=== PATIENT | male | born 1965 | race Caucasian/White ===

== ENCOUNTER → 2023-11-15 | Outpatient (CLI) | payer OTHER, SELFPAY ==
--- NOTE | 2023-11-17 13:45 | EKG12_ITS ---
Test Reason : PRE OP Blood Pressure : / mmHG Vent. Rate : 069 BPM Atrial Rate : 069 BPM P-R Int : 154 ms QRS Dur : 088 ms QT Int : 400 ms P-R-T Axes : 052 026 007 degrees QTc Int : 428 ms Normal sinus rhythm Normal ECG Confirmed by Abdias Crook ([id number]), movie editor BRENDA DUBOIS ([id number]) on 11/21/2023 2:01:45 PM Referred By: Alexi Armendariz Confirmed By:Abdias Crook
[2023-11-17 15:58] LABS: Hematocrit 45.4 % (40-54); Hemoglobin 13.8 g/dL (13.0-16.5); Mean Corp Hgb Conc 30.4 g/dL (32-36); Mean Corpuscular Hgb 25.2 pg (27.0-32.0); Mean Corpuscular Volume 82.8 fL (80-94); Mean Platelet Vol. 12.9 fl (6.2-12.0); Platelet Count 234 K/mm3 (150-450); RBC Distribution Width CV 14.9 % (11.6-14.6); RBC Distribution Width SD 45.1 fl (35.1-43.9); Red Blood Count 5.48 M/mm3 (4.6-6.2); White Blood Count 5.1 K/mm3 (4.4-11.0)
[2023-11-17 16:44] LABS: Anion Gap 5 (5-15); BUN 17 mg/dL (7-18); BUN/Creat Ratio 13.3 RATIO (10-20); Calcium,Total 8.7 mg/dL (8.5-10.1); Chloride 104 mmol/L (98-107); Creatinine, Serum 1.28 mg/dL (0.70-1.30); EST Glomerular Filtration Rate 61 mL/min (>60); Est Glom Filt Rate - Afr Amer 74 mL/min (>60); Glucose 81 mg/dL (74-106); Sodium Level 139 mmol/L (136-145); T4 Total, Thyroxin 9.2 ug/dL (4.5-12.1); Thyroid Stim Hormone (TSH) 0.95 uIU/mL (0.358-3.74)
== END | disposition home or self-care (01) ==
LOC: SDC 05-02 08:50
PROVIDERS: PCP Family Medicine; Referring Provider Surgery; Visit Provider Surgery
DX: Z01.818 Encounter for other preprocedural examination (principal)
CPT/HCPCS: 36415; 80048; 84436; 84443; 85027; 93005

== ENCOUNTER → 2023-12-09 | Outpatient (CLI) | payer OTHER, SELFPAY ==
--- NOTE | 2023-12-09 07:47 | RAD_ITS ---
PROCEDURE: Air contrast Upper GI with Small Bowel Follow Through DATE OF EXAMINATION: December 09, 2023.. INDICATION: Male, 58 years old. History of proximal small bowel mass on recent CT scan. FLUOROSCOPY TIME (if supplied): (1:32) minutes/seconds. 37.16 mGy. 13 images were obtained. TECHNIQUE: Radiographic and fluoroscopic images of the distal esophagus, stomach, and entire small intestine were obtained following the oral ingestion of barium. COMPARISON: None. FINDINGS: The cricket coach film of the abdomen demonstrates a normal bowel gas pattern. There are no abnormal calcifications or organomegaly demonstrated. There is evidence of prior open reduction and internal fixation of bilateral rib fractures. The esophagus is unremarkable. No evidence of esophageal mass. No evidence of gastroesophageal reflux. The stomach and duodenum are unremarkable. A small bowel follow-through examination was then obtained. There is evidence of circumferential narrowing of the small bowel loop in the right mid abdomen at the level of the jejunum. This corresponds to the CT findings. The terminal ileum is unremarkable. The transit time is normal at 60 minutes. RAD/Upper GI/w Small Bowel IMPRESSION: 1. Circumferential narrowing of a small bowel loop in the right mid abdomen corresponding to the CT findings. No evidence of obstruction. Electronically Signed: Nik Gutiérrez MD at 10:11 EDT ,
== END | disposition home or self-care (01) ==
PROVIDERS: PCP Family Medicine; Referring Provider Surgery; Visit Provider Surgery
DX: K63.89 Other specified diseases of intestine (principal)
CPT/HCPCS: 74246; 74248

== ENCOUNTER 2023-12-12 13:21 | Day surgery (SDC) | payer OTHER, SELFPAY ==
[2023-12-12] VITALS (8 sets, daily range): BP systolic 80–119; BP diastolic 38–74; PULSE 60–73; RESP 8–16; TEMP 36.2–36.9; O2SAT 64–96; BMI 30.9
[2023-12-12] MEDS: Lactated Ringers 1,000 ML 15 ML IV (14:19)
--- NOTE | 2023-12-12 14:39 | PCM.HP.BLA ---
History and Physical Date of Admission: 12/12/23 isit Reasons: MESENTERIC MASS Chief Complaint: mesenteric mass Protection Manager Required: No Accompanied by: Is patient in pain?: No Allergies No Known Allergies Allergy (Verified 12/05/23 12:39) Medications cyclobenzaprine 10 mg tablet 10 mg PO HS PRN muscle spasm 10/03/23 [History Confirmed 12/05/23] dicyclomine 10 mg capsule 10 mg PO BID PRN abdominal pain 10/03/23 [History Confirmed 12/05/23] losartan 100 mg tablet 100 mg PO DAILY 10/03/23 [History Confirmed 12/05/23] omeprazole 40 mg capsule,delayed release 40 mg PO DAILY 10/03/23 [History Confirmed 12/05/23] pramipexole 0.5 mg tablet 0.5 mg PO QHS 10/03/23 [History Confirmed 12/05/23] FOR[facility] Medical History (Updated 12/05/23 @ 05:[address] Alexi Armendariz MD) GERD (gastroesophageal reflux disease) History of echocardiogram History of rib fracture History of ulceration Hypertension Non-smoker Restless legs Right thyroid nodule Thyroid disease Wears glasses Surgical History H/O colonoscopy Family History Sister Thyroid disorder Social History Smoking Status: Never smoker alcohol intake: never substance use type: does not use HPI HPI HPI: 58-year-old gentleman who was initially referred to me October 03, 2023 for progressive enlarging right thyroid nodule. After discussion we elected to do a right thyroid lobectomy. He was actually on the schedule but I had to cancel at my request. Almost simultaneously then we were notified per Dr. Satya Clemens and Dr. Humberto Peguero regarding a new referral for patient's chronic abdominal pain. At [facility] the patient had a CT abdomen pelvis performed on November 19, 2023 because of left lower quadrant abdominal pain and bloating. The images demonstrate a large left renal cyst in the lower pole measuring 12 cm. Additionally however there is a mesenteric mass adjacent to a loop of small bowel measuring 2.6 cm in diameter. Margins are irregular and there is stranding present. This impinges upon the right side of an adjacent loop of small bowel. A 7 mm mesenteric lymph node slightly cephalad to the mass is identified. No free fluid. An additional there is a sizable fat-containing umbilical hernia. There is a left inguinal hernia. An ultrasound report from March 18, 2021 at that time identified a large left renal cyst measuring 10.3 x 8.2 x 10 cm at that time. Information provided suggest that 2018 he got sick on vacation with nausea and vomiting. He claims that every few months since that time he had some cramps and abdominal pain. His chest trauma was 3 years ago and at that time CT did not demonstrate the mesenteric mass. He claims that he had an episode over of 2022 and then again about 6 weeks ago. He gets cramping in the abdomen and nausea. He has been prescribed dicyclomine to help with the cramping. He has had no weight loss. No bright red blood per rectum or melena. No fever, chills, sweats, flushing, tachycardia, dizziness, or diarrhea He has undergone allergy testing which by report was not remarkable. 24-hour urine is pending. He had a EGD and C-scope back in 2009. His serotonin level is elevated 1250. 5HIAA was high at 28. ROS General General: Yes fatigue; No weight change, appetite, colon cancer, breast cancer or weakness HEENT HEENT: No difficulty swallowing, eye injury, eye surgery, swollen glands or hoarseness Endo Endocrine: Yes thyroid disease; No diabetes mellitus, thyroid cancer, Hair loss, heat intolerance or cold intolerance Skin Skin: No rash or changing moles Musc Musculoskeletal: No back problems, arthritis, rheumatoid arthritis, gout or joint pain Cardio Cardiovascular: Yes high blood pressure; No murmur, pacemaker, heart disease, atrial fibrillation, heart attack, heart stent, palpitations, shortness of breat with exertion or chest pain Psych Psychiatric: No depression, anxiety or hearing voices Resp Respiratory: No shortness of breath, No sleep apnea, No cough, No COPD, No asthma, No emphysema and No wheezing Gastro Gastrointestinal: Yes abdominal pain, Yes nausea or vomiting, Yes diarrhea and Yes acid reflux Aramis Hematologic: No blood thinners, No blood disorders, No bleeding, No anemia and No blood clots Neuro Neurologic: No numbness, No tingling and No weakness Exam Const General: cooperative, healthy appearing, comfortable and no acute distress Nutritional Appearance: average body habitus Orientation: alert and awake HENMT Other: Right thyroid enlargement Neck Neck: normal visual inspection Chest Chest palpation & inspection: normal inspection of the chest Resp Effort & Inspection: normal respiratory effort Auscultation: clear to auscultation bilaterally Cardio Rate: regular rate Rhythm: regular rhythm GI Other: Soft, nontender, incarcerated umbilical hernia not reducible nontender, no focal mass. Bowel sounds present unremarkable. Other: Testicles are atrophic and descended. Left inguinal hernia nontender reducible. Right groin seemingly solid. Musc Cervical Spine: normal cervical lordosis Skin General: no rashes or lesions noted Neuro General: patient alert, patient awake and patient oriented x3 Extrem General: no calf tenderness Psych Appearance: grossly normal Assessment and Plan Assessment and Plan (1) Mesenteric mass: Status: Acute (2) GERD (gastroesophageal reflux disease): Status: Acute Qualifiers: Esophagitis presence: esophagitis presence not specified Qualified Code(s): K21.9 - Gastro-esophageal reflux disease without esophagitis (3) Right thyroid nodule: Status: Acute (4) Umbilical hernia without obstruction or gangrene: Status: Acute (5) Inguinal hernia of left side without obstruction or gangrene: Status: Acute (6) Renal cyst, acquired, left: Status: Acute Plan: Laboratory suggest neuroendocrine tumor. I propose for him a combined esophagogastroduodenoscopy and colonoscopy with possible biopsy or polypectomy. Recommend a small bowel follow-through to assess for other small bowel pathology. Subsequently will have him scheduled for a laparoscopy to help to find the position of the lesion within conversion to a laparotomy for enterectomy with excision of the mass and hopefully lymph node burden. Patient is aware that that same setting it is likely that his incarcerated umbilical hernia will need to be addressed however we will not utilize mesh. We will not be addressing his left inguinal hernia at that time nor his right thyroid nodule. With the duration of time that he has had his very large left renal cyst does not appear that that is adding to his current discomfort. He is aware of technique, benefit, risk, alternatives. He has an opportunity to ask and have questions answered. I very much appreciate the kind opportunity of assisting with the surgical care. Copy: Dr. Satya Clemens and Dr. Humberto Armendariz M.D., F.A.C.S. On December 09, 2023 the patient had a small bowel follow-through. There is evidence of ORIF bilateral rib fractures. Stomach and duodenum not remarkable. There is evidence of circumferential narrowing of the small bowel loop in the right mid abdomen at the level of the jejunum. Transit time was 60 minutes. We will proceed today with a combined esophagogastroduodenoscopy with possible biopsy and colonoscopy with possible biopsy or polypectomy Alexi Armendariz M.D., F.A.C.S.
--- NOTE | 2023-12-12 15:00 | EGD_PTH ---
PATIENT: LYNDA WOODARD LOC: EN U#:[id number] AGE/SX: 58/M ROOM: RE12/12/[address]: Dr. Alexi Armendariz MD : 1965 BED: DIS: 12/12/2023 SPEC #: [id number] RECD: 12/12/23 15:40 STATUS: EDMUND PUCKETTDavid #: [id number] MARLA: 12/12/23 15:[address]: Alexi Armendariz DEPT: SURGICAL PATHOLOGY RECD BY: Mel Lindsey ENTERED: 12/13/23 08:39 SP TYPE: EGD BIOPSY OT DR: Dr. Satya Clemens MD Tissues: A - Gastric mucous membrane B - Esophagus, NOS C - Esophagus, NOS D - Ileum, NOS E - Descending colon Procedures: Special Stain Group II Surgery Specimen Level IV Alcian Blue/PAS (control) HEADER OPERATION: Colonoscopy, EGD, biopsies PRE-OP DIAGNOSIS: Mesenteric mass, GERD TISSUE SUBMITTED: A- Antral biopsy, B- Greater curvature polyp biopsy, C- Distal esophagus biopsy, D- Terminal ileum biopsy, E- Descending colon polyp biopsy MICROSCOPIC DIAGNOSIS A. Antrum biopsy: Mild gastritis. See microscopic description and comment. B. Greater curvature polyp, biopsy: Fragments of fundic gland polyp. C. Distal esophagus, biopsy: Fragments of gastroesophageal mucosa with chronic inflammation. Intestinal metaplasia (goblet cell metaplasia) not identified. See comment. D. Terminal ileum, biopsy: Fragments of small intestinal mucosa, no pathologic diagnosis. E. Descending colon polyp, biopsy: A fragment of colonic mucosa, no pathologic diagnosis. SJ/mr 12/14/23 COMMENT A. The results of immunohistochemistry for Helicobacter pylori will be reported separately ([id number]). C. Alcian blue/PAS stain with matched control is used in the evaluation of the specimen. The specimen predominantly consists of squamous mucosa. MICROSCOPIC DESCRIPTION Slides are reviewed. A. The specimen shows fragments of gastric mucosa with chronic inflammatory cell infiltrates in the lamina propria consisting of lymphocytes and plasma cells, consistent with mild chronic gastritis. GROSS DESCRIPTION A. Received in fixative is one container labeled with the patient's name and designated Antrum biopsy. The specimen consists of one irregular fragment of light shell soft tissue that measures 0.3 x 0.3 x 0.1 cm. The specimen is totally submitted in one cassette. B. Received in fixative is one container labeled with the patient's name and designated Greater curvature polyp biopsy. The specimen consists of two irregular fragments of light shell soft tissue that in aggregate measure 0.8 x 0.3 x 0.1 cm. The specimen is totally submitted in one cassette. C. Received in fixative is one container labeled with the patient's name and designated Distal esophagus biopsy. The specimen consists of multiple irregular fragments of light shell soft tissue that in aggregate measure 1.0 x 0.3 x 0.1 cm. The specimen is totally submitted in one cassette. D. Received in fixative is one container labeled with the patient's name and designated Terminal ileum biopsy. The specimen consists of two irregular fragments of light shell soft tissue that in aggregate measure 0.6 x 0.3 x 0.1 cm. The specimen is totally submitted in one cassette. E. Received in fixative is one container labeled with the patient's name and designated Descending colon polyp biopsy. The specimen consists of one irregular fragment of light shell soft tissue that measures 0.2 x 0.2 x 0.1 cm. The specimen is totally submitted in one cassette. FALLON/ 12/13/23 TC:3 CPT: 07654 x5, 57641
--- NOTE | 2023-12-12 15:00 | IMM_PTH ---
PATIENT: LYNDA WOODARD LOC: EN U#:[id number] AGE/SX: 58/M ROOM: RE12/12/[address]: Dr. Alexi Armendariz MD : 1965 BED: DIS: 12/12/2023 SPEC #: [id number] RECD: 12/13/23 08:55 STATUS: EDMUND REDavid #: [id number] MARLA: 12/12/23 15:[address]: Alexi Armendariz DEPT: IMMUNOHISTOCHEMISTRY RECD BY: Alli Gil ENTERED: 12/13/23 08:55 SP TYPE: IMMUNO OTHR DR: Dr. Satya Clemens MD Tissues: A - Stomach, NOS Procedures: H Pylori (initial) PHYSICIAN & INSTITUTION [place] [id number] SPECIMEN INFORMATION: Tissue Source: A- Antral biopsy Clinical Info: Mesenteric mass, GERD Specimen Number: [id number] CPT code: 26517 METHODOLOGY: Deparaffinized sections of prefer/formalin-fixed tissue or PAP/DQ stained slides are incubated with monoclonal/polyclonal antibodies/oligonucleotide probes. Localization is made via biotin free immunoperoxidase method. Appropriate controls are performed and reacted as expected. Results on target cell population are indicated in the following table: RESULTS: ANTIBODY / CLONE RESULT Block A H Pylori (polyclonal) negative These tests were developed and their performance characteristics determined by [facility]. They may not have been cleared or approved by the U.S. Food and Drug Administration. The FDA has determined that such clearance or approval is not necessary. The above immunohistochemical/dualISH markers are ordered and reviewed by the Pathologist. INTERPRETATION: A. Antral biopsy: Negative for Helicobacter pylori organisms. FALLON/ 12/14/23
--- NOTE | 2023-12-12 15:31 | OP.EGD_ITS ---
Patient Name: James Varela Procedure Date: 12/12/2023 2:51 PM Date of : 1965 Age: 58 Procedure: Upper GI endoscopy Indications: Generalized abdominal pain Providers: Alexi Armendariz MD Referring MD: Satya Clemens Md Medicines: See the Anesthesia note for documentation of the administered medications Complications: No immediate complications. Procedure: Pre-Anesthesia Assessment: - Prior to the procedure, a History and Physical was performed, and patient medications and allergies were reviewed. The patient's tolerance of previous anesthesia was also reviewed. The risks and benefits of the procedure and the sedation options and risks were discussed with the patient. All questions were answered, and informed consent was obtained. Prior Anticoagulants: The patient has taken no anticoagulant or antiplatelet agents. ASA Grade Assessment: II - A patient with mild systemic disease. After reviewing the risks and benefits, the patient was deemed in satisfactory condition to undergo the procedure. After obtaining informed consent, the endoscope was passed under direct vision. Throughout the procedure, the patient's blood pressure, pulse, and oxygen saturations were monitored continuously. The gastroscope was introduced through the mouth, and advanced to the second part of duodenum. The upper GI endoscopy was accomplished without difficulty. The patient tolerated the procedure well. Scope In: 2:59:19 PM Scope Out: 3:07:29 PM Total Procedure Duration Time 0 hours 8 minutes 10 seconds Findings: LA Grade A (one or more mucosal breaks less than 5 mm, not extending between tops of 2 mucosal folds) esophagitis with no bleeding was found 39 cm from the incisors. Biopsies were taken with a cold forceps for histology. A 2 cm hiatal hernia was present. The gastric antrum was normal. Biopsies were taken with a cold forceps for histology. Multiple sessile polyps with no bleeding and no stigmata of recent bleeding were found on the greater curvature of the stomach. The polyp was removed with a cold biopsy forceps. Resection and retrieval were complete. The examined duodenum was normal. Impression: - LA Grade A reflux esophagitis with no bleeding. Biopsied. - 2 cm hiatal hernia. - Normal antrum. Biopsied. - Multiple gastric polyps. Resected and retrieved. - Normal examined duodenum. Recommendation: - Telephone my office for pathology results in 1 week. - Continue present medications. Procedure Code(s): --- Professional --- 61999, Esophagogastroduodenoscopy, flexible, transoral; with biopsy, single or multiple Diagnosis Code(s): --- Professional --- K21.00, Gastro-esophageal reflux disease with esophagitis, without bleeding K44.9, Diaphragmatic hernia without obstruction or gangrene K31.7, Polyp of stomach and duodenum R10.84, Generalized abdominal pain CPT copyright 2021 [employer]. All rights reserved. The codes documented in this report are preliminary and upon pre coder review may be revised to meet current compliance requirements. Alexi Armendariz MD 12/12/2023 3:30:47 PM This report has been signed electronically. Number of Addenda: 0 Note Initiated On: 12/12/2023 2:51 PM
--- NOTE | 2023-12-12 15:31 | OP.CCLET_ITS ---
12/12/2023 Satya Clemens Md Re : Upper GI endoscopy procedure for James Varela Dear Sarath This procedure was performed on Tuesday, December 12, 2023. My impressions and recommendations are as follows: Impressions : - LA Grade A reflux esophagitis with no bleeding. Biopsied. - 2 cm hiatal hernia. - Normal antrum. Biopsied. - Multiple gastric polyps. Resected and retrieved. - Normal examined duodenum. Recommendations : - Telephone my office for pathology results in 1 week. - Continue present medications. My findings are described in the full procedure note, which is enclosed. If I can be of further assistance, please feel free to contact me at Doctor phone number(s): Work: . Sincerely, Alexi Armendariz MD 12/12/2023 3:30:47 PM This report has been signed electronically.
--- NOTE | 2023-12-12 15:34 | OP.CCLET_ITS ---
12/12/2023 Satya Clemens Md Re : Colonoscopy procedure for James Varela Dear Sarath This procedure was performed on Tuesday, December 12, 2023. My impressions and recommendations are as follows: Impressions : - Hemorrhoids found on perianal exam. - One 3 mm polyp in the mid descending colon, removed with a cold biopsy forceps. Resected and retrieved. - The examined portion of the ileum was normal. Biopsied. - The examination was otherwise normal. Recommendations : - Discharge patient to home. - Resume previous diet. - Continue present medications. - Repeat colonoscopy in 5 years for surveillance based on pathology results. - Telephone my office for pathology results in 1 week. No findings that correlate with small bowel pathology. My findings are described in the full procedure note, which is enclosed. If I can be of further assistance, please feel free to contact me at Doctor phone number(s): Work: . Sincerely, Alexi Armendariz MD 12/12/2023 3:34:05 PM This report has been signed electronically.
--- NOTE | 2023-12-12 15:34 | OP.COLON_ITS ---
Patient Name: James Varela Procedure Date: 12/12/2023 3:08 PM Date of : 1965 Age: 58 Procedure: Colonoscopy Indications: Abnormal CT of the GI tract Providers: Alexi Armendariz MD Referring MD: Satya Clemens Md Medicines: See the Anesthesia note for documentation of the administered medications Patient Profile: Last Colonoscopy: none. The patient's first colonoscopy is today. Complications: No immediate complications. Procedure: Pre-Anesthesia Assessment: - Prior to the procedure, a History and Physical was performed, and patient medications and allergies were reviewed. The patient's tolerance of previous anesthesia was also reviewed. The risks and benefits of the procedure and the sedation options and risks were discussed with the patient. All questions were answered, and informed consent was obtained. Prior Anticoagulants: The patient has taken no anticoagulant or antiplatelet agents. ASA Grade Assessment: II - A patient with mild systemic disease. After reviewing the risks and benefits, the patient was deemed in satisfactory condition to undergo the procedure. After I obtained informed consent, the scope was passed under direct vision. Throughout the procedure, the patient's blood pressure, pulse, and oxygen saturations were monitored continuously. The Colonoscope was introduced through the anus and advanced to the cecum, identified by appendiceal orifice and ileocecal valve. The colonoscopy was performed without difficulty. The patient tolerated the procedure well. The quality of the bowel preparation was good. The terminal ileum, the ileocecal valve and the appendiceal orifice were photographed. Scope In: 3:09:59 PM Scope Withdrawal Time 0 hours 8 minutes 52 seconds Scope Out: 3:25:37 PM Total Procedure Duration Time 0 hours 15 minutes 38 seconds Findings: Hemorrhoids were found on perianal exam. The digital rectal exam was normal. Pertinent negatives include normal prostate (size, shape, and consistency). A 3 mm polyp was found in the mid descending colon. The polyp was sessile. The polyp was removed with a cold biopsy forceps. Resection and retrieval were complete. The terminal ileum appeared normal. Biopsies were taken with a cold forceps for histology. The exam was otherwise without abnormality. Impression: - Hemorrhoids found on perianal exam. - One 3 mm polyp in the mid descending colon, removed with a cold biopsy forceps. Resected and retrieved. - The examined portion of the ileum was normal. Biopsied. - The examination was otherwise normal. Recommendation: - Discharge patient to home. - Resume previous diet. - Continue present medications. - Repeat colonoscopy in 5 years for surveillance based on pathology results. - Telephone my office for pathology results in 1 week. No findings that correlate with small bowel pathology. Procedure Code(s): --- Professional --- 35227, Colonoscopy, flexible; with biopsy, single or multiple Diagnosis Code(s): --- Professional --- K64.9, Unspecified hemorrhoids D12.4, Benign neoplasm of descending colon R93.3, Abnormal findings on diagnostic imaging of other parts of digestive tract CPT copyright 2021 [employer]. All rights reserved. The codes documented in this report are preliminary and upon coder operator review may be revised to meet current compliance requirements. Alexi Armendariz MD 12/12/2023 3:34:05 PM This report has been signed electronically. Number of Addenda: 0 Note Initiated On: 12/12/2023 3:08 PM
== END 2023-12-12 16:39 | disposition home or self-care (01) ==
LOC: EN 13:26 → AC 13:26
PROVIDERS: PCP Family Medicine; Referring Provider Family Medicine; Visit Provider Surgery
PROC: 0DJD8ZZ Inspection of Lower Intestinal Tract, Via Natural or Artificial Opening Endoscopic (ICD-10-PCS; CPT 45378; principal; 2023-12-12 14:55)
DX: K29.70 Gastritis, unspecified, without bleeding (principal); R93.3 Abnormal findings on diagnostic imaging of other parts of digestive tract; K21.00 Gastro-esophageal reflux disease with esophagitis, without bleeding; K31.7 Polyp of stomach and duodenum; K40.90 Unilateral inguinal hernia, without obstruction or gangrene, not specified as recurrent; R10.84 Generalized abdominal pain; K44.9 Diaphragmatic hernia without obstruction or gangrene; K64.9 Unspecified hemorrhoids; I10 Essential (primary) hypertension; E04.1 Nontoxic single thyroid nodule; N28.1 Cyst of kidney, acquired; D12.4 Benign neoplasm of descending colon
CPT/HCPCS: 45380; 43239; 88305; 88313; 88342; J7120

== ENCOUNTER 2023-12-14 15:22 | Inpatient (IN) | payer OTHER, SELFPAY ==
[2023-12-14] VITALS (10 sets, daily range): BP systolic 127–149; BP diastolic 67–96; PULSE 54–70; RESP 14–18; TEMP 36.2–36.8; O2SAT 93–100; BMI 31.3; BMI 32.3
--- NOTE | 2023-12-14 | COL._PTH ---
PATIENT: LYNDA WOODARD LOC: MS3 U#:[id number] AGE/SX: 58/M ROOM: NM320 RE12/14/[address]: Dr. Alexi Armendariz MD : 1965 BED: 1 DIS: 12/16/2023 SPEC #: [id number] RECD: 12/14/23 09:54 STATUS: EDMUND MORENO #: [id number] MARLA: 12/14/23 00:[address]: Alexi Armendariz DEPT: SURGICAL PATHOLOGY RECD BY: Curt Mora ENTERED: 12/15/23 09:56 SP TYPE: COLON OTHR DR: MD Satya Laguna Tissues: A - HERNIA B - Colon, NOS Procedures: Surgery Specimen Level II Surgery Specimen Level HEADER OPERATION: Laparoscopic bilateral transabdominal plane block, small bowel PRE-OP DIAGNOSIS: Mesenteric mass, Umbilical hernia without obstruction or gangrene TISSUE SUBMITTED: A - Umbilical hernia sac and contents, B - Mesenteric mass MICROSCOPIC DIAGNOSIS A. Umbilical hernia sac and contents, herniorrhaphy: Fibrosis and mild chronic inflammation. B. Small bowel, segmental resection: Neuroendocrine carcinoma. See Synoptic Report Below. AM/mr 12/19/23 COMMENT B. Immunohistochemistry ([id number]) supports the above diagnosis. CARCINOMA OF SMALL INTESTINE SUMMARY (SYNOTIC REPORT) Procedure - Small bowel resection Tumor site - Small intestine, not otherwise specified and omentum (two tumors) Tumor size - 3.0cm in greatest dimension (mesenteric), additional dimension 2.0 x 1.5cm (small bowel) Tumor extent- Invades through muscularis propria into subserosal fat and focally to serosal surface Macroscopic tumor perforation- Not identified Lymphovascular invasion- Present Perineural invasion - Present. Margin status for Invasive Carcinoma: All mucosal margins are negative for invasive carcinoma. Radial margin/serosal margin is positive for carcinoma (Tumor perforates visceral peritoneum) Closest mucosal margin to invasive carcinoma (Unmarked mucosal margin) : 10.0cm Histologic grade - G1, well differentiated Number of lymph nodes with tumor: Four of total ten lymph nodes Regional lymph nodes - four of 10 lymph nodes positive for metastatic carcinoma. Additional Pathologic Findings - Not identified Special studies: Immunohistochemistry ([id number]) Comments - Two separate foci of tumor are present. One mass is present in the small bowel measuring 2.0cm in diameter and the other mass is located in the mesenteric tissue measuring 3.0cm in diameter and presumed to be a large tumor deposit or lymph node metastasis completely replaced by tumor. Clinical correlation is suggested. PATHOLOGIC STAGE: pT4 N2 Mx The above summary is in compliance with [employer] [place] [employer] (CAP) Cancer Protocols Checklist and [place] [employer] Joint Committee on Cancer (AJCC), Staging Manual, 7th Ed. Case has been reviewed in consultation with Dr. Arteaga who concurs with the above diagnosis. IDC:SJ MICROSCOPIC DESCRIPTION Slides are reviewed. GROSS DESCRIPTION A. Received in fixative is one container labeled with the patient's name and designated Umbilical hernia sac and content. The specimen consists of a piece of adipose tissue measuring 5.5 x 4.0 x 2.5 cm. Sections reveal yellow adipose cut surfaces. No obvious mass lesion is identified. B. Received in fixative is one container labeled with the patient's name and designated Mesenteric mass. The specimen consists of a segment of small intestine measuring 24.0cm in length. Both resection margins are stapled 10cm away from the one dissection margin there is a focal area of serosal thickening. The lumen contains a small amount of fecal material. 10 cm away from the one dissection margin, there is a indurated mass measuring 2.0 x 1.5 x 1.0 cm. This mass corresponds area of thickening. The serosa overlying the mass is inked black. Also present in the container is a donut-shaped piece of tissue measuring 2.5 x 1.0 x 0.5 cm. Attached mesentery fat is fixed in lymph node revealing solution. More dictation will follow after fixation. SJ/mr 12/15/23 Sections of the mesenteric tissue also reveals second nodular mass which appears to be entirely subserosal In location and may represent second mass versus largest lymph node and measures 3.0cm in greatest dimension. Sections of the mesenteric tissue reveal multiple nodules versus lymph nodes. Largest lymph node measures 2.0 cm in greatest dimension. Booster Station Operator sections are submitted as follows: 1 - Donut shaped piece of tissue, 2 - One resection margin, 3 - Opposite resection margin, 47??Nodular mass with overlying serosal thickening, 8-11 - Second mass versus large lymph node, 12??Booster Station Operator section of small intestine, 13 - One serially sectioned lymph node, 14 - One serially sectioned lymph node, 15 &16 - Multiple lymph nodes. SJ/mr 12/16/23 TC:0 CPT: 30460, 21207
--- NOTE | 2023-12-14 | IMM_PTH ---
PATIENT: LYNDA WOODARD LOC: MS3 U#:[id number] AGE/SX: 58/M ROOM: [facility] [place] RE12/14/[address]: Dr. Alexi Armendariz MD : 1965 BED: 1 DIS: 12/16/2023 SPEC #: [id number] RECD: 12/20/23 13:45 STATUS: SOUAshli REQ #: [id number] MARLA: 12/14/23 00:[address]: Alexi Armendariz DEPT: IMMUNOHISTOCHEMISTRY RECD BY: Alli Gil ENTERED: 12/20/23 13:48 SP TYPE: IMMUNO OTHR DR: Dr. Satya Clemens MD Tissues: B - Mesentery, NOS Procedures: Synapto (add) P53 (initial) MSH2 (add) MLH-1 (add) MSH6 (add) Anti-PMS2 (add) NAPSIN A (add) CD31 (add) CD56 (add) CEA (add) CHROMO (add) CK20 (add) CK7 (add) TTF1 (add) FACTOR VIII (add) Pankeratin (initial) NSE (add) KI-67 (initial) PHYSICIAN & INSTITUTION [place] [id number] SPECIMEN INFORMATION: Tissue Source: B. Mesenteric mass Clinical Info: Mesenteric mass, Umbilical hernia without obstruction or gangrene Specimen Number: [id number] CPT code: 34971,48862f44 METHODOLOGY: Deparaffinized sections of prefer/formalin-fixed tissue or PAP/DQ stained slides are incubated with monoclonal/polyclonal antibodies/oligonucleotide probes. Localization is made via biotin free immunoperoxidase method. Appropriate controls are performed and reacted as expected. Results on target cell population are indicated in the following table: RESULTS: ANTIBODY / CLONE RESULT Block B AE1-3 (AE1/AE3/PCK26) positive CK7 (OV-TL12/30) negative CK20 (KS20.8) negative CD31 (RICARDO/70A) positive Factor VIII (R Ag) positive CD34 (QBEnd-10) positive, vessel CD56 (123C3.D5) positive Chromo (LK2H10) positive Synapto (polyclonal) positive NSE Neuron Specific Enolase positive TTF-1 (8G7G3/1) negative Napsin A (Rabbit Polyclonal) negative CEA (11-7/TF-3HB-1) negative MLH1 (M1) positive MSH2 (25D12) positive, dim MSH6 (44) positive, dim PMS2 (USF5499) positive P53 (DO-7) negative, null pattern Ki-67 (30-9) positive, 1% These tests were developed and their performance characteristics determined by [facility]. They may not have been cleared or approved by the U.S. Food and Drug Administration. The FDA has determined that such clearance or approval is not necessary. The above immunohistochemical/dualISH markers are ordered and reviewed by the Pathologist. INTERPRETATION: B. Mesenteric mass: Neuroendocrine carcinoma, Grade 1. AM/mr 12/21/23 Case has been reviewed in consultation with Dr. Arteaga who concurs with the above diagnosis. IDC:SJ
--- NOTE | 2023-12-14 12:08 | PCM.HP.BLA ---
History and Physical Date of Admission: 12/14/23 isit Reasons: MESENTERIC MASS Chief Complaint: mesenteric mass Packing Machine Operator Required: No Accompanied by: Is patient in pain?: No Allergies No Known Allergies Allergy (Verified 12/05/23 12:39) Medications cyclobenzaprine 10 mg tablet 10 mg PO HS PRN muscle spasm 10/03/23 [History Confirmed 12/05/23] dicyclomine 10 mg capsule 10 mg PO BID PRN abdominal pain 10/03/23 [History Confirmed 12/05/23] losartan 100 mg tablet 100 mg PO DAILY 10/03/23 [History Confirmed 12/05/23] omeprazole 40 mg capsule,delayed release 40 mg PO DAILY 10/03/23 [History Confirmed 12/05/23] pramipexole 0.5 mg tablet 0.5 mg PO QHS 10/03/23 [History Confirmed 12/05/23] [facility] Medical History (Updated 12/05/23 @ 05:[address] Alexi Armendariz MD) GERD (gastroesophageal reflux disease) History of echocardiogram History of rib fracture History of ulceration Hypertension Non-smoker Restless legs Right thyroid nodule Thyroid disease Wears glasses Surgical History H/O colonoscopy Family History Sister Thyroid disorder Social History Smoking Status: Never smoker alcohol intake: never substance use type: does not use HPI HPI HPI: 58-year-old gentleman who was initially referred to me October 03, 2023 for progressive enlarging right thyroid nodule. After discussion we elected to do a right thyroid lobectomy. He was actually on the schedule but I had to cancel at my request. Almost simultaneously then we were notified per Dr. Satya Clemens and Dr. Humberto Peguero regarding a new referral for patient's chronic abdominal pain. At [facility] the patient had a CT abdomen pelvis performed on November 19, 2023 because of left lower quadrant abdominal pain and bloating. The images demonstrate a large left renal cyst in the lower pole measuring 12 cm. Additionally however there is a mesenteric mass adjacent to a loop of small bowel measuring 2.6 cm in diameter. Margins are irregular and there is stranding present. This impinges upon the right side of an adjacent loop of small bowel. A 7 mm mesenteric lymph node slightly cephalad to the mass is identified. No free fluid. An additional there is a sizable fat-containing umbilical hernia. There is a left inguinal hernia. An ultrasound report from March 18, 2021 at that time identified a large left renal cyst measuring 10.3 x 8.2 x 10 cm at that time. Information provided suggest that 2018 he got sick on vacation with nausea and vomiting. He claims that every few months since that time he had some cramps and abdominal pain. His chest trauma was 3 years ago and at that time CT did not demonstrate the mesenteric mass. He claims that he had an episode over of 2022 and then again about 6 weeks ago. He gets cramping in the abdomen and nausea. He has been prescribed dicyclomine to help with the cramping. He has had no weight loss. No bright red blood per rectum or melena. No fever, chills, sweats, flushing, tachycardia, dizziness, or diarrhea He has undergone allergy testing which by report was not remarkable. 24-hour urine is pending. He had a EGD and C-scope back in 2009. His serotonin level is elevated 1250. 5HIAA was high at 28. ROS General General: Yes fatigue; No weight change, appetite, colon cancer, breast cancer or weakness HEENT HEENT: No difficulty swallowing, eye injury, eye surgery, swollen glands or hoarseness Endo Endocrine: Yes thyroid disease; No diabetes mellitus, thyroid cancer, Hair loss, heat intolerance or cold intolerance Skin Skin: No rash or changing moles Musc Musculoskeletal: No back problems, arthritis, rheumatoid arthritis, gout or joint pain Cardio Cardiovascular: Yes high blood pressure; No murmur, pacemaker, heart disease, atrial fibrillation, heart attack, heart stent, palpitations, shortness of breat with exertion or chest pain Psych Psychiatric: No depression, anxiety or hearing voices Resp Respiratory: No shortness of breath, No sleep apnea, No cough, No COPD, No asthma, No emphysema and No wheezing Gastro Gastrointestinal: Yes abdominal pain, Yes nausea or vomiting, Yes diarrhea and Yes acid reflux Aramis Hematologic: No blood thinners, No blood disorders, No bleeding, No anemia and No blood clots Neuro Neurologic: No numbness, No tingling and No weakness Exam Const General: cooperative, healthy appearing, comfortable and no acute distress Nutritional Appearance: average body habitus Orientation: alert and awake HENMT Other: Right thyroid enlargement Neck Neck: normal visual inspection Chest Chest palpation & inspection: normal inspection of the chest Resp Effort & Inspection: normal respiratory effort Auscultation: clear to auscultation bilaterally Cardio Rate: regular rate Rhythm: regular rhythm GI Other: Soft, nontender, incarcerated umbilical hernia not reducible nontender, no focal mass. Bowel sounds present unremarkable. Other: Testicles are atrophic and descended. Left inguinal hernia nontender reducible. Right groin seemingly solid. Musc Cervical Spine: normal cervical lordosis Skin General: no rashes or lesions noted Neuro General: patient alert, patient awake and patient oriented x3 Extrem General: no calf tenderness Psych Appearance: grossly normal Assessment and Plan Assessment and Plan (1) Mesenteric mass: Status: Acute (2) GERD (gastroesophageal reflux disease): Status: Acute Qualifiers: Esophagitis presence: esophagitis presence not specified Qualified Code(s): K21.9 - Gastro-esophageal reflux disease without esophagitis (3) Right thyroid nodule: Status: Acute (4) Umbilical hernia without obstruction or gangrene: Status: Acute (5) Inguinal hernia of left side without obstruction or gangrene: Status: Acute (6) Renal cyst, acquired, left: Status: Acute Plan: Laboratory suggest neuroendocrine tumor. I propose for him a combined esophagogastroduodenoscopy and colonoscopy with possible biopsy or polypectomy. Recommend a small bowel follow-through to assess for other small bowel pathology. Subsequently will have him scheduled for a laparoscopy to help to find the position of the lesion within conversion to a laparotomy for enterectomy with excision of the mass and hopefully lymph node burden. Patient is aware that that same setting it is likely that his incarcerated umbilical hernia will need to be addressed however we will not utilize mesh. We will not be addressing his left inguinal hernia at that time nor his right thyroid nodule. With the duration of time that he has had his very large left renal cyst does not appear that that is adding to his current discomfort. He is aware of technique, benefit, risk, alternatives. He has an opportunity to ask and have questions answered. I very much appreciate the kind opportunity of assisting with the surgical care. Copy: Dr. Satya Clemens and Dr. Humberto Armendariz M.D., F.A.C.S. On December 09, 2023 the patient had a small bowel follow-through. There is evidence of ORIF bilateral rib fractures. Stomach and duodenum not remarkable. There is evidence of circumferential narrowing of the small bowel loop in the right mid abdomen at the level of the jejunum. Transit time was 60 minutes. On December 12, 2023 the patient had a esophagogastroduodenoscopy and colonoscopy. The upper endoscopy demonstrated a small hiatal hernia and reflux esophagitis. There was mild gastritis and multiple benign gastric fundic polyps. And terminal ileal biopsy normal The patient presents now for exploratory laparoscopy with anticipated laparoscopic assisted transverses abdominal plane block as well as anticipated either hand-assisted or open enterectomy with then subsequent primary suture repair of a large umbilical hernia. He has had an opportunity to ask and have questions answered. We will proceed as noted. Alexi Armendariz M.D., F.A.C.S.
--- NOTE | 2023-12-14 12:10 | DCINST_ITS ---
Discharge Instructions Procedure General Surgery Diet Discharge Diet: Light diet - advance as tolerated (if you have questions about your diet instructions, please talk to you doctor.) Activity Discharge Activity: May Not Drive (for 3-5 days or while taking narcotic pain medicine.) May shower in (days): 1 Lifting Restrictions: 10 pounds Dressing / Incision Call your doctor if your incision/area has: Continuous Slow Oozing, Sudden Increased Bleeding, Increased Pain/ Swelling, Increased Redness and Foul Smelling Discharge Call your doctor if you observe: Fever of 101 or Higher Suture Line Care: Avoid Pulling/Pushing and Avoid Pinching/Bending Additional Dressing/Incision Instructions:: Remove your plastic dressing and cotton ball on Tuesday, December 17. Remove sooner if there is any signs of progressive redness or if there is any blistering secondary to the dressing.. Leave steri-strips in place for 1 week. Follow Up Care Please Follow Up With: Alexi Armendariz MD When: Call [phone] to make an appointment to be seen in about 10 days. Test Results: Test results from this visit will be discussed in further detail at your follow- up appointment, if applicable. Discharge Plan Admission Admit Date/Time: 12/14/23 15:22 Primary Reason for Your Visit: Mesenteric mass/umbilical hernia Attending Provider: Alexi Armendariz Primary Care Provider: Satya Clemens Discharge Orders/Prescriptions Prescriptions: Continued omeprazole 40 mg capsule,delayed release(DR/EC) 40 mg PO QHS pramipexole 0.5 mg tablet 0.5 mg PO QHS losartan 100 mg tablet 100 mg PO QHS cyclobenzaprine 10 mg tablet 10 mg PO HS PRN (Reason: muscle spasm) dicyclomine 10 mg capsule 10 mg PO BID PRN (Reason: abdominal pain) Referrals / Follow Up: Satya Clemens MD [Primary Care Provider] - Disposition Disposition (needs filled in before D/C Order can be placed): Home, Self Care
[2023-12-14] MEDS: Lactated Ringers 1,000 ML 15 ML IV ×2 (12:20→15:15)
[2023-12-14] MEDS: Cefotetan 2 GM in 0.9% NS 100 ML IV (13:02)
[2023-12-14] MEDS: Bupivacaine 0.25% 30 ML Vial ×2 (14:48)
[2023-12-14] MEDS: BUPIVACAINE LIPOSOME/PF 20 ML VIAL OPERA.SITE (14:48)
[2023-12-14] MEDS: 0.9% Normal Saline (Pres. free 10 ML Vial (14:48)
--- NOTE | 2023-12-14 15:12 | OP.PCM_ITS ---
Report of Operation Date of Procedure: 12/14/23
--- NOTE | 2023-12-14 15:12 | PCM.OPRPT ---
Report of Operation Date of Procedure: 12/14/23
--- NOTE | 2023-12-14 15:17 | OP.PCM_ITS ---
Report of Operation Date of Procedure: 12/14/23 Pre-Operative Diagnosis: Mesenteric mass with partial obstruction of the small bowel Incarcerated umbilical hernia, 3.5 cm in diameter Post-Operative Diagnosis: Same Surgery/Procedure Performed:: Reduction of umbilical hernia with excision of incarcerated fibrofatty tissue. Laparoscopically guided bilateral transverses abdominal plane block, open small bowel enterectomy with primary repair Description of Surgical Findings:: Timeout informed consent was obtained. 58-year-old gentleman was taken to the operating placed on the table underwent general endotracheal anesthesia.. Cefotetan 2 g were given intravenously preoperatively. The abdomen sterilely prepped and draped. Ioban draping was used as well. A midline incision based upon the umbilicus skirting to the right of the umbilicus was created sharp dissection carried down through the subcutaneous tissues large incarcerated preperitoneal fibrofatty tissue noted within the hernia the base of the sac was identified and then with electrocautery was amputated. Sac and contents submitted as a specimen. I then placed in a sound catheter. Under laparoscopic control performed a bilateral transabdominal plane block utilizing 20 cc of Exparel mixed with 40 cc of 0.5% Marcaine diluted with saline to 100 cc. Having achieved that then I lengthen the midline wound and placed a wound protector. Hand exploration rapidly identified the mass in in the small bowel and this was pulled up into the wound for visualization. There appeared to be fixation of the small bowel to the mesentery adjacent to it and there was a distinct thickening of the mesentery to the root. The mesentery was transected tediously and carefully using an Enseal device down to the root of the mesentery where I secured the vasculature with several interrupted 0 Vicryl sutures. 75 mm stapler was used to transect the bowel proximally and distally. The ends were placed [id number] assisting with 4-0 silk sutures enterotomy created and a 75 mm stapler was used to create a functional end-to-end anastomosis in this [id number] fashion. A crotch suture of 4-0 nylon was placed. The enterotomies were closed with a TA 60 stapler. The mesentery was closed with a running 2-0 chromic. Where needed additional imbricating sutures of interrupted 4-0 silk were placed. The bowel appeared to be very healthy. There was a nice positioning of the anastomosis and complete closure of the mesentery. There has been no spillage. The bowel was placed back within the abdomen the greater omentum was placed overlying. Gloves and equipment was changed. The midline wound including the previous incarcerated medical hernia fascia was closed with multiple simple sutures of #1 Nurolon. The fascia was anesthetized with the local. Then the skin was appro ximated with some deep sutures of interrupted 4-0 Monocryl and then a running subicular 4-0 Monocryl. Steri-Strips cottonball Telfa OpSite dressing applied. Sponge and instrument and needle counts were reported to the surgeon to be correct. Specimen hernia sac with incarcerated contents and portion of small bowel with mesenteric/small bowel mass. Drains none. Blood loss minimal. The patient was taken to the recovery room in satisfactory addition with apparent complication Surgeon: Alexi Armendariz Type of Anesthesia: Block,Therapeutic and General Anesthesiologist: Keiry Banegas
--- NOTE | 2023-12-14 16:10 | NURSING ---
All documentation by director school of nursing, Axel Gaviria, reviewed by psychiatric nursing assistant, Arianna CHAU, RN.
[2023-12-14] MEDS: Ketorolac 15 MG/ML Vial IV (17:25)
[2023-12-14] MEDS: Lactated Ringers 1,000 ML 40 ML IV (17:26)
[2023-12-14] MEDS: Acetaminophen 500 MG Tablet 1000 MG PO (17:28)
[2023-12-14] MEDS: Pramipexole Di-HCl 0.5 MG Tablet PO (17:57)
[2023-12-14] MEDS: oxyCODONE 5 MG Tablet PO (18:30)
[2023-12-14] MEDS: Docusate Sodium 100 MG Capsule PO (21:11)
[2023-12-14] MEDS: Losartan Potassium 100 MG Tablet PO (21:11)
[2023-12-14] MEDS: Pantoprazole Sodium 40 MG Tablet PO (21:12)
[2023-12-14] MEDS: Ondansetron ODT 4 MG Tablet PO (21:56)
[2023-12-15] MEDS: Ketorolac 15 MG/ML Vial IV ×5 (00:28→23:58)
[2023-12-15] MEDS: Acetaminophen 500 MG Tablet 1000 MG PO ×4 (00:29→18:03)
[2023-12-15] MEDS: Cefotetan 1 GM in 0.9% Normal Saline (50mL MB+) 50 ML IV (00:29)
[2023-12-15 00:35] VITALS: BP 107/70; PULSE 58; RESP 16; TEMP 36.7; O2SAT 94
[2023-12-15] MEDS: 0.9% Saline Lock 10 ML Syringe IV ×4 (04:47→23:58)
[2023-12-15 04:59] VITALS: BP 93/52; PULSE 58; RESP 16; TEMP 36.5; O2SAT 96
--- NOTE | 2023-12-15 05:12 | NURSING ---
walked in samson with rn and procurement intern tolerated well, now in chair
--- NOTE | 2023-12-15 05:57 | PCM.PN.SRG ---
Subjective Subjective Patient is doing well. Some burping. No flatus. Pain at rest is only at a 1 or 2. He has been able to ambulate Objective Data Objective Data Vital Signs: Vital Signs Temp Pulse Resp BP Pulse Ox O2 Del Method O2 Flow Rate 97.7 F L 58 L 16 93/52 L 96 Room Air 3 12/15/23 04:59 12/15/23 04:59 12/15/23 04:59 12/15/23 04:59 12/15/23 04:59 12/15/23 04:59 12/14/23 17:00 Oxygen Flow Rate (L/min) 3 Oxygen Delivery Method Room Air Weight: 225 lb Body Mass Index (BMI) 32.3 Intake & Output: Intake and Output for Last 24 Hours 12/13/23 12/14/23 12/15/23 23:59 23:59 23:59 Intake Total 1953.25 / 2423.25 820 / 820 Output Total 500 / 800 600 / 600 Balance 1453.25 / 1623.25 220 / 220 Physical Exam Const oriented x3 and no apparent distress Resp normal respiratory effort GI GI Narrative: Soft, bowel sounds are present, distended, nontender Assessment & Plan Assessment/Plan (1) Mesenteric mass: (2) Umbilical hernia without obstruction or gangrene: PLAN: Plan Patient is doing quite well. He appears comfortable suggesting that the tap block is functioning well. I have encouraged ongoing use of the heating pad and frequent ambulation. We will hold it clear liquids as he is a little bit distended. Discharge planning pending his progress. Alexi Armendariz M.D., F.A.C.S.
[2023-12-15 07:14] LABS: Hemoglobin 12.4 g/dL (13.0-16.5); Mean Corpuscular Hgb 26.1 pg (27.0-32.0); Mean Platelet Vol. 12.7 fl (6.2-12.0); Platelet Count 184 K/mm3 (150-450); RBC Distribution Width CV 15.7 % (11.6-14.6); RBC Distribution Width SD 48.5 fl (35.1-43.9); Red Blood Count 4.76 M/mm3 (4.6-6.2); White Blood Count 8.4 K/mm3 (4.4-11.0)
[2023-12-15 08:15] VITALS: O2SAT 96
[2023-12-15 08:22] LABS: Anion Gap 7 (5-15); BUN 19 mg/dL (7-18); BUN/Creat Ratio 9.5 RATIO (10-20); Calcium,Total 8.1 mg/dL (8.5-10.1); Chloride 107 mmol/L (98-107); EST Glomerular Filtration Rate 36 mL/min (>60); Est Glom Filt Rate - Afr Amer 44 mL/min (>60); Estimated Creatinine Clearance 47.01 ml/min; Glucose 89 mg/dL (74-106); Potassium 3.7 mmol/L (3.5-5.1); Sodium Level 138 mmol/L (136-145)
[2023-12-15 08:58] VITALS: BP 109/65; PULSE 57; RESP 18; TEMP 36.7; O2SAT 97
[2023-12-15] MEDS: Docusate Sodium 100 MG Capsule PO ×2 (09:01→21:45)
[2023-12-15] MEDS: Ensure Plus High Protein 120 ML LIQUID PO ×2 (09:11→21:45)
--- NOTE | 2023-12-15 09:14 | NURSING ---
Pt sitting in chair, finished with breakfast. Pt states he passed a mod amt of flatus. This RN will inform Dr. Armendariz. Pt is now walking the samson without difficulty.
--- NOTE | 2023-12-15 10:02 | CASEMGMT ---
GREGORIA RANDOLPH Assessment: Face to Face with pt for initial transition planning/care coordination assessment. GREGORIA RANDOLPH introduced self and role at [facility], pt voices understanding and consents to assessment. Pt is A&O x4 and answers all questions appropriately at this time. Pt sitting up in chair with brother at bedside. Pt agreeable to assessment with brother present. Care providers, pharmacy, and demographics verified/updated. Admitting Dx: exploratory lap poss conversion PCP:Sarath Specialists:Marcello, ISAI Benavidez Pharmacy: [facility] Retail Insurance: MMO Prescription Benefit: yes LNOK: Genevieve Varela, ; Kelseajosef Humphrey dtr Living Arrangements: Pt lives in a single story home with 1-2 steps to enter. Pt reports he is I in ADL's and denies concerns at home. Transportation: Pt drives self and denies concerns with transportation. Pt is able to transport him until he is able to drive. DME:cane- doesn't use HHC/SNF: Denies hx of Pt states no concerns with going home at time of dc. Pt has been up ambulating in the halls indep without device. Pt states no further concerns/needs. CM to follow. Advised pt to ask CM if any further question/concerns/needs arise, voices understanding. Pt Goal: Home Plan: Home Sayda KINNEY CM
--- NOTE | 2023-12-15 13:38 | PCM.PN.SRG ---
Subjective Subjective Reported that patient was passing flatus. Diet was advanced to full liquids. The patient shows cream of wheat. Now feeling more bloated and distended. I have asked him to cut back to choosing clear liquids. Objective Data Objective Data Vital Signs: Vital Signs Temp Pulse Resp BP Pulse Ox O2 Del Method O2 Flow Rate 98.1 F 57 L 18 109/65 97 Room Air 3 12/15/23 08:58 12/15/23 08:58 12/15/23 08:58 12/15/23 08:58 12/15/23 08:58 12/15/23 08:58 12/14/23 17:00 Oxygen Flow Rate (L/min) 3 Oxygen Delivery Method Room Air Weight: 225 lb Body Mass Index (BMI) 32.3 Intake & Output: Intake and Output for Last 24 Hours 12/13/23 12/14/23 12/15/23 23:59 23:59 23:59 Intake Total 1953.25 / 2423.25 1438.67 / 1438.67 Output Total 500 / 800 600 / 600 Balance 1453.25 / 1623.25 838.67 / 838.67 Lab / Micro Data 12/15/23 06:54 12/15/23 06:54 Labs: Laboratory Results - last 24 hr 12/15/23 06:54: WBC 8.4, RBC 4.76, Hgb 12.4 L, Hct 40.0, MCV 84.0, MCH 26.1 L, MCHC 31.0 L, RDW Std Deviation 48.5 H, RDW Coeff of Bianka 15.7 H, Plt Count 184, MPV 12.7 H, Sodium 138, Potassium 3.7, Chloride 107, Carbon Dioxide 24.0, Anion Gap 7, BUN 19 H, Creatinine 2.00 H, Estim Creat Clear Calc 47.01, Est GFR (MDRD) Af Amer 44 L, Est GFR (MDRD) Non-Af 36 L, BUN/Creatinine Ratio 9.5 L, Glucose 89, Calcium 8.1 L Physical Exam GI GI Narrative: Soft, distended, not focally tender Assessment & Plan Assessment/Plan (1) Mesenteric mass: PLAN: I have vigorously encouraged the patient to ambulate and use a heating pad. Not ready for discharge at this time. Alexi Armendariz M.D., F.A.C.S.
[2023-12-15 15:00] VITALS: BP 121/76; PULSE 59; RESP 14; TEMP 36.8; O2SAT 95
[2023-12-15] MEDS: Pramipexole Di-HCl 0.5 MG Tablet PO (18:03)
[2023-12-15 21:00] VITALS: BP 146/97; PULSE 61; RESP 16; TEMP 36.8; O2SAT 97
[2023-12-15] MEDS: Pantoprazole Sodium 40 MG Tablet PO (21:45)
[2023-12-15] MEDS: Losartan Potassium 100 MG Tablet PO (21:45)
[2023-12-16 02:58] VITALS: BP 155/93; PULSE 65; RESP 16; TEMP 36.9; O2SAT 94
[2023-12-16] MEDS: Acetaminophen 500 MG Tablet 1000 MG PO ×2 (05:53→11:54)
--- NOTE | 2023-12-16 06:00 | PCM.PN.SRG ---
Subjective Subjective Nausea has resolved. Patient has been feeling sore at the midline incision. He claims that his bloated feeling has resolved. He is passing moderate amounts of flatus. Tolerated clear liquids for supper. Objective Data Objective Data Vital Signs: Vital Signs Temp Pulse Resp BP Pulse Ox O2 Del Method O2 Flow Rate 98.4 F 65 16 155/93 H 94 Room Air 3 12/16/23 02:58 12/16/23 02:58 12/16/23 02:58 12/16/23 02:58 12/16/23 02:58 12/16/23 02:58 12/14/23 17:00 Oxygen Flow Rate (L/min) 3 Oxygen Delivery Method Room Air Weight: 225 lb Body Mass Index (BMI) 32.3 Intake & Output: Intake and Output for Last 24 Hours 12/14/23 12/15/23 12/16/23 23:59 23:59 23:59 Intake Total 1953.25 / 2423.25 2098.67 / 2098.67 Output Total 500 / 800 600 / 600 Balance 1453.25 / 1623.25 1498.67 / 1498.67 Lab / Micro Data 12/15/23 06:54 12/15/23 06:54 Labs: Laboratory Results - last 24 hr 12/15/23 06:54: WBC 8.4, RBC 4.76, Hgb 12.4 L, Hct 40.0, MCV 84.0, MCH 26.1 L, MCHC 31.0 L, RDW Std Deviation 48.5 H, RDW Coeff of Bianka 15.7 H, Plt Count 184, MPV 12.7 H, Sodium 138, Potassium 3.7, Chloride 107, Carbon Dioxide 24.0, Anion Gap 7, BUN 19 H, Creatinine 2.00 H, Estim Creat Clear Calc 47.01, Est GFR (MDRD) Af Amer 44 L, Est GFR (MDRD) Non-Af 36 L, BUN/Creatinine Ratio 9.5 L, Glucose 89, Calcium 8.1 L Physical Exam GI GI Narrative: Soft, less distended, appropriately tender midline, dressing clean dry and intact, very minimal erythema at the dressing. Assessment & Plan Assessment/Plan (1) Mesenteric mass: (2) Umbilical hernia without obstruction or gangrene: PLAN: Plan Patient has made very nice progress. Passing flatus tolerating a liquid diet. He is ready for discharge. Office appointment follow-up 10 days. Pathology still pending. Alexi Armendariz M.D., F.A.C.S.
--- NOTE | 2023-12-16 06:01 | PCM.DC.SUM ---
Providers Date of Admission: 12/14/23 Primary Care Physician: Dr. Satya Clemens MD Reason For Visit: Exploratory laparoscopy poss conver Diagnosis Discharge Diagnosis (1) Mesenteric mass: Status: Acute Code(s): K63.89 - Other specified diseases of intestine (2) Umbilical hernia without obstruction or gangrene: Status: Acute Code(s): K42.9 - Umbilical hernia without obstruction or gangrene Plan Patient has made very nice progress. Passing flatus tolerating a liquid diet. He is ready for discharge. Office appointment follow-up 10 days. Pathology still pending. Alexi Armendariz M.D., F.A.C.S. Medications at Discharge Home Medications cyclobenzaprine 10 mg tablet 10 mg PO HS PRN muscle spasm 10/03/23 dicyclomine 10 mg capsule 10 mg PO BID PRN abdominal pain 10/03/23 losartan 100 mg tablet 100 mg PO QHS 10/03/23 omeprazole 40 mg capsule,delayed release 40 mg PO QHS 10/03/23 pramipexole 0.5 mg tablet 0.5 mg PO QHS 10/03/23 Hospital Course Operations - (Laparoscopy with laparoscopic bilateral transabdominal plane block and open small bowel enterectomy with primary anastomosis and umbilical herniorrhaphy) Summary of Care Provided Hospital Course: 58-year-old gentleman. He was admitted underwent laparoscopy expressly for bilateral transabdominal plane block. He has a large umbilical hernia midline incision was created and then the small bowel mesenteric mass in question was identified small bowel resection performed with primary anastomosis. Because of the enteric procedure the umbilical hernia repair was done with multiple simple sutures. The patient's postoperative course proceeded along an enhanced recovery program. He did well has made sufficient coverage allow for discharge. Weight / BMI Weight Weight: 225 lb Body Mass Index (BMI) 32.3 ABG / Lab / Microbiology Data 12/15/23 06:54 12/15/23 06:54 Laboratory: Laboratory Results - last 24 hr 12/15/23 06:54: WBC 8.4, RBC 4.76, Hgb 12.4 L, Hct 40.0, MCV 84.0, MCH 26.1 L, MCHC 31.0 L, RDW Std Deviation 48.5 H, RDW Coeff of Bianka 15.7 H, Plt Count 184, MPV 12.7 H, Sodium 138, Potassium 3.7, Chloride 107, Carbon Dioxide 24.0, Anion Gap 7, BUN 19 H, Creatinine 2.00 H, Estim Creat Clear Calc 47.01, Est GFR (MDRD) Af Amer 44 L, Est GFR (MDRD) Non-Af 36 L, BUN/Creatinine Ratio 9.5 L, Glucose 89, Calcium 8.1 L D/C Instructions Discharge Diet: Light diet - advance as tolerated (if you have questions about your diet instructions, please talk to you doctor.) May shower in (days): 1 Call your doctor if your incision/area has: Continuous Slow Oozing, Sudden Increased Bleeding, Increased Pain/ Swelling, Increased Redness and Foul Smelling Discharge Call your doctor if you observe: Fever of 101 or Higher Suture Line Care: Avoid Pulling/Pushing and Avoid Pinching/Bending Additional Dressing/Incision Instructions: Change or remove dressing in 4 days. Leave steri-strips in place for 1 week. Please Follow Up With: Alexi Armendariz MD When: Call [phone] to make an appointment to be seen in about 10 days. Meaningful Use Info Meaningful Use Diagnoses (Choose all that apply): None applicable Discharge Plan Admission Admit Date/Time: 12/14/23 15:22 Attending Provider: Alexi Armendariz Primary Care Provider: Satya Clemens Discharge Orders/Prescriptions Prescriptions: No Action omeprazole 40 mg capsule,delayed release(DR/EC) 40 mg PO QHS pramipexole 0.5 mg tablet 0.5 mg PO QHS losartan 100 mg tablet 100 mg PO QHS cyclobenzaprine 10 mg tablet 10 mg PO HS PRN (Reason: muscle spasm) dicyclomine 10 mg capsule 10 mg PO BID PRN (Reason: abdominal pain) Referrals / Follow Up: Satya Clemens MD [Primary Care Provider] -
--- NOTE | 2023-12-16 09:18 | CASEMGMT ---
Pt DC order placed. RN CM to pt room at this time and pt states that he still feels safe and comfortable Discharging home with no additional needs. Pt states that he has a ride set up. Pt denies further questions or concerns.
--- NOTE | 2023-12-16 09:59 | PHA.DC.MR.R ---
Pharmacy [place] Med Reconciliation Pharmacy Service has performed discharge medication reconciliation for this patient. The patient's discharge medication list was reviewed for discrepancies and discrepancies were resolved. Medications at Discharge Home Medications cyclobenzaprine 10 mg tablet 10 mg PO HS PRN muscle spasm 10/03/23 dicyclomine 10 mg capsule 10 mg PO BID PRN abdominal pain 10/03/23 losartan 100 mg tablet 100 mg PO QHS 10/03/23 omeprazole 40 mg capsule,delayed release 40 mg PO QHS 10/03/23 pramipexole 0.5 mg tablet 0.5 mg PO QHS 10/03/23
[2023-12-16 10:05] VITALS: BP 128/85; PULSE 66; RESP 18; TEMP 36.6; O2SAT 96
[2023-12-16] MEDS: Docusate Sodium 100 MG Capsule PO (10:12)
--- NOTE | 2023-12-16 11:48 | NURSING ---
This RN checked with Dr. Armendariz to make sure it was okay to discharge pt home as pt informed this RN that Dr. Armendariz said that he wanted to see how I did with breakfast. PT tolerated breakfast this morning without bloating and pain is controlled with tylenol.
[2023-12-16 15:30] VITALS: BP 148/92; PULSE 78; RESP 18; O2SAT 96
== END 2023-12-16 15:40 | disposition home or self-care (01) | DRG 828 ==
LOC: SDC 15:41 → MS3 15:41
PROVIDERS: Admitting Provider Surgery; PCP Family Medicine; Referring Provider Family Medicine; Visit Provider Surgery
PROC: 0WQF0ZZ Repair Abdominal Wall, Open Approach (ICD-10-PCS; CPT 49320; principal; 2023-12-14 13:30)
DX: D3A.8 Other benign neuroendocrine tumors (principal); E04.1 Nontoxic single thyroid nodule; I10 Essential (primary) hypertension; K40.90 Unilateral inguinal hernia, without obstruction or gangrene, not specified as recurrent; K21.9 Gastro-esophageal reflux disease without esophagitis; K42.9 Umbilical hernia without obstruction or gangrene; N28.1 Cyst of kidney, acquired
CPT/HCPCS: 36415; 80048; 85027; 88302; 88309; 88341; 88342; 94668; J7120; A4216; C1760; J2405; J3490

== ENCOUNTER 2024-03-05 05:18 | Day surgery (SDC) | payer OTHER, SELFPAY ==
[2024-02-28 14:58] LABS: Absolute Lymphocyte Count 1.33 X10^3/uL (0.83-4.51); Absolute Neutrophil Count 5.1 X10^3/uL (2.0-7.7); Basophil# 0.05 X10^3/uL; Basophil% 0.7 % (0-1); Eosinophil# 0.27 X10^3/uL; Eosinophils% 3.7 % (0-5); Hematocrit 43.4 % (40-54); Hemoglobin 13.6 g/dL (13.0-16.5); Lymphocyte # 1.33 X10^3/ul (0.83-4.51); Lymphocyte % 18.2 % (19-41); Mean Corp Hgb Conc 31.3 g/dL (32-36); Mean Corpuscular Hgb 27.1 pg (27.0-32.0); Mean Corpuscular Volume 86.5 fL (80-94); Mean Platelet Vol. 12.1 fl (6.2-12.0); Monocyte# 0.46 X10^3/uL; Monocyte% 6.3 % (0-10); NRBC Flagged by Analyzer 0 % (0-5); Neutrophil # 5.13 X10^3/uL (2.7-7.7); Neutrophil % 70.3 % (47-70); Platelet Count 245 K/mm3 (150-450); RBC Distribution Width CV 14.9 % (11.6-14.6); RBC Distribution Width SD 47.2 fl (35.1-43.9); Red Blood Count 5.02 M/mm3 (4.6-6.2); White Blood Count 7.3 K/mm3 (4.4-11.0)
[2024-02-28 15:23] LABS: Anion Gap 6 (5-15); BUN 17 mg/dL (7-18); BUN/Creat Ratio 14.3 RATIO (10-20); Calcium,Total 9.3 mg/dL (8.5-10.1); Chloride 107 mmol/L (98-107); Creatinine, Serum 1.19 mg/dL (0.70-1.30); EST Glomerular Filtration Rate 66 mL/min (>60); Est Glom Filt Rate - Afr Amer 80 mL/min (>60); Free T3 2.7 pg/mL (2.18-3.98); Glucose 99 mg/dL (74-106); Potassium 3.9 mmol/L (3.5-5.1); Sodium Level 139 mmol/L (136-145); T4 Total, Thyroxin 9.7 ug/dL (4.5-12.1); Thyroid Stim Hormone (TSH) 1.09 uIU/mL (0.358-3.74)
[2024-03-01 12:11] LABS: PSA, Total 1.4 ng/mL (0.0-4.0)
[2024-03-05] VITALS (11 sets, daily range): BP systolic 123–154; BP diastolic 79–95; PULSE 62–80; RESP 16–18; TEMP 36.3–36.8; O2SAT 92–100; BMI 31.6
--- NOTE | 2024-03-05 05:49 | PCM.HP.STD ---
[facility] - [facility] General Date of Admission: 03/05/24 Chief Complaint: Right thyroid nodule [facility] Narrative 58-year-old gentleman is being referred by Dr. Satya Clemens for surgical consultation regarding a thyroid nodule and written compromise surgical consult recommendations will be returned to him. The patient had a thyroid ultrasound performed on August 29, 2023. By report this was compared to a previous ultrasound performed August 20, 2022 and there was reference to a thyroid biopsy performed March 27, 2021. The right lobe measures 6.3 cm in length and has heterogenous echotexture. The left lobe measures 5.1 cm in length with more of homogeneous in nature. The right lobe is felt to have a 5 x 3.7 x 3 cm nodule whereas previously it had been 4.3 x 2.7 x 2.3 centimeters.. TI-RADS 3. Additional note is that no cervical adenopathy is felt to be appreciated. It is of note that ThyGeNEXT and ThyraMIR was obtained April 15, 2021 and his right thyroid nodule was felt to have a very low risk of malignancy. The cytology of March 17, 2021 suggested limited cellularity, follicular lesion of undetermined significance. The patient claims to be asymptomatic. He had incurred a crush injury at work which ended up with a CT demonstrating the nodule 2 years ago. He has had no head neck radiation treatment. No dysphagia no hoarseness. Family history notable for what sounds like a sister with Graves' disease. Review of system only detected that he is having some abdominal cramping which has been going on for 2 years and he has a referral pending to gastroenterology. With his crush injury he had multiple rib fractures on the left and has what sounds like fixation procedure performed. He denies any current cardiopulmonary limitations. Since the patient was seen in the office for this right thyroid nodule he ended up having a mesenteric mass identified. 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 He is on the treatment of Dr. Remy Ventura. Currently he is stable. He returns now to proceed with the right thyroid lobectomy. This is unknown related to his neuroendocrine tumor of the mesentery. [facility] Medical History Endocrine cancer Wears glasses Thyroid disease Restless legs History of ulceration GERD (gastroesophageal reflux disease) Non-smoker History of echocardiogram Hypertension History of rib fracture Right thyroid nodule Home Medications ?Medication ?Instructions ?Recorded ?Last Taken ?Type cyclobenzaprine 10 mg tablet 10 mg PO QHS PRN PRN muscle spasm 10/03/23 Unknown History losartan 100 mg tablet 100 mg PO QHS 10/03/23 12/13/23 History omeprazole 40 mg capsule,delayed 40 mg PO QHS 10/03/23 12/13/23 History release pramipexole 0.5 mg tablet 0.5 mg PO QHS 10/03/23 12/13/23 History Allergy/AdvReac Type Severity Reaction Status Date / Time No Known Allergies Allergy Verified 03/05/24 05:42 Family History Sister Thyroid disorder Diabetes Mother Afib PFO (patent foramen ovale) Aortic valve replaced Father Non-Hodgkin lymphoma Surgical History Hx of exploratory laparotomy History of umbilical hernia repair H/O colonoscopy Social History Smoking Status: Never smoker alcohol intake: never substance use type: does not use ROS Constitutional Constitutional: Reports systems reviewed and no addt'l complaints, except as documented Cardiovascular Cardiovascular: Denies chest pain Respiratory/Chest Respiratory/Chest: Denies shortness of breath at rest Gastrointestinal Gastrointestinal: Denies abdominal pain, change in bowel habits, hematochezia or melena Vital Signs Vital Signs Vital Signs: 03/05/24 05:45 03/05/24 05:45 Temperature 97.6 F L Temperature Source Temporal Pulse Rate 71 Respiratory Rate 16 Respiratory Pattern Normal Blood Pressure 154/87 H Blood Pressure Mean 109 Blood Pressure Source Monitor Blood Pressure Position Sitting Blood Pressure Location Left Arm Pulse Ox 97 Oxygen Delivery Method Room Air Weight Weight: 220 lb 3.869 oz Body Mass Index (BMI) 31.6 Physical Exam Const alert, oriented x3 and no apparent distress General Appearance: cooperative and comfortable Eyes General Eye: normal appearance of both eyes Chest inspection of chest normal Resp Effort and Inspection: able to speak in complete sentences and symmetric chest movement Auscultation: clear to auscultation bilaterally Cardio regular rate and regular rhythm GI soft to palpation, non-tender and non-distended Extremity no calf tenderness Neuro oriented x3 Psych thought process normal Results Lab / Micro Data 02/28/24 14:45 02/28/24 14:45 Assessment & Plan Assessment/Plan (1) Right thyroid nodule: PLAN: (1) Right thyroid nodule: Status: Acute Plan: With the patient's present we discussed the progressively enlarging right thyroid nodule. Although cytology and RNA analysis was negative it appears that perhaps the amount of tissue submitted was on the more minimal side. I personally inspected his neck with ultrasound. The left thyroid lobe is of completely normal texture. The right thyroid is completely encompassed by this mostly solid slightly cystic nodule with microcalcifications present. I propose for him a right thyroid lobectomy with isthmusectomy. In detail if discussed technique, benefit, risk, alternatives. We discussed potential risk injury to recurrent laryngeal nerve and parathyroids as well as additional other traditional operative risks. I did discuss possibly converting to a total thyroidectomy if there was obvious evidence of malignancy at the time of operation. I was very clear however that frozen section here at [facility] was not able to get provide me clean evidence within the short period of time. I offered the opportunity of repeat fine needle aspiration but with the documented continued growth of the nodule I do not believe that that is mandatory and that even if this nodule is benign that removal at this point would be pertinent. He has had an opportunity to ask and have questions answered. He would like to schedule and proceed as noted. I appreciate the opportunity of assisting with the surgical care The patient has done well from his small bowel resection. No complaints in that regard. He has had no symptom regarding his thyroid nodule. His general health remains constant. He presents today now for planned right thyroid lobectomy. A conversion to a total thyroidectomy would be considered if obvious malignancy is encountered. Copy: Dr. Satya Armendariz M.D., F.A.C.S
--- NOTE | 2024-03-05 05:54 | DCINST_ITS ---
Discharge Instructions Procedure General Surgery Diet Discharge Diet: Light diet - advance as tolerated (if you have questions about your diet instructions, please talk to you doctor.) Activity Discharge Activity: May Not Drive (for 3-5 days or while taking narcotic pain medicine.) May shower in (days): 1 Lifting Restrictions: 10 pounds Dressing / Incision Call your doctor if your incision/area has: Continuous Slow Oozing, Sudden Increased Bleeding, Increased Pain/ Swelling, Increased Redness and Foul Smelling Discharge Call your doctor if you observe: Fever of 101 or Higher Suture Line Care: Avoid Pulling/Pushing and Avoid Pinching/Bending Additional Dressing/Incision Instructions:: You may remove your neck dressing tomorrow and shower tomorrow. Pat the incision dry. Follow Up Care Please Follow Up With: Alexi Armendariz MD When: Call [phone] to make an appointment to be seen in about 10 days. Test Results: Test results from this visit will be discussed in further detail at your follow- up appointment, if applicable. Discharge Plan Admission Attending Provider: Alexi Armendariz Primary Care Provider: Satya Clemens Instructions Print Language: Cameroonian Discharge Orders/Prescriptions Prescriptions: No Action omeprazole 40 mg capsule,delayed release(DR/EC) 40 mg PO QHS pramipexole 0.5 mg tablet 0.5 mg PO QHS losartan 100 mg tablet 100 mg PO QHS cyclobenzaprine 10 mg tablet 10 mg PO QHS PRN PRN (Reason: muscle spasm) Referrals / Follow Up: Satya Clemens MD [Primary Care Provider] - Disposition Disposition (needs filled in before D/C Order can be placed): Home, Self Care
[2024-03-05] MEDS: Lactated Ringers 1,000 ML 15 ML IV (06:00)
--- NOTE | 2024-03-05 06:53 | PRE.ANES_ITS ---
ASA Classification* ASA Classification ASA Classification: 2 Assessment & Plan Anesthesia* Anesthesia Assessment Anesthesia Assessment: Discussed sedation and/or anesthesia options, risks, benefits, and alternatives with patient/parents/legal guardian/POA. Questions invited. The patient/parents/legal guardian/POA seems to understand and agrees to proceed with anesthesia plan. Reviewed the physical assessment, medical history, allergy history and patient home medications list prior to surgery/procedure/anesthetic and documented any changes. Performed airway and anesthesia risk assessments. 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 When Was Last Pacemaker Check QUESTION #4 FULL TEXT: You/Your Family Experience fever (hyperthermia) with Anesthesia Last Oral Intake Last Oral intake: Last Oral Intake NPO since 23:00 03/05/24 05:45 Meds taken in AM with sips of No 03/05/24 05:45 water? Meds patient instructed to take am of surgery PONV PONV - employment agency manager: PONV - employment agency manager Female No 02/29/24 08:25 HX of Motion Sickness Yes 02/29/24 08:25 HX of N/V After Surgery No 02/29/24 08:25 Non-Smoker Yes 02/29/24 08:25 Duration of Surgery greater Yes 02/29/24 08:25 than 60 minutes Number of Risk Factors 3 02/29/24 08:25 PONV Score Moderate Risk 02/29/24 08:25 Height & Weight Height & Weight: Anesthesia: Height & Weight Height 5 ft 10 in 03/05/24 05:45 Weight: 99.9 kg 03/05/24 05:45 Body Mass Index (BMI) 31.6 03/05/24 05:45 Respiratory Assessment Respiratory Assessment - employment agency manager: Respiratory Tract Infection Hx - employment agency manager Hx Respiratory Tract Infection No 02/29/24 08:25 STOP Sleep Apnea STOP Sleep Apnea - employment agency manager: STOP Sleep Apnea - employment agency manager Hx Hypertension Yes: CONTROLLED WITH MED 02/29/24 08:25 Hx Sleep Apnea No 02/29/24 08:25 CPAP BIPAP Do you snore loudly (louder Yes 02/29/24 08:25 than talking or can be heard Do you often feel tired/ No 02/29/24 08:25 fatigued/ sleepy during daytime? Has anyone observed you stop No 02/29/24 08:25 breathing during sleep? STOP Results Positive 02/29/24 08:25 QUESTION #5 FULL TEXT : Do you snore loudly (louder than talking or can be heard through closed doors)? Tobacco Use History Tobacco Use History - employment agency manager: Tobacco Use History - employment agency manager Tobacco Use Smoking Status Never smoker 02/29/24 08:25 Hx Tobacco Use No 02/29/24 08:25 Years Smoking Packs Smoked per Day Smoking Cessation Date was within the last 15 years Hx Smoking Cessation Date Hx Smoking Cessation Counseling Hematologic Medial History Hematologic Hx - employment agency manager: Hematologic Medical Hx - ap[employer] worker Hx of Blood Transfusion No 02/29/24 08:25 Hx of Transfusion in last 3 No 02/29/24 08:25 Months Date of Last Transfusion (if within last 3 months) Ever experience any problems No 02/29/24 08:25 with transfusion(s)? Specify any problems Hx of Preganancy in last 3 N/A 02/29/24 08:25 Months Nurse Filling Out Transfusion DSCHRIBER 02/29/24 08:25 & Questions: Date: 02/29/24 02/29/24 08:25 Time: 08:26 02/29/24 08:25 Patient unable to answer at this time (ie. confused, unrespo /Reproduction History /Reproductive History - employment agency manager: /Reproductive Hx- employment agency manager Hx Now No 02/29/24 08:25 Gestational Age (in weeks): EDC: Hx Hx Para Hx Section SAB No 02/29/24 08:25 Active Medications Active Medications: Current Medications Generic Name Dose Route Start Last Admin Trade Name Freq PRN Reason Stop Dose Admin Lactated Ringer's 1,000 mls @ 15 mls/hr 03/05/24 06:00 03/05/24 06:00 IV 15 mls/hr .Q48H DEBRA Administration Anesthesia Focused Assessment* Temperature: 97.6 F Pulse Rate: 71 Blood Pressure: 154/87 Respiratory Rate: 16 Pulse Ox: 97 Airway Assessment Mouth opens: >3 cm Mallampati Score: II Focused Labs Anesthesia Preop lab: CBC WBC 7.3 K/mm3 (4.4-11.0) 02/28/24 14:45 RBC 5.02 M/mm3 (4.6-6.2) 02/28/24 14:45 Hgb 13.6 g/dL (13.0-16.5) 02/28/24 14:45 Hct 43.4 % (40-54) 02/28/24 14:45 Plt Count 245 K/mm3 (150-450) 02/28/24 14:45 CHEMISTRY Potassium 3.9 mmol/L (3.5-5.1) 02/28/24 14:45 Sodium 139 mmol/L (136-145) 02/28/24 14:45 BUN 17 mg/dL (7-18) 02/28/24 14:45 Creatinine 1.19 mg/dL (0.70-1.30) 02/28/24 14:45 Glucose 99 mg/dL (74-106) 02/28/24 14:45 TSH 1.09 uIU/mL (0.358-3.74) 02/28/24 14:45 COAG Review of Systems (Anesthesia) ROS Narrative System reviewed and no additional complaints, except as documented. [facility] Medical History Endocrine cancer Wears glasses Thyroid disease Restless legs History of ulceration GERD (gastroesophageal reflux disease) Non-smoker History of echocardiogram Hypertension History of rib fracture Right thyroid nodule Home Medications ?Medication ?Instructions ?Recorded ?Last Taken ?Type cyclobenzaprine 10 mg tablet 10 mg PO QHS PRN PRN muscle spasm 10/03/23 Unknown History losartan 100 mg tablet 100 mg PO QHS 10/03/23 12/13/23 History omeprazole 40 mg capsule,delayed 40 mg PO QHS 10/03/23 12/13/23 History release pramipexole 0.5 mg tablet 0.5 mg PO QHS 10/03/23 12/13/23 History Allergy/AdvReac Type Severity Reaction Status Date / Time No Known Allergies Allergy Verified 03/05/24 05:42 Family History Sister Thyroid disorder Diabetes Mother Afib PFO (patent foramen ovale) Aortic valve replaced Father Non-Hodgkin lymphoma Surgical History Hx of exploratory laparotomy History of umbilical hernia repair H/O colonoscopy Social History Smoking Status: Never smoker alcohol intake: never substance use type: does not use
--- NOTE | 2024-03-05 07:30 | THYROID_PTH ---
PATIENT: LYNDA WOODARD LOC: [facility] [place] U#:[id number] AGE/SX: 58/M ROOM: RE03/05/[address]: Dr. Alexi Armendariz MD : 1965 BED: DIS: 03/05/2024 SPEC #: [id number] RECD: 03/05/24 10:49 STATUS: EDMUND MORENO #: [id number] MARLA: 03/05/24 07:[address]: Alexi Armendariz DEPT: SURGICAL PATHOLOGY RECD BY: Mel Lindsey ENTERED: 03/05/24 11:16 SP TYPE: THYROID OTHR DR: Dr. Satya Clemens MD Tissues: Thyroid gland, NOS Procedures: Surgery Specimen Level V HEADER OPERATION: Right thyroid lobectomy with isthmectomy PRE-OP DIAGNOSIS: Right thyroid nodule TISSUE SUBMITTED: Right thyroid lobe with isthmus, suture at anterior superior aspect of right lobe MICROSCOPIC DIAGNOSIS Right lobe and isthmus, lobectomy and isthmectomy: Follicular adenoma (5.5cm in greatest dimension). Multinodular goiter. / 03/08/2024 MICROSCOPIC DESCRIPTION Slides are reviewed. GROSS DESCRIPTION Received in fixative is one container labeled with the patient's name and designated Right thyroid lobe with isthmus. The specimen consists of right thyroid lobe and isthmus weighing 29.0gm. The thyroid lobe measures 6.0 x 4.5 x 3.0cm and isthmus measures 1.5 x 0.6 x 1.0cm. The specimen is inked as follows: anterior surface right thyroid lobe and isthmus- blue, posterior surface right thyroid lobe and isthmus-black, nodule, isthmic resection margin- yellow. Section of the right lobe reveal a large pink-hemorrhagic nodule occupying almost 90% of the thyroid lobe from superior to inferior portion of the lobe measuring 5.5 x 3.5 x 2.5cm. A thin capsule is noted surrounding the nodule. Sections of isthmus reveal unremarkable cut surfaces. Spring Former sections are submitted in 15 cassettes as follows: 1&2- isthmus, entirely submitted, 3 to 15- right thyroid lobe nodule, including entire capsule surrounding the nodule (cassette 3 contains the most superior portion and cassette 15 contains the most inferior portion of the thyroid lobe). Sections are submitted after additional fixation. More than 90% of the specimen is submitted. / 03/06/2024 TC:1 CPT:57753
[2024-03-05] MEDS: Bupivacaine Mpf 0.5% 30 ML VIAL (08:50)
--- NOTE | 2024-03-05 08:54 | PCM.OPRPT ---
Report of Operation Date of Procedure: 03/05/24 Pre-Operative Diagnosis: Right thyroid nodule Post-Operative Diagnosis: Same Surgery/Procedure Performed:: Right thyroid lobectomy with isthmusectomy Description of Surgical Findings:: Timeout informed consent was obtained. 58-year-old gentleman taken to the operating placed upon the table underwent general endotracheal ovation esthesia shoulder was placed the neck was gently extended clean procedure no antibiotics indicated the neck was sterilely prepped draped transverse suprasternal incision was created sharp dissection carried down through the subtenons tissue platysma flaps were raised strap muscles incised vertically small amount of the right strap muscle was taken with the scalpel this gave nice visualization of the right lobe palpation revealed that the left lobe felt quite normal of normal size and behavior the right lobe was notably enlarged. Initiated dissection superiorly freeing the gland somewhat with blunt dissection along scalpel dissection. Then switched to the inferior approach identified quickly inferior parathyroid preserved there is still was unable to elevate the inferior pole after taking the vessels. This was done with meticulous hemostatic mosquito dissection and harmonic scalpel was used for hemostasis. A single Hemoclip was placed to assist. Having mobilized the inferior pole and then readdress the right superior pole which I was much easier to identify. Dissection identified superior pole vessels with the patient. The right lobe which was encompassed in total by the nodule was then rotated anteriorly and careful dissection performed directly upon the posterior aspect of the gland. The scalpel dissection was performed for hemostasis the gland was nicely rotated anteriorly. Taken off the anterior surface of the trachea and then the isthmus the very medial portion of the left lobe was taken with harmonic scalpel. A silk suture was placed at that medial left lobe position and left this intact. A silk suture was placed in the anterior superior aspect of the submitted right pole. Both the inferior and superior parathyroids were identified on the right and carefully preserved. Course of the recurrent regional nerve was felt to be intact. Further dissection was not performed. Fibular was placed to assure hemostasis. The strap muscles were approximated interrupted 3-0 Vicryl. Subdermal tissues approximated with the same. Skin edges approximated with 5-0 Vicryl subdermal stitches. The ramin-incisional area excised with 20 cc of 0.5% Marcaine. Surgical glue applied followed by Telfa and tape dressing. Sponge and instrument and needle counts were reported the surgeon to be correct. Specimen right lobe with isthmus. Drains none. Blood loss very minimal. Alexi Armendariz M.D., F.A.C.S. Surgeon: Alexi Armendariz Type of Anesthesia: Epidural/Supplement and Local Anesthesiologist: Dion Beckett
--- NOTE | 2024-03-05 09:12 | PCM.POST.ANE ---
Anesthesia: Postop Eval I Current Vital Signs Temperature: 98.2 F Pulse Rate: 80 Blood Pressure: 123/88 Respiratory Rate: 16 Pulse Ox: 100 Oxygen Delivery Method: Simple Mask Oxygen Flow Rate (L/min): 6 Assessment Airway patent: Yes Spontaneous unlabored respirations: Yes Mental status: Awake and Calm nausea: No Vomiting: No Anesthesia Complication: No Fluid Hydration Crystalloid volume administer (ml): 1,000 Total IV fluid infused: 1,000 Progress Note Anesthesia document: Postop Eval 1 completed: Yes
[2024-03-05] MEDS: Acetaminophen 325 MG Tablet 650 MG PO (10:41)
--- NOTE | 2024-03-05 13:10 | POSTOPAN2_ITS ---
Anesthesia Postop Eval I Sum Postop Eval Completion status Anesthesia document: Postop Eval 1 completed: Yes Anesthesia Postop Eval I Summary Anesthesia Postop Eval I Summary: Anesthesia Postop Eval I: Assessment Summary Airway patent Yes 03/05/24 09:13 ACID [email or web address] Spontaneous unlabored Yes 03/05/24 09:13 ACID [email or web address] respirations Mental status Awake,Calm 03/05/24 09:13 ACID [email or web address].[email or web address] nausea No 03/05/24 09:13 ACID [email or web address].[email or web address] Vomiting No 03/05/24 09:13 ACID [email or web address] Anesthesia Postop Eval I: Fluid Summary Crystalloid volume administer 1,000 03/05/24 09:13 ACID [email or web address].[email or web address] (ml) Colloids volume administered ( ml) Blood Product volume administered (ml) Total IV fluid infused 1,000 03/05/24 09:13 ACID [email or web address] Anesthesia Postop Eval I: Summary Notes Anesthesia Complication No 03/05/24 09:13 ACID [email or web address] Anesthesia Complication Comment: Post-operative progress note Anesthesia: Postop Eval II Evaluation Mental status: Awake and Calm Pain Level: 1 nausea: No Vomiting: No Complications Anesthesia Complication: No
--- NOTE | 2024-03-05 13:10 | PCM.POSTANE2 ---
Anesthesia Postop Eval I Sum Postop Eval Completion status Anesthesia document: Postop Eval 1 completed: Yes Anesthesia Postop Eval I Summary Anesthesia Postop Eval I Summary: Anesthesia Postop Eval I: Assessment Summary Airway patent Yes 03/05/24 09:13 COMPUTER TERMINAL OPERATOR.[email or web address] Spontaneous unlabored Yes 03/05/24 09:13 COMPUTER TERMINAL OPERATOR.[email or web address] respirations Mental status Awake,Calm 03/05/24 09:13 COMPUTER TERMINAL OPERATOR.[email or web address] nausea No 03/05/24 09:13 COMPUTER TERMINAL OPERATOR.[email or web address] Vomiting No 03/05/24 09:13 COMPUTER TERMINAL OPERATOR.[email or web address] Anesthesia Postop Eval I: Fluid Summary Crystalloid volume administer 1,000 03/05/24 09:13 COMPUTER TERMINAL OPERATOR.[email or web address] (ml) Colloids volume administered ( ml) Blood Product volume administered (ml) Total IV fluid infused 1,000 03/05/24 09:13 COMPUTER TERMINAL OPERATOR.[email or web address] Anesthesia Postop Eval I: Summary Notes Anesthesia Complication No 03/05/24 09:13 COMPUTER TERMINAL OPERATOR.[email or web address] Anesthesia Complication Comment: Post-operative progress note Anesthesia: Postop Eval II Evaluation Mental status: Awake and Calm Pain Level: 1 nausea: No Vomiting: No Complications Anesthesia Complication: No
== END 2024-03-05 11:21 | disposition home or self-care (01) ==
LOC: SDC 05:18 → AC 05:19
PROVIDERS: Physician Assistant; PCP Family Medicine; Referring Provider Family Medicine; Visit Provider Surgery
PROC: (CPT 60220; principal; 2024-03-05 07:15)
DX: E04.1 Nontoxic single thyroid nodule (principal); C7A.8 Other malignant neuroendocrine tumors; D34 Benign neoplasm of thyroid gland; E04.2 Nontoxic multinodular goiter; I10 Essential (primary) hypertension; K21.9 Gastro-esophageal reflux disease without esophagitis; G25.81 Restless legs syndrome; R30.0 Dysuria; Z79.899 Other long term (current) drug therapy
CPT/HCPCS: 60220; 00320; 36415; 80048; 84153; 84436; 84443; 84481; 85025; 88307; A4648; J7120; J2405

== ENCOUNTER → 2024-04-17 | Outpatient (CLI) | payer OTHER, SELFPAY ==
[2024-04-17 16:12] LABS: Thyroid Stim Hormone (TSH) 2.87 uIU/mL (0.358-3.74)
== END | disposition home or self-care (01) ==
PROVIDERS: PCP Family Medicine; Referring Provider Physician Assistant; Visit Provider Physician Assistant
DX: E89.0 Postprocedural hypothyroidism (principal)
CPT/HCPCS: 36415; 84443

== ENCOUNTER → 2024-06-20 | Outpatient (CLI) | payer OTHER, SELFPAY ==
[2024-06-20 16:54] LABS: Absolute Lymphocyte Count 1.28 X10^3/uL (0.83-4.51); Absolute Neutrophil Count 6.4 X10^3/uL (2.0-7.7); Basophil# 0.05 X10^3/uL; Basophil% 0.6 % (0-1); Eosinophil# 0.27 X10^3/uL; Eosinophils% 3.2 % (0-5); Hematocrit 47.2 % (40-54); Hemoglobin 14.7 g/dL (13.0-16.5); Lymphocyte # 1.28 X10^3/ul (0.83-4.51); Mean Corp Hgb Conc 31.1 g/dL (32-36); Mean Corpuscular Hgb 26.7 pg (27.0-32.0); Mean Corpuscular Volume 85.8 fL (80-94); Mean Platelet Vol. 12.1 fl (6.2-12.0); Monocyte# 0.48 X10^3/uL; Monocyte% 5.6 % (0-10); NRBC Flagged by Analyzer 0 % (0-5); Neutrophil # 6.37 X10^3/uL (2.7-7.7); Neutrophil % 74.8 % (47-70); Platelet Count 250 K/mm3 (150-450); RBC Distribution Width CV 14.2 % (11.6-14.6); RBC Distribution Width SD 44.8 fl (35.1-43.9); White Blood Count 8.5 K/mm3 (4.4-11.0)
[2024-06-20 17:20] LABS: ALB/GLOB Ratio 1.1 RATIO (0.9-2.4); AST(SGOT) 25 U/L (15-37); Alanine Aminotransfer ALT/SGPT 25 U/L (16-61); Albumin, Serum 3.9 g/dL (3.2-5.0); Alkaline Phosphatase 95 U/L (45-117); Anion Gap 5 (5-15); BUN 16 mg/dL (7-18); BUN/Creat Ratio 12.9 RATIO (10-20); Chloride 105 mmol/L (98-107); Creatinine, Serum 1.24 mg/dL (0.70-1.30); EST Glomerular Filtration Rate 63 mL/min (>60); Est Glom Filt Rate - Afr Amer 76 mL/min (>60); Globulin 3.5 g/dL (2.2-4.2); Glucose 112 mg/dL (74-106); LDH 233 U/L (87-241); Potassium 3.8 mmol/L (3.5-5.1); Protein, Total 7.4 g/dL (6.4-8.2); Sodium Level 139 mmol/L (136-145)
[2024-06-21 00:30] LABS: Xtra Tube EP Lab EXTRA TUBE
[2024-06-27 14:54] LABS: Chromogranin A 250.7 ng/mL (0.0-101.8); Serotonin, Serum 614 ng/mL (23-230)
== END | disposition home or self-care (01) ==
LOC: LAB 16:27
PROVIDERS: PCP Family Medicine; Referring Provider Internal Medicine Medical Oncology; Visit Provider Internal Medicine Medical Oncology
DX: C7A.8 Other malignant neuroendocrine tumors (principal)
CPT/HCPCS: 36415; 80053; 83615; 84260; 85025; 86316

== ENCOUNTER → 2024-08-30 | Outpatient (CLI) | payer OTHER, SELFPAY ==
--- NOTE | 2024-08-30 08:21 | CT_ITS ---
STUDY: CT ABDOMEN AND PELVIS WITH CONTRAST REASON FOR EXAM: Male, 59 years old. NEUROENDOCRINE CARCINOMA. Prior partial small bowel resection. RADIATION DOSAGE (If Supplied By Facility): CTDIvol = ( 18 ) mGy, DLP = ( 1254.10 ) mGycm TECHNIQUE: Transaxial images were obtained from the dome of the diaphragm to the symphysis pubis without oral contrast. IV 100mL Isovue-370 was administered. Sagittal and coronal images were reconstructed. Individualized dose optimization techniques were used for this CT. COMPARISON: Comparison is made with prior outside examination dated November 19, 2023. FINDINGS: There is evidence of an 8.8 mm noncalcified nodule at the right lung base. Prior ORIF of lower left ribs. The visualized portions of the heart are within normal limits. There is decreased attenuation of the liver consistent with steatosis. Stable small atelectasis. Normal gallbladder and extrahepatic biliary system. Normal spleen. Normal pancreas. Normal bilateral adrenal glands. Stable bilateral renal cysts. Dominant cyst in the lower pole of the left kidney measuring 11.9 cm x 9 cm. There is a small hiatal hernia. Normal small intestine. The previously seen soft tissue mass in the right midabdomen within the small bowel is not seen at this time. Normal colon. The appendix is visualized and appears normal. Normal abdominal aorta. Normal inferior vena cava. Normal retroperitoneum. Normal urinary bladder. Small bilateral inguinal hernias containing fat more prominent on the left side. Normal osseous structures. CT/Abdomen/Pelvis WITH Contrast IMPRESSION: Status post partial resection of small bowel. New 8.8 mm nodule at the right lung base. Six-month follow-up recommended. Electronically Signed: Nik Gutiérrez MD at 13:49 EST ,
[2024-08-30 08:59] LABS: CREATININE FINGERSTICK < 1.0 mg/dL (0.70-1.30); EGFR FINGERSTICK > 60.0000 mL/min (>60)
== END | disposition home or self-care (01) ==
PROVIDERS: PCP Family Medicine; Referring Provider Internal Medicine Medical Oncology; Visit Provider Internal Medicine Medical Oncology
DX: Z01.812 Encounter for preprocedural laboratory examination (principal); C7A.8 Other malignant neuroendocrine tumors
CPT/HCPCS: 74177; Q9967

== ENCOUNTER → 2025-01-10 | Outpatient (CLI) | payer BC, SELFPAY ==
--- NOTE | 2025-01-10 16:50 | CT_ITS ---
PROCEDURE: CT CHEST, ABD, PEL W/CONTRAST, 01/10/2025 REASON FOR EXAM: LUNG NODULE/CARCONOID TUMOR-SMALL BOWEL-IV ONLY TECHNIQUE: CT chest, abdomen, and pelvis was performed with IV contrast. Multiplanar reformats were generated. CONTRAST: Isovue-300 VOLUME: 98mL RADIATION DOSE SUMMARY: CTDlvol: 15.2+ 19.07+ 24.68 mGy DLP: 2108.76 mGycm One or more dose reduction techniques were used (e.g., Automated exposure control, adjustment of the mA and/or kV according to patient size, use of iterative reconstruction technique). COMPARISON: CT abdomen and pelvis 08/30/2024 and prior. No previous CT chest is available. FINDINGS: Heart/pericardium: Unremarkable. Aorta: Unremarkable. Pulmonary arteries: Normal in caliber. Thoracic lymph nodes: Unremarkable. Lungs/pleura: Mild atelectasis/scarring evidence of probable rounded atelectasis in the subpleural lingula underlying rib hardware. Resolution of previously RIGHT lower lobe finding which may have reflected a nodular appearance of atelectasis. Few punctate high-density and/or calcified likely granulomas fissural likely intrapulmonary lymph nodes on the RIGHT.. Airways: Unremarkable. Chest wall: RIGHT lobe of the thyroid is atrophic or absent. Operative changes on the LEFT.. Liver: RIGHT lobe hepatic cyst. Additional tiny hypodensities are too small to characterize, but unchanged, possible cysts/hemangiomas. 6 mm hypervascular lesion in the RIGHT hepatic dome was not visible previously, isoenhancing with surrounding parenchyma in the hepatic venous phase and visible only on arterial phase imaging through the upper abdomen.. Spleen: Unremarkable. Gallbladder: Cholelithiasis. Pancreas: Unremarkable. Adrenals: Unremarkable. Kidneys: Redemonstrated large LEFT renal cyst and additional smaller bilateral cysts. Few tiny hypodensities bilaterally are too small to characterize but likely to reflect additional cysts. Renal sinus cysts on the LEFT. Bowel: Previous small bowel resection.. Normal caliber appendix. Abdominopelvic lymph nodes: Unremarkable. Vasculature: Unremarkable. Peritoneum: Unremarkable. Bladder: Underdistended and suboptimally evaluated, grossly unremarkable. Reproductive Organs: Borderline mild prostatomegaly. Body Wall: Operative changes small fat containing LEFT inguinal hernia.. Musculoskeletal: Densely sclerotic 5 mm focus in the LEFT glenoid may reflect a bone island however this is not definite. Similar finding measuring 4 mm on the RIGHT. Old bilateral rib fractures post ORIF on the LEFT. Mild spondylosis. CT/CT Chest, Abd, Pel w/Contrast IMPRESSION: 1. 6 mm enhancing hepatic lesion was not visible previously, possibly on a tech nical basis. This could reflect a flash filling hemangioma however given history, recommend either close CT follow-up to evalua te stability or multiphase hepatic protocol MRI with and without contrast for more definitive characterization. Note definitiv e characterization on hepatic protocol MRI or CT may be difficult due to tiny size, particularly on MRI, if the patient is unabl e to suspend respiration. 2. No definite evidence of metastatic disease within the chest. Resolution of previous RIGHT lower lobe finding which may reflect a nodular appearance of atelectasis. 3. Densely sclerotic bony foci in the bilateral glenoid up to 5 mm on the LEFT glenoid probably reflect bone islands islands., however given history, consider follow-up to ensure stability. 4. Additional description as above. Reading Location: [id number]
== END | disposition home or self-care (01) ==
LOC: CT 16:49
PROVIDERS: PCP Family Medicine; Referring Provider Internal Medicine Medical Oncology; Visit Provider Internal Medicine Medical Oncology
DX: C7A.8 Other malignant neuroendocrine tumors (principal); R91.1 Solitary pulmonary nodule
CPT/HCPCS: 71260; 74177; Q9967

== ENCOUNTER → 2025-04-01 | Outpatient (CLI) | payer BC, SELFPAY ==
--- NOTE | 2025-04-01 13:55 | VDLE_ITS ---
Reason For Study Reason For Study: RIght leg swelling RIGHT LEFT GSV is normal. CFV is compressible, spontaneous, phasic, competent, CFV is compressible, spontaneous, phasic, competent and demonstrates normal augmentation. and demonstrates normal augmentation. FV is compressible, spontaneous, phasic, competent and demonstrates normal augmentation. POP V is compressible, spontaneous, phasic, competent and demonstrates normal augmentation. T/P Trunk is compressible. PTV is compressible. RT PerV is compressible. Nonvascularized structure noted in the right popliteal fossa that measures 2.49 x 0.79 cm. Large nonvascularized structure noted in the proximal calf muscle. Procedure This is a venous duplex using B-mode, color flow and spectral Doppler. Exam performed in department. A preliminary report was called and/or faxed to Dr. Crockett. VL/Venous Duplex US, Unilateral Interpretation Summary Deep veins of the right lower extremity are patent and compressible segmentally . There is no evidence of right lower extremity deep vein thrombosis. The right great saphenous vein appears patent a nd compressible segmentally. Nonvascularized structure noted in the right popliteal fossa that measures 2.49 x 0.79 cm. Nonvascularized structure noted in the proximal calf muscle. Ordering Physician: Remy Lora Referring Physician: Satya Clemens Performed By: Anya Ptael RVT
--- OUTSIDE RECORDS SUMMARY | 2025-04-01 21:01 | XMS RPT_ITS | CCD ---
Author Organization [facility] Care Team Providers Care Nurse Private Duty Name Role Phone Melva Martinez Unavailable Unavailable Melva Martinez Unavailable Unavailable Melva Martinez Unavailable Unavailable Unavailable MELVA MARTINEZ Primary Care Unavailable CURT DRUMMOND Admitting UnavailCURT Sims Consulting Unavailabl e VAUGHN ALEXANDER Attending Unavailable FELIBERTO RIVERA Admitting Unavailable FELIBERTO RIVERA Referring Unavailable MELVA MARTINEZ Primary Care Unavailable Melva Martinez MD Primary Care Provider ALEXANDRIA HUYNH Attending Unavailab ALEXANDRIA Puri Referring Unavailab MELVA Salamanca Primary Care Unavailable MELVA MARTINEZ Primary Care Unavailable ALEXANDRIA HUYNH Attending Unavailab ALEXANDRIA Puri Attending Unavailab MELVA Salamanca Primary Care Unavailable ALEXANDRIA HUYNH Attending Unavailab MELVA Salamanca Primary Care Unavailable THEODORA VILLANUEVA Attending Unavailable MELVA MARTINEZ Primary Care Unavailable Melva Martinez MD Primary Care Provider MELVA MARTINEZ Primary Care Unavailable ALEXANDRIA GORE Attending Unavail able MELVA MARTINEZ Primary Care Unavailable MELISSA SHORT Attending Unavaila gladys Martinez, Dr. Melva Cohen Attending Unavailab le Sarath, Dr. Melva Cohen Primary Care Unavailab boby Martinez, Dr. Melva Cohen Referring Unavailab le Sarath, Dr. Melva Cohen Attending Unavailab boby Martinez, Dr. Melva Cohen Primary Care Unavailab boby Martinez, Dr. Melva Cohen Referring Unavailab le Martinez, Dr. Melva Cohen Attending Unavailab le Martinez, Dr. Melva Cohen Primary Care Unavailab le Martinez, Dr. Melva Cohen Referring Unavailab le Martinez, Dr. Melva Cohen Referring Unavailab le Martinez, Dr. Melva Cohen Attending Unavailab le Martinez, Dr. Melva Cohen Primary Care Unavailab le Martinez, Dr. Melva Cohen Primary Care Unavailab le Martinez, Dr. Melva Cohen Referring Unavailab le Martinez, Dr. Melva Cohen Attending Unavailab Melva Salamanca MD Primary Care Provider Melva Martinez MD Unavailable Dr. Melva Martinez Primary Care Provider Dr. Melva Martinez Referring Provider Marcello, Dr. Alexi Pang Attending Provider Dr. Abdias Crook Attending Provider Dr. Alexi Armendariz Referring Provider IAM Oliva Attending Provider Dr. Alexi Armendariz Other Provider Melva Marti Referring Provider Unavailab le Celucho, Dr. Alexi Pang Admit Provider Unavailable Primary Care Provider UnavailREMY Awan Referring Unavailable REMY VENTURA Attending Unavailable MELVA MARTINEZ Primary Care Unavailable MELVA MARTINEZ Primary Care Unavailable MELVA MARTINEZ Primary Care Unavailable MELVA MARTINEZ Primary Care Unavailable MELVA MARTINEZ Primary Care Unavailable Melva Martinez MD Unavailable [phone] Melva Martinez MD Primary Care Provider LAKIA MALDONADO Referring Unavailable MELVA MARTINEZ Primary Care Unavailable LAKIA MALDONADO Referring Unavailable MELVA MARTINEZ Primary Care Unavailable Sarath TEIXEIRA, Dr. Melva Virgen Primary Care Provider Dr. Remy Ventura MD Attending Provider Lorenzo TEIXEIRA, Dr. Alberto Referring Provider Dr. Melva Martinez MD Referring Provider Teddy ZIEGLERN-Inga CASTILLO Primary Care Provider MARTINEZ, MELVA O Attending Unavailable MARTINEZ, MELVA O Referring Unavailable MARTINEZ, MELVA O Primary Care Unavailable LAKIA MALDONADO Attending Unavailable MARTINEZ, MELVA O Primary Care Unavailable INGA RUIZ Attending Unavailable MARTINEZ, MELVA O Referring Unavailable INGA RUIZ Primary Care Unavailable INGA RUIZ Attending Unavailable INGA RUIZ Primary Care Unavailable Dr. Remy Lora DO Attending Provider Tori TEIXEIRA, Dr. Zhang Attending Provider Vicente Valle Attending Unavailable Martinez, Melva O Primary Care Unavailable PraRemy mcmillan Attending Unavailable Martinez, Melva O Referring Unavailable Martinez, Melva O Primary Care Unavailable PraRemy mcmillan Attending Unavailable Martinez, Melva O Primary Care Unavailable Martinez, Melva O Referring Unavailable BorRemy ahuja Attending Unavailable Remy Lora Referring Unavailable Martinez, Melva O Primary Care Unavailable PraRemy mcmillan Attending Unavailable PraRemy mcmillan Referring Unavailable Martinez, Melva O Primary Care Unavailable Remy Ventura Attending Unavailable Remy Ventura Referring Unavailable Martinez, Melva O Primary Care Unavailable Negin Oliva Attending Unavailable Negin Oliva Referring Unavailable Martinez, Melva O Primary Care Unavailable PraRemy mcmillan Attending Unavailable PraRemy mcmillan Referring Unavailable Martinez, Melva O Primary Care Unavailable PraRemy mcmillan Attending Unavailable PraRemy mcmillan Referring Unavailable Martinez, Mleva O Primary Care Unavailable PraRemy mcmillan Attending Unavailable Martinez, Melva O Primary Care Unavailable Martinez, Melva O Referring Unavailable BorrusoRemy Attending Unavailable Martinez, Melva O Referring Unavailable Martinez, Melva O Primary Care Unavailable Medications Current Medications Medication Drug Class(es) Dates Sig (Normalized) Sig (Original) acetaminophen 325 mg oral tablet (3 sources) Start: 02-18-2021 End: 02-28-2021 take 2 tablets by mouth every six hours acetaminophen (TYLENOL) 325 MG tablet Take 2 (two) tablets (650 mg total) by mouth every 6 (six) hours for 10 days . 30 tablet 0 02/18/2021 02/28/2021 Active Start: 02-11-2021 End: 02-18-2021 take 1 tablet by mouth every six hours acetaminophen (TYLENOL) tablet 650 mg celecoxib 100 mg oral capsule (1 source) Nonsteroidal Anti-inflammatory Drug Start: 03-22-2025 Celecoxib (Celebrex) 100 mg capsule Active 100 mg PO TWICE A DAY 60 March 22, 2025 12:00am Take regularly next 2 weeks then as needed. Do not take in conjunction with other NSAID. Tylenol is okay. cephalexin 500 mg oral capsule (3 sources) Cephalosporin Antibacterial Start: 09-10-2022 take 1 capsule by mouth three times daily cephALEXin (KEFLEX) 500 MG capsule One capsule po tid x 5 days . 15 capsule 0 09/10/2022 Active cholecalciferol 0.125 mg oral capsule (2 sources) Vitamin D Start: 01-17-2025 take 1 capsule by mouth once daily Cholecalciferol (Vitamin D3) 125 mcg (5,000 unit) capsule Active 125 ug PO daily January 17, 2025 12:00am docusate sodium 100 mg oral capsule (3 sources) Start: 02-12-2021 End: 03-01-2021 take 1 capsule by mouth once daily docusate sodium (COLACE) 100 MG capsule Take 1 (one) capsule (100 mg total) by mouth daily for 10 days Start: 02/19/21. 10 capsule 0 02/19/2021 03/01/2021 Active ferrous sulfate 134 mg oral tablet (2 sources) Start: 03-22-2025 take 1 tablet by mouth once daily Ferrous Sulfate 27 mg iron tablet Active 27 mg PO daily March 22, 2025 12:00am fluticasone propionate 0.05 mg/actuat metered dose nasal spray (20 sources) Corticosteroid Start: 06-07-2022 take 2 spray(s) nasal route once daily fluticasone (Flonase) 50 mcg/actuation nasal spray Administer 2 sprays into each nostril once daily. 06/07/2022 Active Start: 05-17-2019 Fluticasone Pr opionate 50 MCG/ACT Nasal Suspension INSTILL 2 SPRAY Daily Quantity: 3 Refills: 3 Ordered: 31-Jul-2021 Melva Martinez MD Start : 17-May-2019 Active hydroCHLOROthiazide 12.5 mg / lisinopril 10 mg oral tablet (14 sources) Thiazide Diuretic, Angiotensin Converting Enzyme Inhibitor Start: 01-09-2021 take 10-12.5 mg by mouth once lisinopriL-hydrochlorothiazide (PRINZIDE,ZESTORETIC) 10-12.5 mg per tablet Take 1 (one) tablet by mouth daily . 0 01/09/2021 Active Start: 01-09-2021 take 1 tablet by kristie th once daily Lisinopril-hydroCHLOROthiazide 10-12.5 M G Oral Tablet TAKE 1 TABLET DAILY. Quantity: 90 Refills: 3 Ordered: 06-Feb-2021 Melva Martinez MD Start : 09-Jan-2021 Active lidocaine 0.05 mg/mg medicated patch (4 sources) Antiarrhythmic, Amide Local Anesthetic Start: 02-10-2021 End: 03-05-2021 lidocaine (LIDODERM) 5 % patch Place 2 (two) patches on the skin daily Remove & Discard patch within 12 hours or as directed by MD for 14 days Start: 02/19/21. 28 patch 0 02/19/2021 03/05/2021 Active losartan potassium 100 mg oral tablet (20 sources) Angiotensin 2 Receptor Breonna Start: 02-18-2023 End: 02-26-2026 take 1 tablet by mouth at bedtime Losartan 100 mg tablet Active 100 mg PO AT BEDTIME October 03, 2023 1:00am Start: 07-31-2021 take 1 tablet by kristie th once daily losartan (COZAAR) 50 MG tablet Take 1 (one) tablet (50 mg total) by mouth daily . 0 10/29/2021 Active Start: 07-31-2021 take 1 tablet by kristie th once daily Losartan Potassium 100 MG Oral Tablet TAKE 1 TABLET DAILY. Quantity: 90 Refills: 3 Ordered: 29-Jan-2022 Melva Martinez MD Start : 31-Jul-2021 Active Magnesium (2 sources) Start: 01-17-2025 take 1 tablet by mouth once daily Magnesium 250 mg tablet Active 250 mg PO daily January 17, 2025 12:00am 24 hr metoprolol succinate 25 mg extended release oral tablet (4 sources) beta-Adrenergic Breonna Start: 03-22-2025 take 1 tablet by mouth every twenty-four hours Metoprolol Succinate 25 mg tablet extended release 24 hr Active mg PO March 22, 2025 12:00am Start: 02-26-2025 End: 03-28-2025 take 1 tablet by mouth once daily, then take 2 tablets by mouth once daily metoprolol succinate XL (Toprol-XL) 25 mg 24 hr tablet Indications: Hypertension, benign Take 1 tablet (25 mg) by mouth once daily for 7 days, THEN 2 tablets (50 mg) once daily for 23 days. Do not crush or chew. 53 tablet 02/26/2025 03/28/2025 Active omeprazole 40 mg delayed release oral capsule (20 sources) Proton Pump Inhibitor Start: 02-18-2023 End: 03-14-2026 take 1 capsule by mouth at bedtime Omeprazole 40 mg capsule,delayed release(DR/EC) Active 40 mg PO AT BEDTIME October 03, 2023 1:00am Start: 02-23-2021 take [address] [facility] once daily Omeprazole 40 MG Oral Capsule Delayed Release TAKE 1 CAPSULE Daily Quantity: 90 Refills: 1 Ordered: 13-Aug-2022 Melva Martinez MD Start : 23-Feb-2021 Active oxyCODONE hydrochloride 10 mg oral tablet (2 sources) Opioid Agonist Start: 02-18-2021 End: 02-25-2021 oxyCODONE (ROXICODONE) 10 MG Tab Indications: Closed fracture of multiple ribs of left side, initial encounter Take 1 (one) tablet (10 mg total) by mouth every 6 (six) hours as needed (Days supply per fill: 7) . 12 tablet 0 02/18/2021 02/25/2021 Active Start: 02-11-2021 End: 02-18-2021 take 1 tablet by mouth every four hours as needed oxyCODONE (ROXICODONE) immediate release tablet 10 mg polyvinyl alcohol 0.014 ml/m l ophthalmic solution (3 sources) Start: 02-18-2021 End: 03-20-2021 polyvinyl alcohol (LIQUIFILM TEARS) 1.4 % ophthalmic solution Administer 1 (one) drop to both eyes as needed for dry eyes . 15 mL 0 02/18/2021 03/20/2021 Active Start: 02-10-2021 End: 02-18-2021 polyvinyl alcohol (LIQUIFILM TEARS) 1.4 % ophthalmic solution 1 drop pramipexole dihydrochloride 0.5 mg oral tablet (20 sources) Nonergot Dopamine Agonist Start: 02-18-2023 End: 02-26-2025 take 1 tablet by mouth at bedtime Pramipexole 0.5 mg tablet Active 0.5 mg PO AT BEDTIME October 03, 2023 1:00am Start: 05-04-2019 End: 02-18-2021 take 1 tablet by mouth at bedtime Pramipexole Dihydrochloride 0.25 MG Oral Tablet TAKE 1 TABLET Bedtime Quantity: 90 Refills: 1 Ordered: 13-Aug-2022 Melva Martinez MD Start : 04-May-2019 Active vitamin b12 1 mg oral capsule (2 sources) Vitamin B12 Start: 01-17-2025 take 1 capsule by mouth once daily Cyanocobalamin (Vitamin B-12) 1,000 mcg capsule Active 1000 ug PO daily January 17, 2025 12:00am vitamin b6 100 mg oral tablet (2 sources) Start: 01-17-2025 take 1 tablet by mouth once daily Pyridoxine (Vitamin B6) 100 mg tablet Active 100 mg PO daily January 17, 2025 12:00am zinc gluconate 50 mg oral tablet (2 sources) Start: 01-17-2025 take 1 tablet by mouth once daily Zinc Gluconate 50 mg tablet Active 50 mg PO daily January 17, 2025 12:00am Completed/Discontinued Medications Medication Drug Class(es) Dates Sig (Normalized) Sig (Original) albuterol 0.833 mg/ml / ipratropium bromide 0.167 mg/ml inhalation solution (1 source) Anticholinergic, beta2-Adrenergic Agonist Start: 02-12-2021 End: 02-12-2021 ipratropium-albute roL (DUO-NEB) 0.5-2.5 mg/3 ml nebulizer solution 3 mL Start: 02-12-2021 End: 02-12-2021 ipratropium-albuteroL (DUO-N EB) 0.5-2.5 mg/3 ml nebulizer solution 3 mL amLODIPine 10 mg oral tablet (5 sources) Dihydropyridine Calcium Channel Breonna Start: 02-19-2021 End: 04-16-2021 take 1 tablet by mouth once daily amLODIPine (NORVASC) 10 MG tablet Take 1 (one) tablet (10 mg total) by mouth daily Start: 02/19/21. 30 tablet 0 02/19/2021 04/16/2021 Discontinued (Discontinued by another clinician) Start: 02-18-2021 End: 02-18-2021 amLODIPine (NORVASC) tablet 10 mg Start: 02-17-2021 End: 02-18-2021 amLODIPine (NORVASC) tablet 5 mg calcium chloride 0.0014 meq/ml / potassium chloride 0.004 meq/ml / sodium chloride 0.103 meq/ml / sodium lactate 0.028 meq/ml injectable solution (2 sources) Start: 02-12-2021 End: 02-12-2021 take 100 mL intravenously every hour 100 mL/hr, Intravenous, Continuous, Starting on Helen 02/12/21 at 1715, PACU (only) cyclobenzaprine hydrochloride 10 mg oral tablet (20 sources) Muscle Relaxant Start: 08-26-2023 End: 06-26-2024 take 1 tablet by mouth at bedtime as needed for muscle spasms Cyclobenzaprine 10 mg tablet Discontinued 10 mg PO AT BEDTIME NEEDED as needed for muscle spasm October 03, 2023 1:00am June 26, 2024 4:04pm Start: 02-23-2021 take 1 tablet by kristie three times daily Cyclobenzaprine HCl - 10 MG Oral Tablet TAKE 1 TABLET 3 TIMES DAILY. Quantity: 90 Refills: 0 Ordered: 23-Feb-2021 Melva Martinez MD Start : 23-Feb-2021 Active Start: 02-12-2021 End: 02-28-2021 take 1 tablet by mouth every eight hours cyclobenzaprine (FLEXERIL) 10 MG tablet Take 1 (one) tablet (10 mg total) by mouth every 8 (eight) hours for 10 days . 30 tablet 0 02/18/2021 02/28/2021 Active dicyclomine hydrochloride 10 mg oral capsule (16 sources) Anticholinergic Start: 01-03-2023 End: 02-29-2024 take 1 capsule by mouth twice daily as needed for pain Dicyclomine 10 mg capsule Discontinued 10 mg PO TWICE A DAY as needed for abdominal pain October 03, 2023 1:00am February 29, 2024 8:24am Start: 10-04-2022 take 1 capsule by mo [facility] four times daily as needed for pain Dicyclomine HCl - 10 MG Oral Capsule TAKE 1 CAPSULE 4 times daily PRN abdominal pain Quantity: 20 Refills: 1 Ordered: 04-Oct-2022 Melva Martinez MD Start : 04-Oct-2022 Active 0.4 ml enoxaparin sodium 100 mg/ml prefilled syringe (2 sources) Low Molecular Weight Heparin Start: 02-12-2021 End: 02-18-2021 enoxaparin (LOVENOX) syringe 40 mg Start: 02-11-2021 End: 02-12-2021 enoxaparin (LOVENOX) syringe 30 mg famotidine 20 mg oral tablet (2 sources) Histamine-2 Receptor Antagonist Start: 02-11-2021 End: 02-18-2021 famotidine (PEPCID) tablet 20 mg Start: 02-10-2021 End: 02-11-2021 famotidine (PEPCID) injectio n 20 mg 1 ml fentaNYL 0.05 mg/ml injection (2 sources) Opioid Agonist Start: 02-10-2021 End: 02-10-2021 fentaNYL (SUBLIMAZE) injection 50 mcg Start: 02-10-2021 End: 02-10-2021 fentaNYL (SUBLIMAZE) injecti on Gallium Ga 68 Dotatate (Netspot) 0.5-5.94 millicurie (1 source) Start: 02-14-2024 End: 02-14-2024 0.5-5.94 millicurie, Intravenous, ONCE, 1 dose, On Tue02/14/24 at 0845 1 ml HYDROmorphone hydrochloride 1 mg/ml injection (3 sources) Opioid Agonist Start: 02-10-2021 End: 02-18-2021 take 0.5 mg intravenously every three hours as needed HYDROmorphone (DILAUDID) injection 0.5 mg Start: 02-10-2021 End: 02-10-2021 HYDROmorphone (DILAUDID) inj ection 1 mg ibuprofen 800 mg oral tablet (10 sources) Nonsteroidal Anti-inflammatory Drug Start: 02-18-2021 End: 02-25-2021 take 1 tablet by mouth three times daily IBU 800 MG Oral Tablet TAKE 1 TABLET 3 TIMES DAILY. Quantity: 0 Refills: 0 Ordered: 23-Feb-2021 DO Start : 23-Feb-2021 Active Start: 02-11-2021 End: 02-18-2021 ibuprofen (ADVIL,MOTRIN) tab let 800 mg iohexol (OMNIPaque) 12 mg iodine/mL oral contrast 500 mL (2 sources) Start: 11-19-2023 End: 11-19-2023 iohexol (OMNIPaque) 12 mg iodine/mL oral contrast 500 mL iohexol (OMNIPaque) 350 mg iodine/mL solution 73 mL (2 sources) Start: 11-19-2023 End: 11-19-2023 iohexol (OMNIPaque) 350 mg iodine/mL solution 73 mL 4 ml labetalol hydrochloride 5 mg/ml cartridge (1 source) beta-Adrenergi c Breonna Start: 02-17-2021 End: 02-18-2021 take 20 mg intravenously every four hours as needed labetaloL (NORMODYNE) injection 20 mg lisinopriL (PRINIVIL,ZESTRIL) 10 mg, hydroCHLOROthiazide (HYDRODIURIL) 12.5 mg COMBO (1 source) Start: 02-12-2021 End: 02-18-2021 take 1 dose by mouth once daily Oral, Daily, First dose on [facility] 02/12/21 at 2000 magnesium chloride 0.42433 meq/ml / potassium chloride 0.20341 meq/ml / sodium acetate 0.027 meq/ml / sodium chloride 0.0899 meq/ml / sodium gluconate 5.02 mg/ml injectable solution (1 source) Start: 02-11-2021 End: 02-14-2021 PLASMALYTE-A solution methocarbamol 500 mg oral tablet (1 source) Muscle Relaxant Start: 02-11-2021 End: 02-12-2021 methocarbamoL (ROBAXIN) tablet 1,000 mg methocarbamoL (ROBAXIN) 1 g in sodium chloride 0.9 % (NS) 50 mL IVPB (1 source) Start: 02-10-2021 End: 02-11-2021 take 1 g intravenously every eight hours methocarbamoL (ROBAXIN) 1 g in sodium chloride 0.9 % (NS) 50 mL IVPB naloxone (NARCAN) injection 0.1 mg (1 source) Start: 02-11-2021 End: 02-18-2021 naloxone (NARCAN) injection 0.1 mg 2 ml ondansetron 2 mg/ml injection (1 source) Serotonin-3 Receptor Antagonist Start: 02-10-2021 End: 02-10-2021 ondansetron (ZOFRAN) injection 4 mg ondansetron (ZOFRAN-ODT) disintegrating tablet 4 mg (1 source) Start: 02-10-2021 End: 02-18-2021 take 1 tablet by mouth every six hours as needed ondansetron (ZOFRAN-ODT) disintegrating tablet 4 mg polyethylene glycol 3350 55252 mg powder for oral solution (8 sources) Osmotic Laxative Start: 02-12-2021 End: 02-26-2021 Polyethylene Glycol 3350 17 GM/SCOOP Oral Powder MIX 1 CAPFUL (17GM) IN 8 OUNCES OF WATER, JUICE, OR TEA AND DRINK DAILY. Quantity: 527 Refills: 1 Ordered: 23-Feb-2021 Melva Martinez MD Start : 23-Feb-2021 Active sennosides, fci 8.6 mg oral tablet (8 sources) Start: 02-12-2021 End: 03-20-2021 take 1 tablet by mouth once daily Senna 8.6 MG Oral Tablet Take 1 tablet daily Quantity: 0 Refills: 0 Ordered: 19-Feb-2021 DO Start : 19-Feb-2021 Active 1000 ml sodium chloride 9 mg/ml injection (2 sources) Start: 02-10-2021 End: 02-11-2021 sodium chloride 0.9% (NS) Start: 02-10-2021 End: 02-10-2021 sodium chloride 0.9% (NS) kellee kurtis 1,000 mL traMADol hydrochloride 50 mg oral tablet (1 source) Opioid Agonist Start: 02-10-2021 End: 02-11-2021 take 1 tablet by mouth every six hours as needed traMADoL (ULTRAM) tablet 50 mg Problems Active Problems Problem Classification Problem Date Documented Da te Episodic/Chronic Abdominal hernia (20 sources) Umbilical hernia; Translations: [Umbilical hernia without mention of obstruction or gangrene] Onset: 3 08-26-2023 Episodic Complications of surgical procedures or medical care (4 sources) History of subtotal thyroidectomy; Translations: [Postprocedural hypothyroidism] Onset: 4 03-13-2024 Chronic Disorders of lipid metabolism (15 sources) Hyperlipidemia; Translations: [Other and unspecified hyperlipidemia] Onset: 4 02-27-2024 Chronic Esophageal disorders (20 sources) Gastroesophageal reflux disease; Translations: [Esophageal reflux] Onset: 3 08-26-2023 Chronic Comment on above: CONTROLLED WITH MED Essential hypertension (20 sources) Benign hypertension; Translations: [Benign essential hypertension] Onset: 3 08-26-2023 Chronic Genitourinary symptoms and ill-defined conditions (3 sources) Dysuria; Translations: [Dysuria] 02-28-2024 Episodic Malignant neoplasm without specification of site (13 sources) Malignant neuroendocrine tumor; Translations: [Other malignant neuroendocrine tumors] Onset: 4 02-14-2024 Chronic Comment on above: S/P small bowel and mesenteric resection, Grade 1, pT4 pN2-stage III.No role for adjuvant therapy. Serotonin and chromogranin A are elevated.Dotatate PET/CT on 02/14/2024 shows no avid malignancy.Comes for follow up.CT a/p 08/30/2024 shows small density R Low lobe, no metastatic disease. S/P small bowel and mesenteric resection, Grade 1, pT4 pN2-stage III.No role for adjuvant therapy. Serotonin and chromogranin A are elevated.Dotatate PET/CT on 02/14/2024 shows no avid malignancy.CT a/p 08/30/2024 shows small density R Lower lobe, no metastatic disease.Comes for follow up.CT on 01/10/2025 reviewed, shows small enhancing 6mm liver lesion, R lower lobe nodule resolved. Nutritional deficiencies (5 sources) Vitamin D deficiency; Translations: [Vitamin D deficiency, unspecified] Onset: 4 02-27-2024 Chronic Open wounds of extremities (4 sources) Laceration of right forearm; Translations: [Laceration without foreign body of right forearm, initial encounter] Onset: 2 Episodic Osteoarthritis (2 sources) Primary gonarthrosis, bilateral; Translations: [Bilateral primary osteoarthritis of knee] Onset: 5 03-22-2025 Chronic Other aftercare (20 sources) Patient encounter status; Translations: [Long-term (current) use of other medications] Resolved: 1 02-26-2025 Episodic Other aftercare (1 source) Removal of sutures done; Translations: [Encounter for removal of sutures] Episodic Other aftercare (2 sources) Encounter for removal of sutures; Translations: [Encounter for removal of sutures] Onset: 3 Episodic Other aftercare (3 sources) History of repair of umbilical hernia; Translations: [Encounter for follow-up examination after completed treatment for conditions other than malignant neoplasm] 12-26-2023 Episodic Other circulatory disease (2 sources) Elevated blood-pressure reading, without diagnosis of hypertension; Translations: [Elevated blood-pressure reading, without diagnosis of hypertension] Onset: 3 Episodic Other connective tissue disease (5 sources) Spasm; Translations: [Spasm of muscle] Episodic Other connective tissue disease (2 sources) Synovial cyst of right popliteal space; Translations: [Synovial cyst of popliteal space [Quan], right knee] 02-26-2025 Episodic Other connective tissue disease (2 sources) Synovial cyst of popliteal space [Quan], right knee; Translations: [Synovial cyst of popliteal space (Quan), right knee] Onset: 5 Episodic Other connective tissue disease (1 source) Swelling of right lower limb; Translations: [Other specified soft tissue disorders] 03-22-2025 Episodic Other connective tissue disease (2 sources) Other specified soft tissue disorders; Translations: [Other specified soft tissue disorders] Onset: 5 Episodic Other diseases of kidney and ureters (6 sources) Acquired renal cystic disease; Translations: [Cyst of kidney, acquired] 12-05-2023 Episodic Other ear and sense organ disorders (20 sources) Sensorineural hearing loss; Translations: [Sensorineural hearing loss, unspecified] Onset: 3 02-18-2023 Chronic Other ear and sense organ disorders (2 sources) Sensorineural hearing loss, bilateral; Translations: [Sensorineural hearing loss, bilateral] 02-27-2024 Chronic Other ear and sense organ disorders (2 sources) Sensorineural hearing loss, bilateral; Translations: [Sensorineural hearing loss, bilateral] Onset: 3 Chronic Other fractures (1 source) Closed fracture of multiple left ribs; Translations: [Multiple fractures of ribs, left side, initial encounter for closed fracture] Episodic Other fractures (1 source) Closed fracture lumbar vertebra, transverse process ; Translations: [Unspecified fracture of unspecified lumbar vertebra, initial encounter for closed fracture] Episodic Other fractures (1 source) Closed fracture of multiple ribs; Translations: [Multiple fractures of ribs, left side, subsequent encounter for fracture with nonunion] Episodic Other gastrointestinal disorders (5 sources) Constipation; Translations: [Constipation, unspecified] Episodic Other gastrointestinal disorders (1 source) Diarrhea; Translations: [Diarrhea, unspecified] 11-10-2023 Episodic Other gastrointestinal disorders (6 sources) Abdominal mass; Translations: [Other specified diseases of intestine] 12-05-2023 Episodic Other gastrointestinal disorders (4 sources) Other specified diseases of intestine; Translations: [Other specified disorders of peritoneum] 12-05-2023 Episodic Other hereditary and degenerative nervous system conditions (20 sources) Restless legs; Translations: [Restless legs syndrome (RLS)] Onset: 3 02-18-2023 Chronic Other hereditary and degenerative nervous system conditions (4 sources) Restless legs syndrome; Translations: [Restless legs syndrome] Onset: 3 Chronic Other injuries and conditions due to external causes (1 source) Blunt injury of thorax; Translations: [Other specified injuries of thorax, initial encounter] Episodic Other injuries and conditions due to external causes (16 sources) Crushing injury; Translations: [Crushing injury of unspecified site] Episodic Other liver diseases (20 sources) Liver cyst; Translations: [Other specified disorders of liver] Onset: 3 08-26-2023 Chronic Other liver diseases (2 sources) Fatty (change of) liver, not elsewhere classified; Translations: [Fatty (change of) liver, not elsewhere classified] Onset: 3 Chronic Other liver diseases (2 sources) Other specified diseases of liver; Translations: [Other specified diseases of liver] Onset: 3 Chronic Other liver diseases (1 source) Hepatomegaly, not elsewhere classified; Translations: [Hepatomegaly, not elsewhere classified] Onset: 3 Episodic Other nervous system disorders (19 sources) Carpal tunnel syndrome; Translations: [Carpal tunnel syndrome] Chronic Other non-traumatic joint disorders (20 sources) Arthropathy; Translations: [Arthropathy, unspecified, site unspecified] Onset: 3 08-26-2023 Chronic Other non-traumatic joint disorders (2 sources) Arthropathy, unspecified; Translations: [Arthropathy, unspecified] Onset: 3 Chronic Other non-traumatic joint disorders (2 sources) Knee pain; Translations: [Left knee pain] Episodic Other non-traumatic joint disorders (20 sources) Pain in left knee; Translations: [Left knee pain] Onset: 5 Resolved: 1 09-26-2023 Episodic Other non-traumatic joint disorders (5 sources) Pain in right knee; Translations: [Pain in right knee] Onset: 5 Episodic Other nutritional; endocrine; and metabolic disorders (2 sources) Body mass index 25-29 - overweight; Translations: [Body mass index (BMI) of 29.0 to 29.9 in adult] Chronic Other nutritional; endocrine; and metabolic disorders (11 sources) Obesity; Translations: [Obesity, unspecified] Chronic Other nutritional; endocrine; and metabolic disorders (16 sources) Obesity caused by energy imbalance; Translations: [Other obesity due to excess calories] Onset: 3 02-18-2023 Chronic Other nutritional; endocrine; and metabolic disorders (2 sources) Other obesity due to excess calories; Translations: [Other obesity due to excess calories] Onset: 3 Chronic Other nutritional; endocrine; and metabolic disorders (2 sources) Body mass index (BMI) 31.0-31.9, adult; Translations: [Body mass index (BMI) 31.0-31.9, adult] Onset: 3 Chronic Other screening for suspected conditions (not mental disorders or infectious disease) (5 sources) Encounter for screening for cardiovascular disorders; Translations: [Encounter for screening for lipoid disorders] Onset: 2 Episodic Other upper respiratory disease (20 sources) Allergic rhinitis; Translations: [Allergic rhinitis, cause unspecified] Onset: 3 08-26-2023 Chronic Other upper respiratory disease (2 sources) Allergic rhinitis, unspecified; Translations: [Allergic rhinitis, unspecified] Onset: 3 Chronic Phlebitis; thrombophlebitis and thromboembolism (10 sources) Acute deep vein thrombosis of lower limb; Translations: [Acute embolism and thrombosis of unspecified deep veins of right proximal lower extremity] Onset: 5 01-11-2025 Episodic Pleurisy; pneumothorax; pulmonary collapse (1 source) Left pneumothorax; Translations: [Pneumothorax, unspecified] Episodic Residual codes; unclassified (1 source) History of excision of small intestine; Translations: [Acquired absence of other specified parts of digestive tract] 02-27-2024 Episodic Residual codes; unclassified (2 sources) Acquired absence of other specified parts of digestive tract; Translations: [Acquired absence of other specified parts of digestive tract] Onset: 4 Episodic Residual codes; unclassified (2 sources) Bilateral lower limb edema; Translations: [Localized edema] 01-14-2025 Episodic Residual codes; unclassified (2 sources) Localized edema; Translations: [Localized edema] Onset: 5 Episodic Spondylosis; intervertebral disc disorders; other back problems (18 sources) Arthropathy of thoracic facet joint; Translations: [Spondylosis without myelopathy or radiculopathy, thoracic region] Onset: 3 08-26-2023 Chronic Syncope (1 source) Syncope; Translations: [Syncope and collapse] Episodic Thyroid disorders (20 sources) Thyroid nodule; Translations: [Nontoxic uninodular goiter] Onset: 2 08-26-2023 Chronic Unclassified (9 sources) Mass of body structure; Translations: [Mass] Onset: 1 Unclassified (2 sources) Acute pain of right knee 01-11-2025 Unclassified (1 source) Obesity, class 1; Translations: [Obesity, class 1] Onset: 3 Past or Other Problems Problem Classification Problem Date Documented Da te Episodic/Chronic Abdominal pain (16 sources) Left lower quadrant pain; Translations: [Left lower quadrant pain] Onset: 4 Resolved: 4 11-10-2023 Episodic Diabetes mellitus without complication (7 sources) Prediabetes; Translations: [Other abnormal glucose] Onset: 4 08-28-2024 Episodic Intracranial injury (9 sources) Concussion with loss of consciousness; Translations: [Concussion with loss of consciousness of unspecified duration, initial encounter] Onset: 1 Episodic Other and unspecified benign neoplasm (9 sources) Benign neuroendocrine tumor of duodenum; Translations: [Other benign neuroendocrine tumors] Onset: 4 02-27-2024 Episodic Other and unspecified benign neoplasm (2 sources) 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, unspecified portion; Translations: [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, unspecified portion] Onset: 4 Episodic Other and unspecified benign neoplasm (2 sources) Other benign neuroendocrine tumors; Translations: [Other benign neuroendocrine tumors (CMS-HCC)] Onset: 4 Episodic Other circulatory disease (20 sources) Elevated blood pressure; Translations: [Elevated blood pressure reading without diagnosis of hypertension] Resolved: 0 Episodic Other connective tissue disease (19 sources) Clicking knee; Translations: [Other symptoms referable to joint, lower leg] Resolved: 1 Episodic Other connective tissue disease (11 sources) History of clinical finding in subject; Translations: [Personal history of other musculoskeletal disorders] Resolved: 1 Episodic Other diseases of kidney and ureters (9 sources) Renal mass; Translations: [Other specified disorders of kidney and ureter] Onset: 1 Resolved: 1 Chronic Other diseases of kidney and ureters (20 sources) Cyst of kidney; Translations: [Cystic kidney disease, unspecified] Onset: 3 08-26-2023 Episodic Other diseases of kidney and ureters (6 sources) Cyst of kidney, acquired; Translations: [Cyst of kidney, acquired] Onset: 3 12-05-2023 Episodic Other fractures (12 sources) Closed fracture of multiple left and right ribs; Translations: [Multiple fractures of ribs, bilateral, initial encounter for closed fracture] Onset: 1 Episodic Other fractures (9 sources) Closed fracture thoracic vertebra, transverse process ; Translations: [Unspecified fracture of unspecified thoracic vertebra, initial encounter for closed fracture] Onset: 1 Episodic Other gastrointestinal disorders (11 sources) H/O: gastrointestinal disease; Translations: [Personal history of other diseases of digestive system] Resolved: 1 Episodic Other gastrointestinal disorders (18 sources) Abdominal bloating; Translations: [Flatulence, eructation, and gas pain] Onset: 3 Resolved: 4 08-26-2023 Episodic Other gastrointestinal disorders (3 sources) Abdominal distension (gaseous); Translations: [Abdominal distension (gaseous)] Onset: 3 Episodic Other gastrointestinal disorders (2 sources) Diarrhea, unspecified; Translations: [Diarrhea, unspecified] Onset: 4 Episodic Other injuries and conditions due to external causes (9 sources) Abrasion and/or friction burn of multiple sites; Translations: [Unspecified multiple injuries, initial encounter] Onset: 1 Episodic Other liver diseases (15 sources) Steatosis of liver; Translations: [Fatty (change of) liver, not elsewhere classified] Onset: 3 Resolved: 4 08-26-2023 Chronic Other liver diseases (20 sources) Increased creatine kinase level; Translations: [Abnormal levels of other serum enzymes] Onset: 1 Resolved: 4 Episodic Other nervous system disorders (14 sources) Carpal tunnel syndrome of right wrist; Translations: [Carpal tunnel syndrome, right upper limb] Onset: 3 Resolved: 3 08-26-2023 Chronic Other non-traumatic joint disorders (9 sources) Pain of left wrist; Translations: [Pain in left wrist] Onset: 1 Episodic Other nutritional; endocrine; and metabolic disorders (12 sources) Body mass index 25-29 - overweight; Translations: [Body Mass Index 29.0-29.9, adult] Resolved: 1 Episodic Other nutritional; endocrine; and metabolic disorders (5 sources) Overweight in adulthood with body mass index of 25 or more but less than 30; Translations: [Body Mass Index 29.0-29.9, adult] Resolved: 1 Episodic Unclassified (14 sources) Onset: 3 Resolved: 5 02-18-2023 Unclassified (1 source) Obesity, class 1; Translations: [Obesity, class 1] Onset: 4 NEGATED: Highlighted row has not occurred!Residual codes; unclassified (5 sources) Disease Episodic Results Test Name Value Interpretation Reference Range Facility Knee 1 or 2 Viewson 03-22-20 Knee 1 or 2 Views [facility] [address] [place] [address] Knee 1 or 2 Views MR#: [id number] Acct: [id number] Name: LYNDA WOODARD Rep #: [id number] : 1965 M 59 From: Reynaldo Peralta MD PCP: Dr. Melva Martinez MD Status: DEP AMB Study: Knee 1 or 2 Views Date of Exam: 03/22/25 Exam# [id number] Ordering Dr: Remy Lora DO EXAM: XR Right Knee, 1 or 2 Views CLINICAL INDICATION: PAIN, SUNR[place] VIEW ONLY TECHNIQUE: [place] views of the right knee. COMPARISON: No relevant prior studies available. FINDINGS: BONES/JOINTS: Unremarkable. No acute fracture. No dislocation. SOFT TISSUES: Unremarkable. RAD/Knee 1 or 2 Views IMPRESSION: No acute fracture. Reading Location: [facility] CC: Dr. Remy Lora DO; Dr. Melva Martinez MD [employer] Player: Signed Normal [facility] Knee 4 or More Viewson 03-22 Knee 4 or More Views [facility] [address] [place], [place] [address] Knee 4 or More Views MR#: [id number] Acct: [id number] Name: LYNDA WOODARD Rep #: [id number] : 1965 M 59 From: Reynaldo Peralta MD PCP: Dr. Melva Martinez MD Status: DEP AMB Study: Knee 4 or More Views Date of Exam: 03/22/25 Exam# [id number] Ordering Dr: Remy Lora DO EXAM: XR Left Knee Complete, 4 or More Views CLINICAL INDICATION: PAIN, NKI TECHNIQUE: Four or more views of the left knee. COMPARISON: No relevant prior studies available. FINDINGS: BONES/JOINTS: Moderate degenerative changes of the medial compartment of the knee joint. No acute fracture. No dislocation. SOFT TISSUES: Soft tissue swelling. RAD/Knee 4 or More Views IMPRESSION: 1. Soft tissue swelling. 2. Degenerative changes as above. Reading Location[facility] CC: Dr. Remy Lora DO; Dr. Melva Martinez MD [employer] Player: Signed Normal [facility] Orthopedic Visit Reporton Orthopedic Visit Report [facility] [address] [place] [address] OFFICE VISIT Date of Service: 03/22/25 MR#: [id number] Acct: [id number] Name: LYNDA WOODARD Rep #: [id number] : 1965 Provider: Dr. Remy murillo DO Age/Sex: 59/M Location: [facility] Status: Signed Intake Vital Signs 01/17/25 15:59 03/22/25 10:21 Height 5 ft 10 in 5 ft 10 in Weight: 233 lb 230 lb 6 oz BMI 33.4 33.0 BP 157/107 H Blood Pressure Location Rt brachial Position Sitting Respiration 16 Pulse 66 Pulse Source Monitor Temp 98.3 F Pulse Oximetry (%) 95 Oxygen Delivery Method room air Intake Visit Reasons: BL KNEES Accompanied by: Is patient in pain?: Yes Pain scale (1-10): 3 Allergies No Known Allergies Allergy (Verified 03/22/25 10:22) Medications ???Medication ???Instructions ???Recorded ???Confirmed ???Type losartan 100 mg tablet 100 mg PO QHS 10/03/23 03/22/25 Hi story omeprazole 40 mg capsule,delayed 40 mg PO QHS 10/03/23 03/22/25 His tory release pramipexole 0.5 mg tablet 0.5 mg PO QHS 10/03/23 03/22/25 Hi story cholecalciferol (vitamin D3) 125 125 mcg PO QDAY 01/17/25 03/22/25 History mcg (5,000 unit) capsule cyanocobalamin (vitamin B-12) 1,000 mcg PO QDAY 01/17/25 5 History 1,000 mcg capsule magnesium 250 mg tablet 250 mg PO QDAY 01/17/25 03/22/25 H istory pyridoxine (vitamin B6) 100 mg 100 mg PO QDAY 01/17/25 03/22/25 H istory tablet zinc gluconate 50 mg tablet 50 mg PO QDAY 01/17/25 03/22/25 Hi story celecoxib 100 mg capsule (Celebrex) 100 mg PO BID #60 caps 03/22/25 03/22/25 Rx ferrous sulfate 27 mg iron tablet 27 mg PO QDAY 03/22/25 03/22/25 H istory metoprolol succinate 25 mg mg PO 03/22/25 03/22/25 History tablet,extended release 24 hr PFSH Medical History Quan's cyst of knee Endocrine cancer Wears glasses Thyroid disease Restless legs History of ulceration GERD (gastroesophageal reflux disease) Non-smoker History of echocardiogram Hypertension History of rib fracture Right thyroid nodule Surgical History S/P partial thyroidectomy Hx of exploratory laparotomy History of umbilical hernia repair H/O colonoscopy Family History Sister Thyroid disorder Diabetes Mother Afib PFO (patent foramen ovale) Aortic valve replaced Father Non-Hodgkin lymphoma Social History Smoking Status: Never smoker alcohol intake: never substance use type: does not use HPI BL KNEES Details: This documentation accurately reflects the service provided and the decisions made by me, Dr. Remy Lora, DO 03/22/25 08. Part of today???s visit was documented by Karli MIN, acting as scribe. LYNDA WOODARD is a 59 year old M here today for bilateral knee pain. He has been having knee pain in the left knee for 1.5 years but the right knee became painful in September. He denies any known injury or surgery. He states that the pain in the right knee is worse than the left. He has been having swelling in the right knee that goes down into his lower leg as well that he has had since the beginning of January. He was checked for blood clot in the leg before they went on vacation which was negative. When he came back from vacation his swelling had subsided but now it has returned. He has pain above the knee on the anterior aspect and pain in his posterior calf on the right side. He was told that he has a bakers cyst in the right knee. He does take 400mg of Ibuprofen as needed for pain and occasionally Tylenol. He denies physical therapy or injections. He does have an anaconda knee brace for the right knee but has been unable to wear it due to the swelling. He does have popping/clicking in the knee that can be painful at times. He does get catching in the right knee. He does have instability in the knees. Ortho Exam General General: Yes no acute distress and Yes well groomed Neurologic: Yes alert and Yes oriented x3 Psychologic: Yes reasonable and appropriate Right Knee Skin/Wound: No erythema, No ecchymosis and Yes swelling Homans Sign: Yes Knee ROM: Yes ROM-Extension -20 to 0 and Yes ROM-Flexion 0-140 (105) Examination: Yes Med jt line tenderness, No Lat jt line tenderness, Yes Crepitus and No TTP Pes Anserine Stability: NML: Anterior Drawer, NML: Posterior Drawer, NML: Valgus 0, NML: Valgus 30, NML: Varus 0 and NML: Varus 30 Patella Translation: 1 Patella Grind: Yes KNEE: hair loss from mid leg down bilaterally 2/4 dorsalis pedis 2/4 posterior tibial cap refill <3 sec palpable bakers cyst no instability but (more content not included)... Normal [facility] COMPREHENSIVE METABOLIC PANE L W/ANION GAPon 02-22-2025 Albumin [Mass/Vol] 4.4 g/dL Normal 3.6-5.1 [facility] Comment on above: Performed By: #### 9 7538, 49509, 457, 927, 99197, 622 #### [facility] [address], [address] [place] [id number] Knotting Machine Operator Portable: Edwin Griffin MD ALP [Catalytic activity/Vol] 67 U/L Normal 35-144 [facility] Comment on above: Performed By: #### 9 5175, 79940, 457, 927, 55646, 622 #### [facility] of [place] [address] Knotting Machine Operator Portable: Edwin Griffin MD ALT [Catalytic activity/Vol] 25 U/L Normal 9-46 [facility] Comment on above: Performed By: #### 9 2665, 95218, 457, 927, 31637, 622 #### [facility] of [address], [address] [place] [address] Knotting Machine Operator Portable: Edwin Griffin MD AST [Catalytic activity/Vol] 25 U/L Normal 10-35 [facility] Comment on above: Performed By: #### 9 2665, 07164, 457, 927, 78973, 622 #### [facility] of [address], [address] [place] [address] Knotting Machine Operator Portable: Edwin Griffin MD Bilirubin [Mass/Vol] 0.8 mg/dL Normal 0.2-1.2 [facility] Comment on above: Performed By: #### 9 4055, 42622, 457, 927, 82194, 622 #### [facility] [place] [address] Knotting Machine Operator Portable: Edwin Griffin MD Calcium [Mass/Vol] 9.2 mg/dL Normal 8.6-10.3 [facility] Comment on above: Performed By: #### 9 2665, 91594, 457, 927, 72311, 622 #### [facility] [place] [address] Knotting Machine Operator Portable: Edwin Griffin MD Chloride [Moles/Vol] 103 mmol/L Normal 98-110 [facility] Comment on above: Performed By: #### 9 2665, 93309, 457, 927, 75490, 622 #### [facility] [place] [address] Knotting Machine Operator Portable: Edwin Griffin MD CO2 [Moles/Vol] 28 mmol/L Normal 20-32 [facility] Comment on above: Performed By: #### 9 6265, 34199, 457, 927, 27968, 622 #### [facility] [place] [address] Knotting Machine Operator Portable: Edwin Griffin MD Creatinine [Mass/Vol] 1.19 mg/dL Normal 0.70-1.[address] [facility] Comment on above: Performed By: #### 9 6715, 03093, 457, 927, 38562, 622 #### [facility] [place] [address] Knotting Machine Operator Portable: Edwin Griffin MD ELECTROLYTE BALANCE 9 mmol/L (calc) Normal 7-17 [facility] Comment on above: Performed By: #### 9 6945, 78327, 457, 927, 68268, 622 #### [facility] [place] [address] Knotting Machine Operator Portable: Edwin Griffin MD GFR/1.73 sq M.predicted among non-blacks MDRD (S/P/Bld) [Vol rate/Area] 69 mL/min/{1.73_m2} Normal > OR = 60 [facility] Comment on above: Performed By: #### 9 4455, 99302, 457, 927, 06039, 622 #### [facility] [place] [address] Knotting Machine Operator Portable: Edwin Griffin MD Glucose [Mass/Vol] 99 mg/dL Normal 65-99 [facility] Comment on above: Result Comment: Fasting reference interval Performed By: #### 9 4665, 04550, 457, 927, 69754, 622 #### [facility] [place] [address] Knotting Machine Operator Portable: Edwin Griffin MD Potassium [Moles/Vol] 5.0 mmol/L Normal 3.5-5.[address] [facility] Comment on above: Performed By: #### 9 0135, 66027, 457, 927, 09005, 622 #### [facility] [place] [address] Knotting Machine Operator Portable: Edwin Griffin MD Protein [Mass/Vol] 6.7 g/dL Normal 6.1-8.1 [facility] Comment on above: Performed By: #### 9 2665, 93422, 457, 927, 27584, 622 #### [facility] [place] [address] Knotting Machine Operator Portable: Edwin Griffin MD Sodium [Moles/Vol] 140 mmol/L Normal 135-146 [facility] Comment on above: Performed By: #### 9 2665, 22334, 457, 927, 43905, 622 #### [facility] [place] [address] Knotting Machine Operator Portable: Edwin Griffin MD Urea nitrogen [Mass/Vol] 20 mg/dL Normal 7-25 [facility] Comment on above: Performed By: #### 9 2665, 82273, 457, 927, 22147, 622 #### [facility] [place] [address] Knotting Machine Operator Portable: Edwin Griffin MD FERRITINon 02-22-2025 Ferritin [Mass/Vol] 99 ng/mL Normal 24-380 [facility] Comment on above: Performed By: #### 9 2665, 75309, 457, 927, 06987, 622 #### [facility] [place] [address] Knotting Machine Operator Portable: Edwin Griffin MD HEMOGLOBIN A1c WITH eAGon eAG (mmol/L) 6.8 mmol/L Normal [facility] Comment on above: Performed By: #### 9 2665, 53852, 457, 927, 70190, 622 #### [facility] [place] [address] Knotting Machine Operator Portable: Edwin Griffin MD HbA1c (Bld) [Mass fraction] 5.9 % High <5.7 [facility] Comment on above: Result Comment: For someone without known diabetes, a hemoglobin A1c value between 5.7% and 6.4% is consistent with prediabetes and should be confirmed with a follow-up test. For someone with known diabetes, a value <7% indicates that their diabetes is well controlled. A1c targets should be individualized based on duration of diabetes, age, comorbid conditions, and other considerations. This assay result is consistent with an increased risk of diabetes. Currently, no consensus exists regarding use of hemoglobin A1c for diagnosis of diabetes for children. Performed By: #### 9 2665, 86301, 457, 927, 29294, 622 #### [facility] [address], [address] [place] [address] Knotting Machine Operator Portable: Edwin Griffin MD Magnesium [Mass/Vol] 123 mg/dL Normal [facility] Comment on above: Performed By: #### 9 2665, 26853, 457, 927, 94287, 622 #### [facility] [place] [address] Knotting Machine Operator Portable: Edwin Griffin MD MAGNESIUMon 02-22-2025 Magnesium [Mass/Vol] 2.4 mg/dL Normal 1.5-2.5 [facility] Comment on above: Order Comment: FASTI NG:YES FASTING: YES Performed By: #### 9 2665, 43245, 457, 927, 74109, 622 #### [facility] [place] [address] Knotting Machine Operator Portable: Edwin Griffin MD VITAMIN B12on 02-22-2025 Cobalamin (Vitamin B12) [Mass/Vol] 666 pg/mL Normal 200-1100 [facility] Comment on above: Performed By: #### 9 2665, 61303, 457, 927, 60269, 622 #### [facility] [address], [address] [place] [address] Knotting Machine Operator Portable: Edwin Griffin MD VITAMIN D,25-OH,TOTAL,IAon 0 02-22-2025 VITAMIN D,25-OH,TOTAL,IA 56 ng/mL Normal 30-100 [facility] Comment on above: Result Comment: Stefanie min D Status 25-OH Vitamin D: Deficiency: <20 ng/mL Insufficiency: 20 - 29 ng/mL Optimal: > or = 30 ng/mL For 25-OH Vitamin D testing on patients on D2-supplementation and patients for whom quantitation of D2 and D3 fractions is required, the [facility](TM) 25-OH VIT D, (D2,D3), LC/MS/MS is recommended: order code 51007 (patients >2yrs). See Note 1 Note 1 For additional information, please refer to http://education.[email or web address].com/faq/BHF563 (This link is being provided for informational/ educational purposes only.) Performed By: #### 9 2665, 63927, 457, 927, 75216, 622 #### [facility] [address], [address] [place] [address] Knotting Machine Operator Portable: Edwin Griffin MD Oncology Visit Reporton Oncology Visit Report [facility] [address] [place] [id number] OFFICE VISIT Date of Service: 01/17/25 1559 MR#: [id number] Acct: [id number] Name: LYNDA WOODARD Rep #: [id number] : 1965 From: Remy Ventura MD Age/Sex: 59/M Location[facility] Status: Signed HPI Subjective Date of Service 01/17/25 Chief Complaint F/u for carcinoid tumor/NET History of Present Illness 59-year-old man presented with chronic abdominal pain. He had a CT scan of the abdomen and pelvis on 11/19/2023 which showed a mesenteric mass attached to a loop of small bowel measuring 2.6 cm. He was referred to Dr. Armendariz, underwent laparoscopic to open small bowel enterectomy with mesenteric mass resection on 12/14/2023. Pathology showed neuroendocrine carcinoma grade 1. He was referred for further evaluation and management. Had Dotatate PET/CT scan done at [facility] on 02/14/2024 which was negative. He has a CT scan in09/13/2024 and comes for follow up. He feels well. Denies weight loss, flushing, night sweats or Diarrhea. [facility] Medical History (Updated 01/17/25 @ 16:[address] Remy Ventura MD) Quan's cyst of knee Endocrine cancer Wears glasses Thyroid disease Restless legs History of ulceration GERD (gastroesophageal reflux disease) Non-smoker History of echocardiogram Hypertension History of rib fracture Right thyroid nodule Surgical History S/P partial thyroidectomy Hx of exploratory laparotomy History of umbilical hernia repair H/O colonoscopy Family History Sister Thyroid disorder Diabetes Mother Afib PFO (patent foramen ovale) Aortic valve replaced Father Non-Hodgkin lymphoma Social History Smoking Status: Never smoker alcohol intake: never substance use type: does not use Intake Vital Signs 12/18/24 15:52 01/17/25 15:59 Height 5 ft 10 in 5 ft 10 in Weight: 105.687 kg BMI 33.4 BP 157/107 H Blood Pressure Location Rt brachial Position Sitting Respiration 16 Pulse 66 Pulse Source Monitor Temp 98.3 F Temperature Source Temporal Artery Pulse Oximetry (%) 95 Oxygen Delivery Method room air Intake Accompanied by: Is patient in pain?: Yes (b/l knee) Pain scale (1-10): 3 Allergies No Known Allergies Allergy (Verified 01/17/25 16:02) Medications ???Medication ???Instructions ???Recorded ???Confirmed ???Type losartan 100 mg tablet 100 mg PO QHS 10/03/23 01/17/25 Hi story omeprazole 40 mg capsule,delayed 40 mg PO QHS 10/03/23 01/17/25 His tory release pramipexole 0.5 mg tablet 0.5 mg PO QHS 10/03/23 01/17/25 Hi story cholecalciferol (vitamin D3) 125 125 mcg PO QDAY 01/17/25 01/17/25 History mcg (5,000 unit) capsule cyanocobalamin (vitamin B-12) 1,000 mcg PO QDAY 01/17/25 5 History 1,000 mcg capsule magnesium 250 mg tablet 250 mg PO QDAY 01/17/25 01/17/25 H istory pyridoxine (vitamin B6) 100 mg 100 mg PO QDAY 01/17/25 01/17/25 H istory tablet zinc gluconate 50 mg tablet 50 mg PO QDAY 01/17/25 01/17/25 Hi story Central Venous Access Central Venous Access: No 01/10/2025 CT c/a/p reviewed. CT/CT Chest, Abd, Pel w/Contrast IMPRESSION: 1. 6 mm enhancing hepatic lesion was not visible previously, possibly on a technical basis. This could reflect a flash filling hemangioma however given history, recommend either close CT follow-up to evaluate stability or multiphase hepatic protocol MRI with and without contrast for more definitive characterization. Note definitive characterization on hepatic protocol MRI or CT may be difficult due to tiny size, particularly on MRI, if the patient is unable to suspend respiration. 2. No definite evidence of metastatic disease within the chest. Resolution of previous RIGHT lower lobe finding which may reflect a nodular appearance of atelectasis. 3. Densely sclerotic bony foci in the bilateral glenoid up to 5 mm on the LEFT glenoid probably reflect bone islands islands., however given history, consider follow-up to ensure stability. 4. Additional description as above. Exam Physical Exam Const alert, oriented x3 and no apparent distress Coding Level of Care Code Off vis,est,level 4 Exam Problem Focused Diagnoses Neuroendocrine carcinoma C7A.8 Assessment and Plan Assessment and Plan (1) Neuroendocrine carcinoma: Status: Chronic Comment: S/P small bowel and mesenteric resection, Grade 1, pT4 pN2-stage III. No role for adjuvant therapy. Serotonin and chromogranin A are elevated. Dotatate PET/CT on 02/14/2024 shows no avid malignancy. CT a/p 08/30/2024 shows small densi (more content not included)... Normal [facility] US LOWER EXTREMITY VENO US DUPLEX BILATERALon 01-14-2025 [facility] US LOWER EXTREMITY VENOUS DUPLEX BILATERAL [address] [address] [phone], Vascular Lab Report [facility] US LOWER EXTREMITY VENOUS DUPLEX BILATERAL Patient Name: LYNDA WOODARD Reading Physician: [id number] Radha Fonseca MD Study Date: 01/14/2025 Ordering Provider: [id number] LAKIA MALDONADO MRN/PID: [id number] Fellow: Technologist: Kristal Thorpe RVT/AB Date of /Age: 8 1965 / 59 years Technologist 2: Gender: M Admission Status: Outpatient Location Performed: [facility] Diagnosis/ICD: Localized (leg) edema-R60.0 Indication: Right knee pain and swelling CPT Codes: 21239 Peripheral venous duplex scan for DVT complete CONCLUSIONS: Right Lower Venous: No evidence of acute deep vein thrombus visualized in the right lower extremity. Additional Findings; Cystic Structure within popliteal fossa measurin.4 x 1.6 x 2.0cm, likely a complex quan's cyst. Left Lower Venous: No evidence of acute deep vein thrombus visualized in the left lower extremity. Imaging & Doppler Findings: Right Compressible Thrombus Flow Distal External Iliac None CFV Yes None Spontaneous/Phasic PFV Yes None FV Proximal Yes None Spontaneous/Phasic FV Mid Yes None FV Distal Yes None Popliteal Yes None Spontaneous/Phasic Peroneal Yes None PTV Yes None Left Compress Thrombus Flow Distal External Iliac None CFV Yes None Spontaneous/Phasic PFV Yes None FV Proximal Yes None Spontaneous/Phasic FV Mid Yes None FV Distal Yes None Popliteal Yes None Spontaneous/Phasic Peroneal Yes None PTV Yes None [id number] Radha Fonseca MD Final [facility] XR KNEE RIGHT 3 VIEWSon 05-0 XR KNEE RIGHT 3 VIEWS Interpreted By: Kenton Trent, STUDY: XR KNEE RIGHT 3 VIEWS INDICATION: Signs/Symptoms:right knee pain. COMPARISON: None ACCESSION NUMBER(S): [id number] ORDERING CLINICIAN: LAKIA MALDONADO FINDINGS: Moderate osteoarthritis right knee greatest medially. Small joint effusion. No evidence of right knee fracture or lesion. IMPRESSION: Moderate right knee osteoarthritis with a joint effusion. Signed by: Kenton Enriquez 01/13/2025 10:45 AM Dictation workstation: [id number] [facility] CT Chest, Abd, Pel w/Contras ton 01-10-2025 CT Chest, Abd, Pel w/Contrast [facility] Imaging Services [address] [place] [address] CT Chest, Abd, Pel w/Contrast MR#: [id number] Acct: [id number] Name: LYNDA WOODARD Rep #: [id number] : 1965 M 59 From: Reynaldo Castellano MD PCP: Dr. Melva Martinez MD Status: REG CLI Study: CT Chest, Abd, Pel w/Contrast Date of Exam: Exam# [id number] Ordering Dr: Remy Ventura MD PROCEDURE: CT CHEST, ABD, PEL W/CONTRAST, 01/10/2025 REASON FOR EXAM: LUNG NODULE/CARCONOID TUMOR-SMALL BOWEL-IV ONLY TECHNIQUE: CT chest, abdomen, and pelvis was performed with IV contrast. Multiplanar reformats were generated. CONTRAST: Isovue-300 VOLUME: 98mL RADIATION DOSE SUMMARY: CTDlvol: 15.2+ 19.07+ 24.68 mGy DLP: 2108.76 mGycm One or more dose reduction techniques were used (e.g., Automated exposure control, adjustment of the mA and/or kV according to patient size, use of iterative reconstruction technique). COMPARISON: CT abdomen and pelvis 08/30/2024 and prior. No previous CT chest is available. FINDINGS: Heart/pericardium: Unremarkable. Aorta: Unremarkable. Pulmonary arteries: Normal in caliber. Thoracic lymph nodes: Unremarkable. Lungs/pleura: Mild atelectasis/scarring evidence of probable rounded atelectasis in the subpleural lingula underlying rib hardware. Resolution of previously RIGHT lower lobe finding which may have reflected a nodular appearance of atelectasis. Few punctate high-density and/or calcified likely granulomas fissural likely intrapulmonary lymph nodes on the RIGHT.. Airways: Unremarkable. Chest wall: RIGHT lobe of the thyroid is atrophic or absent. Operative changes on the LEFT.. Liver: RIGHT lobe hepatic cyst. Additional tiny hypodensities are too small to characterize, but unchanged, possible cysts/hemangiomas. 6 mm hypervascular lesion in the RIGHT hepatic dome was not visible previously, isoenhancing with surrounding parenchyma in the hepatic venous phase and visible only on arterial phase imaging through the upper abdomen.. Spleen: Unremarkable. Gallbladder: Cholelithiasis. Pancreas: Unremarkable. Adrenals: Unremarkable. Kidneys: Redemonstrated large LEFT renal cyst and additional smaller bilateral cysts. Few tiny hypodensities bilaterally are too small to characterize but likely to reflect additional cysts. Renal sinus cysts on the LEFT. Bowel: Previous small bowel resection.. Normal caliber appendix. Abdominopelvic lymph nodes: Unremarkable. Vasculature: Unremarkable. Peritoneum: Unremarkable. Bladder: Underdistended and suboptimally evaluated, grossly unremarkable. Reproductive Organs: Borderline mild prostatomegaly. Body Wall: Operative changes small fat containing LEFT inguinal hernia.. Musculoskeletal: Densely sclerotic 5 mm focus in the LEFT glenoid may reflect a bone island however this is not definite. Similar finding measuring 4 mm on the RIGHT. Old bilateral rib fractures post ORIF on the LEFT. Mild spondylosis. CT/CT Chest, Abd, Pel w/Contrast IMPRESSION: 1. 6 mm enhancing hepatic lesion was not visible previously, possibly on a technical basis. This could reflect a flash filling hemangioma however given history, recommend either close CT follow-up to evaluate stability or multiphase hepatic protocol MRI with and without contrast for more definitive characterization. Note definitive characterization on hepatic protocol MRI or CT may be difficult due to tiny size, particularly on MRI, if the patient is unable to suspend respiration. 2. No definite evidence of metastatic disease within the chest. Resolution of previous RIGHT lower lobe finding which may reflect a nodular appearance of atelectasis. 3. Densely sclerotic bony foci in the bilateral glenoid up to 5 mm on the LEFT glenoid probably reflect bone islands islands., however given history, consider follow-up to ensure stability. 4. Additional description as above. Reading Location: [id number] CC: Dr. Remy Ventura MD; Dr. Melva Martinez MD [employer] Player: Signed Normal [facility] Oncology Visit Reporton Oncology Visit Report [facility] [address] [place] [address] OFFICE VISIT Date of Service: 12/18/24 1551 MR#: [id number] Acct: [id number] Name: LYNDA WOODARD Rep #: [id number] : 1965 From: Remy Ventura MD Age/Sex: 59/M Location: [facility] Status: Signed HPI Subjective Date of Service 12/18/24 Chief Complaint F/u for carcinoid tumor/NET History of Present Illness 59-year-old man presented with chronic abdominal pain. He had a CT scan of the abdomen and pelvis on 11/19/2023 which showed a mesenteric mass attached to a loop of small bowel measuring 2.6 cm. He was referred to Dr. Armendariz, underwent laparoscopic to open small bowel enterectomy with mesenteric mass resection on 12/14/2023. Pathology showed neuroendocrine carcinoma grade 1. He was referred for further evaluation and management. Had Dotatate PET/CT scan done at [facility] on 02/14/2024 which was negative. He has a CT scan in August 2024 and comes for follow up. He feels well. Denies weight loss, flushing, night sweats or Diarrhea. [facility] Medical History Endocrine cancer Wears glasses Thyroid disease Restless legs History of ulceration GERD (gastroesophageal reflux disease) Non-smoker History of echocardiogram Hypertension History of rib fracture Right thyroid nodule Surgical History S/P partial thyroidectomy Hx of exploratory laparotomy History of umbilical hernia repair H/O colonoscopy Family History Sister Thyroid disorder Diabetes Mother Afib PFO (patent foramen ovale) Aortic valve replaced Father Non-Hodgkin lymphoma Social History Smoking Status: Never smoker alcohol intake: never substance use type: does not use Intake Vital Signs 06/26/24 16:05 12/18/24 15:52 Height 5 ft 10 in 5 ft 10 in Weight: 105.744 kg BMI 33.4 BP 153/95 H Blood Pressure Location Lt brachial Position Sitting Respiration 18 Pulse 71 Pulse Source Monitor Temp 97.9 F Temperature Source Temporal Artery Pulse Oximetry (%) 96 Oxygen Delivery Method room air Intake Is patient in pain?: No Allergies No Known Allergies Allergy (Verified 12/18/24 15:51) Medications ???Medication ???Instructions ???Recorded ???Confirmed ???Type losartan 100 mg tablet 100 mg PO QHS 10/03/23 12/18/24 Hi story omeprazole 40 mg capsule,delayed 40 mg PO QHS 10/03/23 12/18/24 His tory release pramipexole 0.5 mg tablet 0.5 mg PO QHS 10/03/23 12/18/24 Hi story Central Venous Access Central Venous Access: No Laboratory Tests 12/27/23 02/07/24 12/06/24 11:36 15:55 15:50 Serotonin 911 H 411 H 633 H Chromogranin A 267.1 H 338.5 H 115.9 H Exam Physical Exam Const alert, oriented x3 and no apparent distress HEENT normocephalic, external ears normal and external nose normal Eyes PERRL, conjunctivae normal and no scleral icterus Neck no lymphadenopathy and supple Lymph Lymphatic: no lymphadenopathy noted Chest inspection of chest normal Resp normal respiratory effort Cardio regular rate, regular rhythm, S1 normal heart sound, S2 normal heart sound and no murmurs GI GI Narrative: +midline scar no CVA tenderness Back/Spine thoracic and lumbar spine normal to inspection Extremity normal to inspection and no clubbing, cyanosis or edema Skin no rashes or lesions noted Neuro oriented x3, CN's II-XII intact bilaterally, moves all extremities and no focal motor deficits Psych mental status grossly normal Coding Level of Care Code Off vis,est,level 4 Exam Problem Focused Diagnoses Neuroendocrine carcinoma C7A.8 Assessment and Plan Assessment and Plan (1) Neuroendocrine carcinoma: Status: Chronic Comment: S/P small bowel and mesenteric resection, Grade 1, pT4 pN2-stage III. No role for adjuvant therapy. Serotonin and chromogranin A are elevated. Dotatate PET/CT on 02/14/2024 shows no avid malignancy. Comes for follow up. CT a/p 08/30/2024 shows small density R Low lobe, no metastatic disease. Plan: To monitor tumor markers-Serotonin, Chromogranin A. To continue observation. Obtain CT c/a/p RTC 4 weeks. 12/18/24 3549 Date Remy Ventura MD [facility] Signature: Date (if applicable) CC: Dr. Melva Martinez MD Normal [facility] L3100.4810on 12-12-2024 Chromogranin A 115.9 ng/mL Abnormal 0.0-101.8 [facility] Comment on above: Order Comment: Test( s) 427552-[id number], Serum was developed and its performance characteristics determined by [facility]. It has not been cleared or approved by the Food and Drug Administration. Result Comment: Retort Setter mogranin A performed by [employer] methodology Values obtained with different assay methods or kits cannot be used interchangeably. Performed By: #### L 3800.1800, L3100.4810 #### [facility] [address] [place], [place], [id number] Serotonin, Serumon SEROTONIN,SERUM 633 ng/mL High 23-230 [facility] Comment on above: Order Comment: Test( s) [id number], Serum was developed and its performance characteristics determined by [facility]. It has not been cleared or approved by the Food and Drug Administration. Result Comment: Perf ormed at: - [address] [id number] Inspecting Supervisor: Kylee Shaffer MD, Phone: [phone] Performed By: #### L 3800.1800, L3100.4810 #### [facility] [address] [place], [place], [id number] Absolute lymphocyte countOrd ered By: Remy Ventura on 12-06-2024 Lymphocytes Auto (Unsp spec) [#/Vol] 1.22 10*3/uL 0.83-4.51 [facility] Absolute neutrophil countOrd ered By: Remy Ventura on 12-06-2024 Neutrophils (Bld) [#/Vol] 6.1 10*3/uL 2.0-7.7 [facility] Anion gap in Serum or Plasma Ordered By: Remy Españadeyanira on 12-06-2024 Anion gap [Moles/Vol] 19 mmol/L High 5-15 [facility] Automated lymphocyte count a s percentage of total leukocytesOrdered By: Remy Españadeyanira on 12-06-2024 Lymphocytes/100 WBC Auto (Unsp spec) 14.9 % Low 19-41 [facility] BUN/creatinine ratioOrdered By: Remy Tacodeyanira on 12-06-2024 Urea nitrogen/Creatinine [Mass ratio] 13.1 mg/mg 10-20 [facility] Basophil percentageOrdered B y: Remy Tacodeyanira on 12-06-2024 Basophils/100 WBC (Bld) 0.9 % 0-1 [facility] Bilirubin, totalOrdered By: Remy Tacodeyanira on 12-06-2024 Bilirubin [Mass/Vol] 0.45 mg/dL 0.00-1.30 [facility] CBC W/Diff, Automatedon 11-11 Absolute Lymph 1.22 X10 3/uL Normal 0.83-4.51 [facility] Comment on above: Performed By: #### L 504.2610, L100.0100, L500.4050 ####[facility] [address] [place], [address] Absolute Neut 6.1 X10 3/uL Normal 2.0-7.7 [facility] Comment on above: Performed By: #### L 504.2610, L100.0100, L500.4050 ####[facility] [address] [place], [address] Basophils/100 WBC (Bld) 0.9 % Normal 0-1 [facility] Comment on above: Performed By: #### L 504.2610, L100.0100, L500.4050 ####[facility] [address] [place], [address] Eosinophils/100 WBC (Bld) 3.4 % Normal 0-5 [facility] Comment on above: Performed By: #### L 504.2610, L100.0100, L500.4050 ####[facility] [address] [place], [address] Erythrocyte distribution width (RBC) [Ratio] 13.6 % Normal 11.6-14.6 [facility] Comment on above: Performed By: #### L 504.2610, L100.0100, L500.4050 ####[facility] [address] [place], [address] Hematocrit (Bld) [Volume fraction] 50.0 % Normal 40-54 [facility] Comment on above: Performed By: #### L 504.2610, L100.0100, L500.4050 ####[facility] [address] [place], [address] Hemoglobin (Bld) [Mass/Vol] 16.7 g/dL High 13.0-16.5 [facility] Comment on above: Performed By: #### L 504.2610, L100.0100, L500.4050 ####[facility] [address] [place], [address] IG% 0.600 Normal 0.0-0.9 [facility] Comment on above: Result Comment: IG% - Immature Granulocytes (promyelocytes, myelocytes and metamyelocytes) > 1% indicates that a LEFT SHIFT is Present. Performed By: #### L 504.2610, L100.0100, L500.4050 ####[facility] [address] [place], [address] Lymphocytes/100 WBC (Bld) 14.9 % Low 19-41 [facility] Comment on above: Performed By: #### L 504.2610, L100.0100, L500.4050 ####[facility] [address] [place], [address] MCH (RBC) [Entitic mass] 29.7 pg Normal 27.0-32.0 [facility] Comment on above: Performed By: #### L 504.2610, L100.0100, L500.4050 ####[facility] [address] [place], [address] MCHC (RBC) [Mass/Vol] 33.4 g/dL Normal 32-36 [facility] Comment on above: Performed By: #### L 504.2610, L100.0100, L500.4050 ####[facility] [address] [place], [address] MCV (RBC) [Entitic vol] 88.8 fL Normal 80-94 [facility] Comment on above: Performed By: #### L 504.2610, L100.0100, L500.4050 ####[facility] [address] [place], [address] Monocytes/100 WBC (Bld) 5.8 % Normal 0-10 [facility] Comment on above: Performed By: #### L 504.2610, L100.0100, L500.4050 ####[facility] [address] [place], [address] Neutrophils/100 WBC (Bld) 74.4 % High 47-70 [facility] Comment on above: Performed By: #### L 504.2610, L100.0100, L500.4050 ####[facility] [address] [place], [address] Nucleated RBC (Bld) [#/Vol] 0 10*3/uL Normal 0-5 [facility] Comment on above: Performed By: #### L 504.2610, L100.0100, L500.4050 ####[facility] [address] [place], [address] Platelet mean volume (Bld) [Entitic vol] 12.4 fL High 6.2-12.0 [facility] Comment on above: Performed By: #### L 504.2610, L100.0100, L500.4050 ####[facility] [address] [place], [address] Platelets (Bld) [#/Vol] 228 10*3/uL Normal 150-450 [facility] Comment on above: Performed By: #### L 504.2610, L100.0100, L500.4050 ####[facility] [address] [place], [address] RBC (Bld) [#/Vol] 5.63 10*6/uL Normal 4.6-6.2 [facility] Comment on above: Performed By: #### L 504.2610, L100.0100, L500.4050 ####[facility] [address] [place], [address] RDW SD 44.3 fl High 35.1-43.9 [facility] Comment on above: Performed By: #### L 504.2610, L100.0100, L500.4050 ####[facility] [address] [place], [address] WBC (Bld) [#/Vol] 8.2 10*3/uL Normal 4.4-11.0 [facility] Comment on above: Performed By: #### L 504.2610, L100.0100, L500.4050 ####[facility] [address] [place], [address] Carbon dioxide, total [Moles /volume] in Central venous bloodOrdered By: Remy Ventura on 12-06-2024 CO2 [Moles/Vol] 19.9 mmol/L Low 21.0-32.0 [facility] Chloride assayOrdered By: Shannon Ventura on 12-06-2024 Chloride [Moles/Vol] 102 mmol/L 98-108 [facility] Comprehensive Metabolic Prof ilon 12-06-2024 Albumin [Mass/Vol] 4.0 g/dL Normal 3.4-4.8 [facility] Comment on above: Performed By: #### L 504.2610, L100.0100, L500.4050 ####[facility] [address] [place], [address] Albumin/Globulin [Mass ratio] 1.9 {ratio} Normal 0.9-2.4 [facility] Comment on above: Performed By: #### L 504.2610, L100.0100, L500.4050 ####[facility] [address] [place], [address] ALK PHOS 82 U/L Normal 40-129 [facility] Comment on above: Performed By: #### L 504.2610, L100.0100, L500.4050 ####[facility] [address] [place], [address] ALT [Catalytic activity/Vol] 38 U/L Normal <=46 [facility] Comment on above: Performed By: #### L 504.2610, L100.0100, L500.4050 ####[facility] [address] [place], [address] AST [Catalytic activity/Vol] 39 U/L High <=37 [facility] Comment on above: Performed By: #### L 504.2610, L100.0100, L500.4050 ####[facility] [address] [place], [address] Bilirubin [Mass/Vol] 0.45 mg/dL Normal 0.00-1.30 [facility] Comment on above: Performed By: #### L 504.2610, L100.0100, L500.4050 ####[facility] [address] [place], [address] BUN/CRE 13.1 RATIO Normal 10-20 [facility] Comment on above: Performed By: #### L 504.2610, L100.0100, L500.4050 ####[facility] [address] [place], [address] Calcium [Mass/Vol] 9.1 mg/dL Normal 7.6-11.0 [facility] Comment on above: Performed By: #### L 504.2610, L100.0100, L500.4050 ####[facility] [address] [place], [address] Chloride [Moles/Vol] 102 mmol/L Normal 98-108 [facility] Comment on above: Performed By: #### L 504.2610, L100.0100, L500.4050 ####[facility] [address] [place], [address] CO2 [Moles/Vol] 19.9 mmol/L Low 21.0-32.0 [facility] Comment on above: Performed By: #### L 504.2610, L100.0100, L500.4050 ####[facility] [address] [place], [address] Creatinine [Mass/Vol] 1.30 mg/dL High 0.70-1.20 [facility] Comment on above: Performed By: #### L 504.2610, L100.0100, L500.4050 ####[facility] [address] [place], [address] ECRCL 72.06 ml/min Normal 50-250 [facility] Comment on above: Performed By: #### L 504.2610, L100.0100, L500.4050 ####[facility] [address] [place], [address] GAP 19 High 5-15 [facility] Comment on above: Performed By: #### L 504.2610, L100.0100, L500.4050 ####[facility] [address] [place], [address] GFR/1.73 sq M.predicted among non-blacks MDRD (S/P/Bld) [Vol rate/Area] 63 mL/min/{1.73_m2} Normal >60 [facility] Comment on above: Result Comment: mL/m in/1.73m2 CKD-EPI Creatinine Equation (2020) Performed By: #### L 504.2610, L100.0100, L500.4050 ####[facility] [address] [place], [address] Globulin (S) [Mass/Vol] 2.1 g/dL Low 2.2-4.2 [facility] Comment on above: Performed By: #### L 504.2610, L100.0100, L500.4050 ####[facility] [address] [place], [address] Glucose [Mass/Vol] 83 mg/dL Normal 70-99 [facility] Comment on above: Performed By: #### L 504.2610, L100.0100, L500.4050 ####[facility] [address] [place], [address] Potassium [Moles/Vol] 4.2 mmol/L Normal 3.3-5.1 [facility] Comment on above: Performed By: #### L 504.2610, L100.0100, L500.4050 ####[facility] [address] [place], [address] Sodium [Moles/Vol] 140 mmol/L Normal 133-145 [facility] Comment on above: Performed By: #### L 504.2610, L100.0100, L500.4050 ####[facility] [address] [place], [address] T PROT 6.1 g/dL Normal 5.9-8.4 [facility] Comment on above: Performed By: #### L 504.2610, L100.0100, L500.4050 ####[facility] [address] [place], [address] Urea nitrogen [Mass/Vol] 17 mg/dL Normal 4-19 [facility] Comment on above: Performed By: #### L 504.2610, L100.0100, L500.4050 ####[facility] [address] [place], [address] Eosinophil percentageOrdered By: Remy Ventura on 12-06-2024 Eosinophils/100 WBC (Bld) 3.4 % 0-5 [facility] Erythrocyte distribution wid th ratioOrdered By: Remy Ventura on 12-06-2024 Erythrocyte distribution width (RBC) [Ratio] 13.6 % 11.6-14.6 [facility] Erythrocyte distribution wid th standard deviationOrdered By: Remy Ventura on 12-06-2024 Erythrocyte distribution width (RBC) [Ratio] 44.3 fl High 35.1-43.9 [facility] Glomerular filtration rate ( GFR) estimation/1.73 sq m using serum, plasma, or whole bOrdered By: Remy Ventura on 12-06-2024 GFR/1.73 sq M.predicted among non-blacks MDRD (S/P/Bld) [Vol rate/Area] 63 mL/min/{1.73_m2} >60 [facility] Comment on above: mL/min/1.73m2 CKD-EP I Creatinine Equation (2020) Hematocrit Auto (Bld) [Volum e fraction]Ordered By: Remy Ventura on 12-06-2024 Hematocrit (Bld) [Volume fraction] 50.0 % 40-54 [facility] Hemoglobin measurementOrdere d By: Remy Ventura on 12-06-2024 Hemoglobin (Bld) [Mass/Vol] 16.7 g/dL High 13.0-16.5 [facility] Immature granulocytes/100 WB C Auto (Bld)Ordered By: Remy Ventura on 12-06-2024 Immature granulocytes/100 WBC (Bld) 0.600 % 0.0-0.9 [facility] Comment on above: IG% - Immature Granu locytes (promyelocytes, myelocytes and metamyelocytes) > 1% indicates that a LEFT SHIFT is Present. LDHon 12-06-2024 LDH 197 U/L Normal 87-241 [facility] Comment on above: Order Comment: 1 Performed By: #### L 504.2610, L100.0100, L500.4050 ####[facility] [address] [place], [address] Laboratory - Chemistry and C hemistry - challengeOrdered By: Remy Ventura on 12-06-2024 AST [Catalytic activity/Vol] 39 U/L High <38 [facility] Lactate dehydrogenase (LDH) measurementOrdered By: Remy Ventura on 12-06-2024 LDH [Catalytic activity/Vol] 197 U/L 87-241 [facility] MCV (mean corpuscular volume ) determinationOrdered By: Remy Ventura on 12-06-2024 MCV (RBC) [Entitic vol] 88.8 fL 80-94 [facility] Mean corpuscular hemoglobin (MCH) determinationOrdered By: Remy Ventura on 12-06-2024 MCH (RBC) [Entitic mass] 29.7 pg 27.0-32.0 [facility] Mean corpuscular hemoglobin concentration (MCHC) determinationOrdered By: Remy Ventura on 12-06-2024 MCHC (RBC) [Mass/Vol] 33.4 g/dL 32-36 [facility] Mean platelet volume determi nationOrdered By: Remy Ventura on 12-06-2024 Platelet mean volume (Bld) [Entitic vol] 12.4 fL High 6.2-12.0 [facility] Monocyte percentageOrdered B y: Remy Ventura on 12-06-2024 Monocytes/100 WBC (Bld) 5.8 % 0-10 [facility] Neutrophil percentageOrdered By: Remy Ventura on 12-06-2024 Neutrophils/100 WBC (Bld) 74.4 % High 47-70 [facility] Nucleated red blood cell per centageOrdered By: Remy Ventura on 12-06-2024 Nucleated RBC/100 WBC (Bld) [Ratio] 0 % 0-5 [facility] Plasma serotonin measurement (mass/volume)Ordered By: Remy Ventura on 12-06-2024 Serotonin (P) [Mass/Vol] 633 ng/mL High 23-230 [facility] Comment on above: Performed at: - L [address] [id number] Director: Kylee Shaffer MD, Phone: [phone] Platelet countOrdered By: Shannon Ventura on 12-06-2024 Platelets (Bld) [#/Vol] 228 10*3/uL 150-450 [facility] Potassium measurement (mass/ volume)Ordered By: Remy Ventura on 12-06-2024 Potassium (Unsp spec) [Mass/Vol] 4.2 mmol/L 3.3-5.1 [facility] RBC Auto (Bld) [#/Vol]Ordere d By: Remy Ventura on 12-06-2024 RBC (Bld) [#/Vol] 5.63 10*6/uL 4.6-6.2 [facility] Serum chromogranin A measure mentOrdered By: Remy Ventura on 12-06-2024 Serum chromogranin A measurement 115.9 ng/mL High 0.0-101.8 [facility] Comment on above: Chromogranin A perfo rmed by [employer] KRYPTORmethodologyValues obtained with different assay methods or kits cannotbe used interchangeably. Serum creatinine measurement (mass/volume)Ordered By: Remy Ventura on 12-06-2024 Creatinine [Mass/Vol] 1.30 mg/dL High 0.70-1.20 [facility] Serum globulin measurementOr dered By: Remy Ventura on 12-06-2024 Globulin (S) [Mass/Vol] 2.1 g/dL Low 2.2-4.2 [facility] Serum glucose measurement (m ass/volume)Ordered By: Remy Ventura on 12-06-2024 Glucose [Mass/Vol] 83 mg/dL 70-99 [facility] Serum or plasma alanine lozano otransferase (ALT) measurementOrdered By: Remy Ventura on 12-06-2024 ALT [Catalytic activity/Vol] 38 U/L <47 [facility] Serum or plasma albumin oksana urement (mass/volume)Ordered By: Remy Ventura on 12-06-2024 Albumin [Mass/Vol] 4.0 g/dL 3.4-4.8 [facility] Serum or plasma albumin/glob ulin mass ratioOrdered By: Remy Ventura on 12-06-2024 Albumin/Globulin [Mass ratio] 1.9 {ratio} 0.9-2.4 [facility] Serum or plasma alkaline jennifer sphatase measurementOrdered By: Remy Ventura on 12-06-2024 ALP [Catalytic activity/Vol] 82 U/L 40-129 [facility] Serum or plasma calcium oksana urement (mass/volume)Ordered By: Remy Ventura on 12-06-2024 Calcium [Mass/Vol] 9.1 mg/dL 7.6-11.0 [facility] Serum or plasma urea nitroge n measurement (mass/volume)Ordered By: Remy Ventura on 12-06-2024 Urea nitrogen [Mass/Vol] 17 mg/dL 4-19 [facility] Sodium levelOrdered By: Filiberto Ventura on 12-06-2024 Sodium [Moles/Vol] 140 mmol/L 133-145 [facility] Total proteinOrdered By: Erick Ventura on 12-06-2024 Protein [Mass/Vol] 6.1 g/dL 5.9-8.4 [facility] White blood cell (WBC) count Ordered By: Remy Ventura on 12-06-2024 WBC (Bld) [#/Vol] 8.2 10*3/uL 4.4-11.0 [facility] Abdomen/Pelvis WITH Contrast on 08-30-2024 Abdomen/Pelvis WITH Contrast [facility] [address] [place] [address] Abdomen/Pelvis WITH Contrast MR#: [id number] Acct: [id number] Name: LYNDA WOODARD Rep #: [id number] : 1965 M 59 From: Nik felix MD PCP: Dr. Melva Martinez MD Status: REG CLI Study: Abdomen/Pelvis WITH Contrast Date of Exam: Exam# [id number] Ordering Dr: Remy Ventura MD [id number] STUDY: CT ABDOMEN AND PELVIS WITH CONTRAST REASON FOR EXAM: Male, 59 years old. NEUROENDOCRINE CARCINOMA. Prior partial small bowel resection. RADIATION DOSAGE (If Supplied By Facility): CTDIvol = ( 18 ) mGy, DLP = ( 1254.10 ) mGycm TECHNIQUE: Transaxial images were obtained from the dome of the diaphragm to the symphysis pubis without oral contrast. IV 100mL Isovue-370 was administered. Sagittal and coronal images were reconstructed. Individualized dose optimization techniques were used for this CT. COMPARISON: Comparison is made with prior outside examination dated November 19, 2023. FINDINGS: There is evidence of an 8.8 mm noncalcified nodule at the right lung base. Prior ORIF of lower left ribs. The visualized portions of the heart are within normal limits. There is decreased attenuation of the liver consistent with steatosis. Stable small atelectasis. Normal gallbladder and extrahepatic biliary system. Normal spleen. Normal pancreas. Normal bilateral adrenal glands. Stable bilateral renal cysts. Dominant cyst in the lower pole of the left kidney measuring 11.9 cm x 9 cm. There is a small hiatal hernia. Normal small intestine. The previously seen soft tissue mass in the right midabdomen within the small bowel is not seen at this time. Normal colon. The appendix is visualized and appears normal. Normal abdominal aorta. Normal inferior vena cava. Normal retroperitoneum. Normal urinary bladder. Small bilateral inguinal hernias containing fat more prominent on the left side. Normal osseous structures. CT/Abdomen/Pelvis WITH Contrast IMPRESSION: Status post partial resection of small bowel. New 8.8 mm nodule at the right lung base. Six-month follow-up recommended. Electronically Signed: Nik Gutiérrez MD at 13:49 EST , CC: Dr. Remy Ventura MD; Dr. Melva Martinez MD [employer] Player: Signed Normal [facility] CREATININE FINGERSTICKon CREATININE WB < 1.0 Normal 0.70-1.30 [facility] Comment on above: Performed By: #### L 9100.0200 #### [facility] [address] [facility] [place], [place], [address] EGFR WB > 60.0000 Normal >60 [facility] Comment on above: Performed By: #### L 9100.0200 #### [facility] [address] [facility] [place], [place], [address] CBC panel Auto (Bld)on 08-20 Erythrocyte distribution width (RBC) [Ratio] 14.5 % Normal 11.5-14.[address] [facility] Comment on above: Performed By: #### I CPA3 #### JOE Montoya ([id number]) [facility] ([facility]) [address] [place] [address] Hematocrit (Bld) [Volume fraction] 47.1 % Normal 41.0-52.[address] [facility] Comment on above: Performed By: #### I CPA3 #### JOE Montoya ([id number]) [facility] ([facility]) [address] [place] [address] Hemoglobin (Bld) [Mass/Vol] 14.9 g/dL Normal 13.5-17.[address] [facility] Comment on above: Performed By: #### I CPA3 #### JOE Montoya ([id number]) [facility] ([facility]) [address] [place] [address] 24836 MCH (RBC) [Entitic mass] 27.7 pg Normal 26.0-34.[address] [facility] Comment on above: Performed By: #### I CPA3 #### JOE Montoya ([id number]) [facility] ([facility]) [address] [place] [address] MCHC (RBC) [Mass/Vol] 31.6 g/dL Low 32.0-36.0 [facility] Comment on above: Performed By: #### I CPA3 #### JOE Montoya ([id number]) [facility] ([facility]) [address] [place] [address] MCV (RBC) [Entitic vol] 88 fL Normal 80-[address] [facility] Comment on above: Performed By: #### I CPA3 #### JOE Montoya ([id number]) [facility] ([facility]) [id number] [place] [address] Nucleated RBC/100 WBC (Bld) [Ratio] 0.0 /100 WBCs Normal 0.0-0.[address] [facility] Comment on above: Performed By: #### I CPA3 #### JOE Montoya ([id number]) [facility] ([facility]) [address] [place] [address] Platelets (Bld) [#/Vol] 239 x10*3/uL Normal 150-[address] [facility] Comment on above: Performed By: #### I CPA3 #### JOE Montoya ([id number]) [facility] ([facility]) [address] [place] [address] 79128 RBC (Bld) [#/Vol] 5.37 x10*6/uL Normal 4.50-5.90 [facility] Comment on above: Performed By: #### I CPA3 #### JOE Montoya ([id number]) [facility] ([facility]) [address] [place] [address] WBC (Bld) [#/Vol] 6.4 x10*3/uL Normal 4.4-11.3 [facility] Comment on above: Performed By: #### I CPA3 #### JOE Montoya ([id number]) [facility] ([facility]) [id number] [place] [address]2315 Calcidiolon 12-09-2024 25-hydroxyvitamin D3 [Mass/Vol] 24 ng/mL Low 30-[address] [facility] Comment on above: Order Comment: Defic iency: < 20 ng/mlInsufficiency: 20-29 ng/mlSufficiency: 30-100 ng/mlThis assay accurately quantifies the sum of Vitamin D3, 25-Hydroxy and Vitamin D2,25-Hydroxy. Performed By: #### 4 6128-5 #### JOE Montoya ([id number]) [facility] ([facility]) [address] [place], [place] [address] Cobalaminson 08-20-2024 Cobalamin (Vitamin B12) [Mass/Vol] 95 pg/mL Low 211-[address] [facility] Comment on above: Performed By: #### 4 6128-5 #### JOE Montoya ([id number]) [facility] ([facility]) [address] [place] [address] 31389 Comprehensive metabolic 2000 panelon 08-20-2024 Albumin BCP dye [Mass/Vol] 4.1 g/dL Normal 3.4-5.[address] [facility] Comment on above: Performed By: #### I CPA3 #### JOE Montoya ([id number]) [facility] ([facility]) [address] [place] [address] ALP [Catalytic activity/Vol] 70 U/L Normal 33-[address] [facility] Comment on above: Performed By: #### I CPA3 #### JOE Montoya ([id number]) [facility] ([facility]) [address] [place] [address] 21747 ALT With P-5'-P [Catalytic activity/Vol] 25 U/L Normal 10-[address] [facility] Comment on above: Result Comment: Chioma ents treated with Sulfasalazine may generate falsely decreased results for ALT. Performed By: #### I CPA3 #### JOE Montoya ([id number]) [facility] ([facility]) [address] [place] [address] 69886 Anion gap [Moles/Vol] 8 mmol/L Low 10-20 [facility] Comment on above: Performed By: #### I CPA3 #### JOE Montoya ([id number]) [facility] ([facility]) [id number] [place] [address] 31119 AST With P-5'-P [Catalytic activity/Vol] 25 U/L Normal 9-[address] [facility] Comment on above: Performed By: #### I CPA3 #### JOE Montoya ([id number]) [facility] ([facility]) [id number] [place] [address] 23896 Bilirubin [Mass/Vol] 0.7 mg/dL Normal 0.0-1.2 [facility] Comment on above: Performed By: #### I CPA3 #### JOE Montoya ([id number]) [facility] ([facility]) [address] [place] [address] 84060 Calcium [Mass/Vol] 9.3 mg/dL Normal 8.6-10.3 [facility] Comment on above: Performed By: #### I CPA3 #### JOE Montoya ([id number]) [facility] ([facility]) [address] [place] [address] 77381 Chloride [Moles/Vol] 105 mmol/L Normal 98-107 [facility] Comment on above: Performed By: #### I CPA3 #### JOE Montoya ([id number]) [facility] ([facility]) [id number] [place] [address] 71311 CO2 [Moles/Vol] 32 mmol/L Normal 21-32 [facility] Comment on above: Performed By: #### I CPA3 #### JOE Montoya ([id number]) [facility] ([facility]) [address] [place] [address] 18147 Creatinine [Mass/Vol] 1.12 mg/dL Normal 0.50-1.30 [facility] Comment on above: Performed By: #### I CPA3 #### JOE Montoya ([id number]) [facility] ([facility]) [id number] [place] [address] 10836 Glomerular filtration rate/1.73 sq M.predicted 75 mL/min/1.73m*2 Normal >[address] [facility] Comment on above: Result Comment: Calc ulations of estimated GFR are performed using the 2020 CKD-EPI Study Refit equation without the race variable for the IDMS-Traceable creatinine methods. https://jasn.asnjournals.org/content//ASN.901153 0065 Performed By: #### I CPA3 #### JOE VALENCIA L ([id number]) [facility] ([facility]) [address] [place] [address] Glucose [Mass/Vol] 92 mg/dL Normal 74-99 [facility] Comment on above: Performed By: #### I CPA3 #### JOE VALENCIA L ([id number]) [facility] ([facility]) [id number] [place] [address] 53490 Potassium [Moles/Vol] 4.9 mmol/L Normal 3.5-5.3 [facility] Comment on above: Performed By: #### I CPA3 #### JOE VALENCIA L ([id number]) [facility] ([facility]) [address] [place] [address] 68075 Protein [Mass/Vol] 6.2 g/dL Low 6.4-8.2 [facility] Comment on above: Performed By: #### I CPA3 #### JOE RICHARDSONMOTZER L ([id number]) [facility] ([facility]) [id number] [place] [address] 95099 Sodium [Moles/Vol] 140 mmol/L Normal 136-145 [facility] Comment on above: Performed By: #### I CPA3 #### JOE RICHARDSONMOTZER L ([id number]) [facility] ([facility]) [id number] [place] [address] 81732 Urea nitrogen [Mass/Vol] 14 mg/dL Normal 6-[address] [facility] Comment on above: Performed By: #### I CPA3 #### JOE RICHARDSONMOTZJATINDER L ([id number]) [facility] ([facility]) [address] [place] [address] Ferritinon 08-20-2024 Ferritin [Mass/Vol] 22 ng/mL Normal 20-300 [facility] Comment on above: Performed By: #### 4 6128-5 #### JOE Montoya ([id number]) [facility] ([facility]) [id number] [place] [address] 29709 Lipid 1996 panelon Cholesterol [Mass/Vol] 220 mg/dL High 0-[address] [facility] Comment on above: Result Comment: Age Desirable Borderline High High 0-19 Y 0 - 169 170 - 199 >/= 200 20-24 Y 0 - 189 190 - 224 >/= 225 >24 Y 0 - 199 200 - 239 >/= 240 All ranges are based on fasting samples. Specific therapeutic targets will vary based on patient-specific cardiac risk. Pediatric guidelines reference:Pediatrics 2011, 128(S5).Adult guidelines reference: NCEP ATPIII Guidelines,AXEL 2001, 258:2486-97 Venipuncture immediately after or during the administration of Metamizole may lead to falsely low results. Testing should be performed immediately prior to Metamizole dosing. Performed By: #### I CPA3 #### JOE Montoya ([id number]) [facility] ([facility]) [id number] [place] [address] 06504 Cholesterol in HDL [Mass/Vol] 42.0 mg/dL Normal [facility] Comment on above: Result Comment: Age Very Low Low Normal High 0-19 Y < 35 < 40 40-45 ---- 20-24 Y ---- < 40 >45 ---- >24 Y ---- < 40 40-60 >60 Performed By: #### I CPA3 #### JOE Montoya ([id number]) [facility] ([facility]) [id number] [place] [address] 67123 Cholesterol in LDL [Mass/Vol] 147 mg/dL High <=[address] [facility] Comment on above: Result Comment: Near Borderline AGE Desirable Optimal High High Very High 0-19 Y 0 - 109 --- 110-129 >/= 130 ---- 20-24 Y 0 - 119 --- 120-159 >/= 160 ---- >24 Y 0 - 99 100-129 130-159 160-189 >/=190 Performed By: #### I CPA3 #### JOE Montoya ([id number]) [facility] ([facility]) [id number] [place] [address] 27838 Cholesterol in VLDL [Mass/Vol] 31 mg/dL Normal 0-[address] [facility] Comment on above: Performed By: #### I CPA3 #### JOE Montoya ([id number]) [facility] ([facility]) [address] [place] [address] CHOLESTEROL/HDL RATIO 5.2 Normal [facility] Comment on above: Result Comment: Ref Values Desirable < 3.4 High Risk > 5.0 Performed By: #### I CPA3 #### JOE Montoya ([id number]) [facility] ([facility]) [id number] [place] [address] 13103 NON HDL CHOLESTEROL 178 mg/dL High 0-149 [facility] Comment on above: Result Comment: Age Desirable Borderline High High Very High 0-19 Y 0 - 119 120 - 144 >/= 145 >/= 160 20-24 Y 0 - 149 150 - 189 >/= 190 ---- >24 Y 30 mg/dL above LDL Cholesterol goal Performed By: #### I CPA3 #### JOE Montoya ([id number]) [facility] ([facility]) [id number] [place] [address] 25261 Triglyceride [Mass/Vol] 155 mg/dL High 0-[address] [facility] Comment on above: Result Comment: Age Desirable Borderline High Very High SEX:B mg/dL mg/dL mg/dL mg/dL <=14D 86-277 ---- ---- ---- 15D-365D 55-277 ---- ---- ---- 1Y-9Y 0-74 75-99 >=100 ---- 10Y-19Y 0-89 90-129 >=130 ---- 20Y-24Y 0-114 115-149 >=150 ---- >= 25Y 0-149 150-199 200-499 >=500 Venipuncture immediately after or during the administration of Metamizole may lead to falsely low results. Testing should be performed immediately prior to Metamizole dosing. Performed By: #### I CPA3 #### JOE Montoya ([id number]) [facility] ([facility]) [address] [place] [address] Magnesiumon 08-20-2024 Magnesium [Mass/Vol] 2.07 mg/dL Normal 1.60-2.40 [facility] Comment on above: Performed By: #### I CPA3 #### JOE Montoya ([id number]) [facility] ([facility]) [address] [place], [place] [address] Prostate specific Agon 08-20 Prostate specific Ag [Mass/Vol] 1.94 ng/mL Normal <=4.[address] [facility] Comment on above: Order Comment: The DA requires that the method used for PSA assay be reported to the physician. Values obtained with different assay methods must not be used interchangeably. This test was performed at [facility] using the [employer] PSA assay is a two-site immunoenzymatic sandwichassay. The assay is approved for measurement of prostate-specific antigen (PSA)in serum and may be used in conjunction with a digital rectal examination in men 50 years and older as an aid in detection of prostate cancer.7-Fyjwa-kxwmtdroz inhibitors (e.g. Proscar, Finasteride, Avodart, Dutasteride and Corrine) for the treatment of BPH have been shown to lower PSA levels by an average of 50% after 6 months of treatment. Performed By: #### 4 6128-5 #### JOE Montoya ([id number]) [facility] ([facility]) [address] [place], [place] [address] TSH WITH REFLEX TO FREE T4 I F ABNORMALon 08-20-2024 TSH Qn 3.14 m[IU]/L Normal 0.44-3.[address] [facility] Comment on above: Order Comment: TSH t esting is performed using different testing methodology at [facility] than at other [facility]. Direct result comparisons should only be made within the same method. Performed By: #### 4 6128-5 #### JOE Montoya ([id number]) [facility] ([facility]) [address] [place] [address] 19950 L3100.4810on 06-27-2024 Chromogranin A 250.7 ng/mL Abnormal 0.0-101.8 [facility] Comment on above: Order Comment: Test( s) 557058-Yadwjogrk, Serumwas developed and its performance characteristicsdetermined by [employer]. It has not been cleared or approvedby the Food and Drug Administration. Result Comment: Retort Setter mogranin A performed by [employer] methodology Values obtained with different assay methods or kits cannot be used interchangeably. Performed By: #### L 3100.4810, L3800.1800 ####[facility] [address] [place], [place], [id number] Serotonin, Serumon SEROTONIN,SERUM 614 ng/mL High 23-230 [facility] Comment on above: Order Comment: Test( s) 207992-Qejltuztp, Serumwas developed and its performance characteristicsdetermined by [employer]. It has not been cleared or approvedby the Food and Drug Administration. Result Comment: Perf ormed at: [facility] (FORMERLY [facility]) [address] [id number] Inspecting Supervisor: Kylee Shaffer MD, Phone: [phone] Performed By: #### L 3100.4810, L3800.1800 ####[facility] [address] [place], [place], [address] Oncology Visit Reporton 06-12 Oncology Visit Report [facility] [address] [place], [place] [address] OFFICE VISIT Date of Service: 06/26/24 1559 MR#: [id number] Acct: [id number] Name: WOODARDLYNDAANNELISE TUCKER Rep #: [id number] : 1965 From: Remy Ventura MD Age/Sex: 59/M Location: [facility] Status: Signed HPI Subjective Date of Service 06/26/24 Chief Complaint F/u for carcinoid tumor/NET History of Present Illness 59-year-old man presented with chronic abdominal pain. He had a CT scan of the abdomen and pelvis on 11/19/2023 which showed a mesenteric mass attached to a loop of small bowel measuring 2.6 cm. He was referred to Dr. Armendariz, underwent laparoscopic to open small bowel enterectomy with mesenteric mass resection on 12/14/2023. Pathology showed neuroendocrine carcinoma grade 1. He was referred for further evaluation and management. Had Dotatate PET/CT scan done at [facility] on 02/14/2024 and comes for follow up. He feels well. Denies weight loss, flushing, night sweats or Diarrhea. PFSH Medical History Endocrine cancer Wears glasses Thyroid disease Restless legs History of ulceration GERD (gastroesophageal reflux disease) Non-smoker History of echocardiogram Hypertension History of rib fracture Right thyroid nodule Surgical History S/P partial thyroidectomy Hx of exploratory laparotomy History of umbilical hernia repair H/O colonoscopy Family History Sister Thyroid disorder Diabetes Mother Afib PFO (patent foramen ovale) Aortic valve replaced Father Non-Hodgkin lymphoma Social History Smoking Status: Never smoker alcohol intake: never substance use type: does not use Intake Vital Signs 02/21/24 16:05 03/05/24 05:45 06/26/24 16:00 06/26/24 16:05 Height 5 ft 10 in 5 ft 10 in 5 ft 10 in 5 ft 10 in Weight: 103.929 kg BMI 32.8 BP 153/103 H Blood Pressure Location Lt brachial Position Sitting Respiration 16 Pulse 68 Pulse Source Monitor Temp 98.8 F Temperature Source Temporal Artery Pulse Oximetry (%) 94 Intake Is patient in pain?: No Allergies No Known Allergies Allergy (Verified 06/26/24 16:04) Medications ???Medication ???Instructions ???Recorded ???Confirmed ???Type losartan 100 mg tablet 100 mg PO QHS 10/03/23 06/26/24 History omeprazole 40 mg capsule,delayed 40 mg PO QHS 10/03/23 06/26/24 History release pramipexole 0.5 mg tablet 0.5 mg PO QHS 10/03/23 06/26/24 History Have you fallen in the past year?: No Central Venous Access Central Venous Access: No Laboratory Results 02/07/24 12/27/23 15:55 11:36 Serotonin 411 H 911 H Chromogranin A 338.5 H 267.1 H Exam Physical Exam Const alert, oriented x3 and no apparent distress HEENT normocephalic, external ears normal and external nose normal Eyes PERRL, conjunctivae normal and no scleral icterus Neck no lymphadenopathy and supple Lymph Lymphatic: no lymphadenopathy noted Chest inspection of chest normal Resp normal respiratory effort Cardio regular rate, regular rhythm, S1 normal heart sound, S2 normal heart sound and no murmurs GI GI Narrative: +midline scar no CVA tenderness Back/Spine thoracic and lumbar spine normal to inspection Extremity normal to inspection and no clubbing, cyanosis or edema Skin no rashes or lesions noted Neuro oriented x3, CN's II-XII intact bilaterally, moves all extremities and no focal motor deficits Psych mental status grossly normal Coding Level of Care Code Off vis,est,level 4 Exam Problem Focused Diagnoses Neuroendocrine carcinoma C7A.8 Assessment and Plan Assessment and Plan (1) Neuroendocrine carcinoma: Status: Chronic Comment: S/P small bowel and mesenteric resection, Grade 1, pT4 pN2-stage III. No role for adjuvant therapy. Serotonin and chromogranin A are elevated. Dotatate PET/CT on 02/14/2024 shows no avid malignancy. Comes for follow up. No evidence of disease clinically. Plan: To monitor tumor markers-Serotonin, Chromogranin A. To continue observation. Obtain CT a/p RTC 24 weeks. Orders: Orders Abdomen/Pelvis WITH Contrast 08/30/24 C7A.8 - Other malignant neuroendocrine tumors Plan Details Follow Up: 6 Months Clinical Quality Measures Falls Risk Screening/Assistive Devices Have you fallen in the past year?: No 06/26/24 1652 Date Remy Willis Signature: Date (if applicable) CC: Dr. Melva Martinez MD Normal [facility] CBC W/Diff, Automatedon 10-0 -2023 Absolute Lymph 1.28 X10 3/uL Normal 0.83-4.51 [facility] Comment on above: Performed By: #### L 100.0100, L504.2610, L500.4050 #### [facility] [address] [place], [address] Absolute Neut 6.4 X10 3/uL Normal 2.0-7.7 [facility] Comment on above: Performed By: #### L 100.0100, L504.2610, L500.4050 #### [facility] [address] [place], [address] Basophils/100 WBC (Bld) 0.6 % Normal 0-1 [facility] Comment on above: Performed By: #### L 100.0100, L504.2610, L500.4050 #### [facility] [address] [place], [address] Eosinophils/100 WBC (Bld) 3.2 % Normal 0-5 [facility] Comment on above: Performed By: #### L 100.0100, L504.2610, L500.4050 #### [facility] [address] [place], [address] Erythrocyte distribution width (RBC) [Ratio] 14.2 % Normal 11.6-14.6 [facility] Comment on above: Performed By: #### L 100.0100, L504.2610, L500.4050 #### [facility] [address] [place], [address] Hematocrit (Bld) [Volume fraction] 47.2 % Normal 40-54 [facility] Comment on above: Performed By: #### L 100.0100, L504.2610, L500.4050 #### [facility] [address] [place], [address] Hemoglobin (Bld) [Mass/Vol] 14.7 g/dL Normal 13.0-16.5 [facility] Comment on above: Performed By: #### L 100.0100, L504.2610, L500.4050 #### [facility] [address] [place], [address] IG% 0.800 Normal 0.0-0.9 [facility] Comment on above: Result Comment: IG% - Immature Granulocytes (promyelocytes, myelocytes and metamyelocytes) > 1% indicates that a LEFT SHIFT is Present. Performed By: #### L 100.0100, L504.2610, L500.4050 #### [facility] [address] [place], [address] Lymphocytes/100 WBC (Bld) 15.0 % Low 19-41 [facility] Comment on above: Performed By: #### L 100.0100, L504.2610, L500.4050 #### [facility] [address] [place], [address] MCH (RBC) [Entitic mass] 26.7 pg Low 27.0-32.0 [facility] Comment on above: Performed By: #### L 100.0100, L504.2610, L500.4050 #### [facility] [address] [place], [address] MCHC (RBC) [Mass/Vol] 31.1 g/dL Low 32-36 [facility] Comment on above: Performed By: #### L 100.0100, L504.2610, L500.4050 #### [facility] [address] [place], [address] MCV (RBC) [Entitic vol] 85.8 fL Normal 80-94 [facility] Comment on above: Performed By: #### L 100.0100, L504.2610, L500.4050 #### [facility] [address] [place], [address] Monocytes/100 WBC (Bld) 5.6 % Normal 0-10 [facility] Comment on above: Performed By: #### L 100.0100, L504.2610, L500.4050 #### [facility] [address] [place], [address] Neutrophils/100 WBC (Bld) 74.8 % High 47-70 [facility] Comment on above: Performed By: #### L 100.0100, L504.2610, L500.4050 #### [facility] [address] [place], [address] Nucleated RBC (Bld) [#/Vol] 0 10*3/uL Normal 0-5 [facility] Comment on above: Performed By: #### L 100.0100, L504.2610, L500.4050 #### [facility] [address] [place], [address] Platelet mean volume (Bld) [Entitic vol] 12.1 fL High 6.2-12.0 [facility] Comment on above: Performed By: #### L 100.0100, L504.2610, L500.4050 #### [facility] [address] [place], [address] Platelets (Bld) [#/Vol] 250 10*3/uL Normal 150-450 [facility] Comment on above: Performed By: #### L 100.0100, L504.2610, L500.4050 #### [facility] [address] [place], [address] RBC (Bld) [#/Vol] 5.50 10*6/uL Normal 4.6-6.2 [facility] Comment on above: Performed By: #### L 100.0100, L504.2610, L500.4050 #### [facility] [address] [place], [address] RDW SD 44.8 fl High 35.1-43.9 [facility] Comment on above: Performed By: #### L 100.0100, L504.2610, L500.4050 #### [facility] [address] [place], [address] WBC (Bld) [#/Vol] 8.5 10*3/uL Normal 4.4-11.0 [facility] Comment on above: Performed By: #### L 100.0100, L504.2610, L500.4050 #### [facility] [address] [place], [address] Comprehensive Metabolic Prof [facility] 06-20-2024 Albumin [Mass/Vol] 3.9 g/dL Normal 3.2-5.0 [facility] Comment on above: Order Comment: 1 Performed By: #### L 100.0100, L504.2610, L500.4050 #### [facility] [address] [place], [address] Albumin/Globulin [Mass ratio] 1.1 {ratio} Normal 0.9-2.4 [facility] Comment on above: Order Comment: 1 Performed By: #### L 100.0100, L504.2610, L500.4050 #### [facility] [address] [place], [address] ALK P 95 U/L Normal 45-117 [facility] Comment on above: Order Comment: 1 Performed By: #### L 100.0100, L504.2610, L500.4050 #### [facility] [address] [place], [address] ALT [Catalytic activity/Vol] 25 U/L Normal 16-61 [facility] Comment on above: Order Comment: 1 Performed By: #### L 100.0100, L504.2610, L500.4050 #### [facility] [address] [place] [place], [address] AST [Catalytic activity/Vol] 25 U/L Normal 15-37 [facility] Comment on above: Order Comment: 1 Performed By: #### L 100.0100, L504.2610, L500.4050 #### [facility] [address] [place], [address] Bilirubin [Mass/Vol] 0.70 mg/dL Normal 0.20-1.00 [facility] Comment on above: Order Comment: 1 Result Comment: For patients on eltrombopag therapy, use of Dimension Williamson TBIL is not recommended. Performed By: #### L 100.0100, L504.2610, L500.4050 #### [facility] [address] [place], [address] BUN/CRE 12.9 RATIO Normal 10-20 [facility] Comment on above: Order Comment: 1 Performed By: #### L 100.0100, L504.2610, L500.4050 #### [facility] [address] [place], [address] CA,Total 9.0 mg/dL Normal 8.5-10.1 [facility] Comment on above: Order Comment: 1 Performed By: #### L 100.0100, L504.2610, L500.4050 #### [facility] [address] [place], [address] Chloride [Moles/Vol] 105 mmol/L Normal 98-107 [facility] Comment on above: Order Comment: 1 Performed By: #### L 100.0100, L504.2610, L500.4050 #### [facility] [address] [place], [address] CO2 [Moles/Vol] 29.0 mmol/L Normal 21.0-32.0 [facility] Comment on above: Order Comment: 1 Performed By: #### L 100.0100, L504.2610, L500.4050 #### [facility] [address] [place], [address] Creatinine [Mass/Vol] 1.24 mg/dL Normal 0.70-1.30 [facility] Comment on above: Order Comment: 1 Result Comment: The validity of the calculated GFR GFRAA in patients over 70 years has not been determined. Clinical correlation is essential. Performed By: #### L 100.0100, L504.2610, L500.4050 #### [facility] [address] [place], [address] EST GFR - AA 76 mL/min Normal >60 [facility] Comment on above: Order Comment: 1 Result Comment: Afri can Moroccan GFR Calc Performed By: #### L 100.0100, L504.2610, L500.4050 #### [facility] [address] [place], [address] GAP 5 Normal 5-15 [facility] Comment on above: Order Comment: 1 Performed By: #### L 100.0100, L504.2610, L500.4050 #### [facility] [address] [place], [address] GFR/1.73 sq M.predicted among non-blacks MDRD (S/P/Bld) [Vol rate/Area] 63 mL/min/{1.73_m2} Normal >60 [facility] Comment on above: Order Comment: 1 Result Comment: Non- GFR Calc Performed By: #### L 100.0100, L504.2610, L500.4050 #### [facility] [address] [place], [address] Globulin (S) [Mass/Vol] 3.5 g/dL Normal 2.2-4.2 [facility] Comment on above: Order Comment: 1 Performed By: #### L 100.0100, L504.2610, L500.4050 #### [facility] [address] [place], [address] Glucose [Mass/Vol] 112 mg/dL High 74-106 [facility] Comment on above: Order Comment: 1 Result Comment: Fast ing Glucose result from 100 to 125 mg/dL suggests IMPAIRED HOMEOSTASIS per A.D.A. criteria. Performed By: #### L 100.0100, L504.2610, L500.4050 #### [facility] [address] [place], [address] Potassium [Moles/Vol] 3.8 mmol/L Normal 3.5-5.1 [facility] Comment on above: Order Comment: 1 Performed By: #### L 100.0100, L504.2610, L500.4050 #### [facility] [address] [place], [address] Sodium [Moles/Vol] 139 mmol/L Normal 136-145 [facility] Comment on above: Order Comment: 1 Performed By: #### L 100.0100, L504.2610, L500.4050 #### [facility] [address] [place], [address] T PROT 7.4 g/dL Normal 6.4-8.2 [facility] Comment on above: Order Comment: 1 Performed By: #### L 100.0100, L504.2610, L500.4050 #### [facility] [address] [place], [address] Urea nitrogen [Mass/Vol] 16 mg/dL Normal 7-18 [facility] Comment on above: Order Comment: 1 Performed By: #### L 100.0100, L504.2610, L500.4050 #### [facility] [address] [place], [address] LDHon 06-20-2024 LDH 233 U/L Normal 87-241 [facility] Comment on above: Order Comment: 1 Performed By: #### L 100.0100, L504.2610, L500.4050 ####[facility] [address] [place], [address] Thyroid Stim Hormone (TSH)on 04-17-2024 TSH 2.87 uIU/mL Normal 0.358-3.74 [facility] Comment on above: Performed By: #### L 501.9520 #### [facility] [address] [place], [address] Bilirubin.glucuronidated+Josue irubin.albumin boundon 02-22-2024 Bilirubin.direct [Mass/Vol] 0.1 mg/dL Normal 0.0-0.[address] [facility] Comment on above: Performed By: #### I CPA3 #### JOE Montoya ([id number]) [facility] ([facility]) [address] [place] [address] Calcidiolon 02-22-2024 25-hydroxyvitamin D3 [Mass/Vol] 38 ng/mL Normal 30-[address] [facility] Comment on above: Order Comment: Inter pretation Scale <0.10 kU/L - Class 0 Allergen: ABSENT OR UNDETECTABLE ALLERGEN SPECIFIC IgE 0.10-0.34 kU/L - Class 0/1 Allergen: EQUIVOCAL LEVEL OF ALLERGEN SPECIFIC IgE 0.35-0.69 kU/L - Class 1 Allergen: LOW LEVEL OF ALLERGEN SPECIFIC IgE 0.70-3.49 kU/L - Class 2 Allergen: MODERATE LEVEL OF ALLERGEN SPECIFIC IgE 3.50-17.49 kU/L - Class 3 Allergen: HIGH LEVEL OF ALLERGEN SPECIFIC IgE 17.50-49.99 kU/L - Class 4 Allergen: VERY HIGH LEVEL OF ALLERGEN SPECIFIC IgE 50.00-100.00 kU/L - Class 5 Allergen: ULTRA HIGH LEVEL OF ALLERGEN SPECIFIC IgE >100.00 kU/L - Class 6 Allergen: EXTREMELY HIGH LEVEL OF ALLERGEN SPECIFIC IgE Performed By: #### I CPA3 #### JOE Montoya ([id number]) [facility] ([facility]) [address] [place], [place] [address] Comprehensive metabolic 2000 panelon 02-22-2024 Albumin BCP dye [Mass/Vol] 4.2 g/dL Normal 3.4-5.[address] [facility] Comment on above: Performed By: #### I CPA3 #### JOE Montoya ([id number]) [facility] ([facility]) [address] [place], [place] [address] ALP [Catalytic activity/Vol] 77 U/L Normal 33-[address] [facility] Comment on above: Performed By: #### I CPA3 #### JOE Montoya ([id number]) [facility] ([facility]) [address] [place] [address] ALT With P-5'-P [Catalytic activity/Vol] 17 U/L Normal 10-[address] [facility] Comment on above: Result Comment: Chioma ents treated with Sulfasalazine may generate falsely decreased results for ALT. Performed By: #### I CPA3 #### JOE Montoya ([id number]) [facility] ([facility]) [address] [place] [address] Anion gap [Moles/Vol] 11 mmol/L Normal 10-20 [facility] Comment on above: Performed By: #### I CPA3 #### JOE Montoya ([id number]) [facility] ([facility]) [address] [place] [address] AST With P-5'-P [Catalytic activity/Vol] 18 U/L Normal 9-[address] [facility] Comment on above: Performed By: #### I CPA3 #### JOE Montoya ([id number]) [facility] ([facility]) [address] [place] [address] Bilirubin [Mass/Vol] 0.6 mg/dL Normal 0.0-1.2 [facility] Comment on above: Performed By: #### I CPA3 #### JOE Montoya ([id number]) [facility] ([facility]) [address] [place] [address] Calcium [Mass/Vol] 9.1 mg/dL Normal 8.6-10.3 [facility] Comment on above: Performed By: #### I CPA3 #### JOE VALENCIA L ([id number]) [facility] ([facility]) [address] [place] [address] Chloride [Moles/Vol] 103 mmol/L Normal 98-107 [facility] Comment on above: Performed By: #### I CPA3 #### JOE Montoya ([id number]) [facility] ([facility]) [address] [place] [address] CO2 [Moles/Vol] 28 mmol/L Normal 21-32 [facility] Comment on above: Performed By: #### I CPA3 #### JOE VALENCIA L ([id number]) [facility] ([facility]) [address] [place] [address] Creatinine [Mass/Vol] 1.17 mg/dL Normal 0.50-1.30 [facility] Comment on above: Performed By: #### I CPA3 #### JOE VALENCIA L ([id number]) [facility] ([facility]) [address] [place] [address] Glomerular filtration rate/1.73 sq M.predicted 71 mL/min/1.73m*2 Normal >[address] [facility] Comment on above: Result Comment: Calc ulations of estimated GFR are performed using the 2020 CKD-EPI Study Refit equation without the race variable for the IDMS-Traceable creatinine methods. https://jasn.asnjournals.org/content//ASN.253028 9588 Performed By: #### I CPA3 #### JOE VALENCIA L ([id number]) [facility] ([facility]) [address] [place] [address] Glucose [Mass/Vol] 97 mg/dL Normal 74-99 [facility] Comment on above: Performed By: #### I CPA3 #### JOE Montoya ([id number]) [facility] ([facility]) [id number] [place] [address] Potassium [Moles/Vol] 4.5 mmol/L Normal 3.5-5.3 [facility] Comment on above: Performed By: #### I CPA3 #### JOE Montoya ([id number]) [facility] ([facility]) [id number] [place] [address] Protein [Mass/Vol] 6.6 g/dL Normal 6.4-8.2 [facility] Comment on above: Performed By: #### I CPA3 #### JOE Montoya ([id number]) [facility] ([facility]) [id number] [place] [address] Sodium [Moles/Vol] 137 mmol/L Normal 136-145 [facility] Comment on above: Performed By: #### I CPA3 #### JOE Montoya ([id number]) [facility] ([facility]) [address] [place] [address] Urea nitrogen [Mass/Vol] 17 mg/dL Normal 6-[address] [facility] Comment on above: Performed By: #### I CPA3 #### JOE Montoya ([id number]) [facility] ([facility]) [address] [place] [address] Hepatitis B virus surface Ag on 02-22-2024 HBV surface Ag IA Ql Non-Reactive Normal Nonreactive [facility] Comment on above: Result Comment: Biot in interference may cause falsely decreased results. Patients taking a Biotin dose of up to 5 mg/day should refrain from taking Biotin for 24 hours before sample collection. Providers may contact their local laboratory for further information. Performed By: #### I CPA3 #### JOE Montoya ([id number]) [facility] ([facility]) [address] [place], [place] [address] Hepatitis C virus Abon 02-21 HCV Ab Ql (S) Non-Reactive Normal Nonreactive [facility] Comment on above: Result Comment: Resu lts from patients taking biotin supplements or receiving high-dose biotin therapy should be interpreted with caution due to possible interference with this test. Providers may contact their local laboratory for further information. Performed By: #### I CPA3 #### JOE Montoya ([id number]) [facility] ([facility]) [address] [place], [place] [address] IMMUNOGLOBULINS (IGG, IGA, I GM)on 02-22-2024 IgA [Mass/Vol] 152 mg/dL Normal 70-[address] [facility] Comment on above: Order Comment: Inter pretation Scale <0.10 kU/L - Class 0 Allergen: ABSENT OR UNDETECTABLE ALLERGEN SPECIFIC IgE 0.10-0.34 kU/L - Class 0/1 Allergen: EQUIVOCAL LEVEL OF ALLERGEN SPECIFIC IgE 0.35-0.69 kU/L - Class 1 Allergen: LOW LEVEL OF ALLERGEN SPECIFIC IgE 0.70-3.49 kU/L - Class 2 Allergen: MODERATE LEVEL OF ALLERGEN SPECIFIC IgE 3.50-17.49 kU/L - Class 3 Allergen: HIGH LEVEL OF ALLERGEN SPECIFIC IgE 17.50-49.99 kU/L - Class 4 Allergen: VERY HIGH LEVEL OF ALLERGEN SPECIFIC IgE 50.00-100.00 kU/L - Class 5 Allergen: ULTRA HIGH LEVEL OF ALLERGEN SPECIFIC IgE >100.00 kU/L - Class 6 Allergen: EXTREMELY HIGH LEVEL OF ALLERGEN SPECIFIC IgE Performed By: #### I CPA3 #### JOE Montoya ([id number]) [facility] ([facility]) [address] [place] [id number] IgG [Mass/Vol] 911 mg/dL Normal 700-[address] [facility] Comment on above: Order Comment: Inter pretation Scale <0.10 kU/L - Class 0 Allergen: ABSENT OR UNDETECTABLE ALLERGEN SPECIFIC IgE 0.10-0.34 kU/L - Class 0/1 Allergen: EQUIVOCAL LEVEL OF ALLERGEN SPECIFIC IgE 0.35-0.69 kU/L - Class 1 Allergen: LOW LEVEL OF ALLERGEN SPECIFIC IgE 0.70-3.49 kU/L - Class 2 Allergen: MODERATE LEVEL OF ALLERGEN SPECIFIC IgE 3.50-17.49 kU/L - Class 3 Allergen: HIGH LEVEL OF ALLERGEN SPECIFIC IgE 17.50-49.99 kU/L - Class 4 Allergen: VERY HIGH LEVEL OF ALLERGEN SPECIFIC IgE 50.00-100.00 kU/L - Class 5 Allergen: ULTRA HIGH LEVEL OF ALLERGEN SPECIFIC IgE >100.00 kU/L - Class 6 Allergen: EXTREMELY HIGH LEVEL OF ALLERGEN SPECIFIC IgE Performed By: #### Albert CPA3 #### JOE Montoya ([id number]) [facility] ([facility]) [address] [place] [address] IgM [Mass/Vol] 37 mg/dL Low 40-[address] [facility] Comment on above: Order Comment: Inter pretation Scale <0.10 kU/L - Class 0 Allergen: ABSENT OR UNDETECTABLE ALLERGEN SPECIFIC IgE 0.10-0.34 kU/L - Class 0/1 Allergen: EQUIVOCAL LEVEL OF ALLERGEN SPECIFIC IgE 0.35-0.69 kU/L - Class 1 Allergen: LOW LEVEL OF ALLERGEN SPECIFIC IgE 0.70-3.49 kU/L - Class 2 Allergen: MODERATE LEVEL OF ALLERGEN SPECIFIC IgE 3.50-17.49 kU/L - Class 3 Allergen: HIGH LEVEL OF ALLERGEN SPECIFIC IgE 17.50-49.99 kU/L - Class 4 Allergen: VERY HIGH LEVEL OF ALLERGEN SPECIFIC IgE 50.00-100.00 kU/L - Class 5 Allergen: ULTRA HIGH LEVEL OF ALLERGEN SPECIFIC IgE >100.00 kU/L - Class 6 Allergen: EXTREMELY HIGH LEVEL OF ALLERGEN SPECIFIC IgE Performed By: #### Albert CPA3 #### JOE Montoya ([id number]) [facility] ([facility]) [address] [place], [place] [id number] NUC PET NEUROENDOCRINEon NUC PET NEUROENDOCRINE EXAM: NUC PET NEUROENDOCRINE, 02/14/2024 10:09 AM CLINICAL INDICATIONS: Dx Assoc; , COMPARISON: No prior studies available for comparison. CT DOSE: DLP: 801 mGy x cm kVp: 120 TECHNIQUE: Approximately 60 minutes following the injection of 5.1 mCi of Gallium-68 Dotatate, the patient was positioned on the Siemens Peelagraph mCT TOF< PET/CT-64, [place] imaging unit. A low resolution non-contrast CT was obtained from the top of the head through the mid-femurs for use in attenuation correction and anatomic correlation. PET emission scans of this anatomic region were acquired shortly thereafter. Axial, sagittal, coronal and maximal intensity projection reconstruction images were presented for interpretation. FINDINGS: Head/Neck: Physiologic activity seen within the pituitary gland, salivary glands. Intense activity throughout the thyroid and a nonavid right thyroid nodule. Chest: Normal Abdomen/Pelvis: Intense physiologic uptake seen within the spleen and adrenal glands which can obscure potential disease in these structures. Milder physiologic uptake seen within the liver. Large nonavid cystic appearing lesions in the bilateral kidneys. There is a intensely avid soft tissue implant posterior to the spleen, likely a splenule. There is evidence of surgery in the right lower quadrant with partial colectomy. No abnormal uptake noted in the surgical bed. Musculoskeletal: Degenerative appearing uptake noted in the left mid C-spine. IMPRESSION: Overall no evidence of tracer avid malignancy. Postsurgical changes noted in the right lower quadrant. Normal [facility] PT Skull base to mid-thighon 02-14-2024 IMPRESSION: Overall no evidence of tracer avid malignancy. Postsurgical changes noted in the right lower quadrant. OLOGY EXAM: NUC PET NEUROENDOCRINE, 02/14/2024 10:09 AM CLINICAL INDICATIONS: Dx Assoc; , COMPARISON: No prior studies available for comparison. CT DOSE: DLP: 801 mGy x cm kVp: 120 TECHNIQUE: Approximately 60 minutes following the injection of 5.1 mCi of Gallium-68 Dotatate, the patient was positioned on the Siemens Biograph mCT TOF< PET/CT-64, [place] imaging unit. A low resolution non-contrast CT was obtained from the top of the head through the mid-femurs for use in attenuation correction and anatomic correlation. PET emission scans of this anatomic region were acquired shortly thereafter. Axial, sagittal, coronal and maximal intensity projection reconstruction images were presented for interpretation. FINDINGS: Head/Neck: Physiologic activity seen within the pituitary gland, salivary glands. Intense activity throughout the thyroid and a nonavid right thyroid nodule. Chest: Normal Abdomen/Pelvis: Intense physiologic uptake seen within the spleen and adrenal glands which can obscure potential disease in these structures. Milder physiologic uptake seen within the liver. Large nonavid cystic appearing lesions in the bilateral kidneys. There is a intensely avid soft tissue implant posterior to the spleen, likely a splenule. There is evidence of surgery in the right lower quadrant with partial colectomy. No abnormal uptake noted in the surgical bed. Musculoskeletal: Degenerative appearing uptake noted in the left mid C-spine. RADIOLOGY Mando Jensen MD - 02/14/2024 EXAM: NUC PET NEUROENDOCRINE, 02/14/2024 10:09 AM CLINICAL INDICATIONS: Dx Assoc; , COMPARISON: No prior studies available for comparison. CT DOSE: DLP: 801 mGy x cm kVp: 120 TECHNIQUE: Approximately 60 minutes following the injection of 5.1 mCi of Gallium-68 Dotatate, the patient was positioned on the Siemens Biograph mCT TOF< PET/CT-64, [place] imaging unit. A low resolution non-contrast CT was obtained from the top of the head through the mid-femurs for use in attenuation correction and anatomic correlation. PET emission scans of this anatomic region were acquired shortly thereafter. Axial, sagittal, coronal and maximal intensity projection reconstruction images were presented for interpretation. FINDINGS: Head/Neck: Physiologic activity seen within the pituitary gland, salivary glands. Intense activity throughout the thyroid and a nonavid right thyroid nodule. Chest: Normal Abdomen/Pelvis: Intense physiologic uptake seen within the spleen and adrenal glands which can obscure potential disease in these structures. Milder physiologic uptake seen within the liver. Large nonavid cystic appearing lesions in the bilateral kidneys. There is a intensely avid soft tissue implant posterior to the spleen, likely a splenule. There is evidence of surgery in the right lower quadrant with partial colectomy. No abnormal uptake noted in the surgical bed. Musculoskeletal: Degenerative appearing uptake noted in the left mid C-spine. IMPRESSION IMPRESSION: Overall no evidence of tracer avid malignancy. Postsurgical changes noted in the right lower quadrant. [facility] Radiology Study observation (narrative) [facility] PT Skull base to mid-thighOr dered By: Mando Jensen on 02-14-2024 [facility] Work Phone: 24 hour urine 5-hydroxyindol eacetic acid (5-HIAA) measurement (mass/time)Ordered By: Remy Ventura on 01-05-2024 5-Hydroxyindoleacetat e (24H U) [Mass/Time] 6.0 mg/24 hr 0.0-14.9 [facility] Comment on above: Performed at: [address] [id number] Director: Kylee Shaffer MD, Phone: [phone] Quantitative 24 hour urine 5 -hydroxyindoleacetic acid (5-HIAA) measurement (mass/voluOrdered By: Remy Ventura on 01-05-2024 5-Hydroxyindoleacetat e (24H U) [Mass/Vol] 2.5 mg/L Undefined [facility] Comment on above: This test was develo ped and its performance characteristicsdetermined by [facility]. It has not been cleared orapproved by the Food and Drug Administration. Serum or plasma carcinoembry onic antigen measurement (mass/volume)Ordered By: Remy Ventura on 12-27-2023 Carcinoembryonic Ag [Mass/Vol] 0.8 ng/mL 0.0-4.7 [facility] Comment on above: Nonsmokers <3.9 Smok ers <5.6[employer] Electrochemiluminescence Immunoassay(ECLIA)Values obtained with different assay methods or kitscannot be used interchangeably. Results cannot beinterpreted as absolute evidence of the presence orabsence of malignant disease.Performed at: [facility] [employer] [id number] Director: Andrea Araiza PhD, Phone: [phone] Basophil percentageOrdered B y: Alexi Armendariz on 12-15-2023 Chloride [Moles/Vol] 107 mmol/L 98-107 [facility] Glucose [Mass/Vol] 89 mg/dL 74-106 [facility] Hemoglobin (Bld) [Mass/Vol] 12.4 g/dL 13.0-16.5 [facility] Potassium [Moles/Vol] 3.7 mmol/L 3.5-5.1 [facility] Sodium [Moles/Vol] 138 mmol/L 136-145 [facility] WBC (Bld) [#/Vol] 8.4 10*3/uL 4.4-11.0 [facility] Determination of erythrocyte mean corpuscular volume (MCV)Ordered By: Alexi Armendariz on 12-15-2023 MCV (RBC) [Entitic vol] 84.0 fL 80-94 [facility] Erythrocyte distribution wid th ratioOrdered By: Alexi Armendariz on 12-15-2023 Erythrocyte distribution width (RBC) [Ratio] 15.7 % 11.6-14.6 [facility] Erythrocyte distribution wid th standard deviationOrdered By: Alexi Armendariz on 12-15-2023 Erythrocyte distribution width (RBC) [Entitic vol] 48.5 fL 35.1-43.9 [facility] Hematocrit Auto (Bld) [Volum e fraction]Ordered By: Alexi Armendariz on 12-15-2023 Hematocrit (Bld) [Volume fraction] 40.0 % 40-54 [facility] Laboratory - Chemistry and C hemistry - challengeOrdered By: Alexi Armendariz on 12-15-2023 CO2 [Moles/Vol] 24.0 mmol/L 21.0-32.0 [facility] Urea nitrogen/Creatinine [Mass ratio] 9.5 mg/mg 10-20 [facility] Laboratory - Hematology and Cell countsOrdered By: Alexi Armendariz on 12-15-2023 MCH (RBC) [Entitic mass] 26.1 pg 27.0-32.0 [facility] MCHC (RBC) [Mass/Vol] 31.0 g/dL 32-36 [facility] Platelet mean volume (Bld) [Entitic vol] 12.7 fL 6.2-12.0 [facility] Platelets (Bld) [#/Vol] 184 10*3/uL 150-450 [facility] No Panel InformationOrdered By: Alexi Armendariz on 12-15-2023 Estimated Creatinine Clearance Calc 47.01 ml/min [facility] Estimated GFR (MDRD) Amer 44 mL/min >60 [facility] Comment on above: GFR Calc Estimated GFR (MDRD) Non-Af Amer 36 mL/min >60 [facility] Comment on above: Non- GFR Calc RBC Auto (Bld) [#/Vol]Ordere d By: Alexi Armendariz on 12-15-2023 RBC (Bld) [#/Vol] 4.76 10*6/uL 4.6-6.2 [facility] Serum or plasma calcium oksana urement (mass/volume)Ordered By: Alexi Armendariz on 12-15-2023 Calcium [Mass/Vol] 8.1 mg/dL 8.5-10.1 [facility] Serum or plasma creatinine m easurement (mass/volume)Ordered By: Alexi Armendariz on 12-15-2023 Creatinine [Mass/Vol] 2.00 mg/dL 0.70-1.30 [facility] Comment on above: The validity of the calculated GFR & GFRAA in patients over 70 years has not been determined. Clinical correlation is essential. Serum or plasma urea nitroge n measurement (mass/volume)Ordered By: Alexi Armendariz on 12-15-2023 Urea nitrogen [Mass/Vol] 19 mg/dL 7-18 [facility] Thin prep Papanicolaou smear with manual screeningOrdered By: Alexi Armendariz on 12-15-2023 Thin prep Papanicolaou smear with manual screening 7 5-15 [facility] 5 HIAA, URINE, QUANTITATIVE, 24 HOURon 11-28-2023 5-Hydroxyindoleacetat e (24H U) [Mass/Time] 11.0 mg/24 hr Normal 0.0-14.[address] [facility] Comment on above: Order Comment: Perfo rmed at: - [facility] [id number] Inspecting Supervisor: Kylee Shaffer MD, Phone: [phone] Performed By: #### 5 HIA2 #### [facility] ([place]) ([id number]) [address] [place] [address] 5-Hydroxyindoleacetat e (24H U) [Mass/Vol] 4.4 mg/L Normal Undefined [facility] Comment on above: Order Comment: Perfo rmed at: 01 - [facility] [address] [id number] Inspecting Supervisor: Kylee Shaffer MD, Phone: [phone] Result Comment: This test was developed and its performance characteristics determined by [facility]. It has not been cleared or approved by the Food and Drug Administration. Performed By: #### 5 HIA2 #### [facility] ([place]) ([id number]) [address] [place] [address] 5-Hydroxyindoleacetateon 5-Hydroxyindoleacetat e [Mass/Vol] 28 ng/mL [facility] Comment on above: Order Comment: Perfo rmed at: 01 - [email or web address] [address] [place] [id number] Inspecting Supervisor: Dimitris Ramos MD, Phone: [phone] Result Comment: This 5-HIAA result was determined using liquid chromatography-tandem mass spectrometry (LC-MS/MS). Values obtained cannot be evaluated interchangeably with different assay methods or kits. This 5-HIAA result alone cannot be interpreted as absolute evidence of the presence or absence of disease. The performance characteristics of this assay have been determined by [facility]. The result should not be used as a diagnostic procedure without confirmation of the diagnosis by another medically established diagnostic product or procedure. Reference Range: <22 Performed By: #### 1 693-1 #### [facility] ([place]) ([id number]) [address] [place], [place] [id number] Serotoninon 11-25-2023 Serotonin (S) [Mass/Vol] 1250 ng/mL [facility] 31-[address] [facility] Comment on above: Order Comment: Test( s) [id number], Serum was developed and its performance characteristics determined by [facility]. It has not been cleared or approved by the Food and Drug Administration. Performed at: 01 - [facility] [id number] Inspecting Supervisor: Kylee Shaffer MD, Phone: [phone] Performed By: #### 2 7057-9 #### [facility] ([place]) ([id number]) [address] [place] [address] ALLERGEN, FOOD PROFILE IGEon 11-12-2023 Clam IgE Qn (S) <0.10 Normal <0.10 [facility] Comment on above: Order Comment: Inter pretation Scale <0.10 kU/L - Class 0 Allergen: ABSENT OR UNDETECTABLE ALLERGEN SPECIFIC IgE 0.10-0.34 kU/L - Class 0/1 Allergen: EQUIVOCAL LEVEL OF ALLERGEN SPECIFIC IgE 0.35-0.69 kU/L - Class 1 Allergen: LOW LEVEL OF ALLERGEN SPECIFIC IgE 0.70-3.49 kU/L - Class 2 Allergen: MODERATE LEVEL OF ALLERGEN SPECIFIC IgE 3.50-17.49 kU/L - Class 3 Allergen: HIGH LEVEL OF ALLERGEN SPECIFIC IgE 17.50-49.99 kU/L - Class 4 Allergen: VERY HIGH LEVEL OF ALLERGEN SPECIFIC IgE 50.00-100.00 kU/L - Class 5 Allergen: ULTRA HIGH LEVEL OF ALLERGEN SPECIFIC IgE >100.00 kU/L - Class 6 Allergen: EXTREMELY HIGH LEVEL OF ALLERGEN SPECIFIC IgE Performed By: #### I CPA3 #### JOE Montoya ([id number]) [facility] ([facility]) [address] [place] [address] Codfish IgE Qn (S) <0.10 Normal <0.10 [facility] Comment on above: Order Comment: Inter pretation Scale <0.10 kU/L - Class 0 Allergen: ABSENT OR UNDETECTABLE ALLERGEN SPECIFIC IgE 0.10-0.34 kU/L - Class 0/1 Allergen: EQUIVOCAL LEVEL OF ALLERGEN SPECIFIC IgE 0.35-0.69 kU/L - Class 1 Allergen: LOW LEVEL OF ALLERGEN SPECIFIC IgE 0.70-3.49 kU/L - Class 2 Allergen: MODERATE LEVEL OF ALLERGEN SPECIFIC IgE 3.50-17.49 kU/L - Class 3 Allergen: HIGH LEVEL OF ALLERGEN SPECIFIC IgE 17.50-49.99 kU/L - Class 4 Allergen: VERY HIGH LEVEL OF ALLERGEN SPECIFIC IgE 50.00-100.00 kU/L - Class 5 Allergen: ULTRA HIGH LEVEL OF ALLERGEN SPECIFIC IgE >100.00 kU/L - Class 6 Allergen: EXTREMELY HIGH LEVEL OF ALLERGEN SPECIFIC IgE Performed By: #### I CPA3 #### JOE Montoya ([id number]) [facility] ([facility]) [address] [place] [address] Lovelock IgE Qn (S) <0.10 Normal [facility] Comment on above: Order Comment: Inter pretation Scale <0.10 kU/L - Class 0 Allergen: ABSENT OR UNDETECTABLE ALLERGEN SPECIFIC IgE 0.10-0.34 kU/L - Class 0/1 Allergen: EQUIVOCAL LEVEL OF ALLERGEN SPECIFIC IgE 0.35-0.69 kU/L - Class 1 Allergen: LOW LEVEL OF ALLERGEN SPECIFIC IgE 0.70-3.49 kU/L - Class 2 Allergen: MODERATE LEVEL OF ALLERGEN SPECIFIC IgE 3.50-17.49 kU/L - Class 3 Allergen: HIGH LEVEL OF ALLERGEN SPECIFIC IgE 17.50-49.99 kU/L - Class 4 Allergen: VERY HIGH LEVEL OF ALLERGEN SPECIFIC IgE 50.00-100.00 kU/L - Class 5 Allergen: ULTRA HIGH LEVEL OF ALLERGEN SPECIFIC IgE >100.00 kU/L - Class 6 Allergen: EXTREMELY HIGH LEVEL OF ALLERGEN SPECIFIC IgE Performed By: #### I CPA3 #### JOE Montoya ([id number]) [facility] ([facility]) [address] [place] [address] Egg white IgE Qn (S) <0.10 Normal <0.10 [facility] Comment on above: Order Comment: Inter pretation Scale <0.10 kU/L - Class 0 Allergen: ABSENT OR UNDETECTABLE ALLERGEN SPECIFIC IgE 0.10-0.34 kU/L - Class 0/1 Allergen: EQUIVOCAL LEVEL OF ALLERGEN SPECIFIC IgE 0.35-0.69 kU/L - Class 1 Allergen: LOW LEVEL OF ALLERGEN SPECIFIC IgE 0.70-3.49 kU/L - Class 2 Allergen: MODERATE LEVEL OF ALLERGEN SPECIFIC IgE 3.50-17.49 kU/L - Class 3 Allergen: HIGH LEVEL OF ALLERGEN SPECIFIC IgE 17.50-49.99 kU/L - Class 4 Allergen: VERY HIGH LEVEL OF ALLERGEN SPECIFIC IgE 50.00-100.00 kU/L - Class 5 Allergen: ULTRA HIGH LEVEL OF ALLERGEN SPECIFIC IgE >100.00 kU/L - Class 6 Allergen: EXTREMELY HIGH LEVEL OF ALLERGEN SPECIFIC IgE Performed By: #### I CPA3 #### JOE Montoya ([id number]) [facility] ([facility]) [address] [place] [address] Milk IgE Qn (S) <0.10 Normal <0.10 [facility] Comment on above: Order Comment: Inter pretation Scale <0.10 kU/L - Class 0 Allergen: ABSENT OR UNDETECTABLE ALLERGEN SPECIFIC IgE 0.10-0.34 kU/L - Class 0/1 Allergen: EQUIVOCAL LEVEL OF ALLERGEN SPECIFIC IgE 0.35-0.69 kU/L - Class 1 Allergen: LOW LEVEL OF ALLERGEN SPECIFIC IgE 0.70-3.49 kU/L - Class 2 Allergen: MODERATE LEVEL OF ALLERGEN SPECIFIC IgE 3.50-17.49 kU/L - Class 3 Allergen: HIGH LEVEL OF ALLERGEN SPECIFIC IgE 17.50-49.99 kU/L - Class 4 Allergen: VERY HIGH LEVEL OF ALLERGEN SPECIFIC IgE 50.00-100.00 kU/L - Class 5 Allergen: ULTRA HIGH LEVEL OF ALLERGEN SPECIFIC IgE >100.00 kU/L - Class 6 Allergen: EXTREMELY HIGH LEVEL OF ALLERGEN SPECIFIC IgE Performed By: #### I CPA3 #### JOE Montoya ([id number]) [facility] ([facility]) [address] [place] [address] Peanut IgE Qn (S) <0.10 Normal <0.10 [facility] Comment on above: Order Comment: Inter pretation Scale <0.10 kU/L - Class 0 Allergen: ABSENT OR UNDETECTABLE ALLERGEN SPECIFIC IgE 0.10-0.34 kU/L - Class 0/1 Allergen: EQUIVOCAL LEVEL OF ALLERGEN SPECIFIC IgE 0.35-0.69 kU/L - Class 1 Allergen: LOW LEVEL OF ALLERGEN SPECIFIC IgE 0.70-3.49 kU/L - Class 2 Allergen: MODERATE LEVEL OF ALLERGEN SPECIFIC IgE 3.50-17.49 kU/L - Class 3 Allergen: HIGH LEVEL OF ALLERGEN SPECIFIC IgE 17.50-49.99 kU/L - Class 4 Allergen: VERY HIGH LEVEL OF ALLERGEN SPECIFIC IgE 50.00-100.00 kU/L - Class 5 Allergen: ULTRA HIGH LEVEL OF ALLERGEN SPECIFIC IgE >100.00 kU/L - Class 6 Allergen: EXTREMELY HIGH LEVEL OF ALLERGEN SPECIFIC IgE Performed By: #### I CPA3 #### JOE Montoya ([id number]) [facility] ([facility]) [address] [place] [address] Scallop IgE Qn (S) <0.10 Normal <0.10 [facility] Comment on above: Order Comment: Inter pretation Scale <0.10 kU/L - Class 0 Allergen: ABSENT OR UNDETECTABLE ALLERGEN SPECIFIC IgE 0.10-0.34 kU/L - Class 0/1 Allergen: EQUIVOCAL LEVEL OF ALLERGEN SPECIFIC IgE 0.35-0.69 kU/L - Class 1 Allergen: LOW LEVEL OF ALLERGEN SPECIFIC IgE 0.70-3.49 kU/L - Class 2 Allergen: MODERATE LEVEL OF ALLERGEN SPECIFIC IgE 3.50-17.49 kU/L - Class 3 Allergen: HIGH LEVEL OF ALLERGEN SPECIFIC IgE 17.50-49.99 kU/L - Class 4 Allergen: VERY HIGH LEVEL OF ALLERGEN SPECIFIC IgE 50.00-100.00 kU/L - Class 5 Allergen: ULTRA HIGH LEVEL OF ALLERGEN SPECIFIC IgE >100.00 kU/L - Class 6 Allergen: EXTREMELY HIGH LEVEL OF ALLERGEN SPECIFIC IgE Performed By: #### I CPA3 #### JOE Montoya ([id number]) [facility] ([facility]) [address] [place] [address] Sesame Seed IgE Qn (S) <0.10 Normal <0.[address] [facility] Comment on above: Order Comment: Inter pretation Scale <0.10 kU/L - Class 0 Allergen: ABSENT OR UNDETECTABLE ALLERGEN SPECIFIC IgE 0.10-0.34 kU/L - Class 0/1 Allergen: EQUIVOCAL LEVEL OF ALLERGEN SPECIFIC IgE 0.35-0.69 kU/L - Class 1 Allergen: LOW LEVEL OF ALLERGEN SPECIFIC IgE 0.70-3.49 kU/L - Class 2 Allergen: MODERATE LEVEL OF ALLERGEN SPECIFIC IgE 3.50-17.49 kU/L - Class 3 Allergen: HIGH LEVEL OF ALLERGEN SPECIFIC IgE 17.50-49.99 kU/L - Class 4 Allergen: VERY HIGH LEVEL OF ALLERGEN SPECIFIC IgE 50.00-100.00 kU/L - Class 5 Allergen: ULTRA HIGH LEVEL OF ALLERGEN SPECIFIC IgE >100.00 kU/L - Class 6 Allergen: EXTREMELY HIGH LEVEL OF ALLERGEN SPECIFIC IgE Performed By: #### I CPA3 #### JOE Montoya ([id number]) [facility] ([facility]) [address] [place] [address] Shrimp IgE Qn (S) <0.10 Normal <0.10 [facility] Comment on above: Order Comment: Inter pretation Scale <0.10 kU/L - Class 0 Allergen: ABSENT OR UNDETECTABLE ALLERGEN SPECIFIC IgE 0.10-0.34 kU/L - Class 0/1 Allergen: EQUIVOCAL LEVEL OF ALLERGEN SPECIFIC IgE 0.35-0.69 kU/L - Class 1 Allergen: LOW LEVEL OF ALLERGEN SPECIFIC IgE 0.70-3.49 kU/L - Class 2 Allergen: MODERATE LEVEL OF ALLERGEN SPECIFIC IgE 3.50-17.49 kU/L - Class 3 Allergen: HIGH LEVEL OF ALLERGEN SPECIFIC IgE 17.50-49.99 kU/L - Class 4 Allergen: VERY HIGH LEVEL OF ALLERGEN SPECIFIC IgE 50.00-100.00 kU/L - Class 5 Allergen: ULTRA HIGH LEVEL OF ALLERGEN SPECIFIC IgE >100.00 kU/L - Class 6 Allergen: EXTREMELY HIGH LEVEL OF ALLERGEN SPECIFIC IgE Performed By: #### I CPA3 #### JOE Montoya ([id number]) [facility] ([facility]) [address] [place] [address] Soybean IgE Qn (S) <0.10 Normal <0.10 [facility] Comment on above: Order Comment: Inter pretation Scale <0.10 kU/L - Class 0 Allergen: ABSENT OR UNDETECTABLE ALLERGEN SPECIFIC IgE 0.10-0.34 kU/L - Class 0/1 Allergen: EQUIVOCAL LEVEL OF ALLERGEN SPECIFIC IgE 0.35-0.69 kU/L - Class 1 Allergen: LOW LEVEL OF ALLERGEN SPECIFIC IgE 0.70-3.49 kU/L - Class 2 Allergen: MODERATE LEVEL OF ALLERGEN SPECIFIC IgE 3.50-17.49 kU/L - Class 3 Allergen: HIGH LEVEL OF ALLERGEN SPECIFIC IgE 17.50-49.99 kU/L - Class 4 Allergen: VERY HIGH LEVEL OF ALLERGEN SPECIFIC IgE 50.00-100.00 kU/L - Class 5 Allergen: ULTRA HIGH LEVEL OF ALLERGEN SPECIFIC IgE >100.00 kU/L - Class 6 Allergen: EXTREMELY HIGH LEVEL OF ALLERGEN SPECIFIC IgE Performed By: #### I CPA3 #### JOE Montoya ([id number]) [facility] ([facility]) [address] [place] [address] [place] IgE Qn (S) <0.10 Normal <0.10 [facility] Comment on above: Order Comment: Inter pretation Scale <0.10 kU/L - Class 0 Allergen: ABSENT OR UNDETECTABLE ALLERGEN SPECIFIC IgE 0.10-0.34 kU/L - Class 0/1 Allergen: EQUIVOCAL LEVEL OF ALLERGEN SPECIFIC IgE 0.35-0.69 kU/L - Class 1 Allergen: LOW LEVEL OF ALLERGEN SPECIFIC IgE 0.70-3.49 kU/L - Class 2 Allergen: MODERATE LEVEL OF ALLERGEN SPECIFIC IgE 3.50-17.49 kU/L - Class 3 Allergen: HIGH LEVEL OF ALLERGEN SPECIFIC IgE 17.50-49.99 kU/L - Class 4 Allergen: VERY HIGH LEVEL OF ALLERGEN SPECIFIC IgE 50.00-100.00 kU/L - Class 5 Allergen: ULTRA HIGH LEVEL OF ALLERGEN SPECIFIC IgE >100.00 kU/L - Class 6 Allergen: EXTREMELY HIGH LEVEL OF ALLERGEN SPECIFIC IgE Performed By: #### I CPA3 #### JOE Montoya ([id number]) [facility] ([facility]) [address] [place] [address] Wheat IgE Qn (S) <0.10 Normal <0.10 [facility] Comment on above: Order Comment: Inter pretation Scale <0.10 kU/L - Class 0 Allergen: ABSENT OR UNDETECTABLE ALLERGEN SPECIFIC IgE 0.10-0.34 kU/L - Class 0/1 Allergen: EQUIVOCAL LEVEL OF ALLERGEN SPECIFIC IgE 0.35-0.69 kU/L - Class 1 Allergen: LOW LEVEL OF ALLERGEN SPECIFIC IgE 0.70-3.49 kU/L - Class 2 Allergen: MODERATE LEVEL OF ALLERGEN SPECIFIC IgE 3.50-17.49 kU/L - Class 3 Allergen: HIGH LEVEL OF ALLERGEN SPECIFIC IgE 17.50-49.99 kU/L - Class 4 Allergen: VERY HIGH LEVEL OF ALLERGEN SPECIFIC IgE 50.00-100.00 kU/L - Class 5 Allergen: ULTRA HIGH LEVEL OF ALLERGEN SPECIFIC IgE >100.00 kU/L - Class 6 Allergen: EXTREMELY HIGH LEVEL OF ALLERGEN SPECIFIC IgE Performed By: #### I CPA3 #### JOE Montoya ([id number]) [facility] ([facility]) [address] [place], [place] [id number] ALPHA GAL PANEL IGEon 2023 Beef IgE Qn (S) <0.10 Normal <0.35 [facility] Comment on above: Performed By: #### A GALP #### [facility] ([id number]) [id number] [place] [address] Beef IgE RAST class (S) 0 [facility] Comment on above: Performed By: #### A GALP #### [facility] ([id number]) [place] [address] Khjdamqbe-wqvhr-5,3-g alactose (Alpha-Gal) IgE Qn (S) <0.10 Normal <0.[address] [facility] Comment on above: Result Comment: Prev ious reports ([place] 2009;123:426-433) have demonstrated that patients with IgE antibodies to xbvefboag-j-4,3-galactose are at risk for delayed anaphylaxis, angioedema, or urticaria following consumption of beef, pork, or mendez. Performed By: #### A GALP #### [facility] ([id number]) [place] [address] Mendez IgE Qn (S) <0.10 Normal <0.35 [facility] Comment on above: Performed By: #### A GALP #### [facility] ([id number]) [place] [address] Mendez IgE RAST class (S) 0 [facility] Comment on above: Performed By: #### A GALP #### [facility] ([id number]) [place] [address] Pork IgE Qn (S) <0.10 Normal <0.35 [facility] Comment on above: Performed By: #### A GALP #### [facility] ([id number]) [address] [place] [address] Pork IgE RAST class (S) 0 [facility] Comment on above: Result Comment: The test method is the XYverify ImmunoCAP allergen-specific IgE system. CLASS INTERPRETATION <0.10 kU/L= 0, Negative; 0.10 - 0.34 kU/L= 0/1, Equivocal/Borderline; 0.35 - 0.69 kU/L=1, Low Positive; 0.70 - 3.49 kU/L=2, Moderate Positive; 3.50 - 17.49 kU/L=3, High Positive; 17.50 - 49.99 kU/L= 4, Very High Positive; 50.00 - 99.99 kU/L= 5, Very High Positive; >99.99 kU/L=6, Very High Positive *This test was developed and its performance characteristics determined by [employer]. It has not been cleared or approved by the U.S. Food and Drug Administration. Testing Performed at: [facility] [address] [place] [address], [address] [place] [address] Inspecting Supervisor: Avtar Knutson, PhD CHAPIS (ABB) CLIA # [id number] FLAG Interpretation: A = Abnormal, H = High, L = Low Performed By: #### A GALP #### [facility] ([id number]) [address] [place] [address] Creatinineon 11-12-2023 Creatinine [Mass/Vol] 1.19 mg/dL Normal 0.50-1.30 [facility] Comment on above: Performed By: #### 2 160-0 #### SANDRA RAMOS ([id number]) [facility] ([facility]) [address] [place] [address] Creatinine [Mass/Vol]on Glomerular filtration rate/1.73 sq M.predicted 70 mL/min/1.73m*2 Normal >[address] [facility] Comment on above: Result Comment: Calc ulations of estimated GFR are performed using the 2020 CKD-EPI Study Refit equation without the race variable for the IDMS-Traceable creatinine methods. https://jasn.asnjournals.org/content/early//ASN.710393 8232 Performed By: #### 2 160-0 #### SANDRA RAMOS ([id number]) [facility] ([facility]) [address] [place] [address] Gliadin peptide Ab.IgAon Gliadin peptide IgA IA Qn (S) 2.0 U/mL Normal <15.[address] [facility] Comment on above: Result Comment: Fals e negative Deamidated Gliadin Peptide Antibody, IgA results can occur in patients already adhering to a gluten-free diet or patients with IgA deficiency. Tissue Transglutaminase Antibody, IgA is the preferred test for screening patients with suspected Celiac Disease. ??? Performed By: #### 6 3453-5 #### JOE Montoya ([id number]) [facility] ([facility]) [address] [place], [place] [id number] Gliadin peptide Ab.IgGon Gliadin peptide IgG IA Qn (S) <0.56 Normal 0.00-4.[address] [facility] Comment on above: Result Comment: INTE RPRETIVE INFORMATION: Deamidated Gliadin Peptide (DGP) Ab, IgG In individuals with low or deficient IgA, testing for tissue transglutaminase (tTG) and deamidated Gliadin (DGP) antibodies of the IgG isotype is performed. Positive tTG and/or DGP IgG antibody results indicate celiac disease; however, small intestinal biopsy is required to establish a diagnosis due to the lower accuracy of these markers, especially in patients without IgA deficiency. Performed By: [facility] [address] [place] [address] [place] Hand: Julien Puckett MD, PhD CLIA Number: [id number] Performed By: #### 6 3459-2 #### [facility]) ([id number]) [address] [place] [address] Tissue transglutaminase Ab.I gAon 11-12-2023 tTG IgA IA Qn (S) <1.0 Normal <15.0 [facility] Comment on above: Result Comment: Juanita ac disease is unlikely. False negative Tissue Transglutaminase Antibody, IgA results can occur in approximately 10% of patients with celiac disease, patients already adhering to a gluten-free diet, or patients with IgA deficiency. Performed By: #### 4 6128-5 #### JEO Montoya ([id number]) [facility] ([facility]) [address] [place] [address] Tissue transglutaminase Ab.I gGon 11-12-2023 tTG IgG IA Qn (S) <0.82 Normal 0.00-4.99 [facility] Comment on above: Result Comment: INTE RPRETIVE INFORMATION: Tissue Transglutaminase Ab, IgG In individuals with low or deficient IgA, testing for tissue transglutaminase (tTG) and deamidated Gliadin (DGP) antibodies of the IgG isotype is performed. Positive tTG and/or DGP IgG antibody results indicate celiac disease; however, small intestinal biopsy is required to establish a diagnosis due to the lower accuracy of these markers, especially in patients without IgA deficiency. Performed By: [facility] [address] [place] [address] [place] Hand: Julien Puckett MD, PhD CLIA Number: [id number] Performed By: #### 5 6537-4 #### [facility] ([place]) ([id number]) [address] [place] [address] US Thyroid glandon 3 Interval enlargement of 5.0 cm nodule occupying a majority of the right lobe of the thyroid gland, mildly suspicious by TI-RADS criteria (TI-RADS 3). Recommend correlation with previous biopsy/FNA. MACRO: None Signed by: Alexi Cooney 08/29/2023 4:06 PM Dictation workstation: [id number] [facility] Interpreted By: Alexi Rojas, STUDY: US THYROID; 08/29/2023 7:23 am INDICATION: Signs/Symptoms:multinodul ar. COMPARISON: Thyroid ultrasound dated 08/20/2022. thyroid biopsy performed 03/27/2021 ACCESSION NUMBER(S): [id number] ORDERING CLINICIAN: MELVA MARTINEZ TECHNIQUE: Multiple ultrasonographic images of the thyroid gland were obtained. FINDINGS: Mildly increased color Doppler flow signal throughout the thyroid gland parenchyma diffusely. RIGHT LOBE: The right lobe of the thyroid measures 6.3 cm x 3.8 cm x 3.3 cm. The right lobe of the thyroid is heterogeneous in echotexture with dominant nodule. LEFT LOBE: The left lobe of the thyroid measures 5.1 cm x 1.8 cm x 1.8 cm. The left lobe of the thyroid is relatively homogeneous in echotexture and demonstrates no discrete nodules. ISTHMUS: The thyroid isthmus measures 6 mm in thickness. Nodule # 1 Location: Occupying a majority of the right lobe of the thyroid gland. Size: 5.0 x 3.7 x 3.0 cm. Previously measuring 4.3 x 2.7 x 2.3 cm Composition: Solid or almost completely solid with a few small cystic components (2) Echogenicity: Heterogeneous, but predominantly Hyper-or isoechoic with mild scattered hypoechoic components (1-2) Shape: wider than tall (0) Margins: smooth (0) Echogenic foci: None Other: None TIRADS score: TR 3 mildly suspicious (3) CERVICAL LYMPH NODES: No cervical lymph adenopathy is present. [facility] Alexi Cooney MD - 08/29/2023 Interpreted By: Alexi Cooney, STUDY: US THYROID; 08/29/2023 7:23 am INDICATION: Signs/Symptoms:multinodul ar. COMPARISON: Thyroid ultrasound dated 08/20/2022. thyroid biopsy performed 03/27/2021 ACCESSION NUMBER(S): [id number] ORDERING CLINICIAN: MELVA MARTINEZ TECHNIQUE: Multiple ultrasonographic images of the thyroid gland were obtained. FINDINGS: Mildly increased color Doppler flow signal throughout the thyroid gland parenchyma diffusely. RIGHT LOBE: The right lobe of the thyroid measures 6.3 cm x 3.8 cm x 3.3 cm. The right lobe of the thyroid is heterogeneous in echotexture with dominant nodule. LEFT LOBE: The left lobe of the thyroid measures 5.1 cm x 1.8 cm x 1.8 cm. The left lobe of the thyroid is relatively homogeneous in echotexture and demonstrates no discrete nodules. ISTHMUS: The thyroid isthmus measures 6 mm in thickness. Nodule # 1 Location: Occupying a majority of the right lobe of the thyroid gland. Size: 5.0 x 3.7 x 3.0 cm. Previously measuring 4.3 x 2.7 x 2.3 cm Composition: Solid or almost completely solid with a few small cystic components (2) Echogenicity: Heterogeneous, but predominantly Hyper-or isoechoic with mild scattered hypoechoic components (1-2) Shape: wider than tall (0) Margins: smooth (0) Echogenic foci: None Other: None TIRADS score: TR 3 mildly suspicious (3) CERVICAL LYMPH NODES: No cervical lymph adenopathy is present. IMPRESSION: Interval enlargement of 5.0 cm nodule occupying a majority of the right lobe of the thyroid gland, mildly suspicious by TI-RADS criteria (TI-RADS 3). Recommend correlation with previous biopsy/FNA. MACRO: None Signed by: Alexi Cooney 08/29/2023 4:06 PM Dictation workstation: [id number] [facility] Work Phone: Radiology Study observation (narrative) [facility] Work Phone: Thyroid glandOrdered By: Alexi Cooney on 08-29-2023 [facility] Work Phone: BASIC METABOLIC PANELon 06-0 Anion gap [Moles/Vol] 9 mmol/L Low 10 - 20 [facility] Comment on above: Performed By: #### B MP #### [address] [address] Calcium [Mass/Vol] 8.9 mg/dL Normal 8.6 - 10.3 [facility] Comment on above: Performed By: #### B MP #### [address] [address] Chloride [Moles/Vol] 106 mmol/L Normal 98 - 107 [facility] Comment on above: Performed By: #### B MP #### [address] [address] Creatinine [Mass/Vol] 1.17 mg/dL Normal 0.50 - 1.30 [facility] Comment on above: Performed By: #### B MP #### [address] [address] GFR/1.73 sq M.predicted among non-blacks MDRD (S/P/Bld) [Vol rate/Area] 71 mL/min/{1.73_m2} Normal >90 [facility] Comment on above: Result Comment: CALC ULATIONS OF ESTIMATED GFR ARE PERFORMED USING THE 2020 CKD-EPI STUDY REFIT EQUATION WITHOUT THE RACE VARIABLE FOR THE IDMS-TRACEABLE CREATININE METHODS. https://jasn.asnjournals.org/content/early//ASN.406399 9906 Performed By: #### B MP #### [address] [address] Glucose [Mass/Vol] 97 mg/dL Normal 74 - 99 [facility] Comment on above: Performed By: #### B MP #### [address] [address] HCO3 (Bld) [Moles/Vol] 29 mmol/L Normal 21 - 32 [facility] Comment on above: Performed By: #### B MP #### [address] [address] Potassium [Moles/Vol] 4.2 mmol/L Normal 3.5 - 5.3 [facility] Comment on above: Performed By: #### B MP #### [address] [address] Sodium [Moles/Vol] 140 mmol/L Normal 136 - 145 [facility] Comment on above: Performed By: #### B MP #### [address] [address] Urea nitrogen [Mass/Vol] 18 mg/dL Normal 6 - 23 [facility] Comment on above: Performed By: #### B MP #### [address] [address] HEMOGLOBIN A1Con 02-11-2023 Glucose [Mass/Vol] 123 mg/dL Normal [facility] Comment on above: Performed By: #### H BA1E #### [address] [address] HbA1c (Bld) [Mass fraction] 5.9 % Abnormal [facility] Comment on above: Result Comment: Diag nosis of Diabetes-Adults Non-Diabetic: < or = 5.6% Increased risk for developing diabetes: 5.7-6.4% Diagnostic of diabetes: > or = 6.5% . Monitoring of Diabetes Age (y) Therapeutic Goal (%) Adults: >18 <7.0 Pediatrics: 13-18 <7.5 7-12 <8.0 0- 6 7.5-8.5 [place] [employer]. Diabetes Care 33(S1), Sep 2009. Performed By: #### H BA1E #### [address] [address] LIPID PANEL (CORONARY RISK 2 )on 02-11-2023 Cholesterol [Mass/Vol] 214 mg/dL High 0 - 199 [facility] Comment on above: Result Comment: . AGE DESIRABLE BORDERLINE HIGH HIGH 0-19 Y 0 - 169 170 - 199 >/= 200 20-24 Y 0 - 189 190 - 224 >/= 225 >24 Y 0 - 199 200 - 239 >/= 240 All ranges are based on fasting samples. Specific therapeutic targets will vary based on patient-specific cardiac risk. . Pediatric guidelines reference:Pediatrics 2011, 128(S5). Adult guidelines reference: NCEP ATPIII Guidelines, AXEL 2001, 258:8146-97 . Venipuncture immediately after or during the administration of Metamizole may lead to falsely low results. Testing should be performed immediately prior to Metamizole dosing. Performed By: #### L IPID #### [address] [address] Cholesterol in HDL [Mass/Vol] 39.0 mg/dL Abnormal [facility] Comment on above: Result Comment: . AGE VERY LOW LOW NORMAL HIGH 0-19 Y < 35 < 40 40-45 ---- 20-24 Y ---- < 40 >45 ---- >24 Y ---- < 40 40-60 >60 . Performed By: #### L IPID #### [address] [address] Cholesterol in LDL [Mass/Vol] 151 mg/dL High 0 - 99 [facility] Comment on above: Result Comment: . NEAR BORD AGE DESIRABLE OPTIMAL HIGH HIGH VERY HIGH 0-19 Y 0 - 109 --- 110-129 >/= 130 ---- 20-24 Y 0 - 119 --- 120-159 >/= 160 ---- >24 Y 0 - 99 100-129 130-159 160-189 >/=190 . Performed By: #### L IPID #### [address] [address] Cholesterol in VLDL [Mass/Vol] 24 mg/dL Normal 0 - 40 [facility] Comment on above: Performed By: #### L IPID #### [address] [address] Cholesterol.total/Cho lesterol in HDL [Mass ratio] 5.5 {ratio} Abnormal [facility] Comment on above: Result Comment: REF VALUES DESIRABLE < 3.4 HIGH RISK > 5.0 Performed By: #### L IPID #### [address] [address] Triglyceride [Mass/Vol] 120 mg/dL Normal 0 - 149 [facility] Comment on above: Result Comment: . AGE DESIRABLE BORDERLINE HIGH HIGH VERY HIGH 0 D-90 D 19 - 174 ---- ---- ---- 91 D- 9 Y 0 - 74 75 - 99 >/= 100 ---- 10-19 Y 0 - 89 90 - 129 >/= 130 ---- 20-24 Y 0 - 114 115 - 149 >/= 150 ---- >24 Y 0 - 149 150 - 199 200- 499 >/= 500 . Venipuncture immediately after or during the administration of Metamizole may lead to falsely low results. Testing should be performed immediately prior to Metamizole dosing. Performed By: #### L IPID #### [address] [address] TSH WITH REFLEX TO FREE T4 I F ABNORMALon 02-11-2023 TSH Qn 1.30 m[IU]/L Normal 0.44 - 3.98 [facility] Comment on above: Result Comment: TSH testing is performed using different testing methodology at [facility] than at other [facility]. Direct result comparisons should only be made within the same method. Performed By: #### T HYDS #### [address] [address] Radiologyon 10-08-2022 US Gallbladder Normal [facility] Work Phone: Tobacco Screening.on 023 Adult depression screening assessment No [facility] Work Phone: Fall risk assessment a) No falls within the last year [facility] Work Phone: Tobacco use status [facility] b) No [facility] Work Phone: Suture removalon 09-21-2022 Alexandria swanson CNP 09/21/2022 5:24 PM Suture removal Date/Time: 09/21/2022 5:21 PM Performed by: Alexandria Gore CNP Authorized by: Alexandria Gore CNP Body area: upper extremity Location details: right lower arm Wound Appearance: clean Sutures Removed: 8 Post-removal: dressing applied and Steri-Strips applied Facility: sutures placed in this facility Patient tolerance: patient tolerated the procedure well with no immediate complications [facility] No Panel Informationon 09-10 Melissa cleaning PA-C 09/10/2022 1:58 PM Wound extent: Laceration repair Date/Time: 09/10/2022 11:02 AM Performed by: Melissa Short PA-C Authorized by: Melissa Short PA-C Verbal consent: obtained Written consent: obtained Consent given by: patient Relevant documents: Relevent documents present and verified. Medical history, medications, allergies and physical assessment reviewed/completed Test results: test results available and properly labeled Site: site marked by physician or proceduralist who is privileged and credentialed to perform procedure Relevant imaging studies available and labeled: Yes Required items: required blood products, implants, devices, and special equipment available Patient identity confirmed: verified patient name and Time out: Immediately prior to procedure a time out was called to verify the correct patient, procedure, equipment, client application support engineer and site/side marked as required. Timeout performed at: 09/10/2022 10:30 AM Physician or proceduralist has discussed critical or nonroutine steps, procedure duration and anticipated blood loss: Yes All team members agree to proceed: Yes Body area: upper extremity Location details: right lower arm Laceration length: 9.5 cm Contamination: The wound is contaminated. Foreign bodies: no foreign bodies Tendon involvement: none Nerve involvement: superficial Vascular damage: yes Anesthesia: local infiltration Anesthesia: Local Anesthetic: lidocaine 1% without epinephrine Anesthetic total: 6 mL Patient sedated: no Repair type: complex Preparation: Patient was prepped and draped in the usual sterile fashion. Irrigation solution: saline Irrigation method: syringe Amount of cleaning: extensive Hemostasis achieved with: direct pressure and tourniquet Wound exploration: wound explored through full range of motion and entire depth of wound probed and visualized Wound extent: fascia violated, muscle damage and vascular damage areolar tissue not violated, no foreign body, no nerve damage and no tendon damage Debridement: minimal Degree of undermining: none Skin closure: 4-0 Prolene Number of sutures: 7 Technique: simple interrupted and horizontal mattress Approximation: close Approximation difficulty: simple Dressing: antibiotic ointment, 4x4 sterile gauze and pressure dressing Patient tolerance: patient tolerated the procedure well with no immediate complications Comments: Pt held in clinic x 10 mins with recheck of wound; no bleeding on recheck. Pt advised to return immediately should bleeding occur, any concerns. Pt ready for dc. [facility] Radiologyon 08-20-2022 Thyroid gland Normal [facility] Work Phone: Office Visiton 08-13-2022 Follow-up visit Diagnoses/Problems Class 1 obesity with body mass index (BMI) of 31.0 to 31.9 in adult (278.00,V85.31) (E66.9,Z68.31) Carpal tunnel syndrome of right wrist (354.0) (G56.01) Chronic allergic rhinitis (477.9) (J30.9) Crush injury (929.9) (T14.8XXA) GERD (gastroesophageal reflux disease) (530.81) (K21.9) Hypertension, benign (401.1) (I10) Restless leg syndrome (333.94) (G25.81) SNHL (sensorineural hearing loss) (389.10) (H90.5) Thyroid nodule (241.0) (E04.1) Umbilical hernia without obstruction and without gangrene (553.1) (K42.9) Screening PSA (prostate specific antigen) (V76.44) (Z12.5) Prediabetes (790.29) (R73.03) Medication management (V58.69) (Z79.899) Hyperlipidemia (272.4) (E78.5) Orders GERD (gastroesophageal reflux disease) Renew: Omeprazole 40 MG Oral Capsule Delayed Release; TAKE 1 CAPSULE Daily Hypertension, benign Basic Metabolic Panel; Status:Active; Requested for:11Feb2023; Lipid Panel; Status:Active; Requested for:11Feb2023; Medication management Follow-up visit in 6 months Outpatient Follow-up Status: Hold For - Scheduling Requested for: 13Aug2022 Prediabetes Hemoglobin A1C; Status:Active; Requested for:11Feb2023; Restless leg syndrome Renew: Pramipexole Dihydrochloride 0.25 MG Oral Tablet; TAKE 1 TABLET Bedtime Screening PSA (prostate specific antigen) Prostate Spec.Ag, Screen; Status:Active; Requested for:11Feb2023; Thyroid nodule TSH WITH REFLEX TO FREE T4 IF ABNORMAL; Status:Active; Requested for:11Feb2023; Ultrasound Thyroid; Status:Hold For - Scheduling; Requested for:13Aug2022; Radiologist to Determine Optimal Study : Y What are the patient's signs and symptoms? : Nodule Chief Complaint Medck History of Present IllnessCrush injury and Rib Fractures - from industrial accident in February 2021. Hurts to cough with mild pain otherwise. Did need Plates. Workers comp. Can now lay on sides due to pain. Trauma is recommending referral to someone else. Nodule on thyroid on CT scan. He is cold a lot since the injury. TSH in November was good. US of large complex nodule mostly solid. Bx showed atypia but molecular studies showed low risk. Follow up US in August 2021 was unchanged. Cysts on the kidney and liver. The liver has been noted in the past. The kidney cyst was on the left at 10.8. Dr Mccallum saw him and says benign. No follow up unless a problem. GFR68 Umbilical hernia and GERD - He has had for a long time. No pain. Constipation resolved since off of oxycodone. And so bloating less. No HB, Melena, dysphagia, or hematochezia. Omeprazole as needed and occasionally will add Pepcid. HTN - Was on Lisinopril prior to the accident then off for awhile. After accident he was put on Lisinopril HCTZ and developed a cough. Change to losartan and less cough but still there. No Chest pain (other than above), Dyspnea, palpitations, numbness, weakness, edema, claudication, or double vision/ loss of vision. . Hyperlipidemia - TC 205. YSG058. HDL 37. ASCVD risk 12.8% in January. Not really watching diet well. CACS score 0 so risk 4.6% SNHL in both ears. No hearing aids yet. RLS - meds work well without side effects. Occasional rough night so will try magnesium. CTS on right not too bad lately. Allergic Rhinitis - Worse with spring and fall. OTC Zyrtec. Fluticasone as well seasonally. PND and RN and sneezing. Obesity -Up a couple this time. Getting more active. BMI 31 Cologuard - 06/03/21 PSA 01/15/22 Active Problems Arthropathy (716.90) (M12.9) Carpal tunnel syndrome of right wrist (354.0) (G56.01) Chronic allergic rhinitis (477.9) (J30.9) Class 1 obesity with body mass index (BMI) of 31.0 to 31.9 in adult (278.00,V85.31) (E66.9,Z68.31) Crush injury (929.9) (T14.8XXA) GERD (gastroesophageal reflux disease) (530.81) (K21.9) Hypertension, benign (401.1) (I10) Ischemic heart disease screen (V81.0) (Z13.6) Liver cyst (573.8) (K76.89) Medication management (V58.69) (Z79.899) Renal cyst (753.10) (N28.1) Restless leg syndrome (333.94) (G25.81) Screening PSA (prostate specific antigen) (V76.44) (Z12.5) SNHL (sensorineural hearing loss) (389.10) (H90.5) Thyroid nodule (241.0) (E04.1) Umbilical hernia without obstruction and without gangrene (553.1) (K42.9) Past Medical History History of Body mass index (BMI) of 29.0 to 29.9 in adult (V85.25) (Z68.29) Resolved Date: 31 Jul 2021 History of Colon cancer screening (V76.51) (Z12.11) Resolved Date: 31 Jul 2021 History of Elevated blood pressure reading (796.2) (R03.0) Resolved Date: 22 May 2020 History of constipation (V12.79) (Z87.19) Resolved Date: 31 Jul 2021 History of muscle spasm (V13.59) (Z87.39) Resolved Date: 31 Jul 2021 History of Left knee pain (719.46) (M25.562) Resolved Date: 09 Jan 2021 History of Popping sound of knee joint (719.66) (R29.898) Resolved Date: 09 Jan 2021 Surgical History History of Colonoscopy History of Open reduction-internal fixation left ribs 4-6 with evacuation of aramis (more content not included)... Normal [employer] Tobacco Screening.on 022 Fall risk assessment a) No falls within the last year [facility] Work Phone: Tobacco use status [facility] b) No [facility] Work Phone: COMPREHENSIVE PANELon 2021 Albumin [Mass/Vol] 4.0 g/dL Normal 3.4 - 5.0 [facility] Comment on above: Performed By: #### C MP #### [address] [address] ALP [Catalytic activity/Vol] 66 U/L Normal 33 - 120 [facility] Work Phone: Comment on above: Performed By: #### C MP #### [address] [address] ALT [Catalytic activity/Vol] 16 U/L Normal 10 - 52 [facility] Comment on above: Result Comment: Chioma ents treated with Sulfasalazine may generate falsely decreased results for ALT. Performed By: #### C MP #### [address] [address] Anion gap [Moles/Vol] 8 mmol/L Low 10 - 20 [facility] Work Phone: Comment on above: Performed By: #### C MP #### [address] [address] AST [Catalytic activity/Vol] 16 U/L Normal 9 - 39 [facility] Comment on above: Performed By: #### C MP #### [facility] [address] Bilirubin [Mass/Vol] 0.5 mg/dL Normal 0.0 - 1.2 [facility] Work Phone: Comment on above: Performed By: #### C MP #### [address] [address] Calcium [Mass/Vol] 8.8 mg/dL Normal 8.6 - 10.3 [facility] Work Phone: [phone] Comment on above: Performed By: #### C MP #### [address] [address] Chloride [Moles/Vol] 107 mmol/L Normal 98 - 107 [facility] Work Phone: Comment on above: Performed By: #### C MP #### [address] [address] Creatinine [Mass/Vol] 1.23 mg/dL Normal 0.50 - 1.30 [facility] Work Phone: Comment on above: Reference Range: 0.5 0 - 1.30 Performed By: #### C MP #### [address] [address] GFR/1.73 sq M.predicted among non-blacks MDRD (S/P/Bld) [Vol rate/Area] 68 mL/min/{1.73_m2} Normal >90 [facility] Comment on above: Result Comment: CALC ULATIONS OF ESTIMATED GFR ARE PERFORMED USING THE 2020 CKD-EPI STUDY REFIT EQUATION WITHOUT THE RACE VARIABLE FOR THE IDMS-TRACEABLE CREATININE METHODS. https://jasn.asnjournals.org/content//ASN.611311 4443 Performed By: #### C MP #### [address] [address] Glucose [Mass/Vol] 114 mg/dL High 74 - 99 [facility] Work Phone: Comment on above: Performed By: #### C MP #### [address] [address] HCO3 (Bld) [Moles/Vol] 30 mmol/L Normal 21 - 32 [facility] Comment on above: Performed By: #### C MP #### [address] [address] Potassium [Moles/Vol] 4.1 mmol/L Normal 3.5 - 5.3 [facility] Work Phone: [phone] Comment on above: Performed By: #### C MP #### [address] [address] Protein [Mass/Vol] 6.3 g/dL Low 6.4 - 8.2 [facility] Work Phone: [phone] Comment on above: Performed By: #### C MP #### [address] [address] Sodium [Moles/Vol] 141 mmol/L Normal 136 - 145 [facility] Work Phone: [phone] Comment on above: Performed By: #### C MP #### [address] [address] Urea nitrogen [Mass/Vol] 18 mg/dL Normal 6 - 23 [facility] Work Phone: [phone] Comment on above: Performed By: #### C MP #### [address] [address] Laboratory - Chemistry and C hemistry - challengeon 08-09-2022 Albumin BCP dye [Mass/Vol] 4.0 g/dL 3.4 - 5.0 [facility] Work Phone: [phone] With P-5'-P [Catalytic activity/Vol] 16 U/L 10 - 52 [facility] Work Phone: [phone] Comment on above: Patients treated wit h Sulfasalazine may generate falsely decreased results for ALT. AST With P-5'-P [Catalytic activity/Vol] 16 U/L 9 - 39 [facility] Work Phone: [phone] CO2 [Moles/Vol] 30 mmol/L 21 - 32 [facility] Work Phone: No Panel Informationon 08-09 68 {mL/min/1.73m2} >90 [facility] Work Phone: Comment on above: CALCULATIONS OF FABIAN MATED GFR ARE PERFORMED USING THE 2020 CKD-EPI STUDY REFIT EQUATION WITHOUT THE RACE VARIABLE FOR THE IDMS-TRACEABLE CREATININE METHODS.https://jasn.asnjournals.org/content/early// N.3963753947 PROSTATE SPEC.AG,SCREENon PROSTATE SPEC.AG,SCREEN 1.15 ng/mL Normal 0.00 - 4.00 [facility] Comment on above: Result Comment: The FDA requires that the method used for PSA assay be reported to the physician. Values obtained with different assay methods must not be used interchangeably. This test was performed at [facility] using the Access Hybritech PSA assay is a two-site immunoenzymatic sandwich assay. The assay is approved for measurement of prostate-specific antigen (PSA)in serum and may be used in conjunction with a digital rectal examination in men 50 years and older as an aid in detection of prostate cancer. 5-Hzajg-otqmwnmau inhibitors (e.g. Proscar, Finasteride, Avodart, Dutasteride and Corrine) for the treatment of BPH have been shown to lower PSA levels by an average of 50% after 6 months of treatment. Performed By: #### P [facility] #### [place] [address] Prostate Spec.Ag, Screenon 1 10-09-2021 Prostate specific Ag [Mass/Vol] 1.15 ng/mL See Below [facility] Work Phone: Comment on above: Reference Range: 0.0 0 - 4.00The FDA requires that the method used for PSA assay be reported to the physician. Values obtained with different assay methods must not be used interchangeably. This testwas performed at [facility] using the Access Hybritech PSA assay is a two-site immunoenzymatic sandwich assay. The assay is approved for measurement of prostate-specific antigen (PSA)in serum and may be used in conjunction with a digital rectal examination in men 50 years and older as an aid in detection of prostate cancer.0-Xukxs-hoinhkwoh inhibitors (e.g. Proscar, Finasteride, Avodart, Dutasteride and Corrine) for the treatment of BPH have been shown to lower PSA levels by an average of 50% after 6 months of treatment. TSH WITH REFLEX TO FREE T4 I F ABNORMALon 08-09-2022 TSH Qn 1.18 m[IU]/L Normal 0.44 - 3.98 [facility] Work Phone: Comment on above: Reference Range: 0.4 4 - 3.98 TSH testing is performed using different testing methodology at [facility] than at other [facility]. Direct result comparisons should only be made within the same method. Result Comment: TSH testing is performed using different testing methodology at [facility] than at other [facility]. Direct result comparisons should only be made within the same method. Performed By: #### T [facility] #### [facility] [address] [place] [address] CT [address] Cardiac Scoring Normal [facility] Work Phone: Office Visiton 01-29-2022 Follow-up visit Diagnoses/Problems Class 1 obesity with body mass index (BMI) of 31.0 to 31.9 in adult (278.00,V85.31) (E66.9,Z68.31) Chronic allergic rhinitis (477.9) (J30.9) Crush injury (929.9) (T14.8XXA) Carpal tunnel syndrome of right wrist (354.0) (G56.01) GERD (gastroesophageal reflux disease) (530.81) (K21.9) Hypertension, benign (401.1) (I10) Liver cyst (573.8) (K76.89) Renal cyst (753.10) (N28.1) Restless leg syndrome (333.94) (G25.81) SNHL (sensorineural hearing loss) (389.10) (H90.5) Thyroid nodule (241.0) (E04.1) Umbilical hernia without obstruction and without gangrene (553.1) (K42.9) Screening PSA (prostate specific antigen) (V76.44) (Z12.5) Ischemic heart disease screen (V81.0) (Z13.6) Medication management (V58.69) (Z79.899) Orders Hypertension, benign Changed: From Losartan Potassium 50 MG Oral Tablet TAKE 1 TABLET DAILY To Losartan Potassium 100 MG Oral Tablet TAKE 1 TABLET DAILY Hypertension, benign, Liver cyst Comprehensive Metabolic Panel; Status:Active; Requested for:01Aug2022; Ischemic heart disease screen CT Cardiac Scoring; Status:Hold For - Scheduling; Requested for:29Jan2022; Patient taking Metformin or Derivatives? : No Radiologist to Determine Optimal Study : Y What are the patient's signs and symptoms? : screening with high cholesterol Medication management Follow-up visit in 6 months Outpatient Follow-up Status: Hold For - Scheduling Requested for: 29Jan2022 Screening PSA (prostate specific antigen) Prostate Spec.Ag, Screen; Status:Active; Requested for:01Aug2022; Thyroid nodule TSH WITH REFLEX TO FREE T4 IF ABNORMAL; Status:Active; Requested for:01Aug2022; Chief Complaint medck History of Present IllnessCrush injury and Rib Fractures - from industrial accident. Hurts to cough with mild pain otherwise. That was in February. Xray in May showed some ribs still not healed. The ones with plates did heal. Workers comp. Cannot lay on sides due to pain. Has plates on ribs. Trauma is recommending referral to someone else. Muscle relaxers did help. Will try some B Complex Nodule on thyroid on CT scan. He is cold a lot since the injury. TSH in November was good. US of large complex nodule mostly solid. Bx showed atypia but molecular studies showed low risk. Follow up US in August 2021 was unchanged. Cysts on the kidney and liver. The liver has been noted in the past. The kidney cyst was on the left at 10.8. Dr Mccallum saw him and says benign. No follow up unless a problem Umbilical hernia and GERD - He has had for a long time. No pain. Constipation resolved since off of oxycodone. And so bloating less. No HB, Melena, dysphagia, or hematochezia. Omeprazole as needed HTN - Was on Lisinopril prior to the accident then off for awhile. After accident he was put on Lisinopril HCTZ and now with cough that is dry tickle. He only occasionally take ibuprofen. Dyspnea is better as is chest pain. No edema or numbness or weakness or loss of vision. BP is 140/82 after change to Losartan. At home 140/90s. Hyperlipidemia - TC 205. KNC216. HDL 37. ASCVD risk 12.8%. SNHL in both ears. No hearing aids yet. RLS - meds work well without side effects. Occasional rough night so will try magnesium. CTS on right not too bad lately. Allergic Rhinitis - Worse with spring and fall. OTC Zyrtec. Fluticasone as well seasonally. PND and RN and sneezing. Obesity - Down a couple this time but still less activity. BMI 31 Cologuard - 06/03/21 Active Problems Arthropathy (716.90) (M12.9) Carpal tunnel syndrome of right wrist (354.0) (G56.01) Chronic allergic rhinitis (477.9) (J30.9) Crush injury (929.9) (T14.8XXA) GERD (gastroesophageal reflux disease) (530.81) (K21.9) Hypertension, benign (401.1) (I10) Liver cyst (573.8) (K76.89) Medication management (V58.69) (Z79.899) Renal cyst (753.10) (N28.1) Restless leg syndrome (333.94) (G25.81) Screening PSA (prostate specific antigen) (V76.44) (Z12.5) SNHL (sensorineural hearing loss) (389.10) (H90.5) Thyroid nodule (241.0) (E04.1) Umbilical hernia without obstruction and without gangrene (553.1) (K42.9) Past Medical History History of Body mass index (BMI) of 29.0 to 29.9 in adult (V85.25) (Z68.29) Resolved Date: 31 Jul 2021 History of Colon cancer screening (V76.51) (Z12.11) Resolved Date: 31 Jul 2021 History of Elevated blood pressure reading (796.2) (R03.0) Resolved Date: 22 May 2020 History of constipation (V12.79) (Z87.19) Resolved Date: 31 Jul 2021 History of muscle spasm (V13.59) (Z87.39) Resolved Date: 31 Jul 2021 History of Left knee pain (719.46) (M25.562) Resolved Date: 09 Jan 2021 History of Popping sound of knee joint (719.66) (R29.898) Resolved Date: 09 Jan 2021 Surgical History History of Colonoscopy History of Open reduction-internal fixation left ribs 4-6 with evacuation of hematoma Social History Does not have living will Minimum alcohol consumption Never a smoker No recent foreign travel Allerg (more content not included)... Normal [employer] Tobacco Screening.on 022 Adult depression screening assessment No [facility] Work Phone: Tobacco use status [facility] b) No [facility] Work Phone: Laboratory - Chemistry and C hemistry - challengeon 01-15-2022 Anion gap [Moles/Vol] 9 mmol/L below low threshold 10 - 20 [facility] Work Phone: Calcium [Mass/Vol] 8.6 mg/dL 8.6 - 10.3 [facility] Work Phone: Chloride [Moles/Vol] 104 mmol/L 98 - 107 [facility] Work Phone: CO2 [Moles/Vol] 31 mmol/L 21 - 32 [facility] Work Phone: Creatinine [Mass/Vol] 1.13 mg/dL See Below [facility] Work Phone: Comment on above: Reference Range: 0.5 0 - 1.30 Glucose [Mass/Vol] 91 mg/dL 74 - 99 [facility] Work Phone: Potassium [Moles/Vol] 4.4 mmol/L 3.5 - 5.3 [facility] Work Phone: Sodium [Moles/Vol] 140 mmol/L 136 - 145 [facility] Work Phone: Urea nitrogen [Mass/Vol] 16 mg/dL 6 - 23 [facility] Work Phone: Lipid Panelon 01-15-2022 Cholesterol [Mass/Vol] 205 mg/dL above high threshold 0 - 199 [facility] Work Phone: Comment on above: . AGE DESIRABLE BORD DOMINIC HIGH HIGH 0-19 Y 0 - 169 170 - 199 >/= 200 20-24 Y 0 - 189 190 - 224 >/= 225 >24 Y 0 - 199 200 - 239 >/= 240 All ranges are based on fasting samples. Specific therapeutic targets will vary based on patient-specific cardiac risk.. Pediatric guidelines reference:Pediatrics 2011, 128(S5). Adult guidelines reference: NCEP ATPIII Guidelines, AXEL 2001, 258:2486-97. Venipuncture immediately after or during the administration of Metamizole may lead to falsely low results. Testing should be performed immediately prior to Metamizole dosing. Cholesterol in HDL [Mass/Vol] 37.0 mg/dL Abnormal [facility] Work Phone: Comment on above: . AGE VERY LOW LOW N ORMAL HIGH 0-19 Y < 35 < 40 40-45 ---- 20- 24 Y ---- < 40 >45 ---- >24 Y ---- < 40 40-60 >60. Cholesterol in LDL [Mass/Vol] 139 mg/dL above high threshold 0 - 99 [facility] Work Phone: Comment on above: . NEAR BORD AGE MARION RABLE OPTIMAL HIGH HIGH VERY HIGH 0-19 Y 0 - 109 --- 110-129 >/= 130 ---- 20-24 Y 0 - 119 --- 120-159 >/= 160 ---- >24 Y 0 - 99 100-129 130-159 160-189 >/=190. Cholesterol.total/Cho lesterol in HDL [Mass ratio] 5.5 {ratio} Abnormal [facility] Work Phone: Comment on above: REF VALUESDESIRABLE < 3.4HIGH RISK > 5.0 Triglyceride [Mass/Vol] 146 mg/dL 0 - 149 [facility] Work Phone: Comment on above: . AGE DESIRABLE BORD DOMINIC HIGH HIGH VERY HIGH 0 D-90 D 19 - 174 ---- ---- ----91 D- 9 Y 0 - 74 75 - 99 >/= 100 ---- 10-19 Y 0 - 89 90 - 129 >/= 130 ---- 20-24 Y 0 - 114 115 - 149 >/= 150 ---- >24 Y 0 - 149 150 - 199 200- 499 >/= 500. Venipuncture immediately after or during the administration of Metamizole may lead to falsely low results. Testing should be performed immediately prior to Metamizole dosing. Lipid Panel 29 mg/dL 0 - 40 [facility] Work Phone: No Panel Informationon 01-15 75 {mL/min/1.73m2} >90 [facility] Work Phone: Comment on above: CALCULATIONS OF FABIAN MATED GFR ARE PERFORMED USING THE 2020 CKD-EPI STUDY REFIT EQUATION WITHOUT THE RACE VARIABLE FOR THE IDMS-TRACEABLE CREATININE METHODS.https://jasn.asnjournals.org/content/early// N.4260190865 Radiologyon 08-14-2021 US Kidney - bilateral Normal [facility] Work Phone: US Thyroid gland Normal [facility] Work Phone: Tobacco Screening.on 021 Tobacco use status [facility] b) No [facility] Work Phone: Laboratory - Chemistry and C hemistry - challengeon 07-24-2021 Anion gap [Moles/Vol] 13 mmol/L 10 - 20 [facility] Work Phone: Calcium [Mass/Vol] 9.1 mg/dL 8.6 - 10.3 [facility] Work Phone: [phone] Chloride [Moles/Vol] 103 mmol/L 98 - 107 -A [facility] Work Phone: CO2 [Moles/Vol] 26 mmol/L 21 - 32 [facility] Work Phone: Creatinine [Mass/Vol] 1.12 mg/dL See Below [facility] Work Phone: Comment on above: Reference Range: 0.5 0 - 1.30 Glucose [Mass/Vol] 89 mg/dL 74 - 99 [facility] Work Phone: Potassium [Moles/Vol] 4.0 mmol/L 3.5 - 5.3 [facility] Work Phone: Sodium [Moles/Vol] 138 mmol/L 136 - 145 [facility] Work Phone: Urea nitrogen [Mass/Vol] 17 mg/dL 6 - 23 [facility] Work Phone: No Panel Informationon 07-24 >60 >60 [facility] Work Phone: Comment on above: CALCULATIONS OF FABIAN MATED GFR ARE PERFORMED USING THE MDRD STUDY EQUATION FOR THE IDMS-TRACEABLE CREATININE METHODS. CLIN CHEM 2007;53:766-72 Prostate Spec.Ag, Screenon 1 09-23-2020 Prostate specific Ag [Mass/Vol] 1.24 ng/mL See Below [facility] Work Phone: Comment on above: Reference Range: 0.0 0 - 4.00The FDA requires that the method used for PSA assay be reported to the physician. Values obtained with different assay methods must not be used interchangeably. This testwas performed at [facility] using the Access Hybritech PSA assay is a two-site immunoenzymatic sandwich assay. The assay is approved for measurement of prostate-specific antigen (PSA)in serum and may be used in conjunction with a digital rectal examination in men 50 years and older as an aid in detection of prostate cancer.6-Utfha-gcwabosyw inhibitors (e.g. Proscar, Finasteride, Avodart, Dutasteride and Corrine) for the treatment of BPH have been shown to lower PSA levels by an average of 50% after 6 months of treatment. Laboratory - Molecular patho logyon 06-03-2021 Noninvasive colorectal cancer DNA and occult blood screening Elvis (Stl) [Interp] Negative Negative [facility] Work Phone: Comment on above: [employer] LABOR ATORZoyi (CLIA #:[id number])Izabel LAI VERENICE. [facility] [address] [address] NEELY , Clinical Laboratory Medical DirectorNEGATIVE TEST RESULT. A negative Cologuard result indicates a low likelihood that a colorectal cancer (CRC) or advanced adenoma (adenomatous polyps with more advanced pre-malignant features) is present. The chance that a person with a negative Cologuard test has a colorectal cancer is less than 1 in 1500 (negative predictive value >99.9%) or has an advanced adenoma is less than 5.3% (negative predictive value 94.7%). These data are based on a prospective cross-sectional study of 10,000 individuals at average risk for colorectal cancer who were screened with both Cologuard and colonoscopy. (Cinthya Maxwell et al, N Engl J Med 2014;370(14):9751-6830) The normal value (reference range) for this assay is negative.COLOGUARD RE-SCREENING RECOMMENDATION: Periodic colorectal cancer screening is an important part of preventive healthcare for asymptomatic individuals at average risk for colorectal cancer. Following a negative Cologuard result, the [place] [employer] Society and U.S. Multi-Society Task Force screening guidelines recommend a Cologuard re-screening interval of 3 years. References: [place] [employer] Guideline for Colorectal Cancer Screening: https://www.cancer.org/cancer/xfeha-uodscz-tsyipr/detection-diag nosis-staging/acs-recommendations.html.; Niranjan DK, Ramy AUSTIN, Abner TelloK, Colorectal Cancer Screening: Recommendations for Physicians and Patients from the U.S. Multi-Society Task Force on Colorectal Cancer Screening , Am J Gastroenterology 2017; 112:5125-6482.TEST DESCRIPTION: Composite algorithmic analysis of stool DNA-biomarkers with hemoglobin immunoassay. Quantitative values of individual biomarkers are not reportable and are not associated with individual biomarker result reference ranges. Cologuard is intended for colorectal cancer screening of adults of either sex, 45 years or older, who are at average-risk for colorectal cancer (CRC). Cologuard has been approved for use by the U.S. FDA. The performance of Cologuard was established in a cross sectional study of average-risk adults aged 50-84. Cologuard performance in patients ages 45 to 49 years was estimated by sub-group analysis of near-age groups. Colonoscopies performed for a positive result may find as the most clinically significant lesion: colorectal cancer [4.0%], advanced adenoma (including sessile serrated polyps greater than or equal to 1cm diameter) [20%] or non- advanced adenoma [31%]; or no colorectal neoplasia [45%]. These estimates are derived from a prospective cross-sectional screening study of 10,000 individuals at average risk for colorectal cancer who were screened with both Cologuard and colonoscopy. (Cinthya Maxwell et al, N Engl J Med 2014;370(14):1156-3679.) Cologuard may produce a false negative or false positive result (no colorectal cancer or precancerous polyp present at colonoscopy follow up). A negative Cologuard test result does not guarantee the absence of CRC or advanced adenoma (pre-cancer). The current Cologuard screening interval is every 3 years. ([place] [employer] Society and U.S. Multi-Society Task Force). Cologuard performance data in a 10,000 patient pivotal study using colonoscopy as the reference method can be accessed at the following location: www.[employer]/results. Additional description of the Cologuard test process, warnings and precautions can be found at www.[employer]ogWISHCLOUDSrd.Colibri Heart Valve. 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 No pneumothorax, pleural effusion or focal dense airspace consolidation. Normal heart size. Several mildly displaced right lateral upper rib fractures. Nondisplaced left anterior 4th, 5th and 6th rib fractures with plate and screw hardware fixation in place. IMPRESSION: Nondisplaced left anterior 4th through 6th rib fractures with rib plating. No evidence of hardware failure. Several mildly displaced right upper rib fractures, similar to prior examination. No pneumothorax or focal airspace consolidation. /[facility] Workstation ID: [id number] Dictated by: JEYSON FRANCIS on TueMay 19, 2021 4:54:33 PM EDT Transcribed by: BROOK CRUMP on TueMay 19, 2021 5:13:03 PM EDT Finalized by: JEYSON FRANCIS on TueMay 19, 2021 8:11:19 PM EDT Normal [facility] Comment on above: Order Comment: Injur y/Trauma or Illness?:Injury/Trauma How long have you had these symptoms (acute/chronic)?:Acute Reason for exam?:evaluate rib fxs and rib plates, crush injury 3 months ago History of cancer?:u Surgeries, chemotherapy, or radiation?:u Type of Exam?:Subsequent/Follow-up Mechanism of injury?:crush injury Radiologyon 03-27-2021 US Guidance for fine needle aspiration of Thyroid gland Normal [facility] Work Phone: Radiologyon 03-18-2021 US Thyroid gland Normal [facility] Work Phone: US Kidney - bilateral Normal [facility] Work Phone: XR CHEST PA/APon 02-18-2021 XR CHEST PA/AP EXAMINATION: XR CHEST PA/AP HISTORY: Pneumothorax followup. COMPARISON: 02/17/2021 chest. TECHNIQUE: AP upright portable view of the chest. FINDINGS: Frontal view of the chest reveals satisfactory heart and mediastinal appearance. Lung epstein are expanded without acute consolidation or edema. Residual left base decreased aeration and opacity consistent with residual atelectatic finding is present. Significant residual left apical pneumothorax is not apparent. There is a small amount of subcutaneous air seen in the left lateral lower chest adjacent to the skin tomi. Three areas of a rib segmented metallic plate fixation are again noted inferiorly on the left. Monitor leads overlie the chest. Right-sided lateral 5th rib fracture without major displacement is again seen. IMPRESSION: Significant residual pneumothorax is not apparent. Mild residual subcutaneous air adjacent to left lateral skin tomi is present. Left ribs segmented metallic plate fixations and right lateral 5th rib fracture findings are again noted. Residual left base atelectatic change and pleural reactive changes are again noted. [employer] Workstation ID: [id number] Dictated by: SCARLETT JORDAN on TueFeb 18, 2021 9:06:49 AM EDT Transcribed by: ALEXANDRIA KOO on TueFeb 18, 2021 9:11:21 AM EDT Finalized by: SCARLETT JORDAN on TueFeb 18, 2021 9:29:21 AM EDT Normal [facility] Comment on above: Order Comment: Injur y/Trauma or Illness?:Injury/Trauma How long have you had these symptoms (acute/chronic)?:Acute Reason for exam?:pTX History of cancer?:u Surgeries, chemotherapy, or radiation?:u Type of Exam?:Subsequent/Follow-up Mechanism of injury?:hx of injury, cough Order Comment: Injur y/Trauma or Illness?:Injury/Trauma How long have you had these symptoms (acute/chronic)?:Acute Reason for exam?:ecchymosis pain following crush injury, PT C/O STIFFNESS IN WRIST History of cancer?:u Surgeries, chemotherapy, or radiation?:u Type of Exam?:Initial Mechanism of injury?: XR Chest 1 ViewOrdered By: Omer Galvan on 02-18-2021 Significant residual pneumothorax is not apparent. Mild residual subcutaneous air adjacent to left lateral skin tomi is present. Left ribs segmented metallic plate fixations and right lateral 5th rib fracture findings are again noted. Residual left base atelectatic change and pleural reactive changes are again noted. [employer] Workstation ID: [id number] [facility] EXAMINATION: XR CHEST PA/AP HISTORY: Pneumothorax followup. COMPARISON: 02/17/2021 chest. TECHNIQUE: AP upright portable view of the chest. FINDINGS: Frontal view of the chest reveals satisfactory heart and mediastinal appearance. Lung epstein are expanded without acute consolidation or edema. Residual left base decreased aeration and opacity consistent with residual atelectatic finding is present. Significant residual left apical pneumothorax is not apparent. There is a small amount of subcutaneous air seen in the left lateral lower chest adjacent to the skin tomi. Three areas of a rib segmented metallic plate fixation are again noted inferiorly on the left. Monitor leads overlie the chest. Right-sided lateral 5th rib fracture without major displacement is again seen. [facility] Interface, Rad In Fu ji Speechq - 02/18/2021 9:31 AM EDT EXAMINATION: XR CHEST PA/AP HISTORY: Pneumothorax followup. COMPARISON: 02/17/2021 chest. TECHNIQUE: AP upright portable view of the chest. FINDINGS: Frontal view of the chest reveals satisfactory heart and mediastinal appearance. Lung epstein are expanded without acute consolidation or edema. Residual left base decreased aeration and opacity consistent with residual atelectatic finding is present. Significant residual left apical pneumothorax is not apparent. There is a small amount of subcutaneous air seen in the left lateral lower chest adjacent to the skin tomi. Three areas of a rib segmented metallic plate fixation are again noted inferiorly on the left. Monitor leads overlie the chest. Right-sided lateral 5th rib fracture without major displacement is again seen. IMPRESSION: Significant residual pneumothorax is not apparent. Mild residual subcutaneous air adjacent to left lateral skin tomi is present. Left ribs segmented metallic plate fixations and right lateral 5th rib fracture findings are again noted. Residual left base atelectatic change and pleural reactive changes are again noted. RWA/[employer] Workstation ID: [id number] [facility] XR CHEST PA/APon 02-17-2021 XR CHEST PA/AP EXAMINATION: XR CHEST PA/AP 02/17/2021 5:16 am HISTORY: ORDERING SYSTEM PROVIDED HISTORY: chest tube management, TECHNOLOGIST PROVIDED HISTORY: Illness/Other Reason for exam: chest tube management Cancer History: u Surgery, RadiationHistory: u Encounter Type: Initial Additional signs and symptoms: ORDERING SYSTEM PROVIDED DIAGNOSIS CODES: J93.9 Pneumothorax on left S22.42XA Closed fracture of multiple ribs of left side, initial encounter S29.8XXA Blunt chest trauma, initial encounter R55 Syncope, unspecified syncope type S32.009A Lumbar transverse process fracture, closed, initial encounter ([facility]) S22.43XA Multiple fractures of ribs, bilateral, init for clos fx COMPARISON: Radiograph on 02/16/2021. FINDINGS: Portable AP upright chest radiograph. The heart size is enlarged. The thoracic aorta is normal in caliber. There are postsurgical changes from multiple left-sided rib fracture repair with plate and screw fixation. There is a persistent tiny left apical pneumothorax with 3 mm separation of the visceral and parietal pleura. Minimally displaced fracture of the right posterior 4th and 5th ribs remain unchanged. Reticular opacities in the bilateral lower lung zones is likely atelectasis. IMPRESSION: Cardiomegaly. Persistent tiny left apical pneumothorax measuring 3 mm. Reticular opacities in the bilateral lower lung zones are likely related to atelectasis. [employer] Workstation ID: [id number] Dictated by: DAGMAR SINGH on TueFeb 17, 2021 9:42:24 AM EDT Transcribed by: MICAH LUGO on TueFeb 17, 2021 10:40:56 AM EDT Finalized by: DAGMAR SINGH on TueFeb 17, 2021 7:47:14 PM EDT [facility] Comment on above: Order Comment: Injur y/Trauma or Illness?:Illness/Other How long have you had these symptoms (acute/chronic)?:Acute Reason for exam?:chest tube management History of cancer?:u Surgeries, chemotherapy, or radiation?:u Type of Exam?:Initial Additional signs and symptoms?: XR Chest 1 ViewOrdered By: Omer Galvan on 02-17-2021 Cardiomegaly. Persis tent tiny left apical pneumothorax measuring 3 mm. Reticular opacities in the bilateral lower lung zones are likely related to atelectasis. [employer] Workstation ID: [id number] [facility] EXAMINATION: XR CHEST PA/AP 02/17/2021 5:16 am HISTORY: ORDERING SYSTEM PROVIDED HISTORY: chest tube management, TECHNOLOGIST PROVIDED HISTORY: Illness/Other Reason for exam: chest tube management Cancer History: u Surgery, RadiationHistory: u Encounter Type: Initial Additional signs and symptoms: ORDERING SYSTEM PROVIDED DIAGNOSIS CODES: J93.9 Pneumothorax on left S22.42XA Closed fracture of multiple ribs of left side, initial encounter S29.8XXA Blunt chest trauma, initial encounter R55 Syncope, unspecified syncope type S32.009A Lumbar transverse process fracture, closed, initial encounter ([facility]) S22.43XA Multiple fractures of ribs, bilateral, init for clos fx COMPARISON: Radiograph on 02/16/2021. FINDINGS: Portable AP upright chest radiograph. The heart size is enlarged. The thoracic aorta is normal in caliber. There are postsurgical changes from multiple left-sided rib fracture repair with plate and screw fixation. There is a persistent tiny left apical pneumothorax with 3 mm separation of the visceral and parietal pleura. Minimally displaced fracture of the right posterior 4th and 5th ribs remain unchanged. Reticular opacities in the bilateral lower lung zones is likely atelectasis. [facility] Interface, Rad In Fu ji Speechq - 02/17/2021 7:49 PM EDT EXAMINATION: XR CHEST PA/AP 02/17/2021 5:16 am HISTORY: ORDERING SYSTEM PROVIDED HISTORY: chest tube management, TECHNOLOGIST PROVIDED HISTORY: Illness/Other Reason for exam: chest tube management Cancer History: u Surgery, RadiationHistory: u Encounter Type: Initial Additional signs and symptoms: ORDERING SYSTEM PROVIDED DIAGNOSIS CODES: J93.9 Pneumothorax on left S22.42XA Closed fracture of multiple ribs of left side, initial encounter S29.8XXA Blunt chest trauma, initial encounter R55 Syncope, unspecified syncope type S32.009A Lumbar transverse process fracture, closed, initial encounter ([facility]) S22.43XA Multiple fractures of ribs, bilateral, init for clos fx COMPARISON: Radiograph on 02/16/2021. FINDINGS: Portable AP upright chest radiograph. The heart size is enlarged. The thoracic aorta is normal in caliber. There are postsurgical changes from multiple left-sided rib fracture repair with plate and screw fixation. There is a persistent tiny left apical pneumothorax with 3 mm separation of the visceral and parietal pleura. Minimally displaced fracture of the right posterior 4th and 5th ribs remain unchanged. Reticular opacities in the bilateral lower lung zones is likely atelectasis. IMPRESSION: Cardiomegaly. Persistent tiny left apical pneumothorax measuring 3 mm. Reticular opacities in the bilateral lower lung zones are likely related to atelectasis. SA/jcw Workstation ID: [id number] [facility] XR CHEST PA/APon 02-16-2021 XR CHEST PA/AP EXAMINATION: PORTABLE AP UPRIGHT CHEST: 02/16/2021 AT 1950 HOURS HISTORY: Dx: J93.9 (Pneumothorax on left) Injury/Trauma or Illness?:Injury/Trauma How long have you had these symptoms (acute/chronic)?:Acute chest tube removal COMPARISON FILMS: Portable AP upright chest: 02/16/2021 at 0557 hours. FINDINGS: There is plating of several ribs on the left with overlying surgical clips as well as some subcutaneous emphysema. There is removal the left-sided chest tube with a small pneumothorax at the left apex which measures approximately 3 mm. The heart size seems normal. The aorta is normal contour. There is some hazy density at the right lung base, however, overall improved. The aorta is normal contour. The remaining lungs are clear. IMPRESSION: 1. Removal of the left-sided chest tube with a small 3 mm pneumothorax at the left apex. 2. No significant interval change otherwise. [employer] Workstation ID: [id number] Dictated by: DOMINICK STOKES on TueFeb 16, 2021 9:05:29 PM EDT Transcribed by: FREDDY PRABHU on TueFeb 16, 2021 9:37:00 PM EDT Finalized by: DOMINICK STOKES on TueFeb 16, 2021 9:44:39 PM EDT [facility] Comment on above: Order Comment: Injur y/Trauma or Illness?:Injury/Trauma How long have you had these symptoms (acute/chronic)?:Acute Reason for exam?:chest tube removal History of cancer?:u Surgeries, chemotherapy, or radiation?:u Type of Exam?:Initial Mechanism of injury?:multiple rib fx Order Comment: Injur y/Trauma or Illness?:Injury/Trauma How long have you had these symptoms (acute/chronic)?:Acute Reason for exam?:ecchymosis pain following crush injury, PT C/O STIFFNESS IN WRIST History of cancer?:u Surgeries, chemotherapy, or radiation?:u Type of Exam?:Initial Mechanism of injury?: XR CHEST PA/AP EXAMINATION: XR CHEST PA/AP HISTORY: chest tube management COMPARISON: 02/15/2021 chest. TECHNIQUE: AP upright portable view of the chest. FINDINGS: Borderline heart size and aortic atherosclerotic change are again noted. There is a persistent left chest tube with its tip in the medial upper lobe region, just above the aortic arch. No pneumothorax is seen. Residual decreased aeration in the lung bases are seen consistent with atelectatic finding. This is more prominent on the right with elevation of the hemidiaphragm. Monitor leads overlie the chest. Three segmented metallic or rib fixator plates are again seen. Surgical clips are present in the lateral chest soft tissues and residual subcutaneous air is seen at the chest tube insertion site. IMPRESSION: Stable position of the left chest tube without pneumothorax. Decreasing subcutaneous emphysema. Residual lung base atelectatic finding being more prominent in the right medial base. [email or web address] Workstation ID: [id number] Dictated by: SCARLETT JORDAN on TueFeb 16, 2021 8:06:36 AM EDT Transcribed by: KELLY HANKINS on TueFeb 16, 2021 8:19:23 AM EDT Finalized by: SCARLETT JORDAN on TueFeb 16, 2021 11:46:12 AM EDT [facility] Comment on above: Order Comment: Injur y/Trauma or Illness?:Illness/Other How long have you had these symptoms (acute/chronic)?:Acute Reason for exam?:chest tube management History of cancer?:u Surgeries, chemotherapy, or radiation?:u Type of Exam?:Subsequent/Follow-up Additional signs and symptoms?: XR Chest 1 ViewOrdered By: Puneet Tierney on 02-16-2021 1. Removal of the left-sided chest tube with a small 3 mm pneumothorax at the left apex. 2. No significant interval change otherwise. KKV/ads Workstation ID: [id number] [facility] EXAMINATION: PORTABLE AP UPRIGHT CHEST: 02/16/2021 AT 1950 HOURS HISTORY: Dx: J93.9 (Pneumothorax on left) Injury/Trauma or Illness?:Injury/Trauma How long have you had these symptoms (acute/chronic)?:Acute chest tube removal COMPARISON FILMS: Portable AP upright chest: 02/16/2021 at 0557 hours. FINDINGS: There is plating of several ribs on the left with overlying surgical clips as well as some subcutaneous emphysema. There is removal the left-sided chest tube with a small pneumothorax at the left apex which measures approximately 3 mm. The heart size seems normal. The aorta is normal contour. There is some hazy density at the right lung base, however, overall improved. The aorta is normal contour. The remaining lungs are clear. [facility] Interface, Rad In Fu ji Speechq - 02/16/2021 9:47 PM EDT EXAMINATION: PORTABLE AP UPRIGHT CHEST: 02/16/2021 AT 1950 HOURS HISTORY: Dx: J93.9 (Pneumothorax on left) Injury/Trauma or Illness?:Injury/Trauma How long have you had these symptoms (acute/chronic)?:Acute chest tube removal COMPARISON FILMS: Portable AP upright chest: 02/16/2021 at 0557 hours. FINDINGS: There is plating of several ribs on the left with overlying surgical clips as well as some subcutaneous emphysema. There is removal the left-sided chest tube with a small pneumothorax at the left apex which measures approximately 3 mm. The heart size seems normal. The aorta is normal contour. There is some hazy density at the right lung base, however, overall improved. The aorta is normal contour. The remaining lungs are clear. IMPRESSION: 1. Removal of the left-sided chest tube with a small 3 mm pneumothorax at the left apex. 2. No significant interval change otherwise. KKV/ads Workstation ID: [id number] [facility] XR Chest 1 ViewOrdered By: Omer Galvan on 02-16-2021 Stable position of t he left chest tube without pneumothorax. Decreasing subcutaneous emphysema. Residual lung base atelectatic finding being more prominent in the right medial base. RWA/llc Workstation ID: [id number] [facility] EXAMINATION: XR CHEST PA/AP HISTORY: chest tube management COMPARISON: 02/15/2021 chest. TECHNIQUE: AP upright portable view of the chest. FINDINGS: Borderline heart size and aortic atherosclerotic change are again noted. There is a persistent left chest tube with its tip in the medial upper lobe region, just above the aortic arch. No pneumothorax is seen. Residual decreased aeration in the lung bases are seen consistent with atelectatic finding. This is more prominent on the right with elevation of the hemidiaphragm. Monitor leads overlie the chest. Three segmented metallic or rib fixator plates are again seen. Surgical clips are present in the lateral chest soft tissues and residual subcutaneous air is seen at the chest tube insertion site. [facility] Interface, Rad In Fu ji Speechq - 02/16/2021 11:49 AM EDT EXAMINATION: XR CHEST PA/AP HISTORY: chest tube management COMPARISON: 02/15/2021 chest. TECHNIQUE: AP upright portable view of the chest. FINDINGS: Borderline heart size and aortic atherosclerotic change are again noted. There is a persistent left chest tube with its tip in the medial upper lobe region, just above the aortic arch. No pneumothorax is seen. Residual decreased aeration in the lung bases are seen consistent with atelectatic finding. This is more prominent on the right with elevation of the hemidiaphragm. Monitor leads overlie the chest. Three segmented metallic or rib fixator plates are again seen. Surgical clips are present in the lateral chest soft tissues and residual subcutaneous air is seen at the chest tube insertion site. IMPRESSION: Stable position of the left chest tube without pneumothorax. Decreasing subcutaneous emphysema. Residual lung base atelectatic finding being more prominent in the right medial base. [email or web address] Workstation ID: [id number] [facility] Glucose (Bld) [Mass/Vol]Orde red By: Curt Drummond on 02-15-2021 Glucose [Mass/Vol] 86 mg/dL 65 - 99 mg/dL [facility] Interpretation and review of laboratory results Normal [facility] XR CHEST PA/APon 02-15-2021 XR CHEST PA/AP EXAMINATION: AP UPRIGHT CHEST: 02/15/2021 AT 0505 HOURS. HISTORY: Dx: J93.9 (Pneumothorax on left) Injury/Trauma or Illness?:Illness/Other How long have you had these symptoms (acute/chronic)?:Chronic chest tube management COMPARISON FILMS: Portable AP upright chest: 02/14/2021. FINDINGS: There is no interval change in left-sided chest tube, overlying subcutaneous emphysema. No definite pneumothorax on the left is identified. There is plating of several of the left ribs. There is elevated right hemidiaphragm. The heart size remains enlarged. There is improvement in aeration at the left lung base with some residual atelectasis at the right lung base. The aorta has normal contour. The remaining lungs appear clear. IMPRESSION: 1. No interval change in left-sided chest tube, subcutaneous emphysema. 2. Improvement in aeration at the left lung base. No definite pneumothorax is identified on the left. 3. Stable cardiomegaly. 4. No significant interval change otherwise. [employer] Workstation ID: [id number] Dictated by: DOMINICK STOKES on TueFeb 15, 2021 4:06:11 PM EDT Transcribed by: RODRIGO DICKERSON on TueFeb 15, 2021 5:20:18 PM EDT Finalized by: DOMINICK STOKES on TueFeb 15, 2021 5:44:09 PM EDT [facility] Comment on above: Order Comment: Injur y/Trauma or Illness?:Illness/Other How long have you had these symptoms (acute/chronic)?:Chronic Reason for exam?:chest tube management History of cancer?:u Surgeries, chemotherapy, or radiation?:u Type of Exam?:Subsequent/Follow-up Additional signs and symptoms?:n XR Chest 1 ViewOrdered By: Omer Galvan on 02-15-2021 1. No interval newsome e in left-sided chest tube, subcutaneous emphysema. 2. Improvement in aeration at the left lung base. No definite pneumothorax is identified on the left. 3. Stable cardiomegaly. 4. No significant interval change otherwise. [employer] Workstation ID: [id number] [facility] EXAMINATION: AP UPRIGHT CHEST: 02/15/2021 AT 0505 HOURS. HISTORY: Dx: J93.9 (Pneumothorax on left) Injury/Trauma or Illness?:Illness/Other How long have you had these symptoms (acute/chronic)?:Chronic chest tube management COMPARISON FILMS: Portable AP upright chest: 02/14/2021. FINDINGS: There is no interval change in left-sided chest tube, overlying subcutaneous emphysema. No definite pneumothorax on the left is identified. There is plating of several of the left ribs. There is elevated right hemidiaphragm. The heart size remains enlarged. There is improvement in aeration at the left lung base with some residual atelectasis at the right lung base. The aorta has normal contour. The remaining lungs appear clear. [facility] Interface, Rad In Fu ji Speechq - 02/15/2021 5:46 PM EDT EXAMINATION: AP UPRIGHT CHEST: 02/15/2021 AT 0505 HOURS. HISTORY: Dx: J93.9 (Pneumothorax on left) Injury/Trauma or Illness?:Illness/Other How long have you had these symptoms (acute/chronic)?:Chronic chest tube management COMPARISON FILMS: Portable AP upright chest: 02/14/2021. FINDINGS: There is no interval change in left-sided chest tube, overlying subcutaneous emphysema. No definite pneumothorax on the left is identified. There is plating of several of the left ribs. There is elevated right hemidiaphragm. The heart size remains enlarged. There is improvement in aeration at the left lung base with some residual atelectasis at the right lung base. The aorta has normal contour. The remaining lungs appear clear. IMPRESSION: 1. No interval change in left-sided chest tube, subcutaneous emphysema. 2. Improvement in aeration at the left lung base. No definite pneumothorax is identified on the left. 3. Stable cardiomegaly. 4. No significant interval change otherwise. KKV/trw Workstation ID: [id number] [facility] Basic metabolic 1998 panelOr dered By: Shayla Tierney on 02-14-2021 Anion gap [Moles/Vol] 9 mmol/L Low 10 - 2 0 mmol/L [facility] Chloride [Moles/Vol] 107 mmol/L 98 - 10 8 mmol/L [facility] Creatinine [Mass/Vol] 1.10 mg/dL 0.50 - 1.30 [facility] GFR/1.73 sq M.predicted CKD-EPI (S/P/Bld) [Vol rate/Area] 74 >=60 mL/min/1.73 m2 [facility] Glucose [Mass/Vol] 90 mg/dL 65 - 99 mg/dL [facility] HCO3 [Moles/Vol] 29 mmol/L 21 - 32 mmol/L [facility] Interpretation and review of laboratory results Abnormal [facility] Potassium [Moles/Vol] 3.9 mmol/L 3.5 - 5.1 mmol/L [facility] Sodium [Moles/Vol] 141 mmol/L 135 - 145 mmol/L [facility] Urea nitrogen [Mass/Vol] 16 mg/dL 8 - 25 mg/dL [facility] Urea nitrogen/Creatinine [Mass ratio] 14.5 mg/mg [facility] The eGFR should be u sed for monitoring renal function only and not for medication dosing. [facility] CBC panel Auto (Bld)Ordered By: Shayla Tierney on 02-14-2021 Erythrocyte distribution width (RBC) [Entitic vol] 14.7 % 11.6 - 14.8 % [facility] Hematocrit (Bld) [Volume fraction] 40.7 % Low 41.0 - 53.0 % [facility] Hemoglobin (Bld) [Mass/Vol] 12.3 g/dL Low 13.5 - 17.5 g/dL [facility] Interpretation and review of laboratory results Abnormal [facility] MCH (RBC) [Entitic mass] 27.8 pg 26.0 - 34.0 pg [facility] MCHC (RBC) [Mass/Vol] 30.2 g/dL Low 31.0 - 37.0 g/dL [facility] MCV (RBC) [Entitic vol] 92.1 fL 80.0 - 100.0 fL [facility] Nucleated RBC (Bld) [#/Vol] 0.00 10*3/uL [facility] Nucleated RBC/100 WBC (Bld) [Ratio] 0.0 % [facility] Platelet mean volume (Bld) [Entitic vol] 12.8 fL High 9.4 - 12.4 fL [facility] Platelets (Bld) [#/Vol] 184 10*3/uL [facility] RBC (Bld) [#/Vol] 4.42 10*6/uL Low [facility] WBC (Bld) [#/Vol] 6.97 10*3/uL [facility] CK [Catalytic activity/Vol]O rdered By: Shayla Tierney on 02-14-2021 Interpretation and review of laboratory results Abnormal [facility] CPK NO MBOrdered By: Remberto Tierney on 02-14-2021 CK [Catalytic activity/Vol] 2512 U/L High 60 - 225 U/L [facility] XR CHEST PA/APon 02-14-2021 XR CHEST PA/AP EXAMINATION: PORTABLE AP UPRIGHT CHEST, 02/14/2021 AT 0533 HOURS HISTORY: Dx: J93.9 (Pneumothorax on left) Injury/Trauma or Illness?:Illness/Other How long have you had these symptoms (acute/chronic)?:Acute evaluate chest tube- pneumothorax. COMPARISON FILMS: Portable chest 02/13/2021. FINDINGS: There is plating of several of the left ribs with overlying surgical clips. There is a chest tube on the left. The heart size remains enlarged. There is some subcutaneous emphysema on the left side. There is a slightly elevated right hemidiaphragm with some atelectasis at the right lung base. The aorta has normal contour. The remaining lungs appear clear. The previously described pneumothorax measuring 7 mm at the left apex is not seen on the current examination. IMPRESSION: 1. No interval change in left-sided chest tube. 2. No significant interval change in appearance of lungs. 3. Previously described pneumothorax at the apex is not seen on current examination. KKV/cdr Workstation ID: [id number] Dictated by: DOMINICK STOKES on Sat Feb 14, 2021 9:11:29 AM EDT Transcribed by: ALANNA MORENO on Sat Feb 14, 2021 9:37:59 AM EDT Finalized by: DOMINICK STOKES on Sat Feb 14, 2021 9:56:39 AM EDT Normal [facility] Comment on above: Order Comment: Injur y/Trauma or Illness?:Illness/Other How long have you had these symptoms (acute/chronic)?:Acute Reason for exam?:evaluate chest tube History of cancer?:u Surgeries, chemotherapy, or radiation?:u Type of Exam?:Initial Additional signs and symptoms?:hx chest injury XR Chest 1 ViewOrdered By: Puneet Tierney on 02-14-2021 1. No interval newsome e in left-sided chest tube. 2. No significant interval change in appearance of lungs. 3. Previously described pneumothorax at the apex is not seen on current examination. [employer] Workstation ID: [id number] [facility] EXAMINATION: PORTABL E AP UPRIGHT CHEST, 02/14/2021 AT 0533 HOURS HISTORY: Dx: J93.9 (Pneumothorax on left) Injury/Trauma or Illness?:Illness/Other How long have you had these symptoms (acute/chronic)?:Acute evaluate chest tube- pneumothorax. COMPARISON FILMS: Portable chest 02/13/2021. FINDINGS: There is plating of several of the left ribs with overlying surgical clips. There is a chest tube on the left. The heart size remains enlarged. There is some subcutaneous emphysema on the left side. There is a slightly elevated right hemidiaphragm with some atelectasis at the right lung base. The aorta has normal contour. The remaining lungs appear clear. The previously described pneumothorax measuring 7 mm at the left apex is not seen on the current examination. [facility] Interface, Sebastien In Fu ji Speechq - 02/14/2021 9:59 AM EDT EXAMINATION: PORTABLE AP UPRIGHT CHEST, 02/14/2021 AT 0533 HOURS HISTORY: Dx: J93.9 (Pneumothorax on left) Injury/Trauma or Illness?:Illness/Other How long have you had these symptoms (acute/chronic)?:Acute evaluate chest tube- pneumothorax. COMPARISON FILMS: Portable chest 02/13/2021. FINDINGS: There is plating of several of the left ribs with overlying surgical clips. There is a chest tube on the left. The heart size remains enlarged. There is some subcutaneous emphysema on the left side. There is a slightly elevated right hemidiaphragm with some atelectasis at the right lung base. The aorta has normal contour. The remaining lungs appear clear. The previously described pneumothorax measuring 7 mm at the left apex is not seen on the current examination. IMPRESSION: 1. No interval change in left-sided chest tube. 2. No significant interval change in appearance of lungs. 3. Previously described pneumothorax at the apex is not seen on current examination. KKV/cdr Workstation ID: [id number] [facility] Basic metabolic 2000 panelOr dered By: Almaz Hernandez on 02-13-2021 Anion gap [Moles/Vol] 10 mmol/L 10 - 2 0 mmol/L [facility] Calcium [Mass/Vol] 7.6 mg/dL Low 8.4 - 10. 2 mg/dL [facility] Chloride [Moles/Vol] 108 mmol/L 98 - 10 8 mmol/L [facility] Creatinine [Mass/Vol] 1.11 mg/dL 0.50 - 1.30 [facility] GFR/1.73 sq M.predicted CKD-EPI (S/P/Bld) [Vol rate/Area] 73 >=60 mL/min/1.73 m2 [facility] Glucose [Mass/Vol] 97 mg/dL 65 - 99 mg/dL [facility] HCO3 [Moles/Vol] 27 mmol/L 21 - 32 mmol/L [facility] Potassium [Moles/Vol] 4.2 mmol/L 3.5 - 5.1 mmol/L [facility] Sodium [Moles/Vol] 141 mmol/L 135 - 145 mmol/L [facility] Urea nitrogen [Mass/Vol] 17 mg/dL 8 - 25 mg/dL [facility] Urea nitrogen/Creatinine [Mass ratio] 15.3 mg/mg [facility] The eGFR should be u sed for monitoring renal function only and not for medication dosing. [facility] CBC panel Auto (Bld)Ordered By: Almaz Hernandez on 02-13-2021 Erythrocyte distribution width (RBC) [Entitic vol] 14.5 % 11.6 - 14.8 % [facility] Hematocrit (Bld) [Volume fraction] 37.0 % Low 41.0 - 53.0 % [facility] Hemoglobin (Bld) [Mass/Vol] 11.4 g/dL Low 13.5 - 17.5 g/dL [facility] Interpretation and review of laboratory results Abnormal [facility] MCH (RBC) [Entitic mass] 27.9 pg 26.0 - 34.0 pg [facility] MCHC (RBC) [Mass/Vol] 30.8 g/dL Low 31.0 - 37.0 g/dL [facility] MCV (RBC) [Entitic vol] 90.7 fL 80.0 - 100.0 fL [facility] Nucleated RBC (Bld) [#/Vol] 0.00 10*3/uL [facility] Nucleated RBC/100 WBC (Bld) [Ratio] 0.0 % [facility] Platelet mean volume (Bld) [Entitic vol] 13.1 fL High 9.4 - 12.4 fL [facility] Platelets (Bld) [#/Vol] 150 10*3/uL [facility] RBC (Bld) [#/Vol] 4.08 10*6/uL Low [facility] ealt WBC (Bld) [#/Vol] 7.65 10*3/uL [facility] eah [facility] CPK NO MBOrdered By: Almaz Hernandez on 02-13-2021 CK [Catalytic activity/Vol] 4077 U/L High 60 - 225 U/L [facility] Glucose (Bld) [Mass/Vol]Orde red By: Curt Drummond on 02-13-2021 Glucose [Mass/Vol] 88 mg/dL 65 - 99 mg/dL [facility] Interpretation and review of laboratory results Normal [facility] No Panel InformationOrdered By: Almaz Hernandez on 02-13-2021 Interpretation and review of laboratory results Abnormal [facility] XR CHEST PA/APon 02-13-2021 XR CHEST PA/AP EXAMINATION: XR CHEST PA/AP HISTORY: ORDERING SYSTEM PROVIDED HISTORY: evaluate CT and pneumo, TECHNOLOGIST PROVIDED HISTORY: Illness/Other Reason for exam: Multiple fractures of ribs, bilateral, init for clos fx Cancer History: u Surgery, RadiationHistory: u Encounter Type: Initial Additional signs and symptoms: chest injury ORDERING SYSTEM PROVIDED DIAGNOSIS CODES: J93.9 Pneumothorax on left S22.42XA Closed fracture of multiple ribs of left side, initial encounter S29.8XXA Blunt chest trauma, initial encounter R55 Syncope, unspecified syncope type S32.009A Lumbar transverse process fracture, closed, initial encounter ([facility]) S22.43XA Multiple fractures of ribs, bilateral, init for clos fx COMPARISON: 02/12/2021. FINDINGS: One-view chest x-ray. Stable left chest tube position. Small left apical pneumothorax is suggested, 8 mm pleural separation. No right pneumothorax. Low lung volumes with bronchovascular crowding. Similar appearance of patchy mid and lower lung airspace opacities. Small bibasilar pleural effusions. Prominent heart size. Postoperative changes of recent rib plating of the left anterior 4th through 6th ribs. Persistent lateral left chest wall emphysema. IMPRESSION: No significant interval change compared to 02/12/2021. Stable left chest tube position with small left apical pneumothorax, pleural separation 8 mm. Low lung volumes with bronchovascular crowding and bibasilar atelectasis/pneumonia. Recent rib plating of the left anterior 4th through 6th ribs. [employer] Workstation ID: [id number] Dictated by: JEYSON FRANCIS on TueFeb 13, 2021 2:36:54 PM EDT Transcribed by: INOCENCIO ALDRIDGE on TueFeb 13, 2021 3:04:04 PM EDT Finalized by: JEYSON FRANCIS on TueFeb 13, 2021 6:20:31 PM EDT Normal [facility] Comment on above: Order Comment: Injur y/Trauma or Illness?:Illness/Other How long have you had these symptoms (acute/chronic)?:Acute Reason for exam?:Multiple fractures of ribs, bilateral, init for clos fx History of cancer?:u Surgeries, chemotherapy, or radiation?:u Type of Exam?:Initial Additional signs and symptoms?:chest injury XR Chest 1 ViewOrdered By: Puneet Tierney on 02-13-2021 No significant inter tadeo change compared to 02/12/2021. Stable left chest tube position with small left apical pneumothorax, pleural separation 8 mm. Low lung volumes with bronchovascular crowding and bibasilar atelectasis/pneumonia. Recent rib plating of the left anterior 4th through 6th ribs. [employer] Workstation ID: [id number] [facility] EXAMINATION: XR CHEST PA/AP HISTORY: ORDERING SYSTEM PROVIDED HISTORY: evaluate CT and pneumo, TECHNOLOGIST PROVIDED HISTORY: Illness/Other Reason for exam: Multiple fractures of ribs, bilateral, init for clos fx Cancer History: u Surgery, RadiationHistory: u Encounter Type: Initial Additional signs and symptoms: chest injury ORDERING SYSTEM PROVIDED DIAGNOSIS CODES: J93.9 Pneumothorax on left S22.42XA Closed fracture of multiple ribs of left side, initial encounter S29.8XXA Blunt chest trauma, initial encounter R55 Syncope, unspecified syncope type S32.009A Lumbar transverse process fracture, closed, initial encounter ([facility]) S22.43XA Multiple fractures of ribs, bilateral, init for clos fx COMPARISON: 02/12/2021. FINDINGS: One-view chest x-ray. Stable left chest tube position. Small left apical pneumothorax is suggested, 8 mm pleural separation. No right pneumothorax. Low lung volumes with bronchovascular crowding. Similar appearance of patchy mid and lower lung airspace opacities. Small bibasilar pleural effusions. Prominent heart size. Postoperative changes of recent rib plating of the left anterior 4th through 6th ribs. Persistent lateral left chest wall emphysema. [facility], Rad In Fu ji Speechq - 02/13/2021 6:23 PM EDT EXAMINATION: XR CHEST PA/AP HISTORY: ORDERING SYSTEM PROVIDED HISTORY: evaluate CT and pneumo, TECHNOLOGIST PROVIDED HISTORY: Illness/Other Reason for exam: Multiple fractures of ribs, bilateral, init for clos fx Cancer History: u Surgery, RadiationHistory: u Encounter Type: Initial Additional signs and symptoms: chest injury ORDERING SYSTEM PROVIDED DIAGNOSIS CODES: J93.9 Pneumothorax on left S22.42XA Closed fracture of multiple ribs of left side, initial encounter S29.8XXA Blunt chest trauma, initial encounter R55 Syncope, unspecified syncope type S32.009A Lumbar transverse process fracture, closed, initial encounter ([facility]) S22.43XA Multiple fractures of ribs, bilateral, init for clos fx COMPARISON: 02/12/2021. FINDINGS: One-view chest x-ray. Stable left chest tube position. Small left apical pneumothorax is suggested, 8 mm pleural separation. No right pneumothorax. Low lung volumes with bronchovascular crowding. Similar appearance of patchy mid and lower lung airspace opacities. Small bibasilar pleural effusions. Prominent heart size. Postoperative changes of recent rib plating of the left anterior 4th through 6th ribs. Persistent lateral left chest wall emphysema. IMPRESSION: No significant interval change compared to 02/12/2021. Stable left chest tube position with small left apical pneumothorax, pleural separation 8 mm. Low lung volumes with bronchovascular crowding and bibasilar atelectasis/pneumonia. Recent rib plating of the left anterior 4th through 6th ribs. [facility] Workstation ID: [id number] [facility] Basic metabolic 2000 panelOr dered By: Almaz Hernandez on 02-12-2021 Anion gap [Moles/Vol] 7 mmol/L Low 10 - 2 0 mmol/L [facility] Calcium [Mass/Vol] 7.7 mg/dL Low 8.4 - 10. 2 mg/dL [facility] Chloride [Moles/Vol] 106 mmol/L 98 - 10 8 mmol/L [facility] Creatinine [Mass/Vol] 1.31 mg/dL High 0.50 - 1.30 [facility] GFR/1.73 sq M.predicted CKD-EPI (S/P/Bld) [Vol rate/Area] 60 >=60 mL/min/1.73 m2 [facility] Glucose [Mass/Vol] 106 mg/dL High 65 - 99 mg/dL [facility] HCO3 [Moles/Vol] 28 mmol/L 21 - 32 mmol/L [facility] Potassium [Moles/Vol] 3.9 mmol/L 3.5 - 5.1 mmol/L [facility] Sodium [Moles/Vol] 137 mmol/L 135 - 145 mmol/L [facility] Urea nitrogen [Mass/Vol] 21 mg/dL 8 - 25 mg/dL [facility] Urea nitrogen/Creatinine [Mass ratio] 16.0 mg/mg [facility] The eGFR should be u sed for monitoring renal function only and not for medication dosing. [facility] CBC panel Auto (Bld)Ordered By: Almaz Hernandez on 02-12-2021 Erythrocyte distribution width (RBC) [Entitic vol] 14.7 % 11.6 - 14.8 % [facility] Hematocrit (Bld) [Volume fraction] 40.3 % Low 41.0 - 53.0 % [facility] Hemoglobin (Bld) [Mass/Vol] 12.4 g/dL Low 13.5 - 17.5 g/dL [facility] Interpretation and review of laboratory results Abnormal [facility] MCH (RBC) [Entitic mass] 28.2 pg 26.0 - 34.0 pg [facility] MCHC (RBC) [Mass/Vol] 30.8 g/dL Low 31.0 - 37.0 g/dL [facility] MCV (RBC) [Entitic vol] 91.8 fL 80.0 - 100.0 fL [facility] Nucleated RBC (Bld) [#/Vol] 0.00 10*3/uL [facility] Nucleated RBC/100 WBC (Bld) [Ratio] 0.0 % [facility] Platelet mean volume (Bld) [Entitic vol] 12.8 fL High 9.4 - 12.4 fL [facility] Platelets (Bld) [#/Vol] 144 10*3/uL Low [facility] RBC (Bld) [#/Vol] 4.39 10*6/uL Low [facility] ealth WBC (Bld) [#/Vol] 8.33 10*3/uL [facility] eah [facility] CPK NO MBOrdered By: Almaz Hernandez on 02-12-2021 CK [Catalytic activity/Vol] 2117 U/L High 60 - 225 U/L [facility] Laboratory - Chemistry and C hemistry - challengeOrdered By: Curt Drummond on 02-12-2021 Calcium.ionized (Bld) [Mass/Vol] 4.5 mg/dL 4.5 - 5.3 mg/dL [facility] Sodium [Moles/Vol] 138 mmol/L 135 - 145 mmol/L [facility] No Panel InformationOrdered By: Almaz Hernandez on 02-12-2021 Interpretation and review of laboratory results Abnormal [facility] POC ABG SURG - RALSOrdered B y: Curt Drummond on 02-12-2021 Base Excess, Arterial -2 [facility] CO2 (Bld) [Partial pressure] 51.3 mm[Hg] High [facility] Glucose [Mass/Vol] 109 mg/dL High 65 - 99 mg/dL [facility] HCO3 (Bld) [Moles/Vol] 25.3 mmol/L 22.0 - 26.0 mmol/L [facility] Hematocrit (Bld) [Volume fraction] 34 % Low 41 - 53 % [facility] Hemoglobin (Bld) [Mass/Vol] 11.6 g/dL Low 13.5 - 17.5 g/dL [facility] Interpretation and review of laboratory results Abnormal [facility] Oxygen (Bld) [Partial pressure] 134 mm[Hg] High [facility] pH (Bld) 7.30 [pH] Low [facility] Potassium [Moles/Vol] 4.0 mmol/L 3.5 - 5.1 mmol/L [facility] Base Excess, Arterial 0 [facility] CO2 (Bld) [Partial pressure] 53.0 mm[Hg] High [facility] Glucose [Mass/Vol] 104 mg/dL High 65 - 99 mg/dL [facility] HCO3 (Bld) [Moles/Vol] 26.4 mmol/L High 22.0 - 26.0 mmol/L [facility] Hematocrit (Bld) [Volume fraction] 33 % Low 41 - 53 % [facility] Hemoglobin (Bld) [Mass/Vol] 11.2 g/dL Low 13.5 - 17.5 g/dL [facility] Oxygen (Bld) [Partial pressure] 48 mm[Hg] Low [facility] pH (Bld) 7.31 [pH] Low [facility] Potassium [Moles/Vol] 3.9 mmol/L 3.5 - 5.1 mmol/L [facility] XR CHEST PA/APon 02-12-2021 XR CHEST PA/AP EXAMINATION: XR CHEST PA/AP 02/12/2021 2:34 PM HISTORY: ORDERING SYSTEM PROVIDED HISTORY: POST OP, TECHNOLOGIST PROVIDED HISTORY: Injury/Trauma Reason for exam: Post-op rib plateing for multiple fractures Cancer History: u Surgery, RadiationHistory: u Encounter Type: Initial Mechanism of injury: u ORDERING SYSTEM PROVIDED DIAGNOSIS CODES: J93.9 Pneumothorax on left S22.42XA Closed fracture of multiple ribs of left side, initial encounter S29.8XXA Blunt chest trauma, initial encounter R55 Syncope, unspecified syncope type S32.009A Lumbar transverse process fracture, closed, initial encounter ([facility]) S22.43XA Multiple fractures of ribs, bilateral, init for clos fx COMPARISON: 02/11/2021. FINDINGS: Portable upright frontal views of the chest were obtained. Left-sided chest tube is present with the tip located at the left lung apex. There is a small left pneumothorax with approximately 12 mm pleural separation. Left-sided rib plating is present. Prominent subcutaneous emphysema in the left hemithorax. Cardiac silhouette is unchanged in size when compared to prior exam. Low lung volumes in the right lung. Hazy opacity in the left rmn-zx-kztem lung zone may relate to atelectasis or underlying infectious infiltrate. IMPRESSION: 1. Left-sided chest tube is present with small left apical pneumothorax and subcutaneous emphysema over the left hemithorax. 2. Left-sided rib plating. 3. Hazy opacity in the left rms-ai-qicpj lung zone may relate to atelectasis or underlying infectious infiltrate. Attention on follow-up exams. [place] Workstation ID: [id number] Dictated by: SCARLETT AZEVEDO on TueFeb 12, 2021 2:41:43 PM EDT Transcribed by: RODRIGO DICKERSON on TueFeb 12, 2021 3:15:26 PM EDT Finalized by: SCARLETT AZEVEDO on TueFeb 12, 2021 4:22:29 PM EDT Normal [facility] Comment on above: Order Comment: Injur y/Trauma or Illness?:Injury/Trauma How long have you had these symptoms (acute/chronic)?:Acute Reason for exam?:chest tube removal History of cancer?:u Surgeries, chemotherapy, or radiation?:u Type of Exam?:Initial Mechanism of injury?:multiple rib fx Order Comment: Injur y/Trauma or Illness?:Injury/Trauma How long have you had these symptoms (acute/chronic)?:Unknown Reason for exam?:Post-op rib plateing for multiple fractures History of cancer?:u Surgeries, chemotherapy, or radiation?:u Type of Exam?:Initial Mechanism of injury?:u XR Chest 1 ViewOrdered By: Omer Hicks on 02-12-2021 1. Left-sided chest tube is present with small left apical pneumothorax and subcutaneous emphysema over the left hemithorax. 2. Left-sided rib plating. 3. Hazy opacity in the left mon-oo-siifm lung zone may relate to atelectasis or underlying infectious infiltrate. Attention on follow-up exams. [place] Workstation ID: [id number] [facility] EXAMINATION: XR CHEST PA/AP 02/12/2021 2:34 PM HISTORY: ORDERING SYSTEM PROVIDED HISTORY: POST OP, TECHNOLOGIST PROVIDED HISTORY: Injury/Trauma Reason for exam: Post-op rib plateing for multiple fractures Cancer History: u Surgery, RadiationHistory: u Encounter Type: Initial Mechanism of injury: u ORDERING SYSTEM PROVIDED DIAGNOSIS CODES: J93.9 Pneumothorax on left S22.42XA Closed fracture of multiple ribs of left side, initial encounter S29.8XXA Blunt chest trauma, initial encounter R55 Syncope, unspecified syncope type S32.009A Lumbar transverse process fracture, closed, initial encounter ([facility]) S22.43XA Multiple fractures of ribs, bilateral, init for clos fx COMPARISON: 02/11/2021. FINDINGS: Portable upright frontal views of the chest were obtained. Left-sided chest tube is present with the tip located at the left lung apex. There is a small left pneumothorax with approximately 12 mm pleural separation. Left-sided rib plating is present. Prominent subcutaneous emphysema in the left hemithorax. Cardiac silhouette is unchanged in size when compared to prior exam. Low lung volumes in the right lung. Hazy opacity in the left kgf-ps-lxlvc lung zone may relate to atelectasis or underlying infectious infiltrate. [facility], Rad In Fu ji Speechq - 02/12/2021 4:25 PM EDT EXAMINATION: XR CHEST PA/AP 02/12/2021 2:34 PM HISTORY: ORDERING SYSTEM PROVIDED HISTORY: POST OP, TECHNOLOGIST PROVIDED HISTORY: Injury/Trauma Reason for exam: Post-op rib plateing for multiple fractures Cancer History: u Surgery, RadiationHistory: u Encounter Type: Initial Mechanism of injury: u ORDERING SYSTEM PROVIDED DIAGNOSIS CODES: J93.9 Pneumothorax on left S22.42XA Closed fracture of multiple ribs of left side, initial encounter S29.8XXA Blunt chest trauma, initial encounter R55 Syncope, unspecified syncope type S32.009A Lumbar transverse process fracture, closed, initial encounter ([facility]) S22.43XA Multiple fractures of ribs, bilateral, init for clos fx COMPARISON: 02/11/2021. FINDINGS: Portable upright frontal views of the chest were obtained. Left-sided chest tube is present with the tip located at the left lung apex. There is a small left pneumothorax with approximately 12 mm pleural separation. Left-sided rib plating is present. Prominent subcutaneous emphysema in the left hemithorax. Cardiac silhouette is unchanged in size when compared to prior exam. Low lung volumes in the right lung. Hazy opacity in the left rcl-os-pycbe lung zone may relate to atelectasis or underlying infectious infiltrate. IMPRESSION: 1. Left-sided chest tube is present with small left apical pneumothorax and subcutaneous emphysema over the left hemithorax. 2. Left-sided rib plating. 3. Hazy opacity in the left afh-ux-tibvb lung zone may relate to atelectasis or underlying infectious infiltrate. Attention on follow-up exams. [employer] Workstation ID: [id number] [facility] Basic metabolic 2000 panelOr dered By: Shekhar Rai on 02-11-2021 Anion gap [Moles/Vol] 10 mmol/L 10 - 2 0 mmol/L [facility] Calcium [Mass/Vol] 8.2 mg/dL Low 8.4 - 10. 2 mg/dL [facility] Chloride [Moles/Vol] 107 mmol/L 98 - 10 8 mmol/L [facility] Creatinine [Mass/Vol] 1.30 mg/dL 0.50 - 1.30 [facility] GFR/1.73 sq M.predicted CKD-EPI (S/P/Bld) [Vol rate/Area] 61 >=60 mL/min/1.73 m2 [facility] Glucose [Mass/Vol] 94 mg/dL 65 - 99 mg/dL [facility] HCO3 [Moles/Vol] 27 mmol/L 21 - 32 mmol/L [facility] Interpretation and review of laboratory results Abnormal [facility] Potassium [Moles/Vol] 4.2 mmol/L 3.5 - 5.1 mmol/L [facility] Sodium [Moles/Vol] 140 mmol/L 135 - 145 mmol/L [facility] Urea nitrogen [Mass/Vol] 19 mg/dL 8 - 25 mg/dL [facility] Urea nitrogen/Creatinine [Mass ratio] 14.6 mg/mg [facility] The eGFR should be u sed for monitoring renal function only and not for medication dosing. [facility] CBC panel Auto (Bld)Ordered By: Shekhar Rai on 02-11-2021 Erythrocyte distribution width (RBC) [Entitic vol] 14.6 % 11.6 - 14.8 % [facility] Hematocrit (Bld) [Volume fraction] 48.2 % 41.0 - 53.0 % [facility] Hemoglobin (Bld) [Mass/Vol] 14.5 g/dL 13.5 - 17.5 g/dL [facility] Interpretation and review of laboratory results Abnormal [facility] MCH (RBC) [Entitic mass] 27.9 pg 26.0 - 34.0 pg [facility] MCHC (RBC) [Mass/Vol] 30.1 g/dL Low 31.0 - 37.0 g/dL [facility] MCV (RBC) [Entitic vol] 92.7 fL 80.0 - 100.0 fL [facility] Nucleated RBC (Bld) [#/Vol] 0.00 10*3/uL [facility] Nucleated RBC/100 WBC (Bld) [Ratio] 0.0 % [facility] Platelet mean volume (Bld) [Entitic vol] 13.6 fL High 9.4 - 12.4 fL [facility] Platelets (Bld) [#/Vol] 181 10*3/uL [facility] RBC (Bld) [#/Vol] 5.20 10*6/uL [facility] WBC (Bld) [#/Vol] 8.99 10*3/uL [facility] CK [Catalytic activity/Vol]O rdered By: Almaz Hernandez on 02-11-2021 Interpretation and review of laboratory results Abnormal [facility] CK [Catalytic activity/Vol]O rdered By: Shayla Tierney on 02-11-2021 Interpretation and review of laboratory results Abnormal [facility] CPK NO MBOrdered By: Almaz Hernandez on 02-11-2021 CK [Catalytic activity/Vol] 2417 U/L High 60 - 225 U/L [facility] CPK NO MBOrdered By: Remberto Tierney on 02-11-2021 CK [Catalytic activity/Vol] 2457 U/L High 60 - 225 U/L [facility] XR CHEST PA/APon 02-11-2021 XR CHEST PA/AP EXAMINATION: XR CHEST PA/AP 02/11/2021 5:59 am HISTORY: ORDERING SYSTEM PROVIDED HISTORY: follow up multiple rib fractures, TECHNOLOGIST PROVIDED HISTORY: Injury/Trauma Reason for exam: follow up multiple rib fractures Cancer History: u Surgery, RadiationHistory: u Encounter Type: Subsequent/Follow-up Mechanism of injury: ORDERING SYSTEM PROVIDED DIAGNOSIS CODES: J93.9 Pneumothorax on left S22.42XA Closed fracture of multiple ribs of left side, initial encounter S29.8XXA Blunt chest trauma, initial encounter R55 Syncope, unspecified syncope type S32.009A Lumbar transverse process fracture, closed, initial encounter ([facility]) COMPARISON: 02/10/2021 FINDINGS: Stable mild enlargement cardiac silhouette. Mild increased central vascular congestion and peribronchial thickening suggestive of pulmonary edema. Mild atelectatic changes at the lung bases, more on the left side. No pneumothorax or significant pleural effusion. IMPRESSION: Mild increased interstitial congestion the lungs suggestive of pulmonary edema, stable bibasilar atelectatic changes. Workstation ID: [id number] Dictated by: FAUSTINO GONSALVES on TueFeb 11, 2021 8:52:11 AM EDT Transcribed by: FAUSTINO GONSALVES on TueFeb 11, 2021 8:52:11 AM EDT Finalized by: FAUSTINO GONSALVES on TueFeb 11, 2021 8:52:11 AM EDT [facility] Comment on above: Order Comment: Injur y/Trauma or Illness?:Injury/Trauma How long have you had these symptoms (acute/chronic)?:Acute Reason for exam?:follow up multiple rib fractures History of cancer?:u Surgeries, chemotherapy, or radiation?:u Type of Exam?:Subsequent/Follow-up Mechanism of injury?: XR Chest 1 ViewOrdered By: Holley Rai on 02-11-2021 Mild increased interstitial congestion the lungs suggestive of pulmonary edema, stable bibasilar atelectatic changes. Workstation ID: [id number] [facility] EXAMINATION: XR CHEST PA/AP 02/11/2021 5:59 am HISTORY: ORDERING SYSTEM PROVIDED HISTORY: follow up multiple rib fractures, TECHNOLOGIST PROVIDED HISTORY: Injury/Trauma Reason for exam: follow up multiple rib fractures Cancer History: u Surgery, RadiationHistory: u Encounter Type: Subsequent/Follow-up Mechanism of injury: ORDERING SYSTEM PROVIDED DIAGNOSIS CODES: J93.9 Pneumothorax on left S22.42XA Closed fracture of multiple ribs of left side, initial encounter S29.8XXA Blunt chest trauma, initial encounter R55 Syncope, unspecified syncope type S32.009A Lumbar transverse process fracture, closed, initial encounter ([facility]) COMPARISON: 02/10/2021 FINDINGS: Stable mild enlargement cardiac silhouette. Mild increased central vascular congestion and peribronchial thickening suggestive of pulmonary edema. Mild atelectatic changes at the lung bases, more on the left side. No pneumothorax or significant pleural effusion. [facility] Zac, Sebastien In Bhupendra ji Speechq - 02/11/2021 8:54 AM EDT EXAMINATION: XR CHEST PA/AP 02/11/2021 5:59 am HISTORY: ORDERING SYSTEM PROVIDED HISTORY: follow up multiple rib fractures, TECHNOLOGIST PROVIDED HISTORY: Injury/Trauma Reason for exam: follow up multiple rib fractures Cancer History: u Surgery, RadiationHistory: u Encounter Type: Subsequent/Follow-up Mechanism of injury: ORDERING SYSTEM PROVIDED DIAGNOSIS CODES: J93.9 Pneumothorax on left S22.42XA Closed fracture of multiple ribs of left side, initial encounter S29.8XXA Blunt chest trauma, initial encounter R55 Syncope, unspecified syncope type S32.009A Lumbar transverse process fracture, closed, initial encounter ([facility]) COMPARISON: 02/10/2021 FINDINGS: Stable mild enlargement cardiac silhouette. Mild increased central vascular congestion and peribronchial thickening suggestive of pulmonary edema. Mild atelectatic changes at the lung bases, more on the left side. No pneumothorax or significant pleural effusion. IMPRESSION: Mild increased interstitial congestion the lungs suggestive of pulmonary edema, stable bibasilar atelectatic changes. Workstation ID: [id number] [facility] ABORH VERIFICATIONOrdered By : Feliberto Rivera on 02-10-2021 ABO and Rh group Nom (Bld) Blood group O Rh(D) negative [facility] ABO and Rh group Nom (Bld) ABO/Rh Verification [facility] Comment on above: Patient's ABO/Rh is verified. [facility] APTTOrdered By: Feliberto joseph on 02-10-2021 aPTT Coag (d) [Time] 25 s [facility] Alcohol, MedicalOrdered By: Feliberto Rivera on 02-10-2021 Ethanol [Mass/Vol] mg/dL <10.00 mg/dL [facility] Comment on above: Alcohol cutoff: <10. 00 mg/dL = None Detected Blood type and Indirect anti body screen panel (Bld)Ordered By: Feliberto Rivera on 02-10-2021 ABO and Rh group Nom (Bld) Blood group O Rh(D) negative [facility] Blood group antibody screen Ql Negative [facility] Specimen Expires 02/13/2021 23:59 EST [facility] CBC panel Auto (Bld)Ordered By: Feliberto Rivera on 02-10-2021 Erythrocyte distribution width (RBC) [Entitic vol] 14.0 % 11.6 - 14.8 % [facility] Hematocrit (Bld) [Volume fraction] 48.1 % 41.0 - 53.0 % [facility] Hemoglobin (Bld) [Mass/Vol] 15.1 g/dL 13.5 - 17.5 g/dL [facility] Interpretation and review of laboratory results Abnormal [facility] MCH (RBC) [Entitic mass] 27.4 pg 26.0 - 34.0 pg [facility] MCHC (RBC) [Mass/Vol] 31.4 g/dL 31.0 - 37.0 g/dL [facility] MCV (RBC) [Entitic vol] 87.3 fL 80.0 - 100.0 fL [facility] Nucleated RBC (Bld) [#/Vol] 0.00 10*3/uL [facility] Nucleated RBC/100 WBC (Bld) [Ratio] 0.0 % [facility] Platelet mean volume (Bld) [Entitic vol] 13.0 fL High 9.4 - 12.4 fL [facility] Platelets (Bld) [#/Vol] 206 10*3/uL [facility] RBC (Bld) [#/Vol] 5.51 10*6/uL [facility] WBC (Bld) [#/Vol] 7.41 10*3/uL [facility] CK [Catalytic activity/Vol]O rdered By: Shekhar Rai on 02-10-2021 Interpretation and review of laboratory results Abnormal [facility] COVID-19/INFLUENZA A,B MOLEC ULARon 02-10-2021 SARS-CoV-2 (COVID-19) Ab IA Ql SARS-COV-2 (JEANIE): Not Detected INFLUENZA A (JEANIE): Not Detected INFLUENZA B (JEANIE): Not Detected Normal Not Detected [facility] Comment on above: Order Comment: Injur y/Trauma or Illness?:Injury/Trauma How long have you had these symptoms (acute/chronic)?:Acute Reason for exam?:chest tube removal History of cancer?:u Surgeries, chemotherapy, or radiation?:u Type of Exam?:Initial Mechanism of injury?:multiple rib fx Performed By: #### L [id number] ####[facility] [address], [place] [address] Julien Acharya M.D. [id number] Order Comment: Injur y/Trauma or Illness?:Injury/Trauma How long have you had these symptoms (acute/chronic)?:Acute Reason for exam?:ecchymosis pain following crush injury, PT C/O STIFFNESS IN WRIST History of cancer?:u Surgeries, chemotherapy, or radiation?:u Type of Exam?:Initial Mechanism of injury?: COVID-19/Influenza A,B Molec ularOrdered By: Feliberto Rivera on 02-10-2021 SARS-CoV-2 (COVID-19) RNA LUL+probe Ql (Resp) Not detected Not Detected [facility] CPK NO MBOrdered By: Adarsh Rai on 02-10-2021 CK [Catalytic activity/Vol] 294 U/L High 60 - 225 U/L [facility] CT ANGIOGRAM CHEST ABDOMEN P ELVISon 02-10-2021 CT ANGIOGRAM CHEST ABDOMEN PELVIS EXAMINATION: CT ANGIOGRAM CHEST ABDOMEN PELVIS HISTORY: ORDERING SYSTEM PROVIDED HISTORY: crush injury, TECHNOLOGIST PROVIDED HISTORY: Injury/Trauma Reason for exam: pinned between 2 pieces of heavy equipment, +LOC, head pain, neck pain, chest and back pain Encounter Type: Initial Mechanism of injury: pinned ORDERING SYSTEM PROVIDED DIAGNOSIS CODES: J93.9 Pneumothorax on left S22.42XA Closed fracture of multiple ribs of left side, initial encounter S29.8XXA Blunt chest trauma, initial encounter R55 Syncope, unspecified syncope type COMPARISON: None TECHNIQUE: Dose reduction techniques were achieved by using automated exposure control and/or adjustment of mA and/or kV according to patient size and/or use of iterative reconstruction technique. Coronal and sagittal MIP (maximum intensity projection) images were performed. Following 100 mL of IV contrast, helical thin-section images were obtained through the chest, abdomen, and pelvis. CONTRAST: IOPAMIDOL 76 % INTRAVENOUS SOLUTION - 100 mL, FINDINGS: Chest: Small anterior left basilar pneumothorax is noted, with a 1 cm distance between the visceral and parietal pleura. Mildly displaced fractures of the anterior aspects of the left 3rd through 7th ribs is noted, with surrounding subcutaneous emphysema in the anterior left chest wall. Mildly displaced fractures of the posterior aspects of the left 11th and 12th ribs are noted. Mildly displaced fractures of the lateral aspects of the right 4th through 8th ribs are noted. Mildly displaced fractures of the left T12-L4 transverse processes are noted. No concerning bone lesion is seen. No other fracture or malalignment is seen. Subsegmental dependent atelectasis is noted in the bilateral lower lobes. The lungs are otherwise clear. The heart is top-normal in size. No significant pleural effusion or pericardial effusion. No aortic aneurysm, dissection, or sign of traumatic aortic injury. No enlarged lymph nodes. A 3.7 cm craniocaudal x 2.8 cm AP x 2.5 cm transverse hypoattenuating nodule is noted in the right thyroid lobe. Abdomen/pelvis: A small periumbilical hernia is noted containing only fat, with a 2.3 cm in transverse diameter. A 1.3 cm x 1.1 cm cyst (0 Hounsfield units in attenuation) and a couple of other smaller subcentimeter cysts are noted in the right hepatic lobe (axial series 4, images 80, 82, and 86). A few cysts are noted in both kidneys, with the largest cyst in the left kidney lower pole cortex measuring 11.4 cm AP x 8.9 cm transverse. The liver, spleen, pancreas, adrenals, and kidneys are otherwise normal. The gallbladder is nondistended. No intraperitoneal or retroperitoneal hematoma. No pneumoperitoneum. No bowel obstruction, bowel wall thickening, or bowel dilatation. No sign of diverticulitis or other acute inflammatory process. A moderate amount of stool is noted throughout the colon. The left inguinal canal appears lax, but contains only fat. No aortic aneurysm, dissection, or sign of traumatic aortic injury. No other fracture or malalignment is seen. Critical results were called by Dr. Nigel Kevin to Dr. RIVERA of the Emergency Department on 02/10/2021 at 08:23. IMPRESSION: 1. Small anterior left basilar pneumothorax. 2. Multiple mildly displaced bilateral rib fractures, as detailed above, with subcutaneous emphysema in the left anterior chest wall. 3. Mildly displaced fractures of the left T12-L4 transverse processes. 4. Subsegmental dependent atelectasis in the bilateral lower lobes. 5. Indeterminate 3.7 cm hypoattenuating nodule in the right thyroid lobe. Consider follow-up nonemergent thyroid ultrasound to further evaluate. 6. No acute injury in the abdomen/pelvis. 7. A few cysts are noted in the right hepatic lobe and bilateral kidneys. 8. Small periumbilical hernia, containing only fat. The left inguinal canal appears lax, but contains only fat. Workstation ID: [id number] Dictated by: NIGEL KEVIN on TueFeb 10, 2021 8:30:40 AM EDT Transcribed by: NIGEL KEVIN on TueFeb 10, 2021 8:30:40 AM EDT Finalized by: NIGEL KEVIN on TueFeb 10, 2021 8:30:40 AM EDT [facility] Comment on above: Order Comment: Injur y/Trauma or Illness?:Injury/Trauma How long have you had these symptoms (acute/chronic)?:Acute Reason for exam?:chest tube removal History of cancer?:u Surgeries, chemotherapy, or radiation?:u Type of Exam?:Initial Mechanism of injury?:multiple rib fx Order Comment: Injur y/Trauma or Illness?:Injury/Trauma How long have you had these symptoms (acute/chronic)?:Acute Reason for exam?:ecchymosis pain following crush injury, PT C/O STIFFNESS IN WRIST History of cancer?:u Surgeries, chemotherapy, or radiation?:u Type of Exam?:Initial Mechanism of injury?: CT ANGIOGRAM CHEST ABDOMEN P ELVISOrdered By: Shekhar Rai on 02-10-2021 1. Small anterior le ft basilar pneumothorax. 2. Multiple mildly displaced bilateral rib fractures, as detailed above, with subcutaneous emphysema in the left anterior chest wall. 3. Mildly displaced fractures of the left T12-L4 transverse processes. 4. Subsegmental dependent atelectasis in the bilateral lower lobes. 5. Indeterminate 3.7 cm hypoattenuating nodule in the right thyroid lobe. Consider follow-up nonemergent thyroid ultrasound to further evaluate. 6. No acute injury in the abdomen/pelvis. 7. A few cysts are noted in the right hepatic lobe and bilateral kidneys. 8. Small periumbilical hernia, containing only fat. The left inguinal canal appears lax, but contains only fat. Workstation ID: [id number] [facility] EXAMINATION: CT ANGIOGRAM CHEST ABDOMEN PELVIS HISTORY: ORDERING SYSTEM PROVIDED HISTORY: crush injury, TECHNOLOGIST PROVIDED HISTORY: Injury/Trauma Reason for exam: pinned between 2 pieces of heavy equipment, +LOC, head pain, neck pain, chest and back pain Encounter Type: Initial Mechanism of injury: pinned ORDERING SYSTEM PROVIDED DIAGNOSIS CODES: J93.9 Pneumothorax on left S22.42XA Closed fracture of multiple ribs of left side, initial encounter S29.8XXA Blunt chest trauma, initial encounter R55 Syncope, unspecified syncope type COMPARISON: None TECHNIQUE: Dose reduction techniques were achieved by using automated exposure control and/or adjustment of mA and/or kV according to patient size and/or use of iterative reconstruction technique. Coronal and sagittal MIP (maximum intensity projection) images were performed. Following 100 mL of IV contrast, helical thin-section images were obtained through the chest, abdomen, and pelvis. CONTRAST: IOPAMIDOL 76 % INTRAVENOUS SOLUTION - 100 mL, FINDINGS: Chest: Small anterior left basilar pneumothorax is noted, with a 1 cm distance between the visceral and parietal pleura. Mildly displaced fractures of the anterior aspects of the left 3rd through 7th ribs is noted, with surrounding subcutaneous emphysema in the anterior left chest wall. Mildly displaced fractures of the posterior aspects of the left 11th and 12th ribs are noted. Mildly displaced fractures of the lateral aspects of the right 4th through 8th ribs are noted. Mildly displaced fractures of the left T12-L4 transverse processes are noted. No concerning bone lesion is seen. No other fracture or malalignment is seen. Subsegmental dependent atelectasis is noted in the bilateral lower lobes. The lungs are otherwise clear. The heart is top-normal in size. No significant pleural effusion or pericardial effusion. No aortic aneurysm, dissection, or sign of traumatic aortic injury. No enlarged lymph nodes. A 3.7 cm craniocaudal x 2.8 cm AP x 2.5 cm transverse hypoattenuating nodule is noted in the right thyroid lobe. Abdomen/pelvis: A small periumbilical hernia is noted containing only fat, with a 2.3 cm in transverse diameter. A 1.3 cm x 1.1 cm cyst (0 Hounsfield units in attenuation) and a couple of other smaller subcentimeter cysts are noted in the right hepatic lobe (axial series 4, images 80, 82, and 86). A few cysts are noted in both kidneys, with the largest cyst in the left kidney lower pole cortex measuring 11.4 cm AP x 8.9 cm transverse. The liver, spleen, pancreas, adrenals, and kidneys are otherwise normal. The gallbladder is nondistended. No intraperitoneal or retroperitoneal hematoma. No pneumoperitoneum. No bowel obstruction, bowel wall thickening, or bowel dilatation. No sign of diverticulitis or other acute inflammatory process. A moderate amount of stool is noted throughout the colon. The left inguinal canal appears lax, but contains only fat. No aortic aneurysm, dissection, or sign of traumatic aortic injury. No other fracture or malalignment is seen. Critical results were called by Dr. Nigel Kevin to Dr. RIVERA of the Emergency Department on 02/10/2021 at 08:23. [facility], Rad In Fu ji Speechq - 02/10/2021 8:33 AM EDT EXAMINATION: CT ANGIOGRAM CHEST ABDOMEN PELVIS HISTORY: ORDERING SYSTEM PROVIDED HISTORY: crush injury, TECHNOLOGIST PROVIDED HISTORY: Injury/Trauma Reason for exam: pinned between 2 pieces of heavy equipment, +LOC, head pain, neck pain, chest and back pain Encounter Type: Initial Mechanism of injury: pinned ORDERING SYSTEM PROVIDED DIAGNOSIS CODES: J93.9 Pneumothorax on left S22.42XA Closed fracture of multiple ribs of left side, initial encounter S29.8XXA Blunt chest trauma, initial encounter R55 Syncope, unspecified syncope type COMPARISON: None TECHNIQUE: Dose reduction techniques were achieved by using automated exposure control and/or adjustment of mA and/or kV according to patient size and/or use of iterative reconstruction technique. Coronal and sagittal MIP (maximum intensity projection) images were performed. Following 100 mL of IV contrast, helical thin-section images were obtained through the chest, abdomen, and pelvis. CONTRAST: IOPAMIDOL 76 % INTRAVENOUS SOLUTION - 100 mL, FINDINGS: Chest: Small anterior left basilar pneumothorax is noted, with a 1 cm distance between the visceral and parietal pleura. Mildly displaced fractures of the anterior aspects of the left 3rd through 7th ribs is noted, with surrounding subcutaneous emphysema in the anterior left chest wall. Mildly displaced fractures of the posterior aspects of the left 11th and 12th ribs are noted. Mildly displaced fractures of the lateral aspects of the right 4th through 8th ribs are noted. Mildly displaced fractures of the left T12-L4 transverse processes are noted. No concerning bone lesion is seen. No other fracture or malalignment is seen. Subsegmental dependent atelectasis is noted in the bilateral lower lobes. The lungs are otherwise clear. The heart is top-normal in size. No significant pleural effusion or pericardial effusion. No aortic aneurysm, dissection, or sign of traumatic aortic injury. No enlarged lymph nodes. A 3.7 cm craniocaudal x 2.8 cm AP x 2.5 cm transverse hypoattenuating nodule is noted in the right thyroid lobe. Abdomen/pelvis: A small periumbilical hernia is noted containing only fat, with a 2.3 cm in transverse diameter. A 1.3 cm x 1.1 cm cyst (0 Hounsfield units in attenuation) and a couple of other smaller subcentimeter cysts are noted in the right hepatic lobe (axial series 4, images 80, 82, and 86). A few cysts are noted in both kidneys, with the largest cyst in the left kidney lower pole cortex measuring 11.4 cm AP x 8.9 cm transverse. The liver, spleen, pancreas, adrenals, and kidneys are otherwise normal. The gallbladder is nondistended. No intraperitoneal or retroperitoneal hematoma. No pneumoperitoneum. No bowel obstruction, bowel wall thickening, or bowel dilatation. No sign of diverticulitis or other acute inflammatory process. A moderate amount of stool is noted throughout the colon. The left inguinal canal appears lax, but contains only fat. No aortic aneurysm, dissection, or sign of traumatic aortic injury. No other fracture or malalignment is seen. Critical results were called by Dr. Nigel Kevin to Dr. RIVERA of the Emergency Department on 02/10/2021 at 08:23. IMPRESSION: 1. Small anterior left basilar pneumothorax. 2. Multiple mildly displaced bilateral rib fractures, as detailed above, with subcutaneous emphysema in the left anterior chest wall. 3. Mildly displaced fractures of the left T12-L4 transverse processes. 4. Subsegmental dependent atelectasis in the bilateral lower lobes. 5. Indeterminate 3.7 cm hypoattenuating nodule in the right thyroid lobe. Consider follow-up nonemergent thyroid ultrasound to further evaluate. 6. No acute injury in the abdomen/pelvis. 7. A few cysts are noted in the right hepatic lobe and bilateral kidneys. 8. Small periumbilical hernia, containing only fat. The left inguinal canal appears lax, but contains only fat. Workstation ID: [id number] [facility] CT CERVICAL SPINE WITHOUT CO NTRASTon 02-10-2021 CT CERVICAL SPINE WITHOUT CONTRAST EXAMINATION: CT CERVICAL SPINE. HISTORY: 55 y/o , M LOC . ORDERING SYSTEM PROVIDED HISTORY: LOC, TECHNOLOGIST PROVIDED HISTORY: Injury/Trauma Reason for exam: pinned between 2 pieces of heavy equipment, +LOC, head pain, neck pain, chest and back pain Encounter Type: Initial Mechanism of injury: pinned ORDERING SYSTEM PROVIDED DIAGNOSIS CODES: COMPARISON: None TECHNIQUE: Axial CT images were acquired from the skull base to the upper thoracic spine. Sagittal and coronal reformations were then acquired. Dose reduction techniques were achieved by using automated exposure control and/or adjustment of mA and/or kV according to patient size and/or use of iterative reconstruction technique. Volumetric 3D reconstructions performed on a separate workstation. FINDINGS: There is no evidence of cervical spine fracture or traumatic malalignment. There is moderate diffuse degenerative disease throughout the cervical spine without CT evidence of severe spinal canal stenosis. The prevertebral soft tissues are normal. No destructive lesions are seen. The cervical vertebral bodies are well aligned. Lung apices are clear. There is a 3.2 cm right thyroid nodule, which may be cystic or slightly solid. If no prior workup on this nodule has been performed, recommend nonemergent thyroid ultrasound.. IMPRESSION: 1. No evidence of cervical spine fracture or traumatic malalignment. 2. 3.2 cm right thyroid nodule. Recommend nonemergent thyroid ultrasound for further characterization. Workstation ID: [id number] Dictated by: DIMITRIS LUGO on TueFeb 10, 2021 7:49:04 AM EDT Transcribed by: DIMITRIS LUGO on TueFeb 10, 2021 7:49:04 AM EDT Finalized by: DIMITRIS LUGO on TueFeb 10, 2021 7:49:04 AM EDT Normal [facility] Comment on above: Order Comment: Injur y/Trauma or Illness?:Injury/Trauma How long have you had these symptoms (acute/chronic)?:Acute Reason for exam?:chest tube removal History of cancer?:u Surgeries, chemotherapy, or radiation?:u Type of Exam?:Initial Mechanism of injury?:multiple rib fx Order Comment: Injur y/Trauma or Illness?:Injury/Trauma How long have you had these symptoms (acute/chronic)?:Acute Reason for exam?:ecchymosis pain following crush injury, PT C/O STIFFNESS IN WRIST History of cancer?:u Surgeries, chemotherapy, or radiation?:u Type of Exam?:Initial Mechanism of injury?: CT CERVICAL SPINE WITHOUT CO NTRASTOrdered By: Shekhar Rai on 02-10-2021 1. No evidence of cervical spine fracture or traumatic malalignment. 2. 3.2 cm right thyroid nodule. Recommend nonemergent thyroid ultrasound for further characterization. Workstation ID: [id number] [facility] EXAMINATION: CT CERVICAL SPINE. HISTORY: 55 y/o , M LOC . ORDERING SYSTEM PROVIDED HISTORY: LOC, TECHNOLOGIST PROVIDED HISTORY: Injury/Trauma Reason for exam: pinned between 2 pieces of heavy equipment, +LOC, head pain, neck pain, chest and back pain Encounter Type: Initial Mechanism of injury: pinned ORDERING SYSTEM PROVIDED DIAGNOSIS CODES: COMPARISON: None TECHNIQUE: Axial CT images were acquired from the skull base to the upper thoracic spine. Sagittal and coronal reformations were then acquired. Dose reduction techniques were achieved by using automated exposure control and/or adjustment of mA and/or kV according to patient size and/or use of iterative reconstruction technique. Volumetric 3D reconstructions performed on a separate workstation. FINDINGS: There is no evidence of cervical spine fracture or traumatic malalignment. There is moderate diffuse degenerative disease throughout the cervical spine without CT evidence of severe spinal canal stenosis. The prevertebral soft tissues are normal. No destructive lesions are seen. The cervical vertebral bodies are well aligned. Lung apices are clear. There is a 3.2 cm right thyroid nodule, which may be cystic or slightly solid. If no prior workup on this nodule has been performed, recommend nonemergent thyroid ultrasound.. [facility], Rad In Fu ji Speechq - 02/10/2021 7:51 AM EDT EXAMINATION: CT CERVICAL SPINE. HISTORY: 55 y/o , M LOC . ORDERING SYSTEM PROVIDED HISTORY: LOC, TECHNOLOGIST PROVIDED HISTORY: Injury/Trauma Reason for exam: pinned between 2 pieces of heavy equipment, +LOC, head pain, neck pain, chest and back pain Encounter Type: Initial Mechanism of injury: pinned ORDERING SYSTEM PROVIDED DIAGNOSIS CODES: COMPARISON: None TECHNIQUE: Axial CT images were acquired from the skull base to the upper thoracic spine. Sagittal and coronal reformations were then acquired. Dose reduction techniques were achieved by using automated exposure control and/or adjustment of mA and/or kV according to patient size and/or use of iterative reconstruction technique. Volumetric 3D reconstructions performed on a separate workstation. FINDINGS: There is no evidence of cervical spine fracture or traumatic malalignment. There is moderate diffuse degenerative disease throughout the cervical spine without CT evidence of severe spinal canal stenosis. The prevertebral soft tissues are normal. No destructive lesions are seen. The cervical vertebral bodies are well aligned. Lung apices are clear. There is a 3.2 cm right thyroid nodule, which may be cystic or slightly solid. If no prior workup on this nodule has been performed, recommend nonemergent thyroid ultrasound.. IMPRESSION: 1. No evidence of cervical spine fracture or traumatic malalignment. 2. 3.2 cm right thyroid nodule. Recommend nonemergent thyroid ultrasound for further characterization. Workstation ID: [id number] [facility] CT HEAD OR BRAIN WITHOUT CON TRASTon 02-10-2021 CT HEAD OR BRAIN WITHOUT CONTRAST EXAMINATION: CT HEAD OR BRAIN WITHOUT CONTRAST HISTORY: ORDERING SYSTEM PROVIDED HISTORY: LOC, TECHNOLOGIST PROVIDED HISTORY: Injury/Trauma Reason for exam: pinned between 2 pieces of heavy equipment, +LOC, head pain, neck pain, chest and back pain Encounter Type: Initial Mechanism of injury: pinned ORDERING SYSTEM PROVIDED DIAGNOSIS CODES: COMPARISON: None TECHNIQUE: CT examination of the head without IV contrast. Dose reduction techniques were achieved by using automated exposure control and/or adjustment of mA and/or kV according to patient size and/or use of iterative reconstruction technique. FINDINGS: Ventricles and sulci are normal in size and configuration. No extra-axial collection. No intracranial hemorrhage. No mass effect or edema. No CT evidence of large territorial infarction. Visualized paranasal sinuses are well aerated. Mastoids are clear. Calvarium is unremarkable. IMPRESSION: No acute intracranial abnormality. Workstation ID: [id number] Dictated by: DIMITRIS LUGO on TueFeb 10, 2021 7:46:29 AM EDT Transcribed by: DIMITRIS LUGO on TueFeb 10, 2021 7:46:29 AM EDT Finalized by: DIMITRIS LUGO on TueFeb 10, 2021 7:46:29 AM EDT [facility] Comment on above: Order Comment: Injur y/Trauma or Illness?:Injury/Trauma How long have you had these symptoms (acute/chronic)?:Acute Reason for exam?:chest tube removal History of cancer?:u Surgeries, chemotherapy, or radiation?:u Type of Exam?:Initial Mechanism of injury?:multiple rib fx Order Comment: Injur y/Trauma or Illness?:Injury/Trauma How long have you had these symptoms (acute/chronic)?:Acute Reason for exam?:ecchymosis pain following crush injury, PT C/O STIFFNESS IN WRIST History of cancer?:u Surgeries, chemotherapy, or radiation?:u Type of Exam?:Initial Mechanism of injury?: CT HEAD OR BRAIN WITHOUT CON TRASTOrdered By: Shekhar Rai on 02-10-2021 No acute intracrania l abnormality. Workstation ID: [id number] [facility] EXAMINATION: CT HEAD OR BRAIN WITHOUT CONTRAST HISTORY: ORDERING SYSTEM PROVIDED HISTORY: LOC, TECHNOLOGIST PROVIDED HISTORY: Injury/Trauma Reason for exam: pinned between 2 pieces of heavy equipment, +LOC, head pain, neck pain, chest and back pain Encounter Type: Initial Mechanism of injury: pinned ORDERING SYSTEM PROVIDED DIAGNOSIS CODES: COMPARISON: None TECHNIQUE: CT examination of the head without IV contrast. Dose reduction techniques were achieved by using automated exposure control and/or adjustment of mA and/or kV according to patient size and/or use of iterative reconstruction technique. FINDINGS: Ventricles and sulci are normal in size and configuration. No extra-axial collection. No intracranial hemorrhage. No mass effect or edema. No CT evidence of large territorial infarction. Visualized paranasal sinuses are well aerated. Mastoids are clear. Calvarium is unremarkable. [facility] Interface, Rad In Fu ji Speechq - 02/10/2021 7:49 AM EDT EXAMINATION: CT HEAD OR BRAIN WITHOUT CONTRAST HISTORY: ORDERING SYSTEM PROVIDED HISTORY: LOC, TECHNOLOGIST PROVIDED HISTORY: Injury/Trauma Reason for exam: pinned between 2 pieces of heavy equipment, +LOC, head pain, neck pain, chest and back pain Encounter Type: Initial Mechanism of injury: pinned ORDERING SYSTEM PROVIDED DIAGNOSIS CODES: COMPARISON: None TECHNIQUE: CT examination of the head without IV contrast. Dose reduction techniques were achieved by using automated exposure control and/or adjustment of mA and/or kV according to patient size and/or use of iterative reconstruction technique. FINDINGS: Ventricles and sulci are normal in size and configuration. No extra-axial collection. No intracranial hemorrhage. No mass effect or edema. No CT evidence of large territorial infarction. Visualized paranasal sinuses are well aerated. Mastoids are clear. Calvarium is unremarkable. IMPRESSION: No acute intracranial abnormality. Workstation ID: [id number] [facility] CT LUMBAR SPINE WITHOUT CONT RAST RECONSTRUCTEDon 02-10-2021 CT LUMBAR SPINE WITHOUT CONTRAST RECONSTRUCTED EXAMINATION: CT THORACIC SPINE WITHOUT CONTRAST RECONSTRUCTED; CT LUMBAR SPINE WITHOUT CONTRAST RECONSTRUCTED HISTORY: ORDERING SYSTEM PROVIDED HISTORY: Trauma, TECHNOLOGIST PROVIDED HISTORY: Injury/Trauma Reason for exam: pinned between 2 pieces of heavy equipment, +LOC, head pain, neck pain, chest and back pain Encounter Type: Initial Mechanism of injury: pinned ORDERING SYSTEM PROVIDED DIAGNOSIS CODES: J93.9 Pneumothorax on left S22.42XA Closed fracture of multiple ribs of left side, initial encounter S29.8XXA Blunt chest trauma, initial encounter R55 Syncope, unspecified syncope type ; ORDERING SYSTEM PROVIDED HISTORY: crush injury; pain, TECHNOLOGIST PROVIDED HISTORY: Injury/Trauma Reason for exam: pinned between 2 pieces of heavy equipment, +LOC, head pain, neck pain, chest and back pain Encounter Type: Initial Mechanism of injury: pinned ORDERING SYSTEM PROVIDED DIAGNOSIS CODES: J93.9 Pneumothorax on left S22.42XA Closed fracture of multiple ribs of left side, initial encounter S29.8XXA Blunt chest trauma, initial encounter R55 Syncope, unspecified syncope type Trauma; crush injury; pain COMPARISON: None TECHNIQUE: Wide hjqll-it-[id number] multiplanar reformatted images of the thoracic spine and lumbar spine are acquired from the patient's chest abdomen pelvis CT. Dose reduction techniques were achieved by using: automated exposure control and/or adjustment of mA and /or kV according to patient size and/or use of iterative reconstruction technique. 3D volume rendered images were also created on a separate workstation by the interpreting radiologist and submitted as part of the examination. FINDINGS: The cervicothoracic, thoracic and lumbar, lumbosacral junctions are intact. There is normal thoracic kyphosis and lumbar lordosis. The vertebral body heights are maintained. There are acute mildly displaced fractures involving the left T12 through L3 transverse processes. There also minimally displaced left 11th and 12th rib fractures. There is mild degenerative disease throughout the thoracolumbar spine. There is no CT evidence of severe spinal canal stenosis. The visualized bony pelvis is intact. For intrathoracic and abdominopelvic findings, see dedicated CT chest abdomen and pelvis report. IMPRESSION: 1. Mildly displaced left T12-L3 transverse process fractures. 2. Minimally displaced left 11th and 12th rib fractures. 3. No other evidence of acute displaced fracture or traumatic malalignment identified in the thoracolumbar spine. Degenerative changes without CT evidence of severe spinal canal stenosis Workstation ID: [id number] Dictated by: DIMITRIS LUGO TueFeb 10, 2021 7:57:55 AM EDT Transcribed by: DIMITRIS LUGO on TueFeb 10, 2021 7:57:55 AM EDT Finalized by: DIMITRIS LUGO on TueFeb 10, 2021 7:57:55 AM EDT [facility] Comment on above: Order Comment: Injur y/Trauma or Illness?:Injury/Trauma How long have you had these symptoms (acute/chronic)?:Acute Reason for exam?:chest tube removal History of cancer?:u Surgeries, chemotherapy, or radiation?:u Type of Exam?:Initial Mechanism of injury?:multiple rib fx Order Comment: Injur y/Trauma or Illness?:Injury/Trauma How long have you had these symptoms (acute/chronic)?:Acute Reason for exam?:ecchymosis pain following crush injury, PT C/O STIFFNESS IN WRIST History of cancer?:u Surgeries, chemotherapy, or radiation?:u Type of Exam?:Initial Mechanism of injury?: CT THORACIC SPINE WITHOUT CO NTRAST RECONSTRUCTEDon 02-10-2021 CT THORACIC SPINE WITHOUT CONTRAST RECONSTRUCTED EXAMINATION: CT THORACIC SPINE WITHOUT CONTRAST RECONSTRUCTED; CT LUMBAR SPINE WITHOUT CONTRAST RECONSTRUCTED HISTORY: ORDERING SYSTEM PROVIDED HISTORY: Trauma, TECHNOLOGIST PROVIDED HISTORY: Injury/Trauma Reason for exam: pinned between 2 pieces of heavy equipment, +LOC, head pain, neck pain, chest and back pain Encounter Type: Initial Mechanism of injury: pinned ORDERING SYSTEM PROVIDED DIAGNOSIS CODES: J93.9 Pneumothorax on left S22.42XA Closed fracture of multiple ribs of left side, initial encounter S29.8XXA Blunt chest trauma, initial encounter R55 Syncope, unspecified syncope type ; ORDERING SYSTEM PROVIDED HISTORY: crush injury; pain, TECHNOLOGIST PROVIDED HISTORY: Injury/Trauma Reason for exam: pinned between 2 pieces of heavy equipment, +LOC, head pain, neck pain, chest and back pain Encounter Type: Initial Mechanism of injury: pinned ORDERING SYSTEM PROVIDED DIAGNOSIS CODES: J93.9 Pneumothorax on left S22.42XA Closed fracture of multiple ribs of left side, initial encounter S29.8XXA Blunt chest trauma, initial encounter R55 Syncope, unspecified syncope type Trauma; crush injury; pain COMPARISON: None TECHNIQUE: Wide zfqod-md-cewu multiplanar reformatted images of the thoracic spine and lumbar spine are acquired from the patient's chest abdomen pelvis CT. Dose reduction techniques were achieved by using: automated exposure control and/or adjustment of mA and /or kV according to patient size and/or use of iterative reconstruction technique. 3D volume rendered images were also created on a separate workstation by the interpreting radiologist and submitted as part of the examination. FINDINGS: The cervicothoracic, thoracic and lumbar, lumbosacral junctions are intact. There is normal thoracic kyphosis and lumbar lordosis. The vertebral body heights are maintained. There are acute mildly displaced fractures involving the left T12 through L3 transverse processes. There also minimally displaced left 11th and 12th rib fractures. There is mild degenerative disease throughout the thoracolumbar spine. There is no CT evidence of severe spinal canal stenosis. The visualized bony pelvis is intact. For intrathoracic and abdominopelvic findings, see dedicated CT chest abdomen and pelvis report. IMPRESSION: 1. Mildly displaced left T12-L3 transverse process fractures. 2. Minimally displaced left 11th and 12th rib fractures. 3. No other evidence of acute displaced fracture or traumatic malalignment identified in the thoracolumbar spine. Degenerative changes without CT evidence of severe spinal canal stenosis Workstation ID: [id number] Dictated by: DIMITRIS LUGO on TueFeb 10, 2021 7:57:55 AM EDT Transcribed by: DIMITRIS LUGO on TueFeb 10, 2021 7:57:55 AM EDT Finalized by: DIMITRIS LUGO on TueFeb 10, 2021 7:57:55 AM EDT [facility] Comment on above: Order Comment: Injur y/Trauma or Illness?:Injury/Trauma How long have you had these symptoms (acute/chronic)?:Acute Reason for exam?:chest tube removal History of cancer?:u Surgeries, chemotherapy, or radiation?:u Type of Exam?:Initial Mechanism of injury?:multiple rib fx Order Comment: Injur y/Trauma or Illness?:Injury/Trauma How long have you had these symptoms (acute/chronic)?:Acute Reason for exam?:ecchymosis pain following crush injury, PT C/O STIFFNESS IN WRIST History of cancer?:u Surgeries, chemotherapy, or radiation?:u Type of Exam?:Initial Mechanism of injury?: Comprehensive metabolic 2000 panelOrdered By: Feilberto Rivera on 02-10-2021 Albumin [Mass/Vol] 3.7 g/dL 3.2 - 5.2 g/dL [facility] ALP [Catalytic activity/Vol] 86 U/L 40 - 150 U/L [facility] ALT [Catalytic activity/Vol] 51 U/L 14 - 65 U/L [facility] Anion gap [Moles/Vol] 11 mmol/L 10 - 2 0 mmol/L [facility] AST [Catalytic activity/Vol] 42 U/L 0 - 45 U/L [facility] Bilirubin [Mass/Vol] 0.5 mg/dL 0.0 - 1 .3 mg/dL [facility] Calcium [Mass/Vol] 8.7 mg/dL 8.4 - 10. 2 mg/dL [facility] Chloride [Moles/Vol] 106 mmol/L 98 - 10 8 mmol/L [facility] Creatinine [Mass/Vol] 1.22 mg/dL 0.50 - 1.30 [facility] GFR/1.73 sq M.predicted CKD-EPI (S/P/Bld) [Vol rate/Area] 65 >=60 mL/min/1.73 m2 [facility] Glucose [Mass/Vol] 119 mg/dL High 65 - 99 mg/dL [facility] HCO3 [Moles/Vol] 28 mmol/L 21 - 32 mmol/L [facility] Interpretation and review of laboratory results Abnormal [facility] Potassium [Moles/Vol] 3.7 mmol/L 3.5 - 5.1 mmol/L [facility] Protein [Mass/Vol] 7.0 g/dL 6.0 - 8.0 g/dL [facility] Sodium [Moles/Vol] 141 mmol/L 135 - 145 mmol/L [facility] Urea nitrogen [Mass/Vol] 20 mg/dL 8 - 25 mg/dL [facility] Urea nitrogen/Creatinine [Mass ratio] 16.4 mg/mg [facility] The eGFR should be u sed for monitoring renal function only and not for medication dosing. [facility] Ethanol [Mass/Vol]Ordered By : Feliberto Rivera on 02-10-2021 Interpretation and review of laboratory results [facility] INR Coag (PPP) [Relative to e]Ordered By: Feliberto Rivera on 02-10-2021 PT Coag (PPP) [Time] 12.4 s [facility] During the induction phase of oral anticoagulation, the INR may not reflect the anticoagulation status of the patient. Therapeutic ranges for INR's are: Most clinical situations: INR 2.0-3.0 Mechanical Prosthetic Valve: INR 2.5-3.5 Critical: INR >5.0 [facility] Magnesium LevelOrdered By: Levi Rivera on 02-10-2021 Magnesium [Mass/Vol] 2.1 mg/dL 1.6 - 2 .4 mg/dL [facility] No Panel InformationOrdered By: Shekhar Rai on 02-10-2021 1. Mildly displaced left T12-L3 transverse process fractures. 2. Minimally displaced left 11th and 12th rib fractures. 3. No other evidence of acute displaced fracture or traumatic malalignment identified in the thoracolumbar spine. Degenerative changes without CT evidence of severe spinal canal stenosis Workstation ID: [id number] [facility] EXAMINATION: CT THORACIC SPINE WITHOUT CONTRAST RECONSTRUCTED; CT LUMBAR SPINE WITHOUT CONTRAST RECONSTRUCTED HISTORY: ORDERING SYSTEM PROVIDED HISTORY: Trauma, TECHNOLOGIST PROVIDED HISTORY: Injury/Trauma Reason for exam: pinned between 2 pieces of heavy equipment, +LOC, head pain, neck pain, chest and back pain Encounter Type: Initial Mechanism of injury: pinned ORDERING SYSTEM PROVIDED DIAGNOSIS CODES: J93.9 Pneumothorax on left S22.42XA Closed fracture of multiple ribs of left side, initial encounter S29.8XXA Blunt chest trauma, initial encounter R55 Syncope, unspecified syncope type ; ORDERING SYSTEM PROVIDED HISTORY: crush injury; pain, TECHNOLOGIST PROVIDED HISTORY: Injury/Trauma Reason for exam: pinned between 2 pieces of heavy equipment, +LOC, head pain, neck pain, chest and back pain Encounter Type: Initial Mechanism of injury: pinned ORDERING SYSTEM PROVIDED DIAGNOSIS CODES: J93.9 Pneumothorax on left S22.42XA Closed fracture of multiple ribs of left side, initial encounter S29.8XXA Blunt chest trauma, initial encounter R55 Syncope, unspecified syncope type Trauma; crush injury; pain COMPARISON: None TECHNIQUE: Wide niqno-rc-ayce multiplanar reformatted images of the thoracic spine and lumbar spine are acquired from the patient's chest abdomen pelvis CT. Dose reduction techniques were achieved by using: automated exposure control and/or adjustment of mA and /or kV according to patient size and/or use of iterative reconstruction technique. 3D volume rendered images were also created on a separate workstation by the interpreting radiologist and submitted as part of the examination. FINDINGS: The cervicothoracic, thoracic and lumbar, lumbosacral junctions are intact. There is normal thoracic kyphosis and lumbar lordosis. The vertebral body heights are maintained. There are acute mildly displaced fractures involving the left T12 through L3 transverse processes. There also minimally displaced left 11th and 12th rib fractures. There is mild degenerative disease throughout the thoracolumbar spine. There is no CT evidence of severe spinal canal stenosis. The visualized bony pelvis is intact. For intrathoracic and abdominopelvic findings, see dedicated CT chest abdomen and pelvis report. [facility], Rad In Fu ji Speechq - 02/10/2021 8:00 AM EDT EXAMINATION: CT THORACIC SPINE WITHOUT CONTRAST RECONSTRUCTED; CT LUMBAR SPINE WITHOUT CONTRAST RECONSTRUCTED HISTORY: ORDERING SYSTEM PROVIDED HISTORY: Trauma, TECHNOLOGIST PROVIDED HISTORY: Injury/Trauma Reason for exam: pinned between 2 pieces of heavy equipment, +LOC, head pain, neck pain, chest and back pain Encounter Type: Initial Mechanism of injury: pinned ORDERING SYSTEM PROVIDED DIAGNOSIS CODES: J93.9 Pneumothorax on left S22.42XA Closed fracture of multiple ribs of left side, initial encounter S29.8XXA Blunt chest trauma, initial encounter R55 Syncope, unspecified syncope type ; ORDERING SYSTEM PROVIDED HISTORY: crush injury; pain, TECHNOLOGIST PROVIDED HISTORY: Injury/Trauma Reason for exam: pinned between 2 pieces of heavy equipment, +LOC, head pain, neck pain, chest and back pain Encounter Type: Initial Mechanism of injury: pinned ORDERING SYSTEM PROVIDED DIAGNOSIS CODES: J93.9 Pneumothorax on left S22.42XA Closed fracture of multiple ribs of left side, initial encounter S29.8XXA Blunt chest trauma, initial encounter R55 Syncope, unspecified syncope type Trauma; crush injury; pain COMPARISON: None TECHNIQUE: Wide [id number]-[id number] multiplanar reformatted images of the thoracic spine and lumbar spine are acquired from the patient's chest abdomen pelvis CT. Dose reduction techniques were achieved by using: automated exposure control and/or adjustment of mA and /or kV according to patient size and/or use of iterative reconstruction technique. 3D volume rendered images were also created on a separate workstation by the interpreting radiologist and submitted as part of the examination. FINDINGS: The cervicothoracic, thoracic and lumbar, lumbosacral junctions are intact. There is normal thoracic kyphosis and lumbar lordosis. The vertebral body heights are maintained. There are acute mildly displaced fractures involving the left T12 through L3 transverse processes. There also minimally displaced left 11th and 12th rib fractures. There is mild degenerative disease throughout the thoracolumbar spine. There is no CT evidence of severe spinal canal stenosis. The visualized bony pelvis is intact. For intrathoracic and abdominopelvic findings, see dedicated CT chest abdomen and pelvis report. IMPRESSION: 1. Mildly displaced left T12-L3 transverse process fractures. 2. Minimally displaced left 11th and 12th rib fractures. 3. No other evidence of acute displaced fracture or traumatic malalignment identified in the thoracolumbar spine. Degenerative changes without CT evidence of severe spinal canal stenosis Workstation ID: [id number] [facility] No Panel InformationOrdered By: Feliberto Rivera on 02-10-2021 Interpretation and review of laboratory results [facility] Interpretation and review of laboratory results [facility] POC Venous Blood Gas Panel-P ulmOrdered By: Feliberto Rivera on 02-10-2021 Base excess Calc (BldV) [Moles/Vol] 2.0 mmol/L [facility] Breath rate setting Ventilator synchronized intermittent mandatory 0 [facility] Calcium.ionized [Mass/Vol] 4.5 mg/dL 4.5 - 5.3 mg/dL [facility] Carboxyhemoglobin (BldA) [Mass fraction] 1.8 High <=1.5 % of total Hb [facility] Comment on above: Reference Ranges: [place] Non-smokers: <1.5% Smokers: 1.5-5.0% Heavy Smokers: 5.0-9.0% Chloride [Moles/Vol] 102 mmol/L 98 - 10 8 mmol/L [facility] CO2 (BldV) [Partial pressure] 50.4 mm[Hg] [facility] Glucose [Mass/Vol] 105 mg/dL High 65 - 99 mg/dL [facility] HCO3 (Bld) [Moles/Vol] 28.6 mmol/L High 24.0 - 28.0 mmol/L [facility] Hematocrit (BldA) [Volume fraction] 49.8 % 41.0 - 53.0 % [facility] Hemoglobin (Bld) [Mass/Vol] 16.2 g/dL 13.5 - 17.5 g/dL [facility] Inhaled oxygen concentration 100 % [facility] Inhaled oxygen flow rate 10 L/min [facility] Interpretation and review of laboratory results Abnormal [facility] Lactate [Moles/Vol] 2.2 mmol/L High 0.6 - 2. 0 mmol/L [facility] Methemoglobin (BldA) [Mass fraction] 0.9 % 0.0 - 2.0 % [facility] Oxygen (BldV) [Partial pressure] 30 mm[Hg] [facility] Oxygen saturation in Venous blood 54.9 % 40.0 - 70.0 % [facility] Oxyhemoglobin (BldA) [Mass fraction] 53.4 % No established reference range [facility] pH (BldV) 7.36 [pH] [facility] Potassium [Moles/Vol] 3.5 mmol/L 3.5 - 5.1 mmol/L [facility] Sodium [Moles/Vol] 141 mmol/L 135 - 145 mmol/L [facility] Specimen source Nom (Unsp spec) Not specified [facility] Tidal volume setting Ventilator 0 [facility] PT/INROrdered By: Feliberto kumar on 02-10-2021 INR Coag (PPP) [Relative time] 1.0 {INR} [facility] PhosphorusOrdered By: Feliberto Rivera on 02-10-2021 Phosphate [Mass/Vol] 3.2 mg/dL 2.7 - 4 .5 mg/dL [facility] SARS-CoV-2 (COVID-19) RNA NA A+probe Ql (Resp)Ordered By: Feliberto Rivera on 02-10-2021 Influenza A Not detected Not Detected [facility] Influenza B Not detected Not Detected [facility] Interpretation and review of laboratory results Normal [facility] This test was perfor med under the FDA's Emergency Use Authorization (EUA). Testing was performed using the [employer] SARS-CoV-2 RT-PCR & Influenza A/B Nucleic Acid Test on the [employer] System. This test has not been approved for use in asymptomatic patients and its performance in this patient population has not been evaluated. Negative results do not rule out the presence of SARS-CoV-2, influenza A, and/or influenza B. Fact sheets for the EUA can be found at the following links: For Healthcare Providers: https://www.fda.gov/media /539032/download For Patients: https://www.fda.gov/media /808194/download [facility] XR CHEST PA/APon 02-10-2021 XR CHEST PA/AP EXAMINATION: PORTABLE SEMI-UPRIGHT CHEST 02/10/2021 AT 1226 HOURS HISTORY: Dx: J93.9 (Pneumothorax on left) Injury/Trauma or Illness?:Injury/Trauma How long have you had these symptoms (acute/chronic)?:Acute f/u multiple rib fractures COMPARISON FILMS: Supine AP chest 02/10/2021 at 0714 hours. FINDINGS: The visualized osseous structures appear intact. The previously described left 7th rib fracture is difficult to appreciate on this study. The previously seen subcutaneous emphysema overlying the lower left lateral hemithorax seems to have resolved. There is patchy density at the left lung base. The remaining lungs appear clear. The heart size seems normal. The aorta has normal contour. There are no focal infiltrates, pleural effusions, pulmonary edema or pneumothorax. IMPRESSION: 1. The rib fractures described on the CT chest from 02/10/2021 are not well seen on the current examination. 2. There is some patchy density at the left lung base probably due to some atelectasis. 3. No definite pneumothorax or new findings otherwise. [employer] Workstation ID: [id number] Dictated by: DOMINICK STOKES on TueFeb 10, 2021 3:04:06 PM EDT Transcribed by: KEVEN CALZADA on TueFeb 10, 2021 3:31:02 PM EDT Finalized by: DOMINICK STOKES on TueFeb 10, 2021 3:42:57 PM EDT Normal [facility] Comment on above: Order Comment: Injur y/Trauma or Illness?:Injury/Trauma How long have you had these symptoms (acute/chronic)?:Acute Reason for exam?:f/u multiple rib fractures, Pt pinned between two heavy pieces of equipment for approximately 5 min. History of cancer?:u Surgeries, chemotherapy, or radiation?:u Type of Exam?:Ongoing Mechanism of injury?:crush injury XR CHEST PA/AP EXAMINATION: XR CHEST PA/AP HISTORY: ORDERING SYSTEM PROVIDED HISTORY: Trauma Level 2, TECHNOLOGIST PROVIDED HISTORY: Injury/Trauma Reason for exam: trauma Cancer History: u Surgery, RadiationHistory: u Encounter Type: Initial Mechanism of injury: heavy equipment landed on patient ORDERING SYSTEM PROVIDED DIAGNOSIS CODES: COMPARISON: None. TECHNIQUE: Routine AP supine portable chest radiograph performed. Dose reduction techniques were achieved by using automated exposure control and/or adjustment of mA and/or kV according to patient size and/or use of iterative reconstruction technique. FINDINGS: The trachea is midline. The heart size is normal. The mediastinal and hilar shadows are within normal limits. There is an irregular area of lucency projecting over the left lower chest, possible fracture of the left 7th rib and subcutaneous emphysema along the lateral margin of the left lower chest. Other than the lucency at the left lung base, no pneumothorax is seen. IMPRESSION: There is an irregular area of lucency projecting over the left lower chest, possible fracture of the left 7th rib and subcutaneous emphysema along the lateral margin of the left lower chest. Other than the lucency at the left lung base, no pneumothorax is seen. A stat CT examination of the chest is recommended. Workstation ID: [id number] Dictated by: KENTON NAVARRO on TueFeb 10, 2021 7:16:57 AM EDT Transcribed by: KENTON NAVARRO on TueFeb 10, 2021 7:16:57 AM EDT Finalized by: KENTON NAVARRO on TueFeb 10, 2021 7:16:57 AM EDT [facility] Comment on above: Order Comment: Injur y/Trauma or Illness?:Injury/Trauma How long have you had these symptoms (acute/chronic)?:Acute Reason for exam?:chest tube removal History of cancer?:u Surgeries, chemotherapy, or radiation?:u Type of Exam?:Initial Mechanism of injury?:multiple rib fx Order Comment: Injur y/Trauma or Illness?:Injury/Trauma How long have you had these symptoms (acute/chronic)?:Acute Reason for exam?:ecchymosis pain following crush injury, PT C/O STIFFNESS IN WRIST History of cancer?:u Surgeries, chemotherapy, or radiation?:u Type of Exam?:Initial Mechanism of injury?: XR Chest 1 ViewOrdered By: Holley Rai on 02-10-2021 1. The rib fractures described on the CT chest from 02/10/2021 are not well seen on the current examination. 2. There is some patchy density at the left lung base probably due to some atelectasis. 3. No definite pneumothorax or new findings otherwise. [employer]RISTINA/phong Workstation ID: [id number] [facility] EXAMINATION: PORTABLE SEMI-UPRIGHT CHEST 02/10/2021 AT 1226 HOURS HISTORY: Dx: J93.9 (Pneumothorax on left) Injury/Trauma or Illness?:Injury/Trauma How long have you had these symptoms (acute/chronic)?:Acute f/u multiple rib fractures COMPARISON FILMS: Supine AP chest 02/10/2021 at 0714 hours. FINDINGS: The visualized osseous structures appear intact. The previously described left 7th rib fracture is difficult to appreciate on this study. The previously seen subcutaneous emphysema overlying the lower left lateral hemithorax seems to have resolved. There is patchy density at the left lung base. The remaining lungs appear clear. The heart size seems normal. The aorta has normal contour. There are no focal infiltrates, pleural effusions, pulmonary edema or pneumothorax. [facility] Interface, Rad In Fu ji Speechq - 02/10/2021 3:45 PM EDT EXAMINATION: PORTABLE SEMI-UPRIGHT CHEST 02/10/2021 AT 1226 HOURS HISTORY: Dx: J93.9 (Pneumothorax on left) Injury/Trauma or Illness?:Injury/Trauma How long have you had these symptoms (acute/chronic)?:Acute f/u multiple rib fractures COMPARISON FILMS: Supine AP chest 02/10/2021 at 0714 hours. FINDINGS: The visualized osseous structures appear intact. The previously described left 7th rib fracture is difficult to appreciate on this study. The previously seen subcutaneous emphysema overlying the lower left lateral hemithorax seems to have resolved. There is patchy density at the left lung base. The remaining lungs appear clear. The heart size seems normal. The aorta has normal contour. There are no focal infiltrates, pleural effusions, pulmonary edema or pneumothorax. IMPRESSION: 1. The rib fractures described on the CT chest from 02/10/2021 are not well seen on the current examination. 2. There is some patchy density at the left lung base probably due to some atelectasis. 3. No definite pneumothorax or new findings otherwise. [employer] Workstation ID: [id number] [facility] XR Chest 1 ViewOrdered By: Levi Rivera on 02-10-2021 There is an irregula r area of lucency projecting over the left lower chest, possible fracture of the left 7th rib and subcutaneous emphysema along the lateral margin of the left lower chest. Other than the lucency at the left lung base, no pneumothorax is seen. A stat CT examination of the chest is recommended. Workstation ID: [id number] [facility] EXAMINATION: XR CHEST PA/AP HISTORY: ORDERING SYSTEM PROVIDED HISTORY: Trauma Level 2, TECHNOLOGIST PROVIDED HISTORY: Injury/Trauma Reason for exam: trauma Cancer History: u Surgery, RadiationHistory: u Encounter Type: Initial Mechanism of injury: heavy equipment landed on patient ORDERING SYSTEM PROVIDED DIAGNOSIS CODES: COMPARISON: None. TECHNIQUE: Routine AP supine portable chest radiograph performed. Dose reduction techniques were achieved by using automated exposure control and/or adjustment of mA and/or kV according to patient size and/or use of iterative reconstruction technique. FINDINGS: The trachea is midline. The heart size is normal. The mediastinal and hilar shadows are within normal limits. There is an irregular area of lucency projecting over the left lower chest, possible fracture of the left 7th rib and subcutaneous emphysema along the lateral margin of the left lower chest. Other than the lucency at the left lung base, no pneumothorax is seen. [facility] Sebastien Frank In Fu ji Speechq - 02/10/2021 7:19 AM EDT EXAMINATION: XR CHEST PA/AP HISTORY: ORDERING SYSTEM PROVIDED HISTORY: Trauma Level 2, TECHNOLOGIST PROVIDED HISTORY: Injury/Trauma Reason for exam: trauma Cancer History: u Surgery, RadiationHistory: u Encounter Type: Initial Mechanism of injury: heavy equipment landed on patient ORDERING SYSTEM PROVIDED DIAGNOSIS CODES: COMPARISON: None. TECHNIQUE: Routine AP supine portable chest radiograph performed. Dose reduction techniques were achieved by using automated exposure control and/or adjustment of mA and/or kV according to patient size and/or use of iterative reconstruction technique. FINDINGS: The trachea is midline. The heart size is normal. The mediastinal and hilar shadows are within normal limits. There is an irregular area of lucency projecting over the left lower chest, possible fracture of the left 7th rib and subcutaneous emphysema along the lateral margin of the left lower chest. Other than the lucency at the left lung base, no pneumothorax is seen. IMPRESSION: There is an irregular area of lucency projecting over the left lower chest, possible fracture of the left 7th rib and subcutaneous emphysema along the lateral margin of the left lower chest. Other than the lucency at the left lung base, no pneumothorax is seen. A stat CT examination of the chest is recommended. Workstation ID: [id number] [facility] XR WRIST LEFT 3+ VIEWS (GERHARD BAILEY)on 02-10-2021 XR WRIST LEFT 3+ VIEWS (STANDARD) EXAMINATION: XR WRIST LEFT 3+ VIEWS (STANDARD) 02/10/2021 2:43 pm HISTORY: ORDERING SYSTEM PROVIDED HISTORY: ecchymosis pain following crush injury, TECHNOLOGIST PROVIDED HISTORY: Injury/Trauma Reason for exam: ecchymosis pain following crush injury, PT C/O STIFFNESS IN WRIST Cancer History: u Surgery, RadiationHistory: u Encounter Type: Initial Mechanism of injury: ORDERING SYSTEM PROVIDED DIAGNOSIS CODES: J93.9 Pneumothorax on left S22.42XA Closed fracture of multiple ribs of left side, initial encounter S29.8XXA Blunt chest trauma, initial encounter R55 Syncope, unspecified syncope type S32.009A Lumbar transverse process fracture, closed, initial encounter ([facility]) COMPARISON: None FINDINGS: No acute fracture is seen. Alignment of the osseous structures is normal. Joint spaces are preserved. Soft tissue swelling is seen about dorsum of the left wrist. IMPRESSION: No evidence for acute fracture or malalignment. Soft tissue swelling seen about the dorsum of the left wrist. Workstation ID: [id number] Dictated by: EDILMA YEAGER on TueFeb 10, 2021 6:09:40 PM EDT Transcribed by: EDILMA YEAGER on TueFeb 10, 2021 6:09:40 PM EDT Finalized by: EDILMA YEAGER on TueFeb 10, 2021 6:09:40 PM EDT [facility] Comment on above: Order Comment: Injur y/Trauma or Illness?:Injury/Trauma How long have you had these symptoms (acute/chronic)?:Acute Reason for exam?:ecchymosis pain following crush injury, PT C/O STIFFNESS IN WRIST History of cancer?:u Surgeries, chemotherapy, or radiation?:u Type of Exam?:Initial Mechanism of injury?: XR Wrist Left 3+ Views (Gerhard bailey)Ordered By: Shekhar Rai on 02-10-2021 No evidence for acut e fracture or malalignment. Soft tissue swelling seen about the dorsum of the left wrist. Workstation ID: [id number] [facility] EXAMINATION: XR WRIST LEFT 3+ VIEWS (STANDARD) 02/10/2021 2:43 pm HISTORY: ORDERING SYSTEM PROVIDED HISTORY: ecchymosis pain following crush injury, TECHNOLOGIST PROVIDED HISTORY: Injury/Trauma Reason for exam: ecchymosis pain following crush injury, PT C/O STIFFNESS IN WRIST Cancer History: u Surgery, RadiationHistory: u Encounter Type: Initial Mechanism of injury: ORDERING SYSTEM PROVIDED DIAGNOSIS CODES: J93.9 Pneumothorax on left S22.42XA Closed fracture of multiple ribs of left side, initial encounter S29.8XXA Blunt chest trauma, initial encounter R55 Syncope, unspecified syncope type S32.009A Lumbar transverse process fracture, closed, initial encounter ([facility]) COMPARISON: None FINDINGS: No acute fracture is seen. Alignment of the osseous structures is normal. Joint spaces are preserved. Soft tissue swelling is seen about dorsum of the left wrist. [facility] Interface, Rad In Fu ji Speechq - 02/10/2021 6:12 PM EDT EXAMINATION: XR WRIST LEFT 3+ VIEWS (STANDARD) 02/10/2021 2:43 pm HISTORY: ORDERING SYSTEM PROVIDED HISTORY: ecchymosis pain following crush injury, TECHNOLOGIST PROVIDED HISTORY: Injury/Trauma Reason for exam: ecchymosis pain following crush injury, PT C/O STIFFNESS IN WRIST Cancer History: u Surgery, RadiationHistory: u Encounter Type: Initial Mechanism of injury: ORDERING SYSTEM PROVIDED DIAGNOSIS CODES: J93.9 Pneumothorax on left S22.42XA Closed fracture of multiple ribs of left side, initial encounter S29.8XXA Blunt chest trauma, initial encounter R55 Syncope, unspecified syncope type S32.009A Lumbar transverse process fracture, closed, initial encounter ([facility]) COMPARISON: None FINDINGS: No acute fracture is seen. Alignment of the osseous structures is normal. Joint spaces are preserved. Soft tissue swelling is seen about dorsum of the left wrist. IMPRESSION: No evidence for acute fracture or malalignment. Soft tissue swelling seen about the dorsum of the left wrist. Workstation ID: [id number] [facility] aPTT Coag (Bld) [Time]Ordere d By: Feliberto Rivera on 02-10-2021 Therapeutic range fo r APTT's is 68 - 104 seconds [facility] Tobacco Screening.on 021 Tobacco Screening. b) No -[facility] Work Phone: Laboratory - Chemistry and C hemistry - challengeon 01-29-2021 Anion gap [Moles/Vol] 10 mmol/L 10 - 20 [facility] Work Phone: Calcium [Mass/Vol] 8.9 mg/dL 8.6 - 10.3 [facility] Work Phone: Chloride [Moles/Vol] 104 mmol/L 98 - 107 [facility] Work Phone: CO2 [Moles/Vol] 31 mmol/L 21 - 32 [facility] Work Phone: Creatinine [Mass/Vol] 1.17 mg/dL See Below [facility] Work Phone: Comment on above: Reference Range: 0.5 0 - 1.30 Glucose [Mass/Vol] 90 mg/dL 74 - 99 [facility] Work Phone: Potassium [Moles/Vol] 3.5 mmol/L 3.5 - 5.3 [facility] Work Phone: Sodium [Moles/Vol] 141 mmol/L 136 - 145 [facility] Work Phone: Urea nitrogen [Mass/Vol] 20 mg/dL 6 - 23 [facility] Work Phone: No Panel Informationon 01-29 >60 >60 [facility] Work Phone: Comment on above: CALCULATIONS OF FABIAN MATED GFR ARE PERFORMED USING THE MDRD STUDY EQUATION FOR THE IDMS-TRACEABLE CREATININE METHODS. CLIN CHEM 2007;53:766-72 Tobacco Screening.on 021 Fall risk assessment a) No falls within the last year [facility] Work Phone: Tobacco Screening. b) No [facility] Work Phone: Metabolic Panelon 11-27-2020 Anion gap [Moles/Vol] 11 mmol/L 10 - 20 [facility] Work Phone: Calcium [Mass/Vol] 9.3 mg/dL 8.6 - 10.3 [facility] Work Phone: Chloride [Moles/Vol] 102 mmol/L 98 - 107 [facility] Work Phone: CO2 [Moles/Vol] 29 mmol/L 21 - 32 -[facility] Work Phone: Creatinine [Mass/Vol] 1.13 mg/dL See Below [facility] Work Phone: Comment on above: Reference Range: 0.5 0 - 1.30 Glucose [Mass/Vol] 86 mg/dL 74 - 99 [facility] Work Phone: Potassium [Moles/Vol] 3.9 mmol/L 3.5 - 5.3 [facility] Work Phone: Sodium [Moles/Vol] 138 mmol/L 136 - 145 [facility] Work Phone: Urea nitrogen [Mass/Vol] 18 mg/dL 6 - 23 [facility] Work Phone: Otheron 11-27-2020 >60 >60 [facility] Work Phone: Comment on above: CALCULATIONS OF FABIAN MATED GFR ARE PERFORMED USING THE MDRD STUDY EQUATION FOR THE IDMS-TRACEABLE CREATININE METHODS. CLIN CHEM 2007;53:766-72 Thyroidon 11-27-2020 TSH Qn 1.13 {mIU/L} See Below [facility] Work Phone: Comment on above: Reference Range: 0.4 4 - 3.98 TSH testing is performed using different testing methodology at [facility] than at [facility]. Direct result comparisons should only be made within the same method. Glu Fastingon 05-12-2019 Glucose [Mass/Vol] 104 mg/dL High 70-99 [facility] Comment on above: Performed By: #### [id number] #### THIERRY [employer] [address] [place] [address] Lipid Profileon 05-12-2019 Cholesterol [Mass/Vol] 196 mg/dL Normal 0-199 [facility] Comment on above: Performed By: #### [id number] #### THIERRY [employer] [address] [place] [address] Cholesterol in HDL [Mass/Vol] 49 mg/dL Normal 40-60 [facility] Comment on above: Performed By: #### [id number] #### THIERRY [employer] [address] [place] [address] Cholesterol in LDL [Mass/Vol] 132 mg/dL High 0-130 [facility] Comment on above: Performed By: #### 3 [id number] #### THIERRY [employer] [address] [place] [address] Cholesterol in VLDL [Mass/Vol] 15 mg/dL Normal 0-40 [facility] Comment on above: Performed By: #### 3 [id number] #### THIERRY [facility] [address] [place] [address] Triglyceride [Mass/Vol] 74 mg/dL Normal 0-149 [facility] Comment on above: Result Comment: AGE DESIRABLE BORDERLINE HIGH 91 D - 9 Y 0 - 74 75 - 99 > 100 10 - 19 Y 0 - 89 90 - 129 > 130 20 - 24 Y 0 - 114 115 - 149 > 150 > 25 0 - 149 150 - 199 200 - 499 Performed By: #### 3 [id number] #### THIERRY [facility] [address] [place] [address] Vital Signs Date Time Vital Sign Value Performing Clinician Anna villa 03-22-2025 10:21-0400 Body height 177.[address] Melva Martinez MD Work Phone: [facility] 03-22-2025 10:21-0400 Body mass index (BMI) [Ratio] 33 kg/m2 Dr. Melva Martinez MD Work Phone: [facility] 03-22-2025 10:21-0400 Body weight 104.[address] Melva Martinez MD Work Phone: [facility] 02-26-2025 15:59-0400 Diastolic blood pressure 100 mm[Hg] Inga Ruiz VACUUM FURNACE OPERATOR-ORNAMENTAL METAL WORKER Work Phone: [facility] 02-26-2025 15:59-0400 Systolic blood pressure 142 mm[Hg] Inga Ruiz VACUUM FURNACE OPERATOR-ORNAMENTAL METAL WORKER Work Phone: [facility] 02-26-2025 15:56-0400 Body height 178.4 cm Inga Ruiz VACUUM FURNACE OPERATOR-ORNAMENTAL METAL WORKER Work Phone: [facility] 02-26-2025 15:56-0400 Body mass index (BMI) [Ratio] 32.34 kg/m2 Inga Ruiz VACUUM FURNACE OPERATOR-ORNAMENTAL METAL WORKER Work Phone: [facility] 02-26-2025 15:56-0400 Body weight 102.97 kg Inga Ruiz VACUUM FURNACE OPERATOR-ORNAMENTAL METAL WORKER Work Phone: [facility] 02-26-2025 15:56-0400 Heart rate 72 /min Inga Ruiz VACUUM FURNACE OPERATOR-ORNAMENTAL METAL WORKER Work Phone: [facility] 02-26-2025 15:56-0400 SaO2% (BldA) [Mass fraction] 96 % Inga Ruiz VACUUM FURNACE OPERATOR-ORNAMENTAL METAL WORKER Work Phone: [facility] 01-17-2025 15:59-0400 Body mass index (BMI) [Ratio] 33.4 kg/m2 Dr. Melva Martinez MD Work Phone: [facility] 01-17-2025 15:59-0400 Body temperature 98.3 [degF] Dr. Melva Martinez MD Work Phone: [facility] 01-17-2025 15:59-0400 Body weight 105.[address] Melva Martinez MD Work Phone: [facility] 01-17-2025 15:59-0400 Diastolic blood pressure 107 mm[Hg] Dr. Melva Martinez MD Work Phone: [facility] 01-17-2025 15:59-0400 Heart rate 66 /min Dr. Melva Martinez MD Work Phone: [facility] 01-17-2025 15:59-0400 Respiratory rate 16 /min Dr. Melva Martinez MD Work Phone: [facility] 01-17-2025 15:59-0400 SaO2% (BldA) [Mass fraction] 95 % Dr. Melva Martinez MD Work Phone: [facility] 01-17-2025 15:59-0400 Systolic blood pressure 157 mm[Hg] Dr. Melva Martinez MD Work Phone: [facility] 01-11-2025 16:41-0400 Body height 181.6 cm Lakia Erica VACUUM FURNACE OPERATOR-ORNAMENTAL METAL WORKER Work Phone: [facility] 01-11-2025 16:41-0400 Body mass index (BMI) [Ratio] 31.18 kg/m2 Lakia Erica VACUUM FURNACE OPERATOR-ORNAMENTAL METAL WORKER Work Phone: [facility] 01-11-2025 16:41-0400 Body weight 102.83 kg Lakia Erica VACUUM FURNACE OPERATOR-ORNAMENTAL METAL WORKER Work Phone: [facility] 01-11-2025 16:41-0400 Diastolic blood pressure 87 mm[Hg] Lakia Erica VACUUM FURNACE OPERATOR-ORNAMENTAL METAL WORKER Work Phone: [facility] 01-11-2025 16:41-0400 Heart rate 74 /min Lakia Erica VACUUM FURNACE OPERATOR-ORNAMENTAL METAL WORKER Work Phone: [facility] 01-11-2025 16:41-0400 Systolic blood pressure 131 mm[Hg] Lakia Erica VACUUM FURNACE OPERATOR-ORNAMENTAL METAL WORKER Work Phone: [facility] 12-18-2024 15:52-0400 Body height 177.[address] Melva Martinez MD Work Phone: [facility] 12-18-2024 15:52-0400 Body mass index (BMI) [Ratio] 33.4 kg/m2 Dr. Melva Martinez MD Work Phone: [facility] 12-18-2024 15:52-0400 Body temperature 97.9 [degF] Dr. Melva Martinez MD Work Phone: [facility] 12-18-2024 15:52-0400 Body weight 105.[address] Melva Martinez MD Work Phone: [facility] 12-18-2024 15:52-0400 Diastolic blood pressure 95 mm[Hg] Dr. Melva Matrinez MD Work Phone: [facility] 12-18-2024 15:52-0400 Heart rate 71 /min Dr. Melva Martinez MD Work Phone: [facility] 12-18-2024 15:52-0400 Respiratory rate 18 /min Dr. Melva Martinez MD Work Phone: [facility] 12-18-2024 15:52-0400 SaO2% (BldA) [Mass fraction] 96 % Dr. Melva Martinez MD Work Phone: [facility] 12-18-2024 15:52-0400 Systolic blood pressure 153 mm[Hg] Dr. Melva Martinez MD Work Phone: [facility] 08-28-2024 16:23-0500 Body mass index (BMI) [Ratio] 32.04 kg/m2 Melva Martinez MD Work Phone: [facility] 08-28-2024 16:23-0500 Body weight 105.69 kg Melva Martinez MD Work Phone: [facility] 08-28-2024 16:23-0500 Diastolic blood pressure 70 mm[Hg] Melva Martinez MD Work Phone: [facility] 08-28-2024 16:23-0500 Heart rate 72 /min Melva Martinez MD Work Phone: [facility] 08-28-2024 16:23-0500 SaO2% (BldA) [Mass fraction] 93 % Melva Martinez MD Work Phone: [facility] 08-28-2024 16:23-0500 Systolic blood pressure 132 mm[Hg] Melva Martinez MD Work Phone: [facility] 02-27-2024 08:10-0400 Body height 181.6 cm Melva Martinez MD Work Phone: [facility] 02-27-2024 08:10-0400 Body mass index (BMI) [Ratio] 31.22 kg/m2 Melva Martinez MD Work Phone: [facility] 02-27-2024 08:10-0400 Body weight 102.97 kg Melva Martinez MD Work Phone: [facility] 02-27-2024 08:10-0400 Diastolic blood pressure 76 mm[Hg] Melva Martinez MD Work Phone: [facility] 02-27-2024 08:10-0400 Heart rate 74 /min Melva Martinez MD Work Phone: [facility] 02-27-2024 08:10-0400 SaO2% (BldA) [Mass fraction] 94 % Melva Martinez MD Work Phone: [facility] 02-27-2024 08:10-0400 Systolic blood pressure 124 mm[Hg] Melva Martinez MD Work Phone: [facility] 12-16-2023 10:05-0400 Body temperature 97.8 [degF] Dr. Melva Martinez Work Phone: [facility] 12-16-2023 10:05-0400 Diastolic blood pressure 85 mm[Hg] Dr. Melva Martinez Work Phone: [facility] 12-16-2023 10:05-0400 Heart rate 66 /min Dr. Melva Martinez Work Phone: [facility] 12-16-2023 10:05-0400 Respiratory rate 18 /min Dr. Melva Martinez Work Phone: [facility] 12-16-2023 10:05-0400 SaO2% (BldA) [Mass fraction] 96 % Dr. Melva Martinez Work Phone: [facility] 12-16-2023 10:05-0400 Systolic blood pressure 128 mm[Hg] Dr. Melva Martinez Work Phone: [facility] 12-14-2023 17:00-0400 Body mass index (BMI) [Ratio] 32.3 kg/m2 Dr. Melva Martienz Work Phone: [facility] 12-14-2023 17:00-0400 Body weight 102.[address] Melva Martinez Work Phone: [facility] 12-14-2023 17:00-0400 Inhaled oxygen flow rate 3 L/min Dr. Melva Martinez Work Phone: [facility] 12-14-2023 12:02-0400 Body height 177.[address] Melva Martinez Work Phone: [facility] 12-14-2023 12:02-0400 Body mass index (BMI) [Ratio] 31.3 kg/m2 Dr. Melva Martinez Work Phone: [facility] 12-14-2023 12:02-0400 Body temperature 97.4 [degF] Dr. eMlva Martinez Work Phone: [facility] 12-14-2023 12:02-0400 Body weight [address] Melva Martinez Work Phone: [facility] 12-14-2023 12:02-0400 Diastolic blood pressure 90 mm[Hg] Dr. Melva Martinez Work Phone: [facility] 12-14-2023 12:02-0400 Heart rate 67 /min Dr. Melva Martinez Work Phone: [facility] 12-14-2023 12:02-0400 Respiratory rate 18 /min Dr. Melva aMrtinez Work Phone: [facility] 12-14-2023 12:02-0400 SaO2% (BldA) [Mass fraction] 97 % Dr. Melva Martinez Work Phone: [facility] 12-14-2023 12:02-0400 Systolic blood pressure 143 mm[Hg] Dr. Melva Martinez Work Phone: [facility] 12-12-2023 16:00-0400 Body temperature 98.4 [degF] Dr. Melva Martinez Work Phone: [facility] 12-12-2023 16:00-0400 Diastolic blood pressure 66 mm[Hg] Dr. Melva Martinez Work Phone: [facility] 12-12-2023 16:00-0400 Heart rate 67 /min Dr. Melva Martinez Work Phone: [facility] 12-12-2023 16:00-0400 Respiratory rate 14 /min Dr. Melva Martinez Work Phone: [facility] 12-12-2023 16:00-0400 SaO2% (BldA) [Mass fraction] 96 % Dr. Melva Martinez Work Phone: [facility] 12-12-2023 16:00-0400 Systolic blood pressure 101 mm[Hg] Dr. Melva Martinez Work Phone: [facility] 12-12-2023 15:45-0400 Inhaled oxygen flow rate 6 L/min Dr. Melva Martinez Work Phone: [facility] 12-12-2023 14:08-0400 Body height 177.[address] Melva Martinez Work Phone: [facility] 12-12-2023 14:08-0400 Body mass index (BMI) [Ratio] 30.9 kg/m2 Dr. Melva Martinez Work Phone: [facility] 12-12-2023 14:08-0400 Body weight 97.[address] Melva Martinez Work Phone: [facility] 12-05-2023 12:37-0400 Body mass index (BMI) [Ratio] 32.5 kg/m2 Dr. Melva Martinez Work Phone: [facility] 12-05-2023 12:37-0400 Body temperature 97.6 [degF] Dr. Melva Martinez Work Phone: [facility] 12-05-2023 12:37-0400 Body weight 102.[address] Melva Martinez Work Phone: [facility] 12-05-2023 12:37-0400 Diastolic blood pressure 91 mm[Hg] Dr. Melva Martinez Work Phone: [facility] 12-05-2023 12:37-0400 Heart rate 75 /min Dr. Melva Martinez Work Phone: [facility] 12-05-2023 12:37-0400 Respiratory rate 18 /min Dr. Melva Martinez Work Phone: [facility] 12-05-2023 12:37-0400 SaO2% (BldA) [Mass fraction] 98 % Dr. Melva Martinez Work Phone: [facility] 12-05-2023 12:37-0400 Systolic blood pressure 151 mm[Hg] Dr. Melva Martinez Work Phone: [facility] 11-17-2023 14:53-0500 Body mass index (BMI) [Ratio] 32.8 kg/m2 Dr. Melva Martinez Work Phone: [facility] 11-17-2023 14:53-0500 Body temperature 97.2 [degF] Dr. Melva Martinez Work Phone: [facility] 11-17-2023 14:53-0500 Body weight 103.[address] Melva Martinez Work Phone: [facility] 11-17-2023 14:53-0500 Diastolic blood pressure 90 mm[Hg] Dr. Melva Martinez Work Phone: [facility] 11-17-2023 14:53-0500 Heart rate 77 /min Dr. Melva Martinez Work Phone: [facility] 11-17-2023 14:53-0500 Respiratory rate 18 /min Dr. Melva Martinez Work Phone: [facility] 11-17-2023 14:53-0500 SaO2% (BldA) [Mass fraction] 97 % Dr. Melva Martinez Work Phone: [facility] 11-17-2023 14:53-0500 Systolic blood pressure 143 mm[Hg] Dr. Melva Martinez Work Phone: [facility] 11-10-2023 09:53-0500 Body height 179.1 cm Humberto Peguero DO Work Phone: [facility] 11-10-2023 09:53-0500 Body mass index (BMI) [Ratio] 32.42 kg/m2 Humberto Peguero DO Work Phone: [facility] 11-10-2023 09:53-0500 Body weight 103.96 kg Humberto Peguero DO Work Phone: [facility] 10-03-2023 08:09-0500 Body mass index (BMI) [Ratio] 32.8 kg/m2 Dr. Melva Martinez Work Phone: [facility] 10-03-2023 08:09-0500 Body temperature 97.9 [degF] Dr. Melva Martinez Work Phone: [facility] 10-03-2023 08:09-0500 Body weight 103.[address] Melva Martinez Work Phone: [facility] 10-03-2023 08:09-0500 Diastolic blood pressure 93 mm[Hg] Dr. Melva Martinez Work Phone: [facility] 10-03-2023 08:09-0500 Heart rate 77 /min Dr. Melva Martinez Work Phone: [facility] 10-03-2023 08:09-0500 Respiratory rate 18 /min Dr. Melva Martinez Work Phone: [facility] 10-03-2023 08:09-0500 SaO2% (BldA) [Mass fraction] 99 % Dr. Melva Martinez Work Phone: [facility] 10-03-2023 08:09-0500 Systolic blood pressure 149 mm[Hg] Dr. Melva Martinez Work Phone: [facility] 09-26-2023 15:26-0500 Body mass index (BMI) [Ratio] 32.31 kg/m2 Tanner Wang MD MPH Work Phone: [facility] 09-26-2023 15:26-0500 Body weight 103.6 kg Tanner Wang MD MPH Work Phone: [facility] 09-26-2023 15:26-0500 Diastolic blood pressure 100 mm[Hg] Tanner Wang MD MPH Work Phone: [facility] 09-26-2023 15:26-0500 Heart rate 71 /min Tanner Wang MD MPH Work Phone: [facility] 09-26-2023 15:26-0500 SaO2% (BldA) [Mass fraction] 96 % Tanner Wang MD MPH Work Phone: [facility] 09-26-2023 15:26-0500 Systolic blood pressure 154 mm[Hg] Tanner Wang MD MPH Work Phone: [facility] 08-26-2023 08:15-0500 Body mass index (BMI) [Ratio] 31.83 kg/m2 Melva Martinez MD Work Phone: [facility] 08-26-2023 08:15-0500 Body weight 102.06 kg Melva Martinez MD Work Phone: [facility] 08-26-2023 08:15-0500 Diastolic blood pressure 80 mm[Hg] Melva Martinez MD Work Phone: [facility] 08-26-2023 08:15-0500 Heart rate 64 /min Melva Martinez MD Work Phone: [facility] 08-26-2023 08:15-0500 SaO2% (BldA) [Mass fraction] 99 % Melva Martinez MD Work Phone: [facility] 08-26-2023 08:15-0500 Systolic blood pressure 130 mm[Hg] Melva Martinez MD Work Phone: [facility] 10-04-2022 14:26-0500 Body height 179.07 cm eMlva Martinez Work Phone: [facility] Work Phone: 10-04-2022 14:26-0500 Body mass index (BMI) [Ratio] 31.4 kg/m2 Melva Martinez Work Phone: [facility] Work Phone: 10-04-2022 14:26-0500 Body surface area Derived from formula 2.19 m2 Melva Martinez Work Phone: [facility] Work Phone: 10-04-2022 14:26-0500 Body weight 100.7 kg Melva Martinez Work Phone: [facility] Work Phone: 10-04-2022 14:26-0500 Diastolic blood pressure 90 mm[Hg] Melva Martinez Work Phone: [facility] Work Phone: 10-04-2022 14:26-0500 Heart rate 64 /min Melva Martinez Work Phone: [facility] Work Phone: 10-04-2022 14:26-0500 Systolic blood pressure 134 mm[Hg] Melva O Martinez Work Phone: [facility] Work Phone: 09-21-2022 17:01-0500 Diastolic blood pressure 92 mm[Hg] Alexandria Gore ORNAMENTAL METAL WORKER Work Phone: [facility] Comment on above: .....recheck als 09-21-2022 17:01-0500 Systolic blood pressure 138 mm[Hg] Alexandria Gore ORNAMENTAL METAL WORKER Work Phone: [facility] Comment on above: .....recheck als 09-21-2022 17:00-0500 Body mass index (BMI) [Ratio] 32.28 kg/m2 Alexandria Gore ORNAMENTAL METAL WORKER Work Phone: [facility] 09-21-2022 17:00-0500 Body temperature 97 [degF] Alexandria Gore ORNAMENTAL METAL WORKER Work Phone: [facility] 09-21-2022 17:00-0500 Body weight 102.06 kg Alexandria Gore ORNAMENTAL METAL WORKER Work Phone: [facility] 09-21-2022 17:00-0500 Heart rate 61 /min Alexandria Gore ORNAMENTAL METAL WORKER Work Phone: [facility] 09-21-2022 17:00-0500 Respiratory rate 14 /min Alexandria Gore ORNAMENTAL METAL WORKER Work Phone: [facility] 09-21-2022 17:00-0500 SaO2% (BldA) [Mass fraction] 98 % Alexandria Gore ORNAMENTAL METAL WORKER Work Phone: [facility] 09-10-2022 10:07-0500 Diastolic blood pressure 105 mm[Hg] Melissa Lamport PA-C Work Phone: [facility] Comment on above: Recheck 09-10-2022 10:07-0500 Systolic blood pressure 159 mm[Hg] Melissa Lamport PA-C Work Phone: [facility] Comment on above: Recheck 09-10-2022 10:05-0500 Body mass index (BMI) [Ratio] 32.28 kg/m2 Melissa Lamport PA-C Work Phone: [facility] 09-10-2022 10:05-0500 Body temperature 97.59 [degF] Melissa Lamport PA-C Work Phone: [facility] 09-10-2022 10:05-0500 Body weight 102.06 kg Melissa Lamport PA-C Work Phone: [facility] 09-10-2022 10:05-0500 Heart rate 67 /min Melissa Lamport PA-C Work Phone: [facility] 09-10-2022 10:05-0500 Respiratory rate 16 /min Melissa Lamport PA-C Work Phone: [facility] 09-10-2022 10:05-0500 SaO2% (BldA) [Mass fraction] 98 % Melissa Lamport PA-C Work Phone: [facility] 08-13-2022 08:48-0500 Body height 179.07 cm Melva Guer Work Phone: [facility] Work Phone: 08-13-2022 08:48-0500 Body mass index (BMI) [Ratio] 31.4 kg/m2 Melva Guer Work Phone: [facility] Work Phone: 08-13-2022 08:48-0500 Body surface area Derived from formula 2.19 m2 Melva Guer Work Phone: [facility] Work Phone: 08-13-2022 08:48-0500 Body weight 100.7 kg Melva Guer Work Phone: [facility] Work Phone: 08-13-2022 08:48-0500 Diastolic blood pressure 82 mm[Hg] Melva Promise LorenzMartinez Work Phone: [facility] Work Phone: 08-13-2022 08:48-0500 Heart rate 64 /min Melva O Martinez Work Phone: [facility] Work Phone: 08-13-2022 08:48-0500 Systolic blood pressure 128 mm[Hg] Melva O Martinez Work Phone: [facility] Work Phone: 01-29-2022 07:53-0400 Body height 179.07 cm Melva O Martinez Work Phone: [facility] Work Phone: 01-29-2022 07:53-0400 Body mass index (BMI) [Ratio] 31.12 kg/m2 Melva O Martinez Work Phone: [facility] Work Phone: 01-29-2022 07:53-0400 Body surface area Derived from formula 2.18 m2 Melva O Martinez Work Phone: [facility] Work Phone: 01-29-2022 07:53-0400 Body weight 99.79 kg Melva O Martinez Work Phone: [facility] Work Phone: 01-29-2022 07:53-0400 Diastolic blood pressure 82 mm[Hg] Melva O Martinez Work Phone: [facility] Work Phone: 01-29-2022 07:53-0400 Heart rate 76 /min Melva O Martinez Work Phone: [facility] Work Phone: 01-29-2022 07:53-0400 Systolic blood pressure 140 mm[Hg] Melva O Martinez Work Phone: [facility] Work Phone: 07-31-2021 08:28-0500 Body height 180.34 cm Melva O Martinez Work Phone: [facility] Work Phone: 07-31-2021 08:28-0500 Body mass index (BMI) [Ratio] 30.96 kg/m2 Melva O Martinez Work Phone: [facility] Work Phone: 07-31-2021 08:28-0500 Body surface area Derived from formula 2.2 m2 Melva O Martinez Work Phone: [facility] Work Phone: 07-31-2021 08:28-0500 Body weight 100.7 kg Melva O Martinez Work Phone: [facility] Work Phone: 07-31-2021 08:28-0500 Diastolic blood pressure 80 mm[Hg] Melva O Martinez Work Phone: [facility] Work Phone: 07-31-2021 08:28-0500 Heart rate 72 /min Melva O Martinez Work Phone: [facility] Work Phone: 07-31-2021 08:28-0500 Systolic blood pressure 112 mm[Hg] Melva O Martinez Work Phone: [facility] Work Phone: 05-19-2021 14:31-0400 Body height 177.8 cm Alexandriapatrick Huynh ORNAMENTAL METAL WORKER Work Phone: [facility] 05-19-2021 14:31-0400 Body mass index (BMI) [Ratio] 31.71 kg/m2 Alexandria Huynh ORNAMENTAL METAL WORKER Work Phone: [facility] 05-19-2021 14:31-0400 Body weight 100.25 kg Alexandria Huynh ORNAMENTAL METAL WORKER Work Phone: [facility] 05-19-2021 14:31-0400 Diastolic blood pressure 88 mm[Hg] Alexandria Huynh ORNAMENTAL METAL WORKER Work Phone: [facility] 05-19-2021 14:31-0400 Heart rate 71 /min Alexandria Huynh ORNAMENTAL METAL WORKER Work Phone: [facility] 05-19-2021 14:31-0400 Respiratory rate 97 /min Alexandria Huynh ORNAMENTAL METAL WORKER Work Phone: [facility] 05-19-2021 14:31-0400 Systolic blood pressure 146 mm[Hg] Alexandria Huynh ORNAMENTAL METAL WORKER Work Phone: [facility] 04-16-2021 13:43-0400 Body mass index (BMI) [Ratio] 30.99 kg/m2 Alexandria Huynh ORNAMENTAL METAL WORKER Work Phone: [facility] 04-16-2021 13:43-0400 Body weight 97.98 kg Alexandria Huynh ORNAMENTAL METAL WORKER Work Phone: [facility] 04-16-2021 13:43-0400 Diastolic blood pressure 96 mm[Hg] Alexandria Huynh ORNAMENTAL METAL WORKER Work Phone: [facility] 04-16-2021 13:43-0400 Heart rate 74 /min Alexandria Huynh ORNAMENTAL METAL WORKER Work Phone: [facility] 04-16-2021 13:43-0400 Respiratory rate 14 /min Alexandria Huynh ORNAMENTAL METAL WORKER Work Phone: [facility] 04-16-2021 13:43-0400 SaO2% (BldA) [Mass fraction] 96 % Alexandria Huynh ORNAMENTAL METAL WORKER Work Phone: [facility] 04-16-2021 13:43-0400 Systolic blood pressure 140 mm[Hg] Alexandria Huynh ORNAMENTAL METAL WORKER Work Phone: [facility] 02-26-2021 13:24-0400 Body height 177.8 cm Alexandria Huynh ORNAMENTAL METAL WORKER Work Phone: [facility] 02-26-2021 13:24-0400 Body mass index (BMI) [Ratio] 30.15 kg/m2 Alexandria Huynh ORNAMENTAL METAL WORKER Work Phone: [facility] 02-26-2021 13:24-0400 Body weight 95.3 kg Alexandria Huynh ORNAMENTAL METAL WORKER Work Phone: [facility] 02-26-2021 13:24-0400 Diastolic blood pressure 87 mm[Hg] Alexandria Huynh ORNAMENTAL METAL WORKER Work Phone: [facility] 02-26-2021 13:24-0400 Heart rate 76 /min Alexandria Huynh ORNAMENTAL METAL WORKER Work Phone: [facility] 02-26-2021 13:24-0400 SaO2% (BldA) [Mass fraction] 96 % Alexandria Huynh ORNAMENTAL METAL WORKER Work Phone: [facility] 02-26-2021 13:24-0400 Systolic blood pressure 129 mm[Hg] Alexandria Huynh ORNAMENTAL METAL WORKER Work Phone: [facility] 02-18-2021 10:00-0400 Respiratory rate 16 /min Feliberto Rivera MD Work Phone: [facility] 02-18-2021 09:53-0400 Body temperature 98.01 [degF] Feliberto Rivera MD Work Phone: [facility] 02-18-2021 09:53-0400 Diastolic blood pressure 82 mm[Hg] Feliberto Rivera MD Work Phone: [facility] 02-18-2021 09:53-0400 Heart rate 77 /min Feliberto Rivera MD Work Phone: [facility] 02-18-2021 09:53-0400 SaO2% (BldA) [Mass fraction] 94 % Feliberto Rivera MD Work Phone: [facility] 02-18-2021 09:53-0400 Systolic blood pressure 167 mm[Hg] Feliberto Rivera MD Work Phone: [facility] 02-18-2021 05:00-0400 Body mass index (BMI) [Ratio] 31.47 kg/m2 Feliberto Rivera MD Work Phone: [facility] 02-18-2021 05:00-0400 Body weight 99.5 kg Feliberto Rivera MD Work Phone: [facility] 02-12-2021 12:44-0400 SaO2% (BldA) [Mass fraction] 99.0 % Feliberto Rivera MD Work Phone: [facility] 02-12-2021 12:44-0400 SaO2% (BldA) [Mass fraction] 79.0 % Feliberto Rivera MD Work Phone: [facility] 02-10-2021 07:15-0400 Respiratory rate 0 /min Feliberto Rivera MD Work Phone: [facility] 02-10-2021 07:03-0400 Body height 177.8 cm Feliberto Rivera MD Work Phone: [facility] 02-06-2021 07:59-0400 Body height 180.34 cm Melva O Martinez Work Phone: [facility] Work Phone: 02-06-2021 07:59-0400 Body mass index (BMI) [Ratio] 29.71 kg/m2 Melva O Martinez Work Phone: [facility] Work Phone: 02-06-2021 07:59-0400 Body surface area Derived from formula 2.17 m2 Melva O Martinez Work Phone: [facility] Work Phone: 02-06-2021 07:59-0400 Body weight 96.62 kg Melva O Martinez Work Phone: [facility] Work Phone: 02-06-2021 07:59-0400 Diastolic blood pressure 88 mm[Hg] Melva O Martinez Work Phone: [facility] Work Phone: 02-06-2021 07:59-0400 Heart rate 68 /min Melva O Martinez Work Phone: [facility] Work Phone: 02-06-2021 07:59-0400 Systolic blood pressure 132 mm[Hg] Melva O Martinez Work Phone: [facility] Work Phone: 01-09-2021 08:26-0400 Diastolic blood pressure 100 mm[Hg] Melva O Martinez Work Phone: [facility] Work Phone: 01-09-2021 08:26-0400 Systolic blood pressure 160 mm[Hg] Melva O Martinez Work Phone: [facility] Work Phone: 01-09-2021 08:04-0400 Diastolic blood pressure 118 mm[Hg] Melva O Martinez Work Phone: [facility] Work Phone: 01-09-2021 08:04-0400 Heart rate 62 /min Melva O Martinez Work Phone: [facility] Work Phone: 01-09-2021 08:04-0400 SaO2% (BldA) [Mass fraction] 99 % Melva O Martinez Work Phone: [facility] Work Phone: 01-09-2021 08:04-0400 Systolic blood pressure 184 mm[Hg] Melva O Martinez Work Phone: [facility] Work Phone: 01-09-2021 08:03-0400 Body height 180.34 cm Melva O Martinez Work Phone: [facility] Work Phone: 01-09-2021 08:03-0400 Body mass index (BMI) [Ratio] 29.71 kg/m2 Melva O Martinez Work Phone: [facility] Work Phone: 01-09-2021 08:03-0400 Body surface area Derived from formula 2.17 m2 Melva Guer Work Phone: [facility] Work Phone: 01-09-2021 08:03-0400 Body temperature 98.6 [degF] Melva Guer Work Phone: [facility] Work Phone: 01-09-2021 08:03-0400 Body weight 96.62 kg Melva Guer Work Phone: [facility] Work Phone: 11-27-2020 14:58-0400 BMI (Body Mass Index) 29.28 kg/m2 Melva Martinez [facility] Work Phone: 11-27-2020 14:58-0400 Body weight 93.9 kg Melva Martinez [facility] Work Phone: 11-27-2020 14:58-0400 BP Diastolic 78 mm[Hg] Melva Martinez [facility] Work Phone: Comment on above: Location: E; 11-27-2020 14:58-0400 BP Systolic 140 mm[Hg] Melva Martinez [facility] Work Phone: Comment on above: Location: E; 11-27-2020 14:58-0400 BSA (Body Surface Area) 2.13 m2 Melva Martinez [facility] Work Phone: 11-27-2020 14:58-0400 Height 179.07 cm Melva Martinez [facility] Work Phone: 11-27-2020 14:58-0400 Pulse (Heart Rate) 64 /min Melva Martinez [facility] Work Phone: Encounters Encounter Date Encounter Type Care Provider Facility Start: 04-01-2025 [facility] Facility :[facility] Start: 03-22-2025 End: 03-22-[address] Vicente Valle MD -[facility] Start: 03-22-2025 End: 03-22-[address] Melva Martinez MD Work Phone: [facility] Start: 03-14-2025 End: 03-14-2025 Office outpatient visit 15 minutes Inga Levi Teddy V[employer] FURNACE OPERATOR-[employer]MENTAL METAL WORKER Work Phone: [facility] Comment on above: Hypertension, benign (Primary Dx); Gastroesophageal reflux disease, unspecified whether esophagitis present Start: 03-14-2025 End: 03-14-2025 ambulatory [facility] Ambulatory Start: 02-26-2025 End: 02-26-2025 Office outpatient visit 25 minutes Inga Levi Teddy VACUUM FURNACE OPERATOR-ORNAMENTAL METAL WORKER Work Phone: [facility] Comment on above: Synovial cyst of rig ht popliteal space (Primary Dx); Hypertension, benign; Restless leg syndrome; Lipid screening; Prostate cancer screening; Vitamin D deficiency; Routine general medical examination at a health care facility; Thyroid nodule Start: 02-26-2025 End: 02-26-2025 Patient encounter status Inga Sims Ruiz VACUUM FURNACE OPERATOR-ORNAMENTAL METAL WORKER Work Phone: [facility] Work Phone: Start: 02-26-2025 End: 02-26-2025 ambulatory [facility] Ambulatory Start: 02-26-2025 End: 02-26-2025 Encounter for general adult medical examination without abnormal findings [facility] Ambulatory Start: 01-17-2025 End: 01-17-[address] Remy Ventura MD [facility] Work Phone: Start: 01-17-2025 End: 01-17-2025 ambulatory Remy Ventura Facility:[facility] Start: 01-14-2025 End: 01-14-2025 Subsequent hospital visit by physician Deonte Robbins [facility] Comment on above: Acute deep vein thro mbosis (DVT) of proximal vein of right lower extremity; Bilateral edema of lower extremity Start: 01-14-2025 End: 01-14-2025 ambulatory [facility] Start: 01-12-2025 End: 01-12-2025 Subsequent hospital visit by physician Deonte X-Ray Fluoro 1 [facility] Comment on above: Acute pain of right knee Start: 01-12-2025 End: 01-12-2025 ambulatory [facility] Start: 01-11-2025 End: 01-11-2025 Office outpatient visit 15 minutes Lakia Beachman VACUUM FURNACE OPERATOR-OR[employer]MENTAL METAL WORKER Work Phone: [facility] Comment on above: Acute deep vein thro mbosis (DVT) of proximal vein of right lower extremity (Primary Dx); Acute pain of right knee Start: 01-11-2025 End: 01-11-2025 ambulatory [facility] Ambulatory Start: 01-10-2025 End: 01-10-[address] Melva Martinez MD Work Phone: [facility] Work Phone: Start: 01-10-2025 End: 01-10-[address] Remy Ventura MD -[facility] Work Phone: Start: 01-10-2025 End: 01-10-2025 ambulatory [facility] Facility:[facility] Start: 12-18-2024 End: 12-18-[address] Remy Ventura MD -[facility] Work Phone: Start: 12-18-2024 End: 12-18-2024 ambulatory [facility] Facility:[facility] Start: 12-06-[address] Remy Ventura MD -[facility] Start: 12-06-2024 ambulatory [facility] Facility:[facility] Start: 10-03-2024 Encounter for prepro cedural laboratory examination [place] Lorenzo [facility] Start: 08-30-2024 End: 08-30-2024 ambulatory [facility] Facility:[facility] Start: 08-28-2024 End: 08-28-2024 Office outpatient visit 25 minutes Melva Martinez MD Work Phone: [facility] Comment on above: Hypertension, benign (Primary Dx); Vitamin D deficiency; Arthropathy; Benign neuroendocrine tumor of duodenum (CMS-HCC); Chronic allergic rhinitis; Class 1 obesity due to excess calories without serious comorbidity with body mass index (BMI) of 31.0 to 31.9 in adult; Facet arthropathy, thoracic; Gastroesophageal reflux disease without esophagitis; Liver cyst; Pure hypercholesterolemia; Renal cyst; Restless leg syndrome; Sensorineural hearing loss (SNHL) of both ears; Thyroid nodule; Umbilical hernia without obstruction and without gangrene; IFG (impaired fasting glucose) Start: 08-28-2024 End: 08-28-2024 ambulatory [facility] Ambulatory Start: 08-20-2024 End: 08-20-2024 ambulatory [facility] Start: 08-20-2024 End: 08-20-2024 Encounter for general adult medical examination without abnormal findings [facility] Start: 06-26-2024 End: 06-26-2024 ambulatory [facility] [facility] Start: 06-20-2024 End: 06-20-2024 ambulatory [facility] Facility:[facility] Start: 04-17-2024 End: 04-17-2024 ambulatory Negin Farrar [place] Facility:[facility] Start: 02-27-2024 End: 02-27-2024 Office outpatient visit 40 minutes Melva Martinez MD Work Phone: [facility] Comment on above: Benign neuroendocrin e tumor of duodenum (CMS-HCC) (Primary Dx); Hypertension, benign; Gastroesophageal reflux disease, unspecified whether esophagitis present; Healthcare maintenance; Vitamin D deficiency; S/P small bowel resection; Thyroid nodule; Arthropathy; Chronic allergic rhinitis; Class 1 obesity due to excess calories without serious comorbidity with body mass index (BMI) of 31.0 to 31.9 in adult; Restless leg syndrome; Sensorineural hearing loss (SNHL) of both ears; Umbilical hernia without obstruction and without gangrene; Pure hypercholesterolemia Start: 02-27-2024 End: 02-27-2024 Patient encounter status Melva Martinez MD Work Phone: [facility] Work Phone: Start: 02-22-2024 End: 02-22-2024 ambulatory MELVA MARTINEZ [facility] Start: 02-14-2024 ambulatory REMY VENTURA Facility:[facility] Start: 02-14-2024 End: 02-14-2024 Subsequent hospital visit by physician Remy Ventura MD Work Phone: [facility] Comment on above: Arrived Start: 12-16-2023 Non-patient / Non-visit Dr. Oly Martinez Work Phone: [facility] Start: 12-15-2023 Non-patient / Non-visit Dr. Oly Martinez Work Phone: [facility] Start: 12-14-2023 End: 12-16-2023 Evaluation and management of inpatient [facility] Mel[facility] Work Phone: Start: 12-14-2023 Non-patient / Non-visit Dr. Oly Martinez Work Phone: [facility] Start: 12-14-2023 Admission to same da y surgery center Dr. Melva Martinez Work Phone: [facility] Intelligence Officer Chief Work Phone: Start: 12-12-2023 Non-patient / Non-visit Dr. Oly Martinez Work Phone: [facility] Start: 12-12-2023 End: 12-12-2023 Admission to same day surgery center Dr. Melva Martinez Work Phone: [facility] Work Phone: Start: 12-12-2023 End: 12-12-[address] Melva Martinez Work Phone: [facility] Work Phone: Start: 12-09-2023 End: 12-09-[address] Melva Martinez Work Phone: [facility] Work Phone: Start: 12-09-2023 End: 12-09-[address] Melva Martinez Work Phone: [facility] Work Phone: Start: 12-05-2023 End: 12-05-[address] Melva Martinez Work Phone: [facility] Work Phone: Start: 11-28-2023 End: 11-28-2023 ambulatory MELVA Virgen [facility] Start: 11-25-2023 End: 11-25-2023 ambulatory [facility] Start: 11-19-2023 End: 11-19-2023 Subsequent hospital visit by physician Deonte Chatman [address] [place] [address] Comment on above: Left lower quadrant pain Start: 11-17-2023 End: 11-17-[address] Melva Martinez Work Phone: [facility] Work Phone: Start: 11-17-2023 End: 11-17-2023 Non-patient / Non-visit Dr. Melva Martinez Work Phone: [facility] Work Phone: Start: 11-12-2023 End: 11-12-2023 ambulatory MELVA Virgen [facility] Start: 11-10-2023 End: 11-10-2023 Office outpatient new 45 minutes Humberto Peguero DO Work Phone: [facility] Comment on above: Left lower quadrant pain (Primary Dx); Gastroesophageal reflux disease without esophagitis; Abdominal bloating; LLQ pain; Diarrhea, unspecified type Start: 10-03-2023 End: 01-22-[address] Melva Martinez Work Phone: [facility] Work Phone: Start: 09-26-2023 End: 09-26-2023 Office outpatient visit 15 minutes Tanner Wang MD MPH Work Phone: [facility] Comment on above: Acute pain of left k nee (Primary Dx) Start: 08-29-2023 End: 08-29-2023 Subsequent hospital visit by physician Deonte Keating [facility] Comment on above: Thyroid nodule Start: 08-26-2023 End: 08-26-2023 Office outpatient visit 25 minutes Melva Martinez MD Work Phone: [facility] Comment on above: Arthropathy (Primary Dx); Chronic allergic rhinitis; Gastroesophageal reflux disease without esophagitis; Abdominal bloating; Thyroid nodule; Renal cyst; Liver cyst; Fatty liver; Hypertension, benign; Umbilical hernia without obstruction and without gangrene; Facet arthropathy, thoracic Start: 10-08-2022 Chart Update Melva Martinez Work Phone: [facility] Work Phone: Start: 10-08-[address] Melva Martinez Facility:[id number] Start: 10-04-2022 Office outpatient vi sit 15 minutes Melva Martinez Work Phone: [facility] Work Phone: Start: 10-04-[address] Melva Martinez Facility:[id number] Start: 09-21-2022 End: 09-21-2022 ambulatory MELVA MARTINEZ [facility] Start: 09-21-2022 End: 09-21-2022 Postop follow up visit related to original px Alexandria Gore CNP Work Phone: [facility] Comment on above: Visit for suture rem oval (Primary Dx); Elevated blood pressure reading Start: 09-10-2022 End: 09-10-2022 ambulatory MELVA MATRINEZ [facility] Start: 09-10-2022 End: 09-10-2022 Office outpatient new 45 minutes Melissa Short PA-C Work Phone: [facility] [place] Comment on above: Laceration of right forearm, initial encounter (Primary Dx) Start: 08-23-2022 Chart Update Melva Martinez Work Phone: -[facility] Work Phone: Start: 08-20-[address] Melva Martinez Facility:[id number] Start: 08-13-2022 Office outpatient vi sit 25 minutes Melva Martinez Work Phone: -[facility] Work Phone: Start: 08-13-[address] Melva Martinez Facility:[id number] Start: 08-09-2022 Chart Update Melva Martinez Work Phone: [email or web address] Work Phone: Start: 02-15-2022 Chart Update Melva Martinez Work Phone: [email or web address] Work Phone: Start: 02-12-[address] Melva Martinez Facility:[id number] Start: 01-29-2022 Office outpatient vi sit 25 minutes Melva Martinez Work Phone: [email or web address] Work Phone: Start: 01-15-2022 Chart Update Melva Martinez Work Phone: [email or web address] Work Phone: Start: 11-24-2021 End: 11-24-2021 ambulatory THEODORA VILLANUEVA [facility] Start: 08-17-2021 AUDIT Melva Martinez Work Phone: [facility] Work Phone: Start: 07-31-2021 Office outpatient vi sit 25 minutes Melva Martinez Work Phone: [facility] Work Phone: Start: 07-24-2021 Chart Update Melva Martinez Work Phone: [facility] Work Phone: Start: 06-26-2021 AUDIT Melva Martinez Work Phone: [facility] Work Phone: Start: 06-08-2021 Chart Update Melva Martinez Work Phone: [facility] Work Phone: Start: 06-03-2021 Chart Update Melva Virgen Martinez Work Phone: [facility] Work Phone: Start: 05-20-2021 Documentation procedure Tamir Hyunh ORNAMENTAL METAL WORKER Work Phone: [facility] Start: 05-19-2021 End: 05-20-2021 ambulatory ALEXANDRIA HUYNH [facility] Start: 05-19-2021 End: 05-19-2021 Office outpatient visit 10 minutes Alexandria Huynh ORNAMENTAL METAL WORKER Work Phone: [facility] Comment on above: 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, subsequent encounter (Primary Dx); Multiple fractures of ribs, bilateral, init for clos fx Start: 04-16-2021 End: 04-16-2021 ambulatory ALEXANDRIA HUYNH [facility] Start: 04-16-2021 End: 04-16-2021 Office outpatient visit 10 minutes Alexandria Huynh ORNAMENTAL METAL WORKER Work Phone: [facility] Comment on above: Multiple fractures o f ribs, bilateral, init for clos fx (Primary Dx) Start: 03-27-2021 Chart Update Melva Promise LorenzMartinez Work Phone: [facility] Work Phone: Start: 02-26-2021 End: 02-26-2021 ambulatory MELVA MARTINEZ [facility] Start: 02-26-2021 End: 02-26-2021 Office outpatient visit 10 minutes Alexandria Huynh ORNAMENTAL METAL WORKER Work Phone: [facility] Comment on above: Multiple fractures o f ribs, bilateral, init for clos fx (Primary Dx) Start: 02-10-2021 End: 02-18-2021 Evaluation and management of inpatient MELVA COHEN MARTINEZ [facility] Start: 02-10-2021 End: 02-14-2021 Emergency department patient visit FELIBERTORAUL RIVERA [facility] Start: 02-10-2021 End: 02-18-2021 Evaluation and management of inpatient Feliberto Rivera MD Work Phone: [facility] Start: 02-06-2021 Office outpatient vi sit 15 minutes Melva Martinez Work Phone: [facility] Work Phone: Start: 11-27-2020 Patient encounter procedure Melva berry [facility] Work Phone: Start: 05-22-2020 Patient encounter procedure Melva berry [facility] Work Phone: Start: 07-17-2019 Patient encounter procedure Melva berry [facility] Work Phone: Procedures Date Procedure Procedure Detail Performing Clinician Start: 01-14-2025 Dup-scan xtr veins c omplete bilateral study Lakia Maldonado VACUUM FURNACE OPERATOR-ORNAMENTAL METAL WORKER Work Phone: Start: 01-10-2025 CT of thorax, abdome n and pelvis with contrast Dr. Melva Martinez MD Work Phone: Start: 12-06-[address] Melva Martinez MD Work Phone: Start: 08-20-2024 Lipid 1996 panel - S marybeth or Plasma Melva Martinez MD Work Phone: Start: 02-14-[address] atten uation skull base mid-thigh Remy Ventura MD Work Phone: Start: 12-27-2023 Measurement of renal function Dr. Melva Martinez MD Work Phone: Comment on above: GFR Calc Start: 12-14-[address] Melva Martinez Work Phone: Start: 12-12-2023 End: 12-12-[address] Melva Martinez Work Phone: Start: 12-09-2023 Radiologic examinati on of upper gastrointestinal tract and small bowel with serial films Dr. Melva Martinez Work Phone: Start: 11-28-2023 5 HIAA, URINE, QUANT ITATIVE, 24 HOUR MELVA MARTINEZ Start: 11-25-2023 5-HYDROXYINDOLEACETI C ACID,PLASMA MELVA MARTINEZ Start: 11-25-2023 SEROTONIN SERUM MELVA GANNON Start: 11-12-2023 ALLERGEN, FOOD PROFILE IGE MELVA MARTINEZ Start: 11-12-2023 ALPHA GAL PANEL IGE JONATHAN MARTINEZ Start: 11-12-2023 CELIAC PANEL (ARUP) JONATHAN MARTINEZ Start: 11-12-2023 Creatinine [Mass/vol ume] in Serum or Plasma MELVA MARTINEZ Start: 11-12-2023 DEAMIDATED GLIADIN A NTIBODY IGA MELVA MARTINEZ Start: 11-12-2023 DEAMIDATED GLIADIN A NTIBODY IGG (ARUP) MELVA MARTINEZ Start: 11-12-2023 TISSUE TRANSGLUTAMINASE, IGA MELVA MARTINEZ Start: 11-12-2023 TISSUE TRANSGLUTAMIN ASE, IGG (ARUP) MELVA MARTINEZ Start: 08-29-2023 Us soft tissue head & neck real time imge docm Melva Martinez MD Work Phone: Start: 08-20-2023 Lipid 1996 panel - S marybeth or Plasma Melva Martinez MD Work Phone: Start: 09-21-2022 Removal of suture Marilynri sravan Gore CNP Work Phone: Start: 09-10-2022 Repair intermediate s/a/t/e 7.6-12.5 cm Melissa Short PA-C Work Phone: Start: 02-18-2021 Radiologic exam ches t single view Kelsea Galvan ORNAMENTAL METAL WORKER Work Phone: Start: 02-17-2021 Radiologic exam ches t single view Kelsea Galvan ORNAMENTAL METAL WORKER Work Phone: Start: 02-16-2021 Radiologic exam ches t single view Shayla Tucker Tierney ORNAMENTAL METAL WORKER Work Phone: Start: 02-16-2021 Radiologic exam ches t single view Kelsea Galvan ORNAMENTAL METAL WORKER Work Phone: Start: 02-15-2021 Glucose measurement Vadim on Uche Drummond MD Work Phone: Start: 02-15-2021 Radiologic exam ches t single view Kelsea Galvan ORNAMENTAL METAL WORKER Work Phone: Start: 02-14-2021 Radiologic exam ches t single view Shayla Tucker Tierney ORNAMENTAL METAL WORKER Work Phone: Start: 02-14-2021 Blood count complete automated Shayla Tucker Niall ORNAMENTAL METAL WORKER Work Phone: Start: 02-13-2021 Radiologic exam ches t single view Shayla Tucker Niall ORNAMENTAL METAL WORKER Work Phone: Start: 02-13-2021 Glucose measurement Vadim Drummond MD Work Phone: Start: 02-13-2021 Basic metabolic pane l calcium total Almaz Arceeyer ORNAMENTAL METAL WORKER Work Phone: Start: 02-12-2021 Radiologic exam ches t single view Dank Hicks MD Work Phone: Start: 02-12-2021 End: 02-12-2021 Calcium ionized Curt Drummond MD Work Phone: Start: 02-12-2021 End: 02-12-2021 OPEN REDUCTION INTERNAL FIXATION RIB CAGE Dank Hicks MD Work Phone: Start: 02-12-2021 End: 02-12-2021 THORACOSCOPY VIDEO ASSISTED Dank Hicks MD Work Phone: Start: 02-12-2021 Basic metabolic pane l calcium total Almaz Eliana Hernandez ORNAMENTAL METAL WORKER Work Phone: Start: 02-12-2021 Open reduction with internal fixation Melva Martinez Work Phone: Comment on above: left ribs 4-6 with e vacuation of hematoma; Start: 02-11-2021 Creatine kinase total D eidra Eliana Hernandez ORNAMENTAL METAL WORKER Work Phone: Start: 02-11-2021 Radiologic exam ches t single view Shekhar Valdezrosino ORNAMENTAL METAL WORKER Work Phone: Start: 02-11-2021 End: 02-11-2021 Basic metabolic panel calcium total Shekhar Valdezrosino ORNAMENTAL METAL WORKER Work Phone: Start: 02-10-2021 Radex wrist complete minimum 3 views Shekhar Valdezrosino ORNAMENTAL METAL WORKER Work Phone: Start: 02-10-2021 Radiologic exam ches t single view Shekhar Valdezrosino ORNAMENTAL METAL WORKER Work Phone: Start: 02-10-2021 SARS-CoV-2 (COVID-19 ) RNA [Presence] in Respiratory specimen by LUL with probe detection Feliberto Rivera MD Work Phone: Start: 02-10-2021 Blood group typing Cinthia Rivera MD Work Phone: Start: 02-10-2021 Ct angiography chest w/contrast/noncontrast Denyjatinder Vogellam Valdezrosino ORNAMENTAL METAL WORKER Work Phone: Start: 02-10-2021 End: 02-10-2021 Ct cervical spine w/o contrast material Denyer Stanley Ambrosino ORNAMENTAL METAL WORKER Work Phone: Start: 02-10-2021 Ct head/brain w/o co ntrast material Denyer Stanley Ambrosino ORNAMENTAL METAL WORKER Work Phone: Start: 02-10-2021 Blood ethanol measurement Feliberto Rivera MD Work Phone: Start: 02-10-2021 Comprehensive metabo lic panel Feliberto Rivera MD Work Phone: Start: 02-10-2021 Gases blood ph direc t oksana xcpt pulse oximitry Feliberto Rivera MD Work Phone: Start: 02-10-2021 Radiologic exam ches t single view Feliberto Rivera MD Work Phone: Start: 02-10-2021 Blood typing serologic abo Feliberto Rivera MD Work Phone: Start: 12-04-2020 Echocardiography Melva Martinez Start: 11-27-2020 Echocardiography Melva Martinez Start: 05-12-2019 [object Object] Comment on above: Result Comment: AGE- SPECIFIC REFERENCE RANGES FOR SERUM PSA REFERENCE RANGE NG/ML AGE ASIANS BLACKS WHITE 40-49 0-2 0-2 0-2.5 50-59 0-3 0-4 0-3.5 60-69 0-4 0-4.5 0-4.5 70-79 0-5 0-5.5 0-6.5 PSA INCREASES WITH AGE, RACE, AND EJACULATION WITHIN 48 HRS. [facility] VOL24,NO.2, , PG.339 Performed By: #### [id number] #### [facility] [address] [place] [address] Start: 01-01-2011 End: 01-01-2011 Colonoscopy Melva Martinez Start: 01-01-2011 Colonoscopy Melva Promise berry Work Phone: Plan of Treatment Date Care Activity Detail Author Start: 12-11-2033 Screening for malign ant neoplasm of colon [facility] Start: 09-10-2032 DTaP/Tdap/Td Vaccine s (3 - Td or Tdap) DTaP/Tdap/Td Vaccines (3 - Td or Tdap) [facility] Start: 09-10-2032 Tetanus vaccination [facility] Start: 08-20-2029 Lipid panel Lipid Panel [facility] Start: 08-20-2028 Lipid panel Lipid Panel [facility] Start: 08-20-2026 Diabetes mellitus screening Diabetes Screening [facility] Start: 02-21-2026 Diabetes mellitus screening Diabetes Screening [facility] Start: 02-21-2026 Hemoglobin A1c measurement Diabetes: Hemoglobin A1C [facility] Start: 08-28-2025 End: 08-28-2025 Patient encounter procedure 08/28/2025 4:40 PM EST Office Visit [place] [id number] [place] [phone] Inga Ruiz, VACUUM FURNACE OPERATOR-ORNAMENTAL METAL WORKER [address] [facility], [address] [place] [phone] [facility] Start: 05-13-2025 Influenza vaccination [facility] Start: 03-22-2025 X-ray of knee, one o r two views [facility] Start: 03-22-2025 XR Knee 1 or 2 Views Wo brenda [facility] Start: 03-22-2025 XR Knee GE [address] [facility] Start: 03-14-2025 End: 03-14-2025 Telemedicine consultation with patient 03/14/2025 4:00 PM EDT Telemedicine [place] [address] [place] [phone] Inga Ruiz, VACUUM FURNACE OPERATOR-ORNAMENTAL METAL WORKER [address] [facility], [address] [place] [phone] [facility] Start: 02-26-2025 End: 02-26-2025 Patient encounter procedure 02/26/2025 4:00 PM EDT Office Visit [place] [address] [place] [phone] Inga Ruiz, VACUUM FURNACE OPERATOR-ORNAMENTAL METAL WORKER [address] [facility], [address] [place] [phone] [facility] Start: 02-26-2025 End: 02-26-2026 25-hydroxyvitamin D3 [Mass/volume] in Serum or Plasma [facility] Work Phone: Comment on above: Expected: 02/26/2025 (Approximate), Expires: 08/28/2025 Expected: 02/26/2025 (Approximate), Expires: 02/26/2026 Start: 02-26-2025 End: 02-26-2026 Basic metabolic 2000 panel - Serum or Plasma Basic Metabolic Panel Lab Routine Routine general medical examination at a health care facility Expected: 02/26/2025 (Approximate), Expires: 02/26/2026 [facility] Service Area Work Phone: Comment on above: Expected: 02/26/2025 (Approximate), Expires: 02/26/2026 Start: 02-26-2025 End: 08-28-2025 Cobalamin (Vitamin B12) [Mass/volume] in Serum or Plasma Vitamin B12 Lab Routine Restless leg syndrome Expected: 02/26/2025 (Approximate), Expires: 08/28/2025 [facility] Work Phone: Comment on above: Expected: 02/26/2025 (Approximate), Expires: 08/28/2025 Start: 02-26-2025 End: 08-28-2025 Comprehensive metabolic 2000 panel - Serum or Plasma Comprehensive Metabolic Panel Lab Routine Hypertension, benign Pure hypercholesterolemia Expected: 02/26/2025 (Approximate), Expires: 08/28/2025 [facility] Area Work Phone: Comment on above: Expected: 02/26/2025 (Approximate), Expires: 08/28/2025 Start: 02-26-2025 End: 08-28-2025 Ferritin [Mass/volume] in Serum or Plasma Ferritin Lab Routine Restless leg syndrome Expected: 02/26/2025 (Approximate), Expires: 08/28/2025 [facility] Work Phone: Comment on above: Expected: 02/26/2025 (Approximate), Expires: 08/28/2025 Start: 02-26-2025 End: 02-26-2026 Hemoglobin A1c/Hemoglobin.total in Blood [facility] Work Phone: Comment on above: Expected: 02/26/2025 (Approximate), Expires: 08/28/2025 Expected: 02/26/2025 (Approximate), Expires: 02/26/2026 Start: 02-26-2025 End: 02-26-2026 Lipid 1996 panel - Serum or Plasma Lipid Panel Lab Routine Lipid screening Expected: 02/26/2025 (Approximate), Expires: 02/26/2026 [facility] Work Phone: Comment on above: Expected: 02/26/2025 (Approximate), Expires: 02/26/2026 Start: 02-26-2025 End: 08-28-2025 Magnesium [Mass/volume] in Serum or Plasma Magnesium Lab Routine Restless leg syndrome Expected: 02/26/2025 (Approximate), Expires: 08/28/2025 [facility] Work Phone: Comment on above: Expected: 02/26/2025 (Approximate), Expires: 08/28/2025 Start: 02-26-2025 End: 02-26-2026 Microalbumin/Creatinine [Mass Ratio] in Urine Albumin-Creatinine Ratio, Urine Random Lab Routine Routine general medical examination at a health care facility Expected: 02/26/2025 (Approximate), Expires: 02/26/2026 [facility] Work Phone: Comment on above: Expected: 02/26/2025 (Approximate), Expires: 02/26/2026 Start: 02-26-2025 End: 02-26-2026 Prostate specific Ag [Mass/volume] in Serum or Plasma Prostate Specific Antigen Lab Routine Prostate cancer screening Expected: 02/26/2025 (Approximate), Expires: 02/26/2026 [facility] Work Phone: Comment on above: Expected: 02/26/2025 (Approximate), Expires: 02/26/2026 Start: 02-26-2025 End: 02-26-2026 TSH with reflex to Free T4 if abnormal TSH with reflex to Free T4 if abnormal Lab Routine Thyroid nodule Expected: 02/26/2025 (Approximate), Expires: 02/26/2026 [facility] Work Phone: Comment on above: Expected: 02/26/2025 (Approximate), Expires: 02/26/2026 Start: 01-11-2025 End: 01-11-2027 US.doppler Lower extremity vein - bilateral Vascular US Lower Extremity Venous Duplex Bilateral Vascular Ultrasound STAT Acute deep vein thrombosis (DVT) of proximal vein of right lower extremity Expected: 01/11/2025 (Approximate), Expires: 01/11/2027 [facility] Work Phone: Comment on above: Expected: 01/11/2025 (Approximate), Expires: 01/11/2027 Start: 01-11-2025 End: 01-11-2026 XR Knee - right 3 Views XR knee right 3 views Imaging Routine Acute pain of right knee Expected: 01/11/2025, Expires: 01/11/2026 [facility] Service Area Work Phone: Comment on above: Expected: 01/11/2025 , Expires: 01/11/2026 Start: 08-28-2024 End: 02-26-2025 CBC panel - Blood by Automated count CBC Lab Routine S/P small bowel resection Expected: 08/28/2024 (Approximate), Expires: 02/26/2025 [facility] Work Phone: Comment on above: Expected: 08/28/2024 (Approximate), Expires: 02/26/2025 Start: 08-28-2024 End: 02-26-2025 Comprehensive metabolic 2000 panel - Serum or Plasma Comprehensive Metabolic Panel Lab Routine Hypertension, benign Expected: 08/28/2024 (Approximate), Expires: 02/26/2025 [facility] Area Work Phone: Comment on above: Expected: 08/28/2024 (Approximate), Expires: 02/26/2025 Start: 08-28-2024 End: 02-26-2025 Lipid 1996 panel - Serum or Plasma Lipid Panel Lab Routine Hypertension, benign Expected: 08/28/2024 (Approximate), Expires: 02/26/2025 [facility] Work Phone: Comment on above: Expected: 08/28/2024 (Approximate), Expires: 02/26/2025 Start: 08-28-2024 End: 02-26-2025 Magnesium [Mass/volume] in Serum or Plasma Magnesium Lab Routine S/P small bowel resection Expected: 08/28/2024 (Approximate), Expires: 02/26/2025 [facility] Work Phone: Comment on above: Expected: 08/28/2024 (Approximate), Expires: 02/26/2025 Start: 08-20-2024 Diabetes mellitus screening Diabetes Screening [facility] Start: 08-20-2024 Hemoglobin A1c measurement Diabetes: Hemoglobin A1C [facility] Start: 06-03-2024 Screening for malign ant neoplasm of colon [facility] Start: 05-13-2024 COVID-19 Vaccine ( season) COVID-19 Vaccine () [facility] Start: 05-13-2024 Influenza vaccination [facility] Start: 03-11-2024 Influenza vaccination Influenza Vacc ine (#1) [facility] Comment on above: Postponed from 05/13 (Patient Refused) Start: 02-27-2024 End: 02-26-2025 25-hydroxyvitamin D3 [Mass/volume] in Serum or Plasma [facility] Work Phone: Comment on above: Expected: 02/27/2024 (Approximate), Expires: 02/26/2025 Start: 02-27-2024 End: 02-26-2025 Prostate specific Ag [Mass/volume] in Serum or Plasma Prostate Specific Antigen, Screen Lab Routine Healthcare maintenance Expected: 02/27/2024 (Approximate), Expires: 02/26/2025 [facility] Work Phone: Comment on above: Expected: 02/27/2024 (Approximate), Expires: 02/26/2025 Start: 02-27-2024 End: 02-26-2025 TSH with reflex to Free T4 if abnormal TSH with reflex to Free T4 if abnormal Lab Routine Thyroid nodule Expected: 02/27/2024 (Approximate), Expires: 02/26/2025 [facility] Work Phone: Comment on above: Expected: 02/27/2024 (Approximate), Expires: 02/26/2025 Start: 02-27-2024 End: 02-27-2024 Patient encounter procedure 02/27/2024 8:00 AM EDT Office Visit [facility] [address] [place] [address] Melva Martinez MD [address] [facility], [address] [place] [id number] [facility] Start: 02-25-2024 End: 08-26-2024 Comprehensive metabolic 2000 panel - Serum or Plasma Comprehensive Metabolic Panel Lab Routine Fatty liver Expected: 02/25/2024 (Approximate), Expires: 08/26/2024 [facility] Work Phone: Comment on above: Expected: 02/25/2024 (Approximate), Expires: 08/26/2024 Start: 02-25-2024 End: 08-26-2024 Hepatitis C virus Ab [Presence] in Serum Hepatitis C antibody Lab Routine Fatty liver Expected: 02/25/2024 (Approximate), Expires: 08/26/2024 [facility] Work Phone: Comment on above: Expected: 02/25/2024 (Approximate), Expires: 08/26/2024 Start: 12-16-2023 Patient discharge [facility] Start: 12-14-2023 Following clinical pathway protocol [facility] Start: 12-14-2023 Ambulation therapy management [facility] Start: 12-14-2023 Application of intermittent pneumatic compression device [facility] Start: 12-14-2023 Catheterization of vein [facility] Start: 12-14-2023 Continuous pulse oximetry [facility] Start: 12-14-2023 Elevation of head of bed [facility] Start: 12-14-2023 Incentive spirometry [facility] Start: 12-14-2023 Introduction of urin erin catheter [facility] Start: 12-14-2023 Measuring intake and output [facility] Start: 12-14-2023 Notification of physician [facility] Start: 12-14-2023 Oxygen therapy [facility] Start: 12-14-2023 Patient education [facility] Start: 12-14-2023 Procedures relating to eating and drinking [facility] Start: 12-14-2023 Taking patient vital signs [facility] Start: 12-14-2023 Wound care [facility] Start: 12-14-2023 [facility] Start: 12-14-2023 Admission procedure [facility] Start: 12-12-2023 Colonoscopy w/biopsy single/multiple COLONOSCOPY AND BIOPSY [facility] Start: 12-12-2023 Egd transoral biopsy single/multiple EGD BIOPSY SINGLE/MULTIPLE [facility] Start: 12-12-2023 Patient discharge [facility] Start: 12-05-2023 Patient referral [facility] Work Phone: Start: 11-10-2023 End: 11-09-2024 Alpha Gal Panel IgE Alpha Gal Panel IgE Lab Routine Abdominal bloating Diarrhea, unspecified type Expected: 11/10/2023 (Approximate), Expires: 11/09/2024 [facility] Work Phone: Comment on above: Expected: 11/10/2023 (Approximate), Expires: 11/09/2024 Start: 11-10-2023 End: 11-09-2024 Celiac Panel Celiac Panel Lab Routine Abdominal bloating Expected: 11/10/2023 (Approximate), Expires: 11/09/2024 [facility] Work Phone: Comment on above: Expected: 11/10/2023 (Approximate), Expires: 11/09/2024 Start: 11-10-2023 End: 11-09-2024 Creatinine [Mass/volume] in Serum or Plasma Creatinine, Serum Lab Routine Left lower quadrant pain Expected: 11/10/2023 (Approximate), Expires: 11/09/2024 [facility] Work Phone: Comment on above: Expected: 11/10/2023 (Approximate), Expires: 11/09/2024 Start: 11-10-2023 End: 11-09-2024 CT Abdomen and Pelvis W contrast IV CT abdomen pelvis w IV contrast Imaging Routine Left lower quadrant pain Expected: 11/10/2023, Expires: 11/09/2024 [facility] Service Area Work Phone: Comment on above: Expected: 11/10/2023 , Expires: 11/09/2024 Start: 11-10-2023 End: 11-09-2024 Food Allergy Profile IgE Food Allergy Profile IgE Lab Routine Abdominal bloating Expected: 11/10/2023 (Approximate), Expires: 11/09/2024 [facility] Work Phone: Comment on above: Expected: 11/10/2023 (Approximate), Expires: 11/09/2024 Start: 11-10-2023 End: 11-10-2023 Patient encounter procedure 11/10/2023 9:45 AM EST Office Visit [facility] [address] [place] [id number] Humberto Peguero, [address] [facility], [address] [place] [id number] [facility] Start: 09-26-2023 End: 09-26-2023 Professional / ancillary services management 09/26/2023 4:00 PM EST Ancillary Procedure [facility] [address] [place] [phone] Acute pain of left knee [facility] Comment on above: Acute pain of left k nee Start: 09-26-2023 End: 09-26-2024 XR Knee - left 1 or 2 Views [facility] Service Area Work Phone: Comment on above: Expected: 09/26/2023 , Expires: 09/26/2024 Start: 08-26-2023 End: 02-25-2024 Ferritin [Mass/volume] in Serum or Plasma [facility] Work Phone: Comment on above: Expected: 08/26/2023 (Approximate), Expires: 02/25/2024 Start: 08-26-2023 End: 08-26-2024 Hepatic function 2000 panel - Serum or Plasma Hepatic function panel Lab Routine Fatty liver Expected: 08/26/2023 (Approximate), Expires: 08/26/2024 [facility] Work Phone: Comment on above: Expected: 08/26/2023 (Approximate), Expires: 08/26/2024 Start: 08-26-2023 End: 08-26-2024 Hepatitis B virus surface Ag [Presence] in Serum or Plasma by Immunoassay Hepatitis B surface antigen Lab Routine Fatty liver Expected: 08/26/2023 (Approximate), Expires: 08/26/2024 [facility] Work Phone: Comment on above: Expected: 08/26/2023 (Approximate), Expires: 08/26/2024 Start: 08-26-2023 End: 02-25-2024 Immunoglobulins (IgG, IgA, IgM) Immunoglobulins (IgG, IgA, IgM) Lab Routine Fatty liver Expected: 08/26/2023 (Approximate), Expires: 02/25/2024 [facility] Work Phone: Comment on above: Expected: 08/26/2023 (Approximate), Expires: 02/25/2024 Start: 08-26-2023 End: 02-25-2024 Iron and Iron binding capacity panel - Serum or Plasma [facility] Work Phone: Comment on above: Expected: 08/26/2023 (Approximate), Expires: 02/25/2024 Start: 08-26-2023 End: 11-25-2023 Smooth muscle Ab [Presence] in Serum by Immunofluorescence Anti-Smooth Muscle Antibody Lab Routine Fatty liver Expected: 08/26/2023 (Approximate), Expires: 11/25/2023 [facility] Work Phone: Comment on above: Expected: 08/26/2023 (Approximate), Expires: 11/25/2023 Start: 08-26-2023 End: 11-25-2023 US Thyroid gland US thyroid Imaging Routine Thyroid nodule Expected: 08/26/2023 (Approximate), Expires: 11/25/2023 [facility] Service Area Work Phone: Comment on above: Expected: 08/26/2023 (Approximate), Expires: 11/25/2023 Start: 05-13-2023 COVID-19 VACCINE ( season) COVID-19 VACCINE ( season) [facility] Start: 2023 Hepatitis B Vaccines (1 of 3 - Risk 3-dose series) Hepatitis B Vaccines (1 of 3 - Risk 3-dose series) [facility] Start: 2023 RSV High Risk: (Elde rly (60+) or Population) (1 - Risk 60-74 years 1-dose series) RSV High Risk: (Elderly (60+) or Population) (1 - Risk 60-74 years 1-dose series) [facility] Start: 2023 RSV patient s and/or patients aged 60+ years (1 - 1-dose 60+ series) RSV patients and/or patients aged 60+ years (1 - 1-dose 60+ series) [facility] Start: 02-11-2023 FUV, Provider: Melva Martinez, Status: Pen, Time: 8:00 AM FUV, Provider: Melva Martinez, Status: Pen, Time: 8:00 AM [facility] Work Phone: Start: 08-13-2022 FUV, Provider: Melva Martinez, Status: Pen, Time: 9:00 AM FUV, Provider: Melva Martinez, Status: Pen, Time: 9:00 AM [facility] Work Phone: Start: 05-13-2022 Influenza vaccination Sequenti al Influenza Vaccine (#1) [facility] Start: 01-29-2022 EPV, Provider: Melva Martinez, Status: Pen, Time: 8:00 AM EPV, Provider: Melva Martinez, Status: Pen, Time: 8:00 AM [facility] Work Phone: Start: 07-31-2021 EPV, Provider: Melva Martinez, Status: Pen, Time: 8:30 AM EPV, Provider: Melva Martinez, Status: Pen, Time: 8:30 AM [facility] Work Phone: Start: 05-25-2021 PHYSICAL, Provider: Melva Martinez, Status: Pen, Time: 4:00 PM PHYSICAL, Provider: Melva Martinez, Status: Pen, Time: 4:00 PM [facility] Work Phone: Start: 05-23-2021 [facility] Start: 05-13-2021 Influenza vaccination [facility] Start: 04-17-2021 FUV, Provider: Melva Martinez, Status: Pen, Time: 3:00 PM FUV, Provider: Melva Martinez, Status: Pen, Time: 3:00 PM [facility] Work Phone: Start: 01-01-2021 Screening for malign ant neoplasm of colon [facility] Start: 12-05-2020 Echocardiography Echocardiogram [facility] Work Phone: Start: 2013 Administration of he rpes zoster vaccine Zoster Vaccines (1 of 2) [facility] Start: 2013 Pneumococcal vaccination Pneum ococcal Vaccine (1 of 1 - PCV) [facility] Start: 2013 Prostate specific an tigen measurement PROSTATE CANCER SCREENING DISCUSSION [facility] Start: 2013 Screening for malign ant neoplasm of colon [facility] Start: 2013 Zoster vaccine hzv l aurelia for subcutaneous use ZOSTER (SHINGLES) VACCINE (1 of 2) [facility] Start: 2013 Zoster Vaccines (1 of 2) Zoster Vacc idalia (1 of 2) [facility] Start: 2008 Screening for malign ant neoplasm of colon COLORECTAL CANCER SCREENING DISCUSSION [facility] Start: 2003 Lipid panel LIPID SCREENING [facility] Start: 1982 Hepatitis A Vaccines (1 of 2 - Risk 2-dose series) Hepatitis A Vaccines (1 of 2 - Risk 2-dose series) [facility] Start: 1981 Hepatitis C screening Hepatitis C Sc reening [facility] Start: 1978 [facility] screening [facility] Start: 1975 COVID-19 Vaccine (1) COVID-19 Vaccin e (1) [facility] Start: 1975 Depression screening using PHQ-9 (Patient Health Questionnaire 9) score [facility] Start: 1966 History and physical examination, annual for health maintenance Wellness Visit [facility] Start: 1964 MMR Vaccines (1 of 1 - Standard series) MMR Vaccines (1 of 1 - Standard series) [facility] Start: 1963 COVID-19 Vaccine (#1) COVID-19 Vacci ne (#1) [facility] Start: 1963 Hepatitis C screening HEPATITI S C VIRUS SCREENING [facility] Start: 1963 HIV screening HIV Screening [facility] Start: 1963 Prostate specific an tigen measurement PSA Level [facility] Start: 1963 Screening for malign ant neoplasm of colon [facility] Start: 1963 Tetanus vaccination Tetanus: Every 1 0yrs [facility] Start: 1963 Yearly Adult Physical Yearly Adult P [facility] CBC W Auto Different ial panel - Blood [facility] Chromogranin A measurement [facility] Comprehensive metabo lic 2000 panel - Serum or Plasma [facility] End: 11-19-2023 CT Abdomen and Pelvis W contrast IV [facility] Service Area Work Phone: Comment on above: Once for 1 Occurrenc es starting 11/19/2023 until 11/19/2023 CT Abdomen and Pelvi s W contrast IV [facility] Lactate dehydrogenas e measurement [facility] Patient referral [facility] Work Phone: Serotonin [Mass/volu me] in Serum [facility] Standard chest X-ray XR Chest AP /PA and LAT Imaging Routine 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, subsequent encounter 05/19/2021 3:20 PM EDT [facility] Work Phone: US.doppler Lower extremity vein [facility] End: 01-14-2025 US.doppler Lower extremity vein - bilateral [facility] Service Area Work Phone: Comment on above: Once for 1 Occurrenc es starting 01/14/2025 until 01/14/2025 End: 01-12-2025 XR Knee - right 3 Views [facility] Service Area Work Phone: Comment on above: Once for 1 Occurrenc es starting 01/12/2025 until 01/12/2025 [facility] Work Phone: [facility] NEGATED: Highlighted row has been ruled out! Planned Goals not documented [facility] Work Phone: Immunizations Immunization Date Immunization Notes Care Provider [facility] 09-10-2022 diphtheria, tetanus toxoids and acellular pertussis vaccine, unspecified formulation Melissa Lamport PA-C Work Phone: [facility] 09-10-2022 tetanus toxoid, reduced diphtheria toxoid, and acellular pertussis vaccine, adsorbed Melissa Lamport PA-C Work Phone: [facility] 07-11-2012 tetanus toxoid, reduced diphtheria toxoid, and acellular pertussis vaccine, adsorbed Melva Martinez Work Phone: [facility] Work Phone: Payers Date Payer Category Payer [employer] [facility] [id number] 2023 Self-pay 2023 Unknown [id number] 2022 [facility] ([facility]) [facility] [id number] 2022 Unknown 2021 Worker's Compensation [id number] Worker's Compensation [id number] .[id number] 2020 Unknown [id number] 2020 Unknown [id number] 1.2.840.572205.1.13.385.2 .7.3.652110.315 1963 Unknown [id number] 2.840.1.516362.3.579.2 .903 1963 Unknown [id number] 2.840.1.469948.3.579.2 .90 1963 Unknown [id number] 2.840.1.977407.3.579.2 .903 1963 Unknown [id number] 2.16840.1.310858.3.579.2 .90 1963 Unknown [id number] 2.16840.1.137170.3.579.2 .903 1963 Unknown [id number] 2.840.1.297461.3.579.2 .90 1963 Unknown [id number] 2.16.840.1.054117.3.579.2 .903 1963 Unknown [id number] 2.16.840.1.401733.3.579.2 .903 1963 Unknown [id number] 2.16.840.1.591051.3.579.2 .1069 1963 Unknown [id number] 2.16.840.1.398505.3.579.2 .1069 1963 Unknown [id number] 2.16.840.1.771770.3.579.2 .1069 1963 Unknown [id number] 2.16.840.1.912509.3.579.2 .356 1963 Unknown [id number] 2.16.840.1.578866.3.579.2 .356 1963 Unknown [id number] 2.16.840.1.681202.3.579.2 .594 1963 Unknown [id number] 2.16.840.1.231422.3.579.2 .1244 1963 Unknown [id number] 2.16.840.1.651306.3.579.2 .1244 1963 Unknown [id number] 2.16.840.1.349102.3.579.2 .1245 1963 Unknown [id number] 2.16.840.1.687509.3.579.2 .1244 1963 Unknown [id number] 2.16.840.1.492850.3.579.2 .1245 1963 Unknown [id number] 2.16.840.1.368446.3.579.2 .3 1963 Unknown [id number] 2.16.840.1.408879.3.579.2 .1243 1963 Unknown [id number] 2.16.840.1.085531.3.579.2 .1244 1963 Unknown [id number] 2.16.840.1.873388.3.579.2 .1244 1963 Unknown [id number] 2.16.840.1.499982.3.579.2 .1244 1963 Unknown [id number] 2.16.840.1.404614.3.579.2 .1244 Unknown [id number] Unknown [id number] 2.16.840.1.171118.3.579.2 .462 Unknown [id number] 2.16.840.1.472848.3.579.2 .462 Unknown [id number] 2.16.840.1.727595.3.579.2 .462 Unknown [id number] 2.16.840.1.650082.3.579.2 .462 Unknown [id number] 2.16.840.1.758287.3.579.2 .462 Unknown [id number] 2.16.840.1.448538.3.579.2 .462 Unknown [id number] 2.16.840.1.619862.3.579.2 .462 Unknown [id number] 2.16.840.1.053349.3.579.2 .462 Unknown [id number] 2.16.840.1.959125.3.579.2 .462 Unknown [id number] 2.16.840.1.851790.3.579.2 .462 Unknown [id number] 2.16.840.1.036911.3.579.2 .462 Worker's Compensation [id number] Social History Date Type Detail Facility Start: 02-18-2023 End: 03-14-2025 Never a smoker Never a smoker [facility] Work Phone: Start: 02-13-2021 End: 02-29-2024 Tobacco smoking status NHIS Never smoker [facility] Start: 02-13-2021 End: 02-18-2023 Tobacco use and exposure Never used [facility] Start: 1965 Sex Assigned At Not on file [facility] Start: 08-31-2022 End: 01-14-2025 Exposure to SARS-CoV-2 (event) Not sure [facility] Start: 08-26-2023 End: 03-14-2025 Alcohol intake Lifetime non-drinker (finding) [facility] Work Phone: Start: 02-18-2023 End: 03-14-2025 Tobacco use panel [facility] Work Phone: Start: 12-09-2023 Tobacco smoking status NHIS Unknown if ever smoked [facility] Start: 1965 Sex Assigned At Male [facility] NEGATED: Highlighted row - - [facility] Work Phone: Medical Equipment Procedure Code Equipment Code Equipment Origin al Text Equipment Identifier Dates Thyroidectomy Plant polysaccha ride haemostatic agent, bioabsorbable [id number] FDA Start: 03-05-2024 Thyroidectomy Ligation clip, metallic [id number] FDA Start: 03-05-2024 Thyroidectomy Ligation clip, metallic [id number] FDA Start: 03-05-2024 Laparoscopy, exploratory Surgical staple loading unit, cutting [id number] FDA Start: 12-14-2023 Laparoscopy, exploratory Surgical staple loading unit, cutting [id number] FDA Start: 12-14-2023 Laparoscopy, exploratory Open-surgery manual linear cutting stapler, single-use [id number] FDA Start: 12-14-2023 Plate 12hl Pre-Contoured - Sna [id number] Start: 02-12-2021 Comment on above: Description: Load 1- 4 [id number] Screw 2.4 X 8mm Self-Drill Locking - Sna [id number] Start: 02-12-2021 Comment on above: Description: Load 1- 4 [id number] Screw 2.4 X 10mm Self-Drill Locking - Sna [id number] Start: 02-12-2021 Comment on above: Description: Load 1- 4 [id number] Screw 2.7 X 8mm Rescue Purple Ribfix Vic - Sna [id number] Start: 02-12-2021 Comment on above: Description: Load 1- 4 [id number] 10 Hole Straight Funk [id number] St art: 02-12-2021 Comment on above: Description: Load 1- 4 [id number] Goals Date Patient Goal Desired Activity /State Functional Status Date Assessment Result Facility 03-14-2025 Patient Health Questionnaire 2 item (PHQ-2) [Reported] [facility] Work Phone: 02-26-2025 Patient Health Questionnaire 2 item (PHQ-2) [Reported] [facility] Work Phone: 01-11-2025 Patient Health Questionnaire 2 item (PHQ-2) [Reported] [facility] 12-16-2023 Functional status Ambulates;Up a d clau;Dangle Feet [facility] Work Phone: NEGATED: Highlighted row Functional performance Functional status health issues are not documented Disease [facility] Work Phone: Mental Status Date Assessment Result Facility 12-15-2023 Cognitive function Voice/Name [facility] Work Phone: 12-14-2023 Cognitive function Voice/Name [facility] Work Phone: 12-12-2023 Cognitive function Deep Pain [facility] Work Phone: NEGATED: Highlighted row Cognitive function [Interpretation] Cognitive status health issues are not documented Disease [facility] Work Phone: Clinical Notes 11-27-2020 to 03-14-2025 ROMY Delcid - 03/14/2025 4:00 PM ROMY Weston - 02/26/2025 4:00 PM Pop Maldonado APRN-ORNAMENTAL METAL WORKER - 01/11/2025 4:50 PM EDT Note Date & Type Note Facility 03-14-2025 History of Present illness Narrative Subjective Patient ID: Ryan Woodard is a 59 y.o. male who presents for 2 week (Pt is doing a 2 week virtual follow up visit. ). Virtual or Telephone Consent An interactive audio and video telecommunication system which permits real time communications between the patient (at the originating site) and provider (at the distant site) was utilized to provide this telehealth service. Verbal consent was requested and obtained from Lynda Woodard on this date, 03/14/25 for a telehealth visit and the patient's location was confirmed at the time of the visit. Hypertension: Patient presents today for evaluation of hypertension management. On last visit he was hypertensive and I added metoprolol to his regimen. He misunderstood the directions and stopped taking his losartan while only taking 25 mg of metoprolol. Today's blood pressure is 167/107. We did clarify his medication regimen and he will take both metoprolol and losartan for the rest the weekend and contact me in 5 days with new blood pressures. Denies any cardiovascular symptoms. No other acute or chronic complaints at this time. GERD: Symptoms controlled on medications. Medication refilled today. Total time spent caring for the patient today was 20 minutes. This includes time spent before the visit reviewing the chart, time spent during the visit, and time spent after the visit on documentation, etc Review of Systems Constitutional: Negative for chills, diaphoresis, fatigue and unexpected weight change. HENT: Negative for dental problem, tinnitus and trouble swallowing. Eyes: Negative for visual disturbance. Respiratory: Negative for chest tightness and shortness of breath. Cardiovascular: Negative for chest pain, palpitations and leg swelling. Gastrointestinal: Negative for abdominal pain, constipation, diarrhea, nausea and rectal pain. Endocrine: Negative for polydipsia, polyphagia and polyuria. Genitourinary: Negative for difficulty urinating, frequency and urgency. Musculoskeletal: Negative for arthralgias and myalgias. Skin: Negative for pallor and wound. Neurological: Negative for syncope, weakness, numbness and headaches. Psychiatric/Behavioral: Negative for suicidal ideas. The patient is not nervous/anxious. Objective There were no vitals taken for this visit. Physical Exam Neurological: General: No focal deficit present. Mental Status: He is alert and oriented to person, place, and time. Mental status is at baseline. Psychiatric: Mood and Affect: Mood normal. Behavior: Behavior normal. Thought Content: Thought content normal. Judgment: Judgment normal. Assessment/Plan Diagnoses and all orders for this visit: Hypertension, benign Gastroesophageal reflux disease, unspecified whether esophagitis present - omeprazole (PriLOSEC) [address] capsule; Take 1 capsule (40 mg) by mouth once daily. documented in this encounter [facility] Work Phone: 02-26-2025 History of Present illness Narrative Subjective Patient ID: Ryan Woodard is a 59 y.o. male who presents for Med Management. Patient presents today for regular checkup. Labs reviewed. Medications refilled. Quan's cyst: Right knee, has been referred to orthopedics but they have not scheduled yet. Would like referred to Dr. Crockett in [facility]. Referral placed. Vitamin D deficiency: Currently taking 5000 units daily. Level is normal/low normal. Will recheck in the fall as he has seasonal drops. Hypertension: 142/100 in the office, rechecked at 155/105. Is on losartan 100 mg. Will start him on metoprolol 25 mg for 1 week followed by up titration to 50 mg for 1 week. He will record his blood pressures at home daily and keep a log and contact me in 2 weeks. Denies any cardiovascular symptoms. Thyroid nodule: Last TSH 3.14. Does have some recent fatigue and will redraw thyroid at next appointment. Partial thyroidectomy in the past. Compliant with medications. Hyperlipidemia: Past coronary artery calcium scoring was 0 (02/12/2022). No medications, attempts to eat balanced diet. Has been worse recently with having to help watch family. Vitamin B12 deficiency: Normal level at this time. Still takes oral supplementation. Restless leg syndrome: On Mirapex. Controls symptoms. No side effects reported. Preventative health: Colonoscopy 2023, PSA 2023. Review of Systems Constitutional: Positive for fatigue. Negative for chills, diaphoresis and unexpected weight change. HENT: Negative for dental problem, tinnitus and trouble swallowing. Eyes: Negative for visual disturbance. Respiratory: Negative for chest tightness and shortness of breath. Cardiovascular: Negative for chest pain, palpitations and leg swelling. Gastrointestinal: Negative for abdominal pain, constipation, diarrhea, nausea and rectal pain. Endocrine: Negative for polydipsia, polyphagia and polyuria. Genitourinary: Negative for difficulty urinating, frequency and urgency. Musculoskeletal: Negative for arthralgias and myalgias. Skin: Negative for pallor and wound. Neurological: Negative for syncope, weakness, numbness and headaches. Psychiatric/Behavioral: Negative for suicidal ideas. The patient is not nervous/anxious. Objective BP (!) 142/100 (BP Location: Right arm, Patient Position: Sitting) Pulse 72 Ht 1.784 m (5' 10.25) Wt 103 kg (227 lb) SpO2 96% BMI 32.34 kg/m Physical Exam Vitals and nursing note reviewed. Constitutional: General: He is not in acute distress. Appearance: Normal appearance. HENT: Head: Normocephalic. Nose: Nose normal. Mouth/Throat: Mouth: Mucous membranes are moist. Pharynx: Oropharynx is clear. Eyes: General: No scleral icterus. Pupils: Pupils are equal, round, and reactive to light. Neck: Vascular: No carotid bruit. Cardiovascular: Rate and Rhythm: Normal rate and regular rhythm. Pulses: Normal pulses. Heart sounds: Normal heart sounds. No murmur heard. Pulmonary: Effort: Pulmonary effort is normal. No respiratory distress. Breath sounds: Normal breath sounds. No stridor. No wheezing, rhonchi or rales. Abdominal: General: Bowel sounds are normal. There is no distension. Palpations: Abdomen is soft. Tenderness: There is no abdominal tenderness. There is no right CVA tenderness or left CVA tenderness. Musculoskeletal: General: Swelling (Bilateral lower legs) present. Cervical back: Normal range of motion. Right lower leg: No edema. Left lower leg: No edema. Comments: Reduced range of motion right knee Skin: General: Skin is warm and dry. Capillary Refill: Capillary refill takes less than 2 seconds. Neurological: General: No focal deficit present. Mental Status: He is alert and oriented to person, place, and time. Mental status is at baseline. Psychiatric: Mood and Affect: Mood normal. Behavior: Behavior normal. Thought Content: Thought content normal. Judgment: Judgment normal. Assessment/Plan Diagnoses and all orders for this visit: Synovial cyst of right popliteal space - Referral to Orthopedics and Sports Medicine; Future Hypertension, benign - Follow Up In Primary Care - Established - losartan (Cozaar) 100 mg tablet; Take 1 tablet (100 mg) by mouth once daily. - metoprolol succinate XL (Toprol-XL) 25 mg 24 hr tablet; Take 1 tablet (25 mg) by mouth once daily for 7 days, THEN 2 tablets (50 mg) once daily for 23 days. Do not crush or chew. Restless leg syndrome - pramipexole (Mirapex) 0.5 mg tablet; Take 1 tablet (0.5 mg) by mouth once daily at bedtime. Lipid screening - Lipid Panel; Future Prostate cancer screening - Prostate Specific Antigen; Future Vitamin D deficiency - Vitamin D 25-Hydroxy,Total (for eval of Vitamin D levels); Future Routine general medical examination at a health care facility - Basic Metabolic Panel; Future - Albumin-Creatinine Ratio, Urine Random; Future - Hemoglobin A1C; Future Thyroid nodule - TSH with reflex to Free T4 if abnormal; Future documented in this encounter [facility] Work Phone: 01-11-2025 History of Present illness Narrative Subjective Patient ID: Ryan Woodard is a 59 y.o. male who presents for Knee Pain (right), calf pain (right), Foot Pain (right), and Leg Swelling (right). Here today for right knee pain. Denies a specific injury, reports it started on the medial side and pain radiates down his calf and to the back of his knee. He tore his meniscus on the left and treated with rest and voltaren. Review of Systems Constitutional: Negative for chills, fatigue and fever. Musculoskeletal: Positive for arthralgias and joint swelling. Objective BP 131/87 (Patient Position: Sitting) Pulse 74 Ht 1.816 m (5' 11.5) Wt 103 kg (226 lb 11.2 oz) BMI 31.18 kg/m Physical Exam Cardiovascular: Rate and Rhythm: Normal rate and regular rhythm. Musculoskeletal: General: Swelling and tenderness present. Right knee: MCL laxity present. No LCL laxity. Abnormal meniscus. Right lower leg: Edema present. Neurological: Mental Status: He is alert. Assessment/Plan Problem List Items Addressed This Visit None Visit Diagnoses Codes Acute deep vein thrombosis (DVT) of proximal vein of right lower extremity - Primary I82.4Y1 Relevant Orders Vascular US Lower Extremity Venous Duplex Bilateral Acute pain of right knee M25.561 Relevant Orders XR knee right 3 views Right knee pain -Xray ordered -voltaren gel topically -US DVT ordered -Right knee brace for pain -MRI vs PT pending results documented in this encounter [facility] Work Phone: 01-11-2025 Radiology Diagnostic study note [facility] Imaging Services [address] [place] [id number] Chest, Abd, Pel w/Contrast MR#: [id number] Acct: [id number] Name: LYNDA WOODARD Rep #: [id number] : 1965 M 59 From: Loren Castellano MD PCP: Dr. Melva Martinez MD Status: REG CLI Study:CT Chest, Abd, Pel w/Contrast Date of E xam: 01/10/25 Exam# [id number] Ordering Dr: Erick Ventura MD PROCEDURE: CT CHEST, ABD, PEL W/CONTRAST, 01/10/2025 REASON FOR EXAM: LUNG NODULE/CARCONOID TUMOR-SMALL BOWEL-IV ONLY TECHNIQUE: CT chest, abdomen, and pelvis was performed with IV contrast. Multiplanar reformats were generated. CONTRAST: Isovue-300 VOLUME: 98mL RADIATION DOSE SUMMARY: CTDlvol: 15.2+ 19.07+ 24.68 mGy DLP: 2108.76 mGycm One or more dose reduction techniques were used (e.g., Automated exposure control, adjustment of the mA and/or kV according to patient size, use of iterative reconstruction technique). COMPARISON: CT abdomen and pelvis 08/30/20[address] No previous CT chest is available. FINDINGS: Heart/pericardium: Unremarkable. Aorta: Unremarkable. Pulmonary arteries: Normal in caliber. Thoracic lymph nodes: Unremarkable. Lungs/pleura: Mild atelectasis/scarring evidence of probable rounded atelectasisin the subpleural lingula underlying rib hardware. Resolution of previously RIGHT lower lobe finding which may have reflected a nodular appearance of atelectasis. Few punctate high-density and/or calcified likely granulomas fissural likely intrapulmonary lymph nodes on the RIGHT.. Airways: Unremarkable. Chest wall: RIGHT lobe of the thyroid is atrophic or absent. Operative changes on the LEFT.. Liver: RIGHT lobe hepatic cyst. Additional tiny hypodensities are too small to characterize, but unchanged, possible cysts/hemangiomas. 6 mm hypervascular lesion in the RIGHT hepatic dome was not visible previously, isoenhancing with surrounding parenchyma in the hepatic venous phase and visible only on arterial phase imaging through the upper abdomen.. Spleen: Unremarkable. Gallbladder: Cholelithiasis. Pancreas: Unremarkable. Adrenals: Unremarkable. Kidneys: Redemonstrated large LEFT renal cyst and additional smaller bilateral cysts. Few tiny hypodensities bilaterally are too small to characterize but likely to reflect additional cysts. Renal sinus cystson the LEFT. Bowel: Previous small bowel resection.. Normal caliber appendix. Abdominopelvic lymph nodes: Unremarkable. Vasculature: Unremarkable. Peritoneum: Unremarkable. Bladder: Underdistended and suboptimally evaluated, grossly unremarkable. Reproductive Organs: Borderline mild prostatomegaly. Body Wall: Operative changes small fat containing LEFT inguinal hernia.. Musculoskeletal: Densely sclerotic 5 mm focus in the LEFT glenoid may reflect a bone island however this is not definite. Similar finding measuring 4 mm on the RIGHT. Old bilateral rib fractures post ORIF on the LEFT. Mild spondylosis. CT/CT Chest, Abd, Pel w/Contrast IMPRESSION: 1. 6 mm enhancing hepatic lesion was not visible previously, possibly on a technical basis. This could reflect a flash filling hemangioma however given history, recommend either close CT follow-up to evaluate stability or multiphase hepatic protocol MRI with and without contrast for more definitive characterization. Note definitivecharacterization on hepatic protocol MRI or CT may be difficult due to tiny size, particularly on MRI, if the patient is unableto suspend respiration. 2. No definite evidence of metastatic disease within the chest. Resolution of previous RIGHT lower lobe finding which may reflect a nodular appearance of atelectasis. 3. Densely sclerotic bony foci in the bilateral glenoid up to 5 mm on the LEFT glenoid probably reflect bone islands islands., however given history, consider follow-up to ensure stability. 4. Additional description as above. Reading Location: [facility] CC: Dr. Remy Ventura MD; Dr. Melva Martinez MD ~ [employer] Player: Signed [facility] 12-18-2024 Evaluation note Diagnosis Onset Date Resolution Neuroendocrine carcinoma chronic December 18, 2024 3:46pm [facility] Work Phone: 1(828) 225-447904-08-2025 Evaluation note* Diagnosis Onset Date Resolution Status Admit Date Neuroendocrine carcinoma chronic December 18, 2024 3:46pm Neuroendocrine carcinoma chronic January 17, 2025 3:56pm [facility] Work Phone: 1(999) 750-289512-17-2024 History of Present illness Narrative* Melva Martinez MD - 08/28/2024 4:30 PM EST Subjective Patient ID: Lynda Woodard is a 59 y.o. male who presents for Med Management. HPI Arthropathy - Seen on previous scans, takes no meds. Some stiffness in morning. Pain in the left knee. Especially with twisting. Locking not noted. Occasional ibuprofen. Allergic Rhinitis - Seasonal, no medications except on occasion. GERD - found to have a neuroendocrine tumor that was resected in December 2023. Also HH but now the HBis better with the removal of the tumor. Also has umbilical hernia repaired. Had a PET scan was negative afterwards. Dr Armendariz follows. Dr Ventura is his oncologist. Noted liver and renal cysts.. HB if he skips Nodule on thyroid on CT scan. He is cold a lot since the injury. TSH 3.14. Had partial thyroidectomy this year. It was large and complex with atypia but on removal benign. Cysts on the kidney and liver. The liver has been noted in the past. The kidney cyst was on the left at 10.8. Dr Mccallum saw him and says benign. No follow up unless a problem. GFR 75. Also had Fatty liver on US of GB. Normal enzymes Elevated FBS - A1C 5.8% last August. Discussed diet and diagnosis. FBS 92. Umbilical hernia- He has had for a long time. Repaired when he had the neuroendocrine tumor resected. Feels good. HTN - On Losartan. No Chest pain (other then cramps when he stretches), Dyspnea, palpitations, numbness, weakness, edema, claudication, or double vision/ loss of vision. . Hyperlipidemia - In August TC 220/42/147. Not really watching diet well. CACS 02/12/22 score 0. So risk is 3.4% with that. Will work on more veggies, fruits, nuts and exercise. SNHL in both ears. No hearing aids yet. Leg cramps and RLS - meds work well without side effects. Was having flares, trying magnesium 250 with a good level at 2.07. On Mirapex and will increase to 0.5 mg. Ferritin is 22 so he started on iron and feeling better with supplement. Good and bad days. CMP WNL Will try stretching daily Obesity -Up 6 this time. Getting more active. BMI 32 B12 deficiency so will add 1000 units per day Vitamin D deficiency at 24 on 1999 so will double up on that and check next time Cologuard - 06/03/21.. Colonoscopy 12/12/23 PSA 08/20/24 1.94 Review of Systems Objective BP 132/70 (BP Location: Left arm, Patient Position: Sitting) Pulse 72 Wt 106 kg (233 lb) WgI455% BMI 32.04 kg/m Physical Exam Vitals reviewed. Constitutional: General: He is not in acute distress. Appearance: Normal appearance. He is normal weight. HENT: Head: Normocephalic. Right Ear: Tympanic membrane, ear canal and external ear normal. Left Ear: Tympanic membrane, ear canal and external ear normal. Nose: Nose normal. Mouth/Throat: Mouth: Mucous membranes are moist. Pharynx: Oropharynx is clear. Eyes: Extraocular Movements: Extraocular movements intact. Conjunctiva/sclera: Conjunctivae normal. Pupils: Pupils are equal, round, and reactive to light. Neck: Vascular: No carotid bruit. Cardiovascular: Rate and Rhythm: Normal rate and regular rhythm. Pulses: Normal pulses. Heart sounds: Normal heart sounds. No murmur heard. Pulmonary: Effort: Pulmonary effort is normal. No respiratory distress. Breath sounds: Normal breath sounds. Abdominal: General: Abdomen is flat. Bowel sounds are normal. There is no distension. Palpations: Abdomen is soft. There is no mass. Tenderness: There is no abdominal tenderness. Musculoskeletal: Cervical back: Normal range of motion and neck supple. No tenderness. Lymphadenopathy: Cervical: No cervical adenopathy. Skin: General: Skin is warm and dry. Findings: No rash. Neurological: General: No focal deficit present. Mental Status: He is alert and oriented to person, place, and time. Psychiatric: Mood and Affect: Mood normal. Thought Content: Thought content normal. Judgment: Judgment normal. Assessment/Plan Diagnoses and all orders for this visit: Hypertension, benign - Follow Up In Primary Care - Established - Comprehensive Metabolic Panel; Future - Follow Up In Primary Care - Established; Future Vitamin D deficiency - Vitamin D 25-Hydroxy,Total (for eval of Vitamin D levels); Future Arthropathy Benign neuroendocrine tumor of duodenum (CMS-HCC) Chronic allergic rhinitis Class 1 obesity due to excess calories without serious comorbidity with body mass index (BMI) of 31.0 to 31.9 in adult Facet arthropathy, thoracic Gastroesophageal reflux disease without esophagitis Liver cyst Pure hypercholesterolemia - Comprehensive Metabolic Panel; Future Renal cyst Restless leg syndrome - Vitamin B12; Future - Magnesium; Future - Ferritin; Future Sensorineural hearing loss (SNHL) of both ears Thyroid nodule Umbilical hernia without obstruction and without gangrene IFG (impaired fasting glucose) - Hemoglobin A1C; [facility] 1([phone]) 101-200712-17-2024 Instructions* Patient Instructions* Melva Martinez MD - 08/28/2024 4:30 PM EST Add B12 at 1000 units per day Increase vitamin D to 4000 units per day [facility]: 1(263) 415-712106-17-2024 History of Present illness Narrative* Melva Martinez MD - 02/27/2024 8:00 AM EDT Subjective Patient ID: Lynda Woodard is a 58 y.o. male who presents for Med Management (Left knee pain). HPI Arthropathy - Seen on previous scans, takes no meds. Some stiffness in morning. Pain in the left knee. Especially with twisting. Locking not noted. Occasional ibuprofen. Allergic Rhinitis - Seasonal, no medications except on occasion . GERD - found to have a neuroendocrine tumor that was resected in December. Also HH but now the HB is better with the removal of the tumor. Also has umbilical hernia repaired. Had a PET scan was negativeafterwards. Dr Armendariz follows. Dr Ventura is his oncologist. Noted liver and renal cysts Nodule on thyroid on CT scan. He is cold a lot since the injury. TSH 1.34. US of large complex nodule mostly solid. Bx showed atypia but molecular studies showed low risk. Follow up US in August 2021 was unchanged. On follow up in August it grew so they are going to remove it. That was put off due to the neuroendocrine tumor. Dr Armendariz tomorrow Cysts on the kidney and liver. The liver has been noted in the past. The kidney cyst was on the left at 10.8. Dr Mccallum saw him and says benign. No follow up unless a problem. GFR 77. Also had Fatty liver on US of GB Elevated FBS - A1C 5.8% last August. Discussed diet and diagnosis. FBS 97. Umbilical hernia- He has had for a long time. Repaired when he had the neuroendocrine tumor resected. Feels good. HTN - On Losartan, average 120/80 at home. No Chest pain (other then cramps when he stretches), Dyspnea, palpitations, numbness, weakness, edema, claudication, or double vision/ loss of vision. . Hyperlipidemia - In August TC 200. LDL 149. HDL 41. Not really watching diet well. CACS score 0. So risk is 4.3% with that. Will work on more veggies, fruits, nuts and exercise. Low back pain cramps to sides. Chiropractor did help some. But then cramps. Settling down now. SNHL in both ears. No hearing aids yet. RLS - meds work well without side effects. Was having flares, trying magnesium 250 and is better but still not happy with where its at. On Mirapex and will increase to 0.5 mg. Good and bad days. CMP WNL Will try stretching daily Obesity -Up 2 this time. Getting more active. BMI 31 Cologuard - 06/03/21.. Colonoscopy 12/12/23 PSA 08/20/23 Review of Systems Objective BP 124/76 (BP Location: Left arm, Patient Position: Sitting) Pulse 74 Ht 1.816 m (5' 11.5) Wt 103 kg (227 lb) SpO2 94% BMI 31.22 kg/m Physical Exam Vitals reviewed. Constitutional: General: He is not in acute distress. Appearance: Normal appearance. He is normal weight. HENT: Head: Normocephalic. Right Ear: Tympanic membrane normal. Left Ear: Tympanic membrane normal. Nose: Nose normal. Mouth/Throat: Pharynx: Oropharynx is clear. Eyes: Extraocular Movements: Extraocular movements intact. Conjunctiva/sclera: Conjunctivae normal. Pupils: Pupils are equal, round, and reactive to light. Neck: Vascular: No carotid bruit. Cardiovascular: Rate and Rhythm: Normal rate and regular rhythm. Pulses: Normal pulses. Heart sounds: Normal heart sounds. No murmur heard. Pulmonary: Effort: Pulmonary effort is normal. No respiratory distress. Breath sounds: Normal breath sounds. Abdominal: General: Abdomen is flat. Bowel sounds are normal. There is no distension. Palpations: Abdomen is soft. There is no mass. Tenderness: There is no abdominal tenderness. Comments: Incision well healed on the umbilicus Musculoskeletal: Cervical back: Normal range of motion and neck supple. No tenderness. Comments: Good ROM of left knee, stable, not tender today Lymphadenopathy: Cervical: No cervical adenopathy. Skin: General: Skin is warm and dry. Findings: No rash. Neurological: General: No focal deficit present. Mental Status: He is alert and oriented to person, place, and time. Psychiatric: Mood and Affect: Mood normal. Thought Content: Thought content normal. Judgment: Judgment normal. Assessment/Plan Diagnoses and all orders for this visit: Benign neuroendocrine tumor of duodenum (CMS-HCC) Hypertension, benign - losartan (Cozaar) 100 mg tablet; Take 1 tablet (100 mg) by mouth once daily. - Follow Up In Primary Care - Established; Future - Comprehensive Metabolic Panel; Future - Lipid Panel; Future Gastroesophageal reflux disease, unspecified whether esophagitis present - omeprazole (PriLOSEC) [address] capsule; Take 1 capsule (40 mg) by mouth once daily. Healthcare maintenance - Prostate Specific Antigen, Screen; Future Vitamin D deficiency S/P small bowel resection - CBC; Future - Magnesium; Future - Vitamin D 25-Hydroxy,Total (for eval of Vitamin D levels); Future Thyroid nodule - TSH with reflex to Free T4 if abnormal; Future Arthropathy Chronic allergic rhinitis Class 1 obesity due to excess calories without serious comorbidity with body mass index (BMI) of 31.0 to 31.9 in adult Restless leg syndrome Sensorineural hearing loss (SNHL) of both ears Umbilical hernia without obstruction and without gangrene Pure hypercholesterolemia [facility]: 1(131) 387-135206-17-2024 Instructions* Patient Instructions* Melva Martinez MD - 02/27/2024 8:00 AM EDT Voltaren Gel to the knee 2 times [facility] Phone: 1(475) 243-796804-05-2024 Consult note Author Canelo Anderson [facility] December 16, 2023 9:59am Note Date/Time December 16, 2023 9:59 am [facility] Medical Records Department [address] [place] [address] Counseling Note - Pharmacy 12/16/23 0959 MR#: [id number] Acct: [id number] Name: LYNDA WOODARD Rep #:[id number] : 1965 58 From: Canelo Anderson PCP: Dr. Melva Martinez MD Status:ADM IN Y Location: [facility] [id number] Pharmacy [place] Med Reconciliation Pharmacy Service has performed discharge medication reconciliation for this patient. The patient's discharge medication list was reviewed for discrepancies and discrepancies were resolved. Medications at Discharge Home Medications cyclobenzaprine 10 mg tablet 10 mg PO HS PRN muscle spasm 10/03/23 dicyclomine 10 mg capsule 10 mg PO BID PRN abdominal pain 10/03/23 losartan 100 mg tablet 100 mg PO QHS 10/03/23 omeprazole 40 mg capsule,delayed release 40 mg PO QHS 10/03/23 pramipexole 0.5 mg tablet 0.5 mg PO QHS 10/03/23 12/16/23 0959 <Electronically signed by Canelo barclay> Date _ Canelo Anderson Cosigner Signature (if applicable): Date CC: ~ Signed [facility] Work Phone: 1(719) 928-380604-05-2024 Discharge summary Author Alexi Armendariz [facility] December 16, 2023 6:05am Note Date/Time December 14, 2023 12:1 2pm [facility] Medical Records Department [address] [place] [address] Instructions for Home/Discharge Instructions 12/14/23 1210 MR#: [id number] Acct: [id number] Name: LYNDA WOODARD Rep #:[id number] : 1965 58 From: Alexi Armendariz MD PCP: Dr. Melva Martinez MD Status:ADM IN Discharge Instructions Procedure General Surgery Diet Discharge Diet: Light diet - advance as tolerated (if you have questions about your diet instructions, please talk to you doctor.) Activity Discharge Activity: May Not Drive (for 3-5 days or while taking narcotic pain medicine.) May shower in (days): 1 Lifting Restrictions: 10 pounds Dressing / Incision Call your doctor if your incision/area has: Continuous Slow Oozing, Sudden Increased Bleeding, Increased Pain/ Swelling, Increased Redness and Foul Smelling Discharge Call your doctor if you observe: Fever of 101 or Higher Suture Line Care: Avoid Pulling/Pushing and Avoid Pinching/Bending Additional Dressing/Incision Instructions:: Remove your plastic dressing and cotton ball on December 17. Remove sooner if there is any signs of progressive redness or if there is any blistering secondary to the dressing.. Leave steri-strips in place for 1 week. Follow Up Care Please Follow Up With: Alexi Armendariz MD When: Call [phone] to make an appointment to be seen in about 10 days. Test Results: Test results from this visit will be discussed in further detail at your follow- up appointment, if applicable. Discharge Plan Admission Admit Date/Time: 12/14/23 15:22 Primary Reason for Your Visit: Mesenteric mass/umbilical hernia Attending Provider: Alexi Armendariz Primary Care Provider: Melva Martinez Discharge Orders/Prescriptions Prescriptions: Continued omeprazole 40 mg capsule,delayed release(DR/EC) 40 mg PO QHS pramipexole 0.5 mg tablet 0.5 mg PO QHS losartan 100 mg tablet 100 mg PO QHS cyclobenzaprine 10 mg tablet 10 mg PO HS PRN (Reason: muscle spasm) dicyclomine 10 mg capsule 10 mg PO BID PRN (Reason: abdominal pain) Referrals / Follow Up: Melva Martinez MD [Primary Care Provider] - Disposition Disposition (needs filled in before D/C Order can be placed): Home, Self Care 12/16/23 06<Electronically signed by Alexi Armendariz MD>Alexi Armendariz MD CC: Dr. Melva Martinez MD ~ Signed [facility] Work Phone: 1(120) 817-711604-05-2024 Discharge summary Author Alexi Armendariz [facility] December 16, 2023 6:03am Note Date/Time December 16, 2023 6:03 am [facility] Medical Records Department [address] [place] [address] Discharge Summary 12/16/23 06 MR#: [id number] Acct: [id number] Name: LYNDA WOODARD IGNACIA Rep #:[id number] : 1965 58 From: Alexi Armendariz MD PCP: Dr. Melva Martinez MD Status:ADM IN Location: [place] [id number] Providers Date of Admission: 12/14/23 Primary Care Physician: Dr. Melva Martinez MD Reason For Visit: Exploratory laparoscopy poss conver Diagnosis Discharge Diagnosis (1) Mesenteric mass: Status: Acute Code(s): K63.89 - Other specified diseases of intestine (2) Umbilical hernia without obstruction or gangrene: Status: Acute Code(s): K42.9 - Umbilical hernia without obstruction or gangrene Plan Patient has made very nice progress. Passing flatus tolerating a liquid diet. He is ready for discharge. Office appointment follow-up 10 days. Pathology still pending. Alexi Armendariz M.D., F.A.C.S. Medications at Discharge Home Medications cyclobenzaprine 10 mg tablet 10 mg PO HS PRN muscle spasm 10/03/23 dicyclomine 10 mg capsule 10 mg PO BID PRN abdominal pain 10/03/23 losartan 100 mg tablet 100 mg PO QHS 10/03/23 omeprazole 40 mg capsule,delayed release 40 mg PO QHS 10/03/23 pramipexole 0.5 mg tablet 0.5 mg PO QHS 10/03/23 Hospital Course Operations - (Laparoscopy with laparoscopic bilateral transabdominal plane block and open small bowel enterectomy with primary anastomosis and umbilical herniorrhaphy) Summary of Care Provided Hospital Course: 58-year-old gentleman. He was admitted underwent laparoscopy expressly for bilateral transabdominal plane block. He has a large umbilical hernia midline incision was created and then the small bowel mesenteric mass in question was identified small bowel resection performed with primary anastomosis. Because ofthe enteric procedure the umbilical hernia repair was done with multiple simple sutures. The patient's postoperative course proceeded along an enhanced recovery program. He did well has made sufficient coverage allow for discharge. Weight / BMI Weight Weight: 225 lb Body Mass Index (BMI) 32.3 ABG / Lab / Microbiology Data 12/15/23 06:54 12/15/23 06:54 Laboratory: Laboratory Results - last 24 hr 12/15/23 06:54: WBC 8.4, RBC 4.76, Hgb 12.4 L, Hct 40.0, MCV 84.0, MCH 26.1 L, MCHC 31.0 L, RDW Std Deviation 48.5 H, RDW Coeff of Bianka 15.7 H, Plt Count 184, MPV 12.7 H, Sodium 138, Potassium 3.7, Chloride 107, Carbon Dioxide 24.0, Anion Gap 7, BUN 19 H, Creatinine 2.00 H, Estim Creat Clear Calc 47.01, Est GFR (MDRD)Af Amer 44 L, Est GFR (MDRD) Non-Af 36 L, BUN/Creatinine Ratio 9.5 L, Glucose 89, Calcium 8.1 L D/C Instructions Discharge Diet: Light diet - advance as tolerated (if you have questions about your diet instructions, please talk to you doctor.) May shower in (days): 1 Call your doctor if your incision/area has: Continuous Slow Oozing, Sudden Increased Bleeding, Increased Pain/ Swelling, Increased Redness and Foul Smelling Discharge Call your doctor if you observe: Fever of 101 or Higher Suture Line Care: Avoid Pulling/Pushing and Avoid Pinching/Bending Additional Dressing/Incision Instructions: Change or remove dressing in 4 days. Leave steri-strips in place for 1 week. Please Follow Up With: Alexi Armendariz MD When: Call [phone] to make an appointment to be seen in about 10 days. Meaningful Use Info Meaningful Use Diagnoses (Choose all that apply): None applicable Discharge Plan Admission Admit Date/Time: 12/14/23 15:22 Attending Provider: Alexi Armendariz Primary Care Provider: Melva Martinez Discharge Orders/Prescriptions Prescriptions: No Action omeprazole 40 mg capsule,delayed release(DR/EC) 40 mg PO QHS pramipexole 0.5 mg tablet 0.5 mg PO QHS losartan 100 mg tablet 100 mg PO QHS cyclobenzaprine 10 mg tablet 10 mg PO HS PRN (Reason: muscle spasm) dicyclomine 10 mg capsule 10 mg PO BID PRN (Reason: abdominal pain) Referrals / Follow Up: Melva Martinez MD [Primary Care Provider] - 12/16/23 0603 <Electronically signed by Alexi Armendariz MD> Cosigner Signature (if applicable): CC: Dr. Alexi Armendariz MD; Dr. Melva Martinez MD~ Signed [facility] Work Phone: 1(615) 371-729104-05-2024 Progress note Author Alexi Armendariz [facility] December 16, 2023 6:01am Note Date/Time December 16, 2023 6:01 am [facility] Medical Records Department [address] [place] [address] Progress Note - Surgery 12/16/23 0600 MR#: [id number] Acct: [id number] Name: LYNDA WOODARD Rep #:[id number] : 1965 58 From: Alexi Armendarzi MD PCP: Dr. Melva Martinez MD Status:ADM IN Location: MS3 [id number] Subjective Subjective Nausea has resolved. Patient has been feeling sore at the midline incision. Heclaims that his bloated feeling has resolved. He is passing moderate amounts offlatus. Tolerated clear liquids for supper. Objective Data Objective Data Vital Signs: Vital Signs Temp Pulse Resp BP Pulse Ox O2 Del Method O2 Flow Rate 98.4 F 65 16 155/93 H 94 Room Air 3 12/16/23 02:58 12/16/23 02:58 12/16/23 02:58 12/16/23 02:58 12/16/23 02:58 12/16/23 02:58 12/14/23 17:00 Oxygen Flow Rate (L/min) 3 Oxygen Delivery Method Room Air Weight: 225 lb Body Mass Index (BMI) 32.3 Intake & Output: Intake and Output for Last 24 Hours 12/14/23 12/15/23 12/16/23 23:59 23:59 23:59 Intake Total 1953.25 / 2423.25 2098.67 / 2098.67 Output Total 500 / 800 600 / 600 Balance 1453.25 / 1623.25 1498.67 / 1498.67 Lab / Micro Data 12/15/23 06:54 12/15/23 06:54 Labs: Laboratory Results - last 24 hr 12/15/23 06:54: WBC 8.4, RBC 4.76, Hgb 12.4 L, Hct 40.0, MCV 84.0, MCH 26.1 L, MCHC 31.0 L, RDW Std Deviation 48.5 H, RDW Coeff of Bianka 15.7 H, Plt Count 184, MPV 12.7 H, Sodium 138, Potassium 3.7, Chloride 107, Carbon Dioxide 24.0, Anion Gap 7, BUN 19 H, Creatinine 2.00 H, Estim Creat Clear Calc 47.01, Est GFR (MDRD)Af Amer 44 L, Est GFR (MDRD) Non-Af 36 L, BUN/Creatinine Ratio 9.5 L, Glucose 89, Calcium 8.1 L Physical Exam GI GI Narrative: Soft, less distended, appropriately tender midline, dressing clean dry and intact, very minimal erythema at the dressing. Assessment & Plan Assessment/Plan (1) Mesenteric mass: (2) Umbilical hernia without obstruction or gangrene: PLAN: Plan Patient has made very nice progress. Passing flatus tolerating a liquid diet. He is ready for discharge. Office appointment follow-up 10 days. Pathology still pending. Alexi Armendariz M.D., F.A.C.S. 12/16/23 0601 <Electronically signed by Alexi Armendariz MD> Cosigner Signature (if applicable): CC: ~ Signed [facility] Work Phone: 1(979) 479-107904-04-2024 Progress note Author Alexi Armendariz [facility] December 15, 2023 1:39pm Note Date/Time December 15, 2023 1:39 pm [facility] Medical Records Department [address] [place] [id number] Progress Note - Surgery 12/15/23 1338 MR#: [id number] Acct: [id number] Name: LYNDA WOODARD Rep #:[id number] : 1965 58 From: Alexi Armendariz MD PCP: Dr. Melva Martinez MD Status:ADM IN Location: [place] [address] Subjective Subjective Reported that patient was passing flatus. Diet was advanced to full liquids. The patient shows cream of wheat. Now feeling more bloated and distended. I have asked him to cut back to choosing clear liquids. Objective Data Objective Data Vital Signs: Vital Signs Temp Pulse Resp BP Pulse Ox O2 Del Method O2 Flow Rate 98.1 F 57 L 18 109/65 97 Room Air 3 12/15/23 08:58 12/15/23 08:58 12/15/23 08:58 12/15/23 08:58 12/15/23 08:58 12/15/23 08:58 12/14/23 17:00 Oxygen Flow Rate (L/min) 3 Oxygen Delivery Method Room Air Weight: 225 lb Body Mass Index (BMI) 32.3 Intake & Output: Intake and Output for Last 24 Hours 12/13/23 12/14/23 12/15/23 23:59 23:59 23:59 Intake Total 1953.25 / 2423.25 1438.67 / 1438.67 Output Total 500 / 800 600 / 600 Balance 1453.25 / 1623.25 838.67 / 838.67 Lab / Micro Data 12/15/23 06:54 12/15/23 06:54 Labs: Laboratory Results - last 24 hr 12/15/23 06:54: WBC 8.4, RBC 4.76, Hgb 12.4 L, Hct 40.0, MCV 84.0, MCH 26.1 L, MCHC 31.0 L, RDW Std Deviation 48.5 H, RDW Coeff of Bianka 15.7 H, Plt Count 184, MPV 12.7 H, Sodium 138, Potassium 3.7, Chloride 107, Carbon Dioxide 24.0, Anion Gap 7, BUN 19 H, Creatinine 2.00 H, Estim Creat Clear Calc 47.01, Est GFR (MDRD)Af Amer 44 L, Est GFR (MDRD) Non-Af 36 L, BUN/Creatinine Ratio 9.5 L, Glucose 89, Calcium 8.1 L Physical Exam GI GI Narrative: Soft, distended, not focally tender Assessment & Plan Assessment/Plan (1) Mesenteric mass: PLAN: I have vigorously encouraged the patient to ambulate and use a heating pad. Not ready for discharge at this time. Alexi Armendariz M.D., F.A.C.S. 12/15/23 1339 <Electronically signed by Alexi Armendariz MD> Cosigner Signature (if applicable): CC: ~ Signed [facility] Work Phone: 1(663) 876-249504-04-2024 Progress note Author Alexi Armendariz [facility] December 15, 2023 5:58am Note Date/Time December 15, 2023 5:58 am [facility] Medical Records Department [address] [place] [address] Progress Note - Surgery 12/15/23 0557 MR#: [id number] Acct: [id number] Name: LYNDA WOODARD Rep #:[id number] : 1965 58 From: Alexi Armendariz MD PCP: Dr. Melva Martinez MD Status:ADM IN Location: MS3 [id number] Subjective Subjective Patient is doing well. Some burping. No flatus. Pain at rest is only at a 1 or 2. He has been able to ambulate Objective Data Objective Data Vital Signs: Vital Signs Temp Pulse Resp BP Pulse Ox O2 Del Method O2 Flow Rate 97.7 F L 58 L 16 93/52 L 96 Room Air 3 12/15/23 04:59 12/15/23 04:59 12/15/23 04:59 12/15/23 04:59 12/15/23 04:59 12/15/23 04:59 12/14/23 17:00 Oxygen Flow Rate (L/min) 3 Oxygen Delivery Method Room Air Weight: 225 lb Body Mass Index (BMI) 32.3 Intake & Output: Intake and Output for Last 24 Hours 12/13/23 12/14/23 12/15/23 23:59 23:59 23:59 Intake Total 1953.25 / 2423.25 820 / 820 Output Total 500 / 800 600 / 600 Balance 1453.25 / 1623.25 220 / 220 Physical Exam Const oriented x3 and no apparent distress Resp normal respiratory effort GI GI Narrative: Soft, bowel sounds are present, distended, nontender Assessment & Plan Assessment/Plan (1) Mesenteric mass: (2) Umbilical hernia without obstruction or gangrene: PLAN: Plan Patient is doing quite well. He appears comfortable suggesting that the tap block is functioning well. I have encouraged ongoing use of the heating pad andfrequent ambulation. We will hold it clear liquids as he is a little bit distended. Discharge planning pending his progress. Alexi Armendariz M.D., F.A.C.S. 12/15/23 0558 <Electronically signed by Alexi Armendariz MD> Cosigner Signature (if applicable): CC: ~ Signed [facility] Work Phone: [phone]) 809-664004-03-2024 Procedure [facility] 12-14-2023 History and physical note Author Alexi Armendariz [facility] December 14, 2023 12:10pm Note Date/Time December 14, 2023 12:0 9pm [facility] Medical Records Department [address] [place] [address] History & Physical Exam 12/14/23 1208 MR#: [id number] Acct: [id number] Name: LYNDA WOODARD Rep #:[id number] : 1965 58 From: Alexi Armendariz MD PCP: Dr. Melva Martinez MD Status:[facility] Location: [place] [address] History and Physical Date of Admission: 12/14/23 isit Reasons: MESENTERIC MASS Chief Complaint: mesenteric mass New Product Trainer Required: No Accompanied by: Is patient in pain?: No Allergies No Known Allergies Allergy (Verified 12/05/23 12:39) Medications cyclobenzaprine 10 mg tablet 10 mg PO HS PRN muscle spasm 10/03/23 [History Confirmed 12/05/23] dicyclomine 10 mg capsule 10 mg PO BID PRN abdominal pain 10/03/23 [History Confirmed 12/05/23] losartan 100 mg tablet 100 mg PO DAILY 10/03/23 [History Confirmed 12/05/23] omeprazole 40 mg capsule,delayed release 40 mg PO DAILY 10/03/23 [History Confirmed 12/05/23] pramipexole 0.5 mg tablet 0.5 mg PO QHS 10/03/23 [History Confirmed 12/05/23] [facility] Medical History (Updated 12/05/23 @ 05:[address] Alexi Armendariz MD) GERD (gastroesophageal reflux disease) History of echocardiogram History of rib fracture History of ulceration Hypertension Non-smoker Restless legs Right thyroid nodule Thyroid disease Wears glasses Surgical History H/O colonoscopy Family History Sister Thyroid disorder Social History Smoking Status: Never smoker alcohol intake: never substance use type: does not use HPI HPI HPI: 58-year-old gentleman who was initially referred to me October 03, 2023 for progressive enlarging right thyroid nodule. After discussion we elected to do aright thyroid lobectomy. He was actually on the schedule but I had to cancel atmy request. Almost simultaneously then we were notified per Dr. Melva Martinez and Dr. Humberto Peguero regarding a new referral for patient's chronic abdominal pain. At [facility] the patient had a CT abdomen pelvis performed on November 19, 2023 because of left lower quadrant abdominal pain and bloating. The images demonstrate a large left renal cyst in the lower pole measuring 12 cm. Additionally however there is a mesenteric mass adjacent to a loop of small bowel measuring 2.6 cm in diameter. Margins are irregular and there is stranding present. This impinges upon the right side of an adjacent loop of small bowel. A 7 mm mesenteric lymph node slightly cephalad to the massis identified. No free fluid. An additional there is a sizable fat-containing umbilical hernia. There is a left inguinal hernia. An ultrasound report from March 18, 2021 at that time identified a large left renal cyst measuring 10.3 x 8.2 x 10 cm at that time. Information provided suggest that 2019 he got sick on vacation with nausea and vomiting. He claims that every few months since that time he had some cramps and abdominal pain. His chest trauma was 3 years ago and at that time CT did not demonstrate the mesenteric mass. He claims that he had an episode over of 2022 and then again about 6 weeks ago. He gets cramping in the abdomen and nausea. He has been prescribed dicyclomine to help with the cramping. He has had no weight loss. No bright red blood per rectum or melena. No fever, chills, sweats, flushing, tachycardia, dizziness, or diarrhea He has undergone allergy testing which by report was not remarkable. 24-hour urine is pending. He had a EGD and C-scope back in 2009. His serotonin level is elevated 1250. 5HIAA was high at 28. ROS General General: Yes fatigue; No weight change, appetite, colon cancer, breast cancer or weakness HEENT HEENT: No difficulty swallowing, eye injury, eye surgery, swollen glands or hoarseness Endo Endocrine: Yes thyroid disease; No diabetes mellitus, thyroid cancer, Hair loss, heat intolerance or cold intolerance Skin Skin: No rash or changing moles Musc Musculoskeletal: No back problems, arthritis, rheumatoid arthritis, gout or joint pain Cardio Cardiovascular: Yes high blood pressure; No murmur, pacemaker, heart disease, atrial fibrillation, heart attack, heart stent, palpitations, shortness of breat with exertion or chest pain Psych Psychiatric: No depression, anxiety or hearing voices Resp Respiratory: No shortness of breath, No sleep apnea, No cough, No COPD, No asthma, No emphysema and No wheezing Gastro Gastrointestinal: Yes abdominal pain, Yes nausea or vomiting, Yes diarrhea and Yes acid reflux Aramis Hematologic: No blood thinners, No blood disorders, No bleeding, No anemia and No blood clots Neuro Neurologic: No numbness, No tingling and No weakness Exam Const General: cooperative, healthy appearing, comfortable and no acute distress Nutritional Appearance: average body habitus Orientation: alert and awake HENMT Other: Right thyroid enlargement Neck Neck: normal visual inspection Chest Chest palpation & inspection: normal inspection of the chest Resp Effort & Inspection: normal respiratory effort Auscultation: clear to auscultation bilaterally Cardio Rate: regular rate Rhythm: regular rhythm GI Other: Soft, nontender, incarcerated umbilical hernia not reducible nontender, no focalmass. Bowel sounds present unremarkable. Other: Testicles are atrophic and descended. Left inguinal hernia nontender reducible. Right groin seemingly solid. Musc Cervical Spine: normal cervical lordosis Skin General: no rashes or lesions noted Neuro General: patient alert, patient awake and patient oriented x3 Extrem General: no calf tenderness Psych Appearance: grossly normal Assessment and Plan Assessment and Plan (1) Mesenteric mass: Status: Acute (2) GERD (gastroesophageal reflux disease): Status: Acute Qualifiers: Esophagitis presence: esophagitis presence not specified Qualified Code(s): K21.9 - Gastro-esophageal reflux disease without esophagitis (3) Right thyroid nodule: Status: Acute (4) Umbilical hernia without obstruction or gangrene: Status: Acute (5) Inguinal hernia of left side without obstruction or gangrene: Status: Acute (6) Renal cyst, acquired, left: Status: Acute Plan: Laboratory suggest neuroendocrine tumor. I propose for him a combined esophagogastroduodenoscopy and colonoscopy with possible biopsy or polypectomy. Recommend a small bowel follow-through to assess for other small bowel pathology. Subsequently will have him scheduled for a laparoscopy to help to find the position of the lesion within conversion to a laparotomy for enterectomy with excision of the mass and hopefully lymph node burden. Patient is aware that that same setting it is likely that his incarcerated umbilical herniawill need to be addressed however we will not utilize mesh. We will not be addressing his left inguinal hernia at that time nor his right thyroid nodule. With the duration of time that he has had his very large left renal cyst does not appear that that is adding to his current discomfort. He is aware of technique, benefit, risk, alternatives. He has an opportunity to ask and have questions answered. I very much appreciate the kind opportunity of assisting with the surgical care. Copy: Dr. Melva Martinez and Dr. Humberto Armendariz M.D., F.A.C.S. On December 09, 2023 the patient had a small bowel follow-through. There is evidence of ORIF bilateral rib fractures. Stomach and duodenum not remarkable. There is evidence of circumferential narrowing of the small bowel loop in the right mid abdomen at the level of the jejunum. Transit time was 60 minutes. On December 12, 2023 the patient had a esophagogastroduodenoscopy and colonoscopy. The upper endoscopy demonstrated a small hiatal hernia and reflux esophagitis. There was mild gastritis and multiple benign gastric fundic polyps. And terminal ileal biopsy normal The patient presents now for exploratory laparoscopy with anticipated laparoscopic assisted transverses abdominal plane block as well as anticipated either hand-assisted or open enterectomy with then subsequent primary suture repair of a large umbilical hernia. He has had an opportunity to ask and have questions answered. We will proceed as noted. Alexi Armendariz M.D., F.A.C.S. 12/14/23 1210 <Electronically signed by Alexi Armendariz MD> Cosigner Signature (if applicable): CC: Dr. Alexi Armendariz MD; Dr. Melva Martinez MD~ Signed [facility] Work Phone: 1(214) 930-440804-01-2024 History and physical note Author Alexi Armendariz [facility] December 12, 2023 2:43pm Note Date/Time December 12, 2023 2:42 pm [facility] Medical Records Department [address] [place] [address] History & Physical Exam 12/12/23 1439 MR#: [id number] Acct: [id number] Name: LYNDA WOODARD Rep #:[id number] : 1965 58 From: Alexi Armendariz MD PCP: Dr. Melva Martinez MD Status:[facility] Location: [place] [address] History and Physical Date of Admission: 12/12/23 isit Reasons: MESENTERIC MASS Chief Complaint: mesenteric mass New Product Trainer Required: No Accompanied by: Is patient in pain?: No Allergies No Known Allergies Allergy (Verified 12/05/23 12:39) Medications cyclobenzaprine 10 mg tablet 10 mg PO HS PRN muscle spasm 10/03/23 [History Confirmed 12/05/23] dicyclomine 10 mg capsule 10 mg PO BID PRN abdominal pain 10/03/23 [History Confirmed 12/05/23] losartan 100 mg tablet 100 mg PO DAILY 10/03/23 [History Confirmed 12/05/23] omeprazole 40 mg capsule,delayed release 40 mg PO DAILY 10/03/23 [History Confirmed 12/05/23] pramipexole 0.5 mg tablet 0.5 mg PO QHS 10/03/23 [History Confirmed 12/05/23] PFSH Medical History (Updated 12/05/23 @ 05:[address] Alexi Armendariz MD) GERD (gastroesophageal reflux disease) History of echocardiogram History of rib fracture History of ulceration Hypertension Non-smoker Restless legs Right thyroid nodule Thyroid disease Wears glasses Surgical History H/O colonoscopy Family History Sister Thyroid disorder Social History Smoking Status: Never smoker alcohol intake: never substance use type: does not use HPI HPI HPI: 58-year-old gentleman who was initially referred to me October 03, 2023 for progressive enlarging right thyroid nodule. After discussion we elected to do aright thyroid lobectomy. He was actually on the schedule but I had to cancel atmy request. Almost simultaneously then we were notified per Dr. Melva Martinez and Dr. Humberto Peguero regarding a new referral for patient's chronic abdominal pain. At [facility] the patient had a CT abdomen pelvis performed on November 19, 2023 because of left lower quadrant abdominal pain and bloating. The images demonstrate a large left renal cyst in the lower pole measuring 12 cm. Additionally however there is a mesenteric mass adjacent to a loop of small bowel measuring 2.6 cm in diameter. Margins are irregular and there is stranding present. This impinges upon the right side of an adjacent loop of small bowel. A 7 mm mesenteric lymph node slightly cephalad to the massis identified. No free fluid. An additional there is a sizable fat-containing umbilical hernia. There is a left inguinal hernia. An ultrasound report from March 18, 2021 at that time identified a large left renal cyst measuring 10.3 x 8.2 x 10 cm at that time. Information provided suggest that 2018 he got sick on vacation with nausea and vomiting. He claims that every few months since that time he had some cramps and abdominal pain. His chest trauma was 3 years ago and at that time CT did not demonstrate the mesenteric mass. He claims that he had an episode over of 2022 and then again about 6 weeks ago. He gets cramping in the abdomen and nausea. He has been prescribed dicyclomine to help with the cramping. He has had no weight loss. No bright red blood per rectum or melena. No fever, chills, sweats, flushing, tachycardia, dizziness, or diarrhea He has undergone allergy testing which by report was not remarkable. 24-hour urine is pending. He had a EGD and C-scope back in 2009. His serotonin level is elevated 1250. 5HIAA was high at 28. ROS General General: Yes fatigue; No weight change, appetite, colon cancer, breast cancer or weakness HEENT HEENT: No difficulty swallowing, eye injury, eye surgery, swollen glands or hoarseness Endo Endocrine: Yes thyroid disease; No diabetes mellitus, thyroid cancer, Hair loss, heat intolerance or cold intolerance Skin Skin: No rash or changing moles Musc Musculoskeletal: No back problems, arthritis, rheumatoid arthritis, gout or joint pain Cardio Cardiovascular: Yes high blood pressure; No murmur, pacemaker, heart disease, atrial fibrillation, heart attack, heart stent, palpitations, shortness of breat with exertion or chest pain Psych Psychiatric: No depression, anxiety or hearing voices Resp Respiratory: No shortness of breath, No sleep apnea, No cough, No COPD, No asthma, No emphysema and No wheezing Gastro Gastrointestinal: Yes abdominal pain, Yes nausea or vomiting, Yes diarrhea and Yes acid reflux Aramis Hematologic: No blood thinners, No blood disorders, No bleeding, No anemia and No blood clots Neuro Neurologic: No numbness, No tingling and No weakness Exam Const General: cooperative, healthy appearing, comfortable and no acute distress Nutritional Appearance: average body habitus Orientation: alert and awake [facility] Other: Right thyroid enlargement Neck Neck: normal visual inspection Chest Chest palpation & inspection: normal inspection of the chest Resp Effort & Inspection: normal respiratory effort Auscultation: clear to auscultation bilaterally Cardio Rate: regular rate Rhythm: regular rhythm GI Other: Soft, nontender, incarcerated umbilical hernia not reducible nontender, no focalmass. Bowel sounds present unremarkable. Other: Testicles are atrophic and descended. Left inguinal hernia nontender reducible. Right groin seemingly solid. Musc Cervical Spine: normal cervical lordosis Skin General: no rashes or lesions noted Neuro General: patient alert, patient awake and patient oriented x3 Extrem General: no calf tenderness Psych Appearance: grossly normal Assessment and Plan Assessment and Plan (1) Mesenteric mass: Status: Acute (2) GERD (gastroesophageal reflux disease): Status: Acute Qualifiers: Esophagitis presence: esophagitis presence not specified Qualified Code(s): K21.9 - Gastro-esophageal reflux disease without esophagitis (3) Right thyroid nodule: Status: Acute (4) Umbilical hernia without obstruction or gangrene: Status: Acute (5) Inguinal hernia of left side without obstruction or gangrene: Status: Acute (6) Renal cyst, acquired, left: Status: Acute Plan: Laboratory suggest neuroendocrine tumor. I propose for him a combined esophagogastroduodenoscopy and colonoscopy with possible biopsy or polypectomy. Recommend a small bowel follow-through to assess for other small bowel pathology. Subsequently will have him scheduled for a laparoscopy to help to find the position of the lesion within conversion to a laparotomy for enterectomy with excision of the mass and hopefully lymph node burden. Patient is aware that that same setting it is likely that his incarcerated umbilical herniawill need to be addressed however we will not utilize mesh. We will not be addressing his left inguinal hernia at that time nor his right thyroid nodule. With the duration of time that he has had his very large left renal cyst does not appear that that is adding to his current discomfort. He is aware of technique, benefit, risk, alternatives. He has an opportunity to ask and have questions answered. I very much appreciate the kind opportunity of assisting with the surgical care. Copy: Dr. Melva Martinez and Dr. Humberto Armendariz M.D., F.A.C.S. On December 09, 2023 the patient had a small bowel follow-through. There is evidence of ORIF bilateral rib fractures. Stomach and duodenum not remarkable. There is evidence of circumferential narrowing of the small bowel loop in the right mid abdomen at the level of the jejunum. Transit time was 60 minutes. We will proceed today with a combined esophagogastroduodenoscopy with possible biopsy and colonoscopy with possible biopsy or polypectomy Alexi Armendariz M.D., F.A.C.S. 12/12/23 9610 <Electronically signed by Alexi Armendariz MD> Cosigner Signature (if applicable): CC: Dr. Alexi Armendariz MD; Dr. Melva Martinez MD~ Signed [facility] Work Phone: 1(287) 258-285504-01-2024 Procedure [facility] 12-12-2023 Procedure [facility]04-01-2024 Procedure note [facility]04-01-2024 Procedure [facility] 11-10-2023 History of Present illness Narrative* Humberto Peguero, DO - 11/10/2023 9:45 AM EST Subjective Patient ID: Lynda Woodard is a 58 y.o. male who presents for GERD (Taking omeprazole 40mg currently. ), Bloated, and Nausea. NILS Davis is a pleasant 4-year-old male with abdominal complaints. He underwent EGD and colonoscopy approximately 12 years ago with findings of reflux esophagitis with distal esophageal ulcerations he has been on proton pump inhibitor therapy since that time. He is recent developed increasing abdominal distress feeling bloated almost constipated 2 degree and feels that his symptoms feel like a air bubble being expanded in his abdomen around his periumbilical region. It culminates with severe cramping followed by passage of a large amount of stool and then diarrhea and symptoms will last for approximately 3 days. Episodes have been triggered by eating out he is found that if he eats onions whether they are cooked raw he has symptoms along with garlic. Last episode occurred eating out having had a steak at [employer]. Review of Systems Constitutional: Negative. HENT: Negative. Eyes: Negative. Respiratory: Negative. Cardiovascular: Negative. Gastrointestinal: Negative. Endocrine: Negative. Genitourinary: Negative. Musculoskeletal: Negative. Neurological: Negative. Hematological: Negative. Psychiatric/Behavioral: Negative. Objective Physical Exam Vitals and nursing note reviewed. Constitutional: Appearance: Normal appearance. HENT: Head: Normocephalic. Mouth/Throat: Mouth: Mucous membranes are moist. Pharynx: Oropharynx is clear. Eyes: Pupils: Pupils are equal, round, and reactive to light. Cardiovascular: Rate and Rhythm: Normal rate and regular rhythm. Pulmonary: Effort: Pulmonary effort is normal. Breath sounds: Normal breath sounds. Abdominal: General: Abdomen is flat. Bowel sounds are normal. Palpations: Abdomen is soft. Musculoskeletal: General: Normal range of motion. Cervical back: Normal range of motion and neck supple. Skin: General: Skin is warm and dry. Neurological: General: No focal deficit present. Mental Status: He is alert and oriented to person, place, and time. Psychiatric: Mood and Affect: Mood normal. Behavior: Behavior normal. Assessment/Plan Diagnoses and all orders for this visit: Left lower quadrant pain - CT abdomen pelvis w IV contrast; Future - Creatinine, Serum; Future Gastroesophageal reflux disease without esophagitis - Referral to Gastroenterology Abdominal bloating - Referral to Gastroenterology - Celiac Panel; Future - Food Allergy Profile IgE; Future LLQ pain Humberto Peguero DO 11/10/23 10:47 AM documented in this [facility] Work Phone: 1(324) 932-157201-15-2024 History of Present illness Narrative* Tanner Wang MD MPH - 09/26/2023 3:20 PM EST Subjective Patient ID: Lynda Woodard is a 58 y.o. male who presents for Pain (PT is here today for knee pain in his left. ). HPI Reports he has had the knee pain since last Tuesday. Denies injury or fall and does not know what he did to it. Reports there is swelling and heat and ice seem to help. Reports OTC motrin does help. Started out gradual and kept getting worse and worse. Does not think it feels hot to the touch, reports is the side of the knee, if he twists it, reports it is sharp pain. Scale of 1 to 10 reports thepain is a 6 or 7, depending on how well the medicine is working. Review of Systems ROS negative except discussed above in HPI. Vitals: 09/26/23 1526 BP: (!) 154/100 Pulse: 71 SpO2: 96% Objective Physical Exam Antalgic gait. Normal passive ROM. Normal active extension and flexion. Mild tenderness in the medial collateral ligament area. Good end points noticed on Mihir. Tenderness with Kaela test when extension with internal rotation. Assessment/Plan Lynda was seen today for pain. Diagnoses and all orders for this visit: Acute pain of left knee (Primary) - XR knee left 1-2 views; Future Low concern for fracture. Concern for meniscal injury vs ligament injury. Recommended PT. He will think about it and let me know when he decides to go to PT. Follow up as needed Tanner Wang MD MPH documented in this [facility] Work Phone: 1(486) 433-959912-15-2023 History of Present illness Narrative* Melva Martinez MD - 08/26/2023 8:30 AM EST Subjective Patient ID: Lynda Woodard is a 58 y.o. male who presents for Med Management (Back problems, stomach issues no better). HPI Arthropathy - Seen on previous scans, takes no meds. Some stiffness in morning. Allergic Rhinitis - Seasonal, no medications. GERD - Seen 11 months ago for GERD flare up, bentyl and omeprazole helping.. Still something that he cannot identify will cause flares. No melena and hematochezia. On Omeprazole daily. Cramps and nausea spells. No diarrhea or constipation. Still has gallbladder. US negatvie except for fatty liver. HIDA not done but not likely to be helpful. Refer to gastroenterology Nodule on thyroid on CT scan. He is cold a lot since the injury. TSH 1.34. US of large complex nodule mostly solid. Bx showed atypia but molecular studies showed low risk. Follow up US in August 2021 was unchanged. Will check again Cysts on the kidney and liver. The liver has been noted in the past. The kidney cyst was on the left at 10.8. Dr Mccallum saw him and says benign. No follow up unless a problem. GFR 77. Also had Fatty liver on US of GB Elevated FBS - A1C 5.8%. Discussed diet and diagnosis. FBS 97. Umbilical hernia- He has had for a long time. Occasional pain. No acute incarceration or strangulation. HTN - On Losartan, average 120/80 at home. No Chest pain (other pain in left chest when he turns toside. Will try stretching it), Dyspnea, palpitations, numbness, weakness, edema, claudication, or double vision/ loss of vision. . Hyperlipidemia - TC 200. LDL 149. HDL 41. Not really watching diet well. CACS score 0. So risk is 4.3% with that. Will work on more veggies, fruits, nuts and exercise. Low back pain cramps to sides. Chiropractor did help some. But then cramps. Settling down now. Would like more of those SNHL in both ears. No hearing aids yet. RLS - meds work well without side effects. Was having flares, trying magnesium 250 and is better but still not happy with where its at. On Mirapex and will increase to 0.5 mg. Still has it. Obesity -Up 4 this time. Getting more active. BMI 31 Cologuard - 06/03/21 PSA 08/20/23 Review of Systems Objective BP 130/80 (BP Location: Left arm, Patient Position: Sitting) Pulse 64 Wt 102 kg (225 lb) HwC520% BMI 31.83 kg/m Physical Exam Vitals reviewed. Constitutional: General: He is not in acute distress. Appearance: Normal appearance. HENT: Head: Normocephalic. Right Ear: Tympanic membrane, ear canal and external ear normal. Left Ear: Tympanic membrane, ear canal and external ear normal. Nose: Nose normal. Mouth/Throat: Pharynx: Oropharynx is clear. Eyes: Extraocular Movements: Extraocular movements intact. Conjunctiva/sclera: Conjunctivae normal. Pupils: Pupils are equal, round, and reactive to light. Neck: Vascular: No carotid bruit. Cardiovascular: Rate and Rhythm: Normal rate and regular rhythm. Pulses: Normal pulses. Heart sounds: Normal heart sounds. No murmur heard. Pulmonary: Effort: Pulmonary effort is normal. No respiratory distress. Breath sounds: Normal breath sounds. Abdominal: General: Abdomen is flat. Bowel sounds are normal. There is no distension. Palpations: Abdomen is soft. There is no mass. Tenderness: There is no abdominal tenderness. Musculoskeletal: General: Tenderness (mid back. Pain with rotation and extension.) present. No swelling or deformity. Cervical back: Normal range of motion and neck supple. No tenderness. Lymphadenopathy: Cervical: No cervical adenopathy. Skin: General: Skin is warm and dry. Findings: No rash. Neurological: General: No focal deficit present. Mental Status: He is alert and oriented to person, place, and time. Psychiatric: Mood and Affect: Mood normal. Thought Content: Thought content normal. Judgment: Judgment normal. Assessment/Plan Diagnoses and all orders for this visit: Arthropathy Chronic allergic rhinitis Gastroesophageal reflux disease without esophagitis - Referral to Gastroenterology; Future Abdominal bloating - Referral to Gastroenterology; Future Thyroid nodule - US thyroid; Future Renal cyst Liver cyst Fatty liver - Immunoglobulins (IgG, IgA, IgM); Future - Iron and TIBC; Future - Ferritin; Future - Anti-Smooth Muscle Antibody; Future - Hepatitis C antibody; Future - Hepatitis B surface antigen; Future - Comprehensive Metabolic Panel; Future - Hepatic function panel; Future Hypertension, benign Umbilical hernia without obstruction and without gangrene Facet arthropathy, thoracic - cyclobenzaprine (Flexeril) 10 mg tablet; Take 1 tablet (10 mg) by mouth 3 times a day as needed for muscle spasms. Other orders - Follow Up In Primary Care - Established; Future documented in this [facility] Work Phone: 1(922) 210-192901-10-2023 Instructions* Patient Instructions* Alexandria Gore CNP - 09/21/2022 5:20 PM EST Follow up as needed. documented in this [id number] History of Present illness Narrative* Alexandria Gore CNP - 09/21/2022 5:04 PM ESTAssociated Order(s): Suture removal Post-Procedure Diagnose(s): Visit for suture removal Images from the original note were not included. Patient Name: [facility] Location: Lynda Woodard [address] [place] [id number] Date Of : Date Of Visit: 1965 09/21/2022 MRN# Provider: [id number] Alexandria Gore CNP Chief Complaint Patient presents with Suture / Staple Removal Pt presents for suture removal Assessment & Plan 1. Visit for suture removal 2. Elevated blood pressure reading No follow-ups on file. Medical Decision Making Non-toxic in NAD here for suture removal. Sutures placed in this facility. No appearance of infection. Wound appears well healed. 8 sutures intact. See H&P Suture removal 4 steri-strips and bandage Additional Clinical Comments Follow up as needed Subjective 57 y.o. male presents with Suture / Staple Removal (Pt presents for suture removal) Suture removal. Laceration to the arm. Sutures placed in this facility on 09/10/2022. Suture / Staple Removal The sutures were placed 11 to 14 days ago. There has been no drainage from the wound. There is no redness present. There is no swelling present. There is no pain present. He has no difficulty moving the affected extremity or digit. Review Of Systems Review of Systems Skin: Laceration of the right forearm. Medical History Past Medical History: Diagnosis Date Blunt chest trauma 02/10/2021 Closed fracture of multiple ribs of left side 02/10/2021 Hypertension Lumbar transverse process fracture (HCC) 02/10/2021 Pneumothorax 02/10/2021 Past Surgical History: Procedure Laterality Date ORIF RIB CAGE Left 02/12/2021 Procedure: OPEN REDUCTION INTERNAL FIXATION RIB CAGE; Surgeon: Dank Hicks MD; Location: Main OR; Service: General Surgery THORACOSCOPY (VATS) Left 02/12/2021 Procedure: THORACOSCOPY VIDEO ASSISTED; Surgeon: Dank Hicks MD; Location: Main OR; Service: General Surgery Patient Active Problem List Diagnosis Concussion with loss of consciousness Abrasions of multiple sites Multiple fractures of ribs, bilateral, init for clos fx Closed fracture of transverse process of thoracic vertebra (HCC) Mass Elevated CK Left wrist pain Social History Social History Tobacco Use Smoking status: Never Smokeless tobacco: Never Vaping Use Vaping Use: Never used Family History History reviewed. No pertinent family history. Objective Physical Exam BP (!) 138/92 Comment: .....recheck als Pulse 61 Temp 97 F (36.1 C) (Tympanic) Resp 14 Wt 102.1 kg (225 lb) SpO2 98% BMI 32.28 kg/m Vision/Hearing Exam:No results found. Physical Exam Vitals reviewed. Constitutional: General: He is not in acute distress. Appearance: Normal appearance. He is not ill-appearing, toxic-appearing or diaphoretic. Cardiovascular: Rate and Rhythm: Normal rate. Pulmonary: Effort: Pulmonary effort is normal. No respiratory distress. Skin: General: Skin is warm and dry. Comments: Laceration to the right forearm is well healed without redness, drainage. Neurological: Mental Status: He is alert. Psychiatric: Mood and Affect: Mood normal. Behavior: Behavior normal. Procedure Notes Suture removal Date/Time: 09/21/2022 5:21 PM Performed by: Alexandria Gore CNP Authorized by: Alexandria Gore CNP Body area: upper extremity Location details: right lower arm Wound Appearance: clean Sutures Removed: 8 Post-removal: dressing applied and Steri-Strips applied Facility: sutures placed in this facility Patient tolerance: patient tolerated the procedure well with no immediate complications Results No results found for this or any previous visit (from the past 168 hour(s)). No orders to display Orders Placed This Visit Orders Placed This Encounter Procedures Suture removal Medication List At End Of Visit Current Outpatient Medications Medication Sig Dispense Refill lisinopriL-hydrochlorothiazide (PRINZIDE,ZESTORETIC) 10-12.5 mg per tablet Take 1 (one) tablet by mouth daily . losartan (COZAAR) 50 MG tablet Take 1 (one) tablet (50 mg total) by mouth daily . omeprazole (PRILOSEC) 40 MG capsule Take by mouth daily . pramipexole (MIRAPEX) 0.25 MG tablet Take 1 (one) tablet (0.25 mg total) by mouth nightly . cephALEXin (KEFLEX) 500 MG capsule One capsule po tid x 5 days . (Patient not taking: Reported on 09/21/2022 .) 15 capsule 0 No current facility-administered medications for this visit. Patient Instructions Follow up as needed. documented in this [id number] Instructions* Patient Instructions* Melissa Short PA-C - 09/10/2022 11:09 AM EST Lynda, Laceration Right Forearm Change dressing daily and as needed after 24 hours NO showers or bathing x 24 hours Any unusual/heavy bleeding that does not stop with pressure, return immediately for recheck or go to the ER if we are closed. Keep wound clean and dry Avoid any unnecessary tension to wound while it is healing; Your wound can take anywhere from 10-14days. PLEASE RETURN FOR SUTURE REMOVAL IN 10 DAYS; APPLY ANTIBIOTIC OINTMENT ONCE DAILY ON INCISION; APPLY 2 HOURS BEFORE HAVING SUTURES REMOVED. Watch for any signs of infection: Warmth, redness, abnormal bleeding or discharge, doc temp, unableto use finger, extrem turns white or blue, nausea/vomiting/sweating do to pain, or any other concerns - ER!! Be safe and Get better!! * Attachments The following attachments cannot be sent through Care Everywhere. * Lacerations ([place]ozambican) documented in this [id number] History of Present illness Narrative* Melissa Short PA-C - 09/10/2022 10:09 AM ESTAssociated Order(s): Laceration repair Post-Procedure Diagnose(s): Laceration of right forearm, initial encounter Images from the original note were not included. Pt contacted 09/10/22 1/55pm - no swelling, no bleeding, feels and looks good. Advised any concerns - return for recheck or go to the ER if we are closed. slpac Patient Name: [facility] Location: Lynda Woodard [address] [place] [id number] Date Of : Date Of Visit: 1965 09/10/2022 MRN# Provider: [id number] Melissa Short PA-C Chief Complaint Patient presents with Laceration Cut on right lower forearm about 15 min ago. He cut it on a piece of steel. Last Tdap unknown. Assessment & Plan 1. Laceration of right forearm, initial encounter No follow-ups on file. Medical Decision Making Consider - Laceration superficial, deep/muscle/tendon, blood vessel R forearm laceration Cephalexin Dressing 4 horizontal mattess 3 simple interrupted sutures Dressing R forearm, compression dressing Hemostasis achieved with closure of wound Laceration Right Forearm Change dressing daily and as needed after 24 hours NO showers or bathing x 24 hours Any unusual/heavy bleeding that does not stop with pressure, return immediately for recheck or go to the ER if we are closed. Keep wound clean and dry Avoid any unnecessary tension to wound while it is healing; Your wound can take anywhere from 10-14days. PLEASE RETURN FOR SUTURE REMOVAL IN 10 DAYS; APPLY ANTIBIOTIC OINTMENT ONCE DAILY ON INCISION; APPLY 2 HOURS BEFORE HAVING SUTURES REMOVED. Watch for any signs of infection: Warmth, redness, abnormal bleeding or discharge, doc temp, unableto use finger, extrem turns white or blue, nausea/vomiting/sweating do to pain, or any other concerns - ER!! Additional Clinical Comments Laceration was complex and did take longer than expected. Depth was < 1/4 inch, but into superficial muscle belly of forearm. Good wound approximation noted, patient was kept 10 to 15 minutes after closure to make sure there was no unexpected bleeding through the wound. Tetanus was updated. Thenkept another 10- 15 mins. No bleeding or swelling of R forearm. Dressing intact without blood seen on it. Advised no tension applied to forearm x 2-3 days, then gingerly as tolerated to avoid suture rupture. See avs. Pt is nontoxic, afebrile, w/o ams and verbalized good understanding and agreement. He is ready for dc. Subjective 57 y.o. male presents with Laceration (Cut on right lower forearm about 15 min ago. He cut it on a piece of steel. Last Tdap unknown. ) HPI Review Of Systems Review of Systems Constitutional: Negative for chills and fever. Eyes: Negative for photophobia and visual disturbance. Respiratory: Negative for shortness of breath. Cardiovascular: Negative for chest pain and palpitations. Gastrointestinal: Negative for nausea and vomiting. Musculoskeletal: Negative for joint swelling, myalgias, neck pain and neck stiffness. Skin: Positive for wound. Negative for color change, pallor and rash. The patient is right-hand dominant and [facility]. He denies any puncture wound. He denies any foreign body. This happened about 20 minutes prior to arrival, he denies being on blood thinners. He has had no loss of consciousness or symptoms prior to or post fall. He has no bleeding disorders. He has had full range of motion of hand fingers and arm after injury despite pain and was able to slow/stop bleeding with compression dressing. He cannot recall his last tetanus, he is not diabetic. He denies any pallor or cyanosis, loss of function of extremity, yellow or green discharge from wound. Pain scale is 5 out of 10 with movement, 2 out of 10 if he keeps it still since injury. Neurological: Negative for syncope, speech difficulty, light-headedness and numbness. Hematological: Negative for adenopathy. Does not bruise/bleed easily. Psychiatric/Behavioral: Negative for confusion. Medical History Past Medical History: Diagnosis Date Blunt chest trauma 02/10/2021 Closed fracture of multiple ribs of left side 02/10/2021 Hypertension Lumbar transverse process fracture (HCC) 02/10/2021 Pneumothorax 02/10/2021 Past Surgical History: Procedure Laterality Date ORIF RIB CAGE Left 02/12/2021 Procedure: OPEN REDUCTION INTERNAL FIXATION RIB CAGE; Surgeon: Dank Hicks MD; Location: Main OR; Service: General Surgery THORACOSCOPY (VATS) Left 02/12/2021 Procedure: THORACOSCOPY VIDEO ASSISTED; Surgeon: Dank Hicks MD; Location: Main OR; Service: General Surgery Patient Active Problem List Diagnosis Concussion with loss of consciousness Abrasions of multiple sites Multiple fractures of ribs, bilateral, init for clos fx Closed fracture of transverse process of thoracic vertebra (HCC) Mass Elevated CK Left wrist pain Social History Social History Tobacco Use Smoking status: Never Smokeless tobacco: Never Vaping Use Vaping Use: Never used Family History History reviewed. No pertinent family history. Objective Physical Exam BP (!) 159/105 Comment: Recheck Pulse 67 Temp 97.6 F (36.4 C) Resp 16 Wt 102.1 kg (225 lb) SpO2 98% BMI 32.28 kg/m Vision/Hearing Exam:No results found. Physical Exam Vitals and nursing note reviewed. Constitutional: General: He is not in acute distress. Appearance: Normal appearance. He is not ill-appearing, toxic-appearing or diaphoretic. HENT: Head: Normocephalic and atraumatic. Right Ear: External ear normal. Left Ear: External ear normal. Cardiovascular: Rate and Rhythm: Normal rate and regular rhythm. Pulses: Normal pulses. Pulmonary: Effort: Pulmonary effort is normal. No respiratory distress. Musculoskeletal: General: Swelling, tenderness and signs of injury present. Normal range of motion. Cervical back: Normal range of motion. No rigidity. Comments: Right forearm Distal neurovascular and sensory status is intact. Cap refill less than 3 seconds. There is a 9.5 cm linear superficial laceration to the right flexor surface of the forearm mid forearm. The patient has finger to thumb/finger abduction and adduction, is able to make a hitchhiker thumb, has no pain with movement of flexion/extension, ulnar or radial deviation of wrist. 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 Bleeding is slowed and stopped with compression and Lewis drain tourniquet. The wound was closed and another compression dressing placed. Recheck shows no bleeding through bandage, no atypical swelling of forearm, patient had another dressing placed and is ready for discharge.No pain out of proportion to exam, crepitus, gangrene, petechaie. Lymphadenopathy: Cervical: No cervical adenopathy. Skin: General: Skin is warm and dry. Capillary Refill: Capillary refill takes 2 to 3 seconds. Coloration: Skin is not jaundiced or pale. Findings: No bruising, erythema, lesion or rash. Neurological: General: No focal deficit present. Mental Status: He is alert. Motor: No weakness. Gait: Gait normal. Psychiatric: Mood and Affect: Mood normal. Behavior: Behavior normal. Thought Content: Thought content normal. Judgment: Judgment normal. Procedure Notes Wound extent: Laceration repair Date/Time: 09/10/2022 11:02 AM Performed by: Melissa Short PA-C Authorized by: Melissa Short PA-C Verbal consent: obtained Written consent: obtained Consent given by: patient Relevant documents: Relevent documents present and verified. Medical history, medications, allergies and physical assessment reviewed/completed Test results: test results available and properly labeled Site: site marked by physician or proceduralist who is privileged and credentialed to perform procedure Relevant imaging studies available and labeled: Yes Required items: required blood products, implants, devices, and special equipment available Patient identity confirmed: verified patient name and Time out: Immediately prior to procedure a time out was called to verify the correct patient, procedure, equipment, client application support engineer and site/side marked as required. Timeout performed at: 09/10/2022 10:30 AM Physician or proceduralist has discussed critical or nonroutine steps, procedure duration and anticipated blood loss: Yes All team members agree to proceed: Yes Body area: upper extremity Location details: right lower arm Laceration length: 9.5 cm Contamination: The wound is contaminated. Foreign bodies: no foreign bodies Tendon involvement: none Nerve involvement: superficial Vascular damage: yes Anesthesia: local infiltration Anesthesia: Local Anesthetic: lidocaine 1% without epinephrine Anesthetic total: 6 mL Patient sedated: no Repair type: complex Preparation: Patient was prepped and draped in the usual sterile fashion. Irrigation solution: saline Irrigation method: syringe Amount of cleaning: extensive Hemostasis achieved with: direct pressure and tourniquet Wound exploration: wound explored through full range of motion and entire depth of wound probed andvisualized Wound extent: fascia violated, muscle damage and vascular damage areolar tissue not violated, no foreign body, no nerve damage and no tendon damage Debridement: minimal Degree of undermining: none Skin closure: 4-0 Prolene Number of sutures: 7 Technique: simple interrupted and horizontal mattress Approximation: close Approximation difficulty: simple Dressing: antibiotic ointment, 4x4 sterile gauze and pressure dressing Patient tolerance: patient tolerated the procedure well with no immediate complications Comments: Pt held in clinic x 10 mins with recheck of wound; no bleeding on recheck. Pt advised to return immediately should bleeding occur, any concerns. Pt ready for dc. Results No results found for this or any previous visit (from the past 168 hour(s)). No orders to display Orders Placed This Visit No orders of the defined types were placed in this encounter. Medication List At End Of Visit Current Outpatient Medications Medication Sig Dispense Refill losartan (COZAAR) 50 MG tablet Take 1 (one) tablet (50 mg total) by mouth daily . omeprazole (PRILOSEC) 40 MG capsule Take by mouth daily . pramipexole (MIRAPEX) 0.25 MG tablet Take 1 (one) tablet (0.25 mg total) by mouth nightly . cephALEXin (KEFLEX) 500 MG capsule One capsule po tid x 5 days . 15 capsule 0 lisinopriL-hydrochlorothiazide (PRINZIDE,ZESTORETIC) 10-12.5 mg per tablet Take 1 (one) tablet by mouth daily . No current facility-administered medications for this visit. There are no Patient Instructions on file for this visit. documented in this [id number] History of Present illness Narrative* Alexandria Huynh CNP - 05/20/2021 3:42 PM EDT Called patient and discussed CXR obtained yesterday after office. The hardware is stable and there are no acute concerns. At this point, we just need to give his ribs more time to heal. Also discussed case with Dr Hicks documented in this [id number] History of Present illness Narrative* Alexandria Huynh CNP - 05/19/2021 2:57 PM EDT Trauma Follow Up Note Patient Name: Lynda Woodard MR #: [id number] Chief Complaint: f/u vats with new left anterior chest pain DUCKWATER: Mr. Woodard is a 55 year old male who suffered a crush injury with approx 1000# object on hischest. He is here for follow-up. He underwent a VATS with rib plating . Today he complaints of minimal pain to left anterior chest just inferior to the old incision site, unchanged from prior visit in April, and sometimes worse. Denies shortness of breath, chest or abdominal pain. ROS: History obtained from chart review and the patient General ROS: Denies fever, malaise Respiratory ROS: Denies dyspnea, Denies cough Cardiovascular ROS: Denies angina, dyspnea on exertion Gastrointestinal ROS: Denies NV, abdominal pain, or changes in bowel habits Dermatological ROS: No rash, lesions Reviewed Data: Lab, Radiology, Meds, Allergies Reviewed PHYSICAL EXAM: BP (!) 146/88 Pulse 71 Resp (!) 97 Ht 5' 10 Wt 100.2 kg (221 lb) BMI 31.71 kg/m General appearance: Alert and oriented, cooperative and in no acute distress. Pulmonary: Clear to auscultation bilaterally, without rhonchi, wheezes or rales. Abdomen: Soft, non-tender to palpation. Assessment/Plan: 1. Multiple fractures of ribs, bilateral, init for clos fx Assessment & Plan L ribs 3-7 & 11&12. R 4-8 rib fx. Post-op ORIF 02/12/2021. CXR w/ resolution of PTX. Kennan removed in office visit on 02/26 Was given clearance to go back to full duty at work on 03/30. Send for OP CXR at this time to evaluate ribs fractures and plates. Will call with results, if everything is in alignment, unfortunately there is not much to do but give it more time documented in this [id number] History of Present illness Narrative* Alexandria Huynh CNP - 04/16/2021 1:45 PM EDT Trauma Follow Up Note Patient Name: Lynda Woodard MR #: [id number] Chief Complaint: f/u vats with new left anterior chest pain DUCKWATER: Mr. Woodard is a 55 year old male who suffered a crush injury with approx 1000# object on hischest. He is here for follow-up. He underwent a VATS with rib plating . Today he complaints of minimal pain to left anterior chest just inferior to the old incision site. Denies shortness of breath, chest or abdominal pain. He followed up in clinic on 02/26 and was doing well, but is here today related to left sided chest pain. He tells me he feels a clicking pain which started about two weeks agoon his left anterior chest over his lower ribs. ROS: History obtained from chart review and the patient General ROS: Denies fever, malaise Respiratory ROS: Denies dyspnea, Denies cough Cardiovascular ROS: Denies angina, dyspnea on exertion Gastrointestinal ROS: Denies NV, abdominal pain, or changes in bowel habits Dermatological ROS: No rash, lesions Reviewed Data: Lab, Radiology, Meds, Allergies Reviewed PHYSICAL EXAM: BP (!) 140/96 Pulse 74 Resp 14 Wt 98 kg (216 lb) SpO2 96% BMI 30.99 kg/m General appearance: Alert and oriented, cooperative and in no acute distress. Pulmonary: Clear to auscultation bilaterally, without rhonchi, wheezes or rales. Abdomen: Soft, non-tender to palpation. Assessment/Plan: 1. Multiple fractures of ribs, bilateral, init for clos fx Assessment & Plan L ribs 3-7 & 11&12. R 4-8 rib fx. Post-op ORIF 02/12/2021. CXR w/ resolution of PTX. Kennan removed in office visit on 02/26 Was given clearance to go back to full duty at work on 03/30. Offered CXR but declined at this time Reviewed CT images from inpatient stay, there are some anterior rib fractures what appears 10 &11 that were not displaced and not plated during ORIF I suspect this is what he is feeling. I informed him to stop pushing on the site and splint with coughing. Continue to use tylenol and ibuprofen for pain control. He should have improvement within the next 4-6 weeks, if he does not improve would be happy to obtain CXR Follow-up PRN documented in this [id number] History of Present illness Narrative* Alexandria Huynh CNP - 02/26/2021 3:35 PM EDT Trauma Follow Up Note Patient Name: Lynda Woodard MR #: [id number] Chief Complaint: crush injury follow up DUCKWATER: Mr. Woodard is a 55 year old male who suffered a crush injury with approx 1000# object on hischest. He is here for follow-up. He underwent a VATS with rib plating . Today he complaints of minimal pain to left chest around incision and some itching to staple sites. Denies shortness of breath,chest or abdominal pain. ROS: History obtained from chart review and the patient General ROS: Denies fever, malaise Neurological ROS: No PCS, No paresthesia, No paralysis Ophthalmic ROS: No eye pain. No vision changes HEENT ROS: No rhinorrhea, hearing loss Respiratory ROS: Denies dyspnea, Denies cough Cardiovascular ROS: Denies angina, dyspnea on exertion Gastrointestinal ROS: Denies NV, abdominal pain, or changes in bowel habits Genito-Urinary ROS: Denies dysuria, trouble voiding, or hematuria Musculoskeletal ROS: No new pains, ROM intact Dermatological ROS: No rash, lesions Reviewed Data: Lab, Radiology, Meds, Allergies Reviewed PHYSICAL EXAM: BP 129/87 Pulse 76 Ht 5' 10 Wt 95.3 kg (210 lb 1.6 oz) SpO2 96% BMI 30.15 kg/m General appearance: Alert and oriented, cooperative and in no acute distress. Head: Normocephalic, atraumatic. External ear normal, no hearing loss. Eyes: Pupils equal, round, reactive to light and accomodation. Neurologic: Alert and oriented X 3. Follows commands. CN 2-12 grossly intact. Denies paresthesia. Pulmonary: Clear to auscultation bilaterally, without rhonchi, wheezes or rales. Cardiac: Regular rate and rhythm, S1, S2 normal, Distal pulses 2+ bilaterally Abdomen: Soft, non-tender to palpation No palpable masses or organomegaly. No rebound or guarding. GI/: Voiding without difficulty + flatus + BM - nausea - emesis Tolerating diet. Extremities: NVI Assessment/Plan: Left wrist sprain Assessment & Plan Xray negative for acute injury. pain resolved Elevated CK Assessment & Plan Voiding without issue Closed fracture of transverse process of thoracic & lumbar vertebra (HCC) Assessment & Plan T12-L3 TP fxs - NOM, no brace, cleared by therapies. Nsx PRN Abrasions of multiple sites Assessment & Plan Local wound care Multiple fractures of ribs, bilateral, init for clos fx Assessment & Plan L ribs 3-7 & 11&12. R 4-8 rib fx. Post-op ORIF 02/12/2021. CXR w/ resolution of PTX. denies shortness of breath, pain controlled Tomi removed from vats sight. Steri strips placed Tylenol/ibuprofen for pain Patient did not require ST after dc. He is cleared to drive as long as he is no longer taking his pain medications or muscle relaxers. He can return to light duty 03/09 and regular duty after 6 weeks,03/30. Note for work given documented in this [id number] Miscellaneous Notes* Quick Note - Kelsea Galvan CNP - 02/18/2021 1:19 PM EDT The patient has been prescribed an opioid analgesic that exceeds the limits set forth in the opioidprescribing rules for acute pain. Treatment with non-opioid medications is not a suitable alternative given the patient's condition. The patient meets exception criteria for: exceeding the 30 MED perday rule for prescribing narcotic medications because: he/she suffers from a medical condition thatcannot be managed within the 30 MED average limit. This is the lowest dose consistent with the patient's medical condition. The prescribed dose and/or duration is the level necessary to therapeutically treat the patient's pain. The patient was advised of the risks and benefits of opioid medications, including the potential for addiction. Order was approved by attending provider Dr. Alexander. * Plan of Care - Leon Herrera RN - 02/18/2021 11:58 AM EDT Problem: Pain Goal: Manage acute pain Outcome: Completed Goal: Manage chronic pain Outcome: Completed Goal: Reduced pain sensation Outcome: Completed Goal: Achievement of comfort function goal Outcome: Completed Problem: Pressure Ulcer - Risk of Goal: Absence of pressure ulcer Outcome: Completed Problem: Falls, Risk of Goal: Absence of falls Outcome: Completed * Plan of Care - Evelyn Rowe RN - 02/18/2021 4:49 AM EDT Problem: Pain Goal: Manage acute pain Outcome: Partially Met Goal: Manage chronic pain Outcome: Partially Met Goal: Reduced pain sensation Outcome: Partially Met Goal: Achievement of comfort function goal Outcome: Partially Met Problem: Pressure Ulcer - Risk of Goal: Absence of pressure ulcer Outcome: Partially Met Problem: Falls, Risk of Goal: Absence of falls Outcome: Partially Met * Plan of Care - Dolores Ruiz RN - 02/17/2021 6:28 PM EDT Problem: Pain Goal: Manage acute pain Outcome: Met Goal: Manage chronic pain Outcome: Met Goal: Reduced pain sensation Outcome: Met Goal: Achievement of comfort function goal Outcome: Met Problem: Pressure Ulcer - Risk of Goal: Absence of pressure ulcer Outcome: Met Problem: Falls, Risk of Goal: Absence of falls Outcome: Met * Tomas Huerta - Dolores Ruiz RN - 02/17/2021 5:06 PM EDT Kimmy Wu NP notified that when PT was walking patient we checked his oxygen level and he diddrop into the high 80's on RA. Pt did recover quickly and was in the mid 90's. * [facility] - Radha Odell OTA - 02/17/2021 4:19 PM EDT OCCUPATIONAL THERAPY VISIT VARIANCE NOTE Attempted to see patient at this time, but unable secondary to: Declined need stating he completed all of his self care this date and amb in [place] with spouse without device. Denied any questions about UE HEP. Will follow up as appropriate. * Tomas Huerta - Dolores Ruiz RN - 02/17/2021 11:25 AM EDT Kelsea Galvan NP notified that patient's oxygen saturation on RA is 93% at rest and it droppedto 87% when walking. * Plan of Care - Monica Massey RN - 02/17/2021 1:30 AM EDT Problem: Pain Goal: Manage acute pain Outcome: Partially Met Goal: Manage chronic pain Outcome: Partially Met Goal: Reduced pain sensation Outcome: Partially Met Goal: Achievement of comfort function goal Outcome: Partially Met Problem: Pressure Ulcer - Risk of Goal: Absence of pressure ulcer Outcome: Partially Met Problem: Falls, Risk of Goal: Absence of falls Outcome: Partially Met * Quick Note - Shayla Tierney CNP - 02/16/2021 4:10 PM EDT Chest tube to left pleural space suture removed, chest tube pulled and dressing placed. Repeat chest xray ordered for 8pm. * Plan of Care - Monica Massey RN - 02/16/2021 3:09 AM EDT Problem: Pain Goal: Manage acute pain Outcome: Partially Met Goal: Manage chronic pain Outcome: Partially Met Goal: Reduced pain sensation Outcome: Partially Met Goal: Achievement of comfort function goal Outcome: Partially Met Problem: Pressure Ulcer - Risk of Goal: Absence of pressure ulcer Outcome: Partially Met Problem: Falls, Risk of Goal: Absence of falls Outcome: Partially Met * Plan of Care - Estephania Vega RN - 02/15/2021 2:32 PM EDT Problem: Pain Goal: Manage acute pain Outcome: Partially Met Goal: Manage chronic pain Outcome: Partially Met Goal: Reduced pain sensation Outcome: Partially Met Goal: Achievement of comfort function goal Outcome: Partially Met Problem: Pressure Ulcer - Risk of Goal: Absence of pressure ulcer Outcome: Partially Met Problem: Falls, Risk of Goal: Absence of falls Outcome: Partially Met * Plan of Estephania Holden RN - 02/14/2021 5:44 PM EDT Problem: Pain Goal: Manage acute pain Outcome: Partially Met Goal: Manage chronic pain Outcome: Partially Met Goal: Reduced pain sensation Outcome: Partially Met Goal: Achievement of comfort function goal Outcome: Partially Met Problem: Pressure Ulcer - Risk of Goal: Absence of pressure ulcer Outcome: Partially Met Problem: Falls, Risk of Goal: Absence of falls Outcome: Partially Met * Plan of Radha Bethea RN - 02/13/2021 8:19 PM EDT Problem: Actual or potential alteration in health Goal: Absence of healthcare acquired conditions Outcome: Completed Goal: Knowledge of Interdisciplinary Plan of Care Outcome: Completed Goal: Knowledge of Enviroment Outcome: Completed Problem: Pain Goal: Manage acute pain 02/13/20212018 by Radha Cruz RN Outcome: Met 02/13/20212018 by Radha Cruz RN Outcome: Met Goal: Manage chronic pain 02/13/20212018 by Radha Cruz RN Outcome: Met 02/13/20212018 by Radha Cruz RN Outcome: Met Goal: Reduced pain sensation 02/13/20212018 by Radha Cruz RN Outcome: Met 02/13/20212018 by Radha Cruz RN Outcome: Met Goal: Achievement of comfort function goal 02/13/20212018 by Radha Cruz RN Outcome: Met 02/13/20212018 by Radha Cruz RN Outcome: Met Problem: Pressure Ulcer - Risk of Goal: Absence of pressure ulcer 02/13/20212018 by Radha Cruz RN Outcome: Met 02/13/20212018 by Radha Cruz RN Outcome: Met Problem: Falls, Risk of Goal: Absence of falls 02/13/20212018 by Radha Cruz RN Outcome: Met 02/13/20212018 by Radha Cruz RN Outcome: Met * Plan of Care - Britni Fraser RN - 02/13/2021 10:30 AM EDT Problem: Pain Goal: Manage acute pain Outcome: Partially Met Prn pain medications as needed; scheduled pain medications as ordered Problem: Actual or potential alteration in health Goal: Knowledge of Interdisciplinary Plan of Care Outcome: Partially Met * Plan of Care - Jordan Camargo RN - 02/12/2021 10:46 PM EDT Problem: Actual or potential alteration in health Goal: Absence of healthcare acquired conditions Outcome: Partially Met Goal: Knowledge of Interdisciplinary Plan of Care Outcome: Partially Met Goal: Knowledge of Enviroment Outcome: Partially Met Problem: Pain Goal: Manage acute pain Outcome: Partially Met Goal: Manage chronic pain Outcome: Partially Met Goal: Reduced pain sensation Outcome: Partially Met Goal: Achievement of comfort function goal Outcome: Partially Met Problem: Pressure Ulcer - Risk of Goal: Absence of pressure ulcer Outcome: Partially Met * Tomas Huerta - Emily Sanches RN - 02/12/2021 3:[address] Monge informed of SAO2 91-93 % on 5l/m per nasal cannula states OK to go to assigned bed * Emily Lopez RN - 02/12/2021 3:[address] Hicks in to see patient. Informed of SAO2 91-93 % on 5l/m nc, states OK to go to bed as assigned if OK with anesthesia. * Op Note - aDnk Hicks MD - 02/12/2021 2:56 PM EDT LYNDA WOODARD [facility] [id number] 1965 DATE 02/12/2021 OPERATIVE REPORT SURGEON DANK HICKS MD PREOPERATIVE DIAGNOSES 1. Bilateral rib fractures. 2. Left hemopneumothorax. POSTOPERATIVE DIAGNOSES 1. Bilateral rib fractures. 2. Left hemopneumothorax. PROCEDURES 1. Left video-assisted thoracoscopic with evacuation of hematoma. 2. Open reduction-internal fixation left ribs 4 through 6. ANESTHESIA General endotracheal. ESTIMATED BLOOD LOSS Minimal. SPECIMENS None. COMPLICATIONS None apparent. IMPLANTS See medical record. HISTORY OF PRESENT ILLNESS The patient is a 55-year-old male who was pinned between some heavy machinery at work several days ago, large piece of machinery came down, hitting him in the back and actually pinning him between this and something else. He was pinned for a prolonged period, at least 10 to 15 minutes, and required heavy machinery to be freed. He was evaluated as a trauma. He was found to have bilateral rib fractures, he has multiple on the right side as well as on the left side. The right, he is actually not having a lot of pain associated with this; and they are either not displaced or very minimally. However, on the left side, the patient has significant displacement of the anterior rib fractures 4 through 6. Additionally, he may have fractures of ribs 3, 7, and 8 as well on the anterior aspects. Given the significant displacement and pain associated with this, I met with the patient to discuss possible surgical intervention. Details of procedure, rationale, potential risks, benefits, and alternatives were discussed with the patient and family and they were agreeable to proceed. OPERATIVE REPORT Patient was brought to the operating room. General anesthesia with a double-lumen tube was obtained. A Tavarez catheter was placed by the nursing staff with return of clear yellow urine. Left chest was prepped and draped in the usual sterile manner. He is supine with a bump under the left side to slightly raise this. He received preoperative antibiotics. Time-out was performed to confirm the correct patient and procedure. In the 6th intercostal space, mid axillary line, skin was anesthetized using 0.25% Marcaine. Transverse incision was made using #15 scalpel. I dissected through the subcutaneous tissue using electrocautery. Chest cavity was then bluntly entered using a Yessica. A 12 mm laparoscopic trocar was inserted. The lung was desufflated by Anesthesia staff. Upon entry, there is a moderate amount of hemothorax present up in the 3rd intercostal space. In the anterior axillary line, another trocar was placed under direct visualization after instilling local anesthetic; and then, in the anterior position 6th intercostal space, 1 final trocar was placed under direct visualization. The lung was retracted medially and approximately 350 cc of hemothorax was evacuated from the chest cavity. The chest cavity was then irrigated out using 1 L of sterile saline. Unfortunately, due to the positioning, I am unable to get good enough visualization of the posterior ganglion where the intercostal nerves originate from; and, thus, no cryoablation was performed at this time. A 32 straight chest tube was brought in through a new stab incision anterior axillary line 8th intercostal space, positioned anterior to the lung, up toward the apex under direct visualization. The lung was then brought up by Anesthesia staff. The trocars were then removed. Anterior lateral thoracotomy incision was then made at about the level of the 5th intercostal space. I dissected through the subcutaneous tissue using electrocautery. Inferior edge of the pectoralis major muscle is identified. Soft tissue attachments are divided to enter into the retro pectoralis space. Dissection was performed in this space to identify significantly displaced 4th, 5th and 6th rib fractures. 3rd rib palpated with no significant displacement here, beginning at the 4th rib. It is brought back in a normal anatomic position. An 8-hole plate was chosen, bent to the appropriate contour. A total of five 10 mm green screws were used and one 8 mm purple screw was used with 3 on each side of the fracture. Then, the 5th rib, which is somewhat comminuted, is brought back in an anatomic alignment. A 12- hole plate was chosen because of the comminution, and it was bent to the appropriate contour; and a total of six 8 mm green screws were used, 3 on each side of the fracture. Finally then, the 6th rib is brought into anatomic alignment. A 10-hole plate was chosen and bent to the appropriate contour and a total of six 8 mm screws were used, 3 on each side of the fracture. With this, there is significant stabilization of the chest. The 7th fracture is palpable but inferiorly would require some subcutaneous dissection and furthermore the fracture was actually just adjacent to the costal cartilage; and there is not really any bone medially that it would allow me to fixate a plate to. Thus, I would have to place this onto the sternum. With it being nondisplaced, I feel that this is unnecessary and feel that this is the completion of the surgical stabilization. All of the mixture of Marcaine, Exparel, the normal saline were injected into the intercostal spaces and also into the pectoralis muscles. Muscle tissue was then closed over the plates using running #1 Vicryl sutures. Pectoralis was tacked back down to the chest wall using a running #1 Vicryl suture. Subcutaneous tissues are reapproximated using running 2-0 Vicryl sutures x2. Skin incisions are then closed using skin tomi. The chest tube had previously been secured using a #1 Prolene suture. Skin is then cleansed and dried. Sterile dressings are applied. Counts are correct x2 prior to the completion of procedure. He tolerated the procedure well without any apparent complications. He is able to be extubated and transferred to the Recovery Room in stable condition. DANK HICKS MD D 02/12/2021 14:18 [id number] 02/12/2021 14:53 JJA/HUSAML cc: MELVA MARTINEZ MD * Brief Op Note - Dank Hicks MD - 02/12/2021 2:06 PM EDT Brief Post Operative Note Patient Name: Lynda Woodard : 1965 (55 y.o.) Date of Service: 02/12/2021 [facility]: [id number] Procedure(s): THORACOSCOPY VIDEO ASSISTED WITH EVACUATION OF HEMOTHORAX OPEN REDUCTION INTERNAL FIXATION RIB CAGE RIBS 4-6 Pre-Operative Diagnoses: * Multiple rib fractures, left hemopneumothorax Post-Operative Diagnoses: * Same as Pre-Op Diagnosis Surgeon(s) and Role: * Dank Remy Hicks, MD - Primary Anesthesiologist: Vaughn Sarabia MD; Vaughn Monge MD DIALYSIS RN: Brandy Rosales CRNA; Radha More CRNA Lathe Tender: Anya Ruiz RN Lathe Tender Relief: Michelle Machado RN Scrub Person Relief: ST Kel Scrub Person: Kimmy Purcell LPN Lathe Tender Orientee: Nicole Hobbs RN Nurse Float: Marissa Juarez RN; Carmelita Rashid RN; Natalie Greenberg RN FINANCE BUSINESS PARTNER: Negin Nelson RN Operative findings: SIGNIFICANTLY DISTRACTED AND DISPLACED FRACTURES ANTERIOR RIBS 4 THROUGH 6 Intra and immediate post-operative complications: none Type of anesthesia used: General Estimated blood loss: 50 mL Estimated urine output: 200 mL Specimen(s): * No specimens in log * Implant(s): Implant Name Type Inv. Item Serial No. 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 LRB No. Used Action PLATE 8HL STRAIGHT - SNA PLATE 8HL STRAIGHT NA [employer] NA Left 1 Implanted PLATE 12HL PRE-CONTOURED - SNA PLATE 12HL PRE-CONTOURED NA [employer] NA Left 1 Implanted SCREW 2.4 X 8MM SELF-DRILL LOCKING - SNA SCREW 2.4 X 8MM SELF-DRILL LOCKING NA [employer] NA Left 12 Implanted SCREW 2.4 X 10MM SELF-DRILL LOCKING - SNA SCREW 2.4 X 10MM SELF-DRILL LOCKING NA [employer] NA Left5 Implanted SCREW 2.7 X 8MM RESCUE PURPLE RIBFIX VIC - SNA SCREW 2.7 X 8MM RESCUE PURPLE RIBFIX VIC NA Luis Felipe NA Left 1 Implanted 10 Hole Straight Funk [employer] NA Left 1 Implanted Drain(s): Chest Tube 1 Left 32 Fr. (Active) Urethral Catheter Latex 16 Fr. (Active) Wound(s): Wound 02/12/21 Surgical Wound Chest Left (Active) Dank Hicks MD 02/12/2021 2:06 PM * [facility] IP Rehab - Ifeanyi Fernandez, BERNICE - 02/12/2021 11:02 AM EDT PHYSICAL THERAPY VISIT VARIANCE NOTE Attempted to see patient at this time, but unable secondary to: pt is currently off the unit for procedure. Patient Unavailable (comment). Will follow up as appropriate. * Plan of Care - Halima Dumont RN - 02/12/2021 10:31 AM EDT Problem: Actual or potential alteration in health Goal: Absence of healthcare acquired conditions Outcome: Partially Met Goal: Knowledge of Interdisciplinary Plan of Care Outcome: Partially Met Goal: Knowledge of Enviroment Outcome: Partially Met Problem: Pain Goal: Manage acute pain Outcome: Partially Met Goal: Manage chronic pain Outcome: Partially Met Goal: Reduced pain sensation Outcome: Partially Met Goal: Achievement of comfort function goal Outcome: Partially Met Problem: Pressure Ulcer - Risk of Goal: Absence of pressure ulcer Outcome: Partially Met * [facility] IP Rehab - Radha Odell OTA - 02/12/2021 9:39 AM EDT OCCUPATIONAL THERAPY VISIT VARIANCE NOTE Attempted to see patient at this time, but unable secondary to: Awaiting Medical Clearance secondary to pt preparing to go to OR for rib plating. Will follow up asappropriate. * Plan of Care - Ceci Harris RN - 02/11/2021 10:02 PM EDT Problem: Actual or potential alteration in health Goal: Absence of healthcare acquired conditions Outcome: Partially Met Goal: Knowledge of Interdisciplinary Plan of Care Outcome: Partially Met Goal: Knowledge of Enviroment Outcome: Partially Met Problem: Pain Goal: Manage acute pain Outcome: Partially Met Goal: Manage chronic pain Outcome: Partially Met Goal: Reduced pain sensation Outcome: Partially Met Goal: Achievement of comfort function goal Outcome: Partially Met * Utilization Review - Tish Oneal RN - 02/11/2021 8:53 PM EDT [facility] Utilization Review Notes HISTORY OF PRESENT ILLNESS: 55yo male who presented following crush injury with a piece of macinhery weighing over 1000#. It required dior to remove it from him. He states he was thrown backward andpinned between the piece on his chest and another machine. It did take about 10 minutes or so to remove it. According to medics he sustained a LOC after it was removed. He only complains of pain along his chest and upper abdomen VITAL SIGNS: 98.3-77-24-161/111 O2 sat 100% 100% NRB mask -> 95% 4l nc-> 86% 2l nc-> 91% 3l nc WEIGHT: 95.3 kg LABS: (Abnormal / Relevant): venous gases pH 7.36, PCO2 50.4,PO2 30, HCO3 28.6, CMP normal, CBC normal, CPK 294-> 2457 -> 2417 IMAGING: (Abnormal / Relevant): CT Chest/abd/pelvis: Small anterior left basilar pneumothorax. 2. Multiple mildly displaced bilateral rib fractures, as detailed above, with subcutaneous emphysema in the left anterior chest wall. 3. Mildly displaced fractures of the left T12-L4 transverse processes. 4. Subsegmental dependent atelectasis in the bilateral lower lobes. 5. Indeterminate 3.7 cm hypoattenuating nodule in the right thyroid lobe. Consider follow-up nonemergent thyroid ultrasound to further evaluate. 6. No acute injury in the abdomen/pelvis. ED TX: Fentanyl 50 mcg x 2, 1000 ml IVF bolus, IV Zofran 4 mg x 1, IV Dilaudid 1 mg x 2 DX: crush injusy, multiple bilateral rib fractures, pulmonary contusion ASSESSMENT / PLAN: CT evaluation shows significant rib fracture burden and pulm contusion Plan:crush with chest injury Pulm support and pain control Possible plating based on progress MEDS / ORDERS: intermediate tele bed, clear liquid diet, O2, IV Pepcid q 12 hrs, lidoderm patch 2 daily, IVF 100/hr, IV Dilaudid 0.5 mg q 3 hrs prn, ultram q 6 hrs prn, incentive spirometry 02/11 98.1-69-16-124/82 O2 sat 93% 3l nc pain reported and needs better control Added oxycodone 10 mg q 4 hrs prn- doses 12:14 and 18:22 . Tramadol dc'd. 2457 (294). Cr stable 1.3 (1.22). Received IV fluids overnight. Adequate urine output, - Repeat CK 1800. Stop MIV. Encourage PO fluids Dilaudid doses: Administration Action Time Given : 0.5 mg : : Intravenous 02/11/212005 Given : 0.5 mg : : Intravenous 02/11/21 1706 Given : 0.5 mg : : Intravenous 02/11/21 1318 Given : 0.5 mg : : Intravenous 02/11/21 0917 Given : 0.5 mg : : Intravenous 02/11/21 0346 Given : 0.5 mg : : Intravenous 02/11/21 0043 Given : 0.5 mg : : Intravenous 02/10/21 204 Given : 0.5 mg : : Intravenous 02/10/21 1733 Trauma surgery: Personal review of the patient's imaging reveals multiple bilateral rib fractures, 4 through 8 on the right without significant displacement, left 3 through 8 anterior, 11, 12 posterior, with significant displacement of ribs 4 through 6, hemopneumothorax. Discussed with the patient options of operative versus non-operative interventions.After the detailed discussion the patient is going to contemplate surgical intervention. If he does wish to proceed we would plan for left sided VATS with cryoablation, intercostal nerve blocks, ORIF of multiple ribsleft side. Patient without much pain on the right side and not significantly displaced on the rightso we would not plan for surgical intervention on that side. NPO after MN' plan THORACOSCOPY VIDEO ASSISTED ORIF RIB , Plasmalyte 100 /hr DISPO: TBD * Tomas Note - Ceci Harris RN - 02/11/2021 8:50 PM EDT Edin Tierney CNP at bedside updated pt and family per family request. * Tomas Note - Dank Hicks MD - 02/11/2021 4:10 PM EDT I had a detailed discussion this afternoon with the patient and spouse about the diagnosis and imaging findings. Personal review of the patient's imaging reveals multiple bilateral rib fractures, 4 through 8 on the right without significant displacement, left 3 through 8 anterior, 11, 12 posterior, with significant displacement of ribs 4 through 6, hemopneumothorax. Discussed with the patient options of operative versus non-operative interventions. Discussed the historic management of rib fractures, prior surgical interventions, and the evolving role of surgicalstabilization. We discussed that surgical intervention is associated with less ICU days, less hospital days, decreased pulmonary complications, as well as better pain management, decreased risk of intermediate persistent pain, and more likely return to prior activity levels. Discussed the etiology/pathology of rib fracture pain including chest wall movement with respiration and intercostal nerves. Discussed the etiology of pulmonary complication development including shallow breathing, atelectasis, and possible pneumonia development. Discussed how both long acting local anesthetic can be injected as well as cryoablation of the nerves for post operative pain control (and the short and intermediate expectations in relation to this, ienumbness, nerve regeneration), as well as the role of surgical reduction fixation and stabilization. Discussed the details of the operation, rationale, and potential risks/benefit and alternatives. After the detailed discussion the patient is going to contemplate surgical intervention. If he doeswish to proceed we would plan for left sided VATS with cryoablation, intercostal nerve blocks, ORIFof multiple ribs left side. Patient without much pain on the right side and not significantly displaced on the right so we would not plan for surgical intervention on that side. * Quick Note - Shawna Ge MSW LSW - 02/11/2021 2:57 PM EDT Therapy is not recommending continued therapy at discharge. Patient is from home with spouse and independent prior. director of anesthesia services did not pick patient up at this time. Please place Care Management consult if needs arise. * Assessment & Plan Note - Almaz Hernandez CNP - 02/11/2021 12:46 PM EDT Associated Problem(s): Left wrist pain Reports tightness. NV intact. XR negative. Soft tissue swelling +. - Pain control, therapies. * Assessment & Plan Note - Almaz Hernandez CNP - 02/11/2021 12:40 PM EDT Associated Problem(s): Elevated CK 2457 (294). Cr stable 1.3 (1.22). Received IV fluids overnight. Adequate urine output, - Repeat CK 1800. Stop MIV. Encourage PO fluids. * Assessment & Plan Note - Almaz Hernandez CNP - 02/11/2021 12:38 PM EDT Associated Problem(s): Mass Renal/hepatic cyst/mass, thyroid nodule IF found on CT. Asymptomatic. - Update patient for OP f/u. * Plan of Care - Ceci Harris RN - 02/11/2021 3:24 AM EDT Problem: Actual or potential alteration in health Goal: Absence of healthcare acquired conditions Outcome: Partially Met Goal: Knowledge of Interdisciplinary Plan of Care Outcome: Partially Met Goal: Knowledge of Enviroment Outcome: Partially Met Problem: Pain Goal: Manage acute pain Outcome: Partially Met Goal: Manage chronic pain Outcome: Partially Met Goal: Reduced pain sensation Outcome: Partially Met Goal: Achievement of comfort function goal Outcome: Partially Met Problem: Pressure Ulcer - Risk of Goal: Absence of pressure ulcer Outcome: Partially Met * Quick Note - Ceci Harris RN - 02/10/2021 9:30 PM EDT Edin Tierney, trauma NORBERT in room to provide family with updates and of POC per family request. * Plan of Care - Sriram Desai RN - 02/10/2021 11:56 AM EDT Problem: Actual or potential alteration in health Goal: Absence of healthcare acquired conditions Outcome: Partially Met Goal: Knowledge of Interdisciplinary Plan of Care Outcome: Partially Met Goal: Knowledge of Enviroment Outcome: Partially Met Problem: Pain Goal: Manage acute pain Outcome: Partially Met Goal: Manage chronic pain Outcome: Partially Met Goal: Reduced pain sensation Outcome: Partially Met Goal: Achievement of comfort function goal Outcome: Partially Met * Assessment & Plan Note - Almaz Hernandez CNP - 02/10/2021 11:16 AM EDT Associated Problem(s): Closed fracture of transverse process of thoracic vertebra (HCC) T12-L3 TP fxs NOM. Denies midline ttp at this time. - Pain control. Therapy eval for further work up if necessary. * Assessment & Plan Note - Almaz Hernandez CNP - 02/10/2021 11:13 AM EDT Associated Problem(s): Multiple fractures of ribs, bilateral, init for clos fx R lateral 4-8 rib fx, L midly displaced ant 3-7 & post 11-12. 1cm L anterior basilar rib fx shown on CT & w/ associated pulm contusion. Minimal oxygen req. subcutaneous emphysema improving. CXR w/o obvious ptx. Pulling volumes ~1000 via IS. - Pulm toilet, pain control, therapies. Increased pain control regimen, added debra robaxin. Lidocaine patch. Weaning dilaudid. - continue to wean O2 to RA as able. Will eval plating based off therapies/pain control * Tertiary Note - Shekhar Rai CNP - 02/10/2021 11:11 AM EDT Tertiary Note: Closed fracture of transverse process of thoracic vertebra (HCC) Assessment & Plan T12-L3 TP fxs NOM Pain control Bowel regimen Renal mass Assessment & Plan Pt aware - op f/u Abrasions of multiple sites Assessment & Plan Local wound care Concussion with loss of consciousness Assessment & Plan CT H (-) NO PCS at this time * Multiple fractures of ribs, bilateral, init for clos fx Assessment & Plan B rib fxs CXR at noon and in AM for small PTX w subcutaneous emphysema SSD admit Pulm toilet, pain control, therapies CLD to start - can ADAT Left Wrist/Hand Pain Check XR Crush Injury: Called lab, for explaination regarding CPK ordered at 0700 not being resulted yet - they are working on this, he is voiding without difficulty at this time, continue IVF Assessment unchanged from earlier in day outside of some new onset L wrist/hand pain that he noted. VSS CLD, ADAT PO pain meds to start Add lidoderm patches * Assessment & Plan Note - Shekhar Rai CNP - 02/10/2021 7:20 AM EDT Associated Problem(s): Abrasions of multiple sites Local wound care * Assessment & Plan Note - Almaz Hernandez CNP - 02/10/2021 7:20 AM EDT Associated Problem(s): Concussion with loss of consciousness CT H (-) No PCS at this time - CAB[employer]. documented in this [id number] History of Present illness Narrative* Namita Joaquin - 02/17/2021 3:15 PM EDT Physical Therapy PHYSICAL THERAPY TREATMENT NOTE Skilled Therapy Needs After Discharge Anticipate Resolution of Current Assessment Limitations Including: Pain, Mechanical Barriers Are Skilled Therapy Services Needed After Discharge: No DME Recommendation: Wheeled Walker DME Rationale: Patient's condition prevents him/her from accomplishing ADL without recommended equipment, Patient's condition creates an increased risk of safety hazard without recommended equipment Rehab Potential: Good Outcomes Measures Prior Function - Basic Mobility Raw Score: 24 Points Prior Function - Basic Mobility % Impaired: 0% AM-PAC Basic Mobility Raw Score: 23 Points AM-PAC Basic Mobility % Impaired: 16.55% Activity Tolerance Activity Tolerance: Tolerates 20 - 30 min activity with multiple rests Therapy Precautions General Rehab Precautions: Fall risk (up with 1 assist and walker) Bed Mobility Rolling: (Pt seated in chair upon arrival.) Transfers Sit to Stand: Stand by assist Stand Pivot Transfers: Stand by assist Plasma Specialist: BUE Skilled Intervention Provided: verbal cues For: efficient movement Resulting in: improved activity tolerance Gait/Locomotion Gait Assistance: Stand by assist Assistive Device: (none) Distance: (200'+) Rest Breaks: Yes Rest Break Position: seated Rest Break Duration: 1-2 min Additional Gait Trial 2: Yes Gait Assistance Trial 2: Stand by assist Assistive Device Trial 2: (none) Pattern: Within Functional Limits Weight Bearing Status: able to maintain Skilled Intervention Provided: verbal cues For: efficient movement Resulting in: improved activity tolerance, improved performance, improved safety Exercise Standing Exercises: Pt performed heel raises, hip abd, hamstring curls, mini squat x20 each Skilled Intervention Provided: verbal cues, tactile cues, demonstration For: achieving full ROM as tolerated, efficient movement, muscle activation Resulting in: improved performance, improved functional strength / ROM, efficient movement Additional Treatment Details Pt's O2 prior to Tx was 89%. After first amb O2 was 87%. Pt had a seated rest break and O2 was checked again before second amb with O2 at 94%. O2 checked after amb and was 90%. Pt had a seated rest break prior to Therex with O2 at 93%. After Therex O2 was 92%. Pt had another seated rest break and O2 was up to 96% post session. Pt did drop O2 during function activity at times, but quickly returnedabove 90%. Home Living Obtained Home Living and PLOF info from: Patient, Patient s family member Lives With: Spouse Type of Home: House Home Layout: One level Steps to enter home: No Bathroom Shower/Tub: Walk-in shower, Tub/shower unit Bathroom Toilet: Standard Additional Objective Details - Home Living: Complete independence without AD at PLOF. Prior Level of Function Receives Help From: Family Level of [place] - Transfers/Ambulation/Mobility: Independent with functional transfers, Independent with household ambulation, Independent with community ambulation Level of [place] - ADLs: Independent Level of [place] - Homemaking: Independent Driving: Patient drives Vocational: Full-time employment For complete objective data, detailed plan of care and patient education refer to: PT Evaluation flowsheet, PT Evaluation and Treatment flowsheet, PT Treatment flowsheet, patient Plan of Care, Plan of Care progress note, and Patient Education. This note stands as the current Discharge Summary upon patient discharge from the hospital or completion of Physical Therapy Plan of Care. * Kelsea Galvan, ORNAMENTAL METAL WORKER - 02/17/2021 12:25 PM EDT [facility] DAILY PROGRESS NOTE MECHANISM: Crush Injury DIAGNOSIS / REASON FOR CONSULT: Left wrist sprain Assessment & Plan Xray negative for acute injury. - Pain control, therapies. Elevated CK Assessment & Plan 2/2 to crush injury. Stable. Closed fracture of transverse process of thoracic & lumbar vertebra (HCC) Assessment & Plan T12-L3 TP fxs - pain controlled. Cleared by therapies. Abrasions of multiple sites Assessment & Plan Local wound care Multiple fractures of ribs, bilateral, init for clos fx Assessment & Plan L ribs 3-7 & 11&12. R 4-8 rib fx. POD #5; see below. CXR w/ stable L apical PTX. - wean Fio2 today - if able to stay off, ok for dc home - regular diet. Pain controlled. Dc planning. Hypertension Assessment & Plan BP in 150-190's systolic over last 24 hours. On home medications. - likely execrated by pain/surgery. - will add additional agent, will need to f/u outpatient with PCP. RESOLVED ISSUES: 1. Concussion - cleared by [facility] PCS. INCENDENTIAL FINDINGS: 1. thyroid nodule - f/u as outpatient. 2. Renal and hepatic cyst - f/u as outpatient. SURGERIES/PROCEDURES: Date Operation/Procedure Provider Name 02/12/2021 Left video-assisted thoracoscopic with evacuation of hematoma. Open reduction-internal fixation left ribs [address] Hicks TODAY'S ASSESSMENT AND PLAN OF CARE: 1. As above. DISPOSITION - home CHIEF COMPLAINT/ HPI / PFSHx / EVENTS OVER LAST 24HRS: No event overnight. Resting in chair. Pain is controlled. Family at bedside. REVIEW OF SYSTEMS: Other than the above items the remainder of the complete ROS is otherwise unchanged from admission. PHYSICAL EXAM: Temp: [97.4 F (36.3 C)-98.1 F (36.7 C)] 98 F (36.7 C) Heart Rate: [72-96] 74 Resp: [12-16] 16 BP: (149-181)/(93-109) 149/100 GENERAL: Appears age appropriate. No acute distress. NEUROLOGICAL: Alert and oriented X 3. Follows commands with extremities x4, equal strength. GCS = 15 EYES/EARS/NOSE/MOUTH/THROAT: Atraumatic. CARDIOVASCULAR: Regular rate and rhythm. No clicks, rubs, murmurs or gallops noted. No peripheral edema noted. 2+ pulses radial/DP/PT bilaterally. RESPIRATORY: Lungs, clear to auscultation bilaterally. No rhonchi, wheezes or crackles. Respiratoryeffort unlabored without use of accessory muscles. 2L nasal cannula. Left chest wall incision with tomi well approximated. CT dressing CDI - ok to removed 02/18. ABDOMINAL: Rounded, soft, nontender, nondistended, normal bowel sounds. No guarding or peritoneal signs. + Flatus, + BM. GENITOURINARY: Voiding without difficulty. MUSCULOSKELETAL: No gross deformity - neurovascularly intact x 4. SKIN: Skin warm and dry. Minimal ecchymosis across chest wall, sternum and abdomen. Left wrist withmild ecchymosis. Intake/Output Summary (Last 24 hours) at 02/17/2021 1225 Last data filed at 02/16/2021 1300 Gross per 24 hour Intake Output 175 ml Net -175 ml IMAGING: CXR reviewed. LABS Lab Results Component Value Date WBC 6.97 02/14/2021 HGB 12.3 (L) 02/14/2021 HCT 40.7 (L) 02/14/2021 MCV 92.1 02/14/2021 PLT 184 02/14/2021 RBC 4.42 (L) 02/14/2021 Lab Results Component Value Date GLUCOSE 90 02/14/2021 CALCIUM 7.6 (L) 02/13/2021 NA 141 02/14/2021 K 3.9 02/14/2021 CL 107 02/14/2021 BUN 16 02/14/2021 CREATININE 1.10 02/14/2021 Lab Results Component Value Date ALT 51 02/10/2021 AST 42 02/10/2021 ALKPHOS 86 02/10/2021 BILITOT 0.5 02/10/2021 DAILY CHECKLIST: *Need for Restraints: No *Need for Urinary Catheter: No *Need for Central Access Devices: No *Stress Ulcer Prophylaxis: Pepcid PRN per patient request. *VTE Prophylaxis (Body mass index is 31.54 kg/m ., Estimated Creatinine Clearance: 76.5 mL/min (by C-G formula based on SCr of 1.1 mg/dL).): Lovenox. *Code Status: Full. Associated attestation - Curt Drummond MD - 02/17/2021 3:51 PM EDT Please link this note as an addendum to the Trauma Nurse Practitioner note with the same day of service. The patient was seen and examined by me, the attending trauma surgeon, on multidisciplinary rounds on the date of service listed above. I have reviewed Trauma Nurse Practitioner note with the relevant labs, studies, and sap solution manager consultant notes. I have reviewed and agree with the documented history, exam, and plan of care, with the following comments, additions, and corrections: Interval Changes: remains stable, some hypoxia Exam: Neuro: GCS15, no focal deficits Chest: Clear sounds bilaterally Abdomen: soft, NT Chest tube: tidal w/o air leak Cxr stable Assessment and Plan: Crush injuries detailed below DVT Prophylaxis Therapies Wean oxygen d/c planning * Ezekiel, Jacquelyn, RD - 02/17/2021 11:35 AM EDT Nutrition Care Initial Assessment Reason for visit: Dietitian Screen Nutrition Diagnosis: No Nutrition Diagnosis. Nutrition Intervention/Prescription: Continue PO diet Diet: Regular Diet Nutrition Goals: PO intake > 75% most meals Start Date:02/17/2021 Expected End Date:02/27/2021 Nutrition Education: No needs at this time Assessment: Pertinent clinical information: s/p crush injury with a piece of machinery weighing >1000#. Leftwrist sprain, closed fx of transverse process of thoracic and lumbar vertebra, abrasions of multiple sites, multiple fx of ribs, b/l. S/P evacuation of hematoma. S/P chest tube placement (to waterseal). History reviewed. No pertinent past medical history. Height: 5' 10 Current weight: 99.7 kg (219 lb 12.8 oz) BMI Body mass index is 31.54 kg/m . Weight hx: Wt Readings from Last 5 Encounters: 02/16/21 99.7 kg (219 lb 12.8 oz) Current diet order: Regular Current EN order: n/a Current supplements: n/a Recent intake: 50%-75%, 75%-100%. Current intake Likely meets estimated needs. Patient/family comments: Pt resting, did not speak with patient at this time. Difficulty Chewing/Swallowing: No Skin Integrity: abrasions, surgical incision GI Function: LBM 02/15/2021 Physical Appearance: no signs or symptoms of malnutrition Labs: No results for input(s): NA, K, BICARB, CL, GLUCOSE, BUN, CREATININE, MG, PHOS in the last 72hours. Scheduled Meds: acetaminophen 650 mg Oral Q6H cyclobenzaprine 10 mg Oral Q8H DEBRA docusate sodium 100 mg Oral Daily enoxaparin (LOVENOX) injection 40 mg Subcutaneous BID ibuprofen 800 mg Oral TID with meals lidocaine 2 patch Transdermal Daily lidocaine 2 patch Transdermal Daily lisinopril-hydrochlorothiazide (ZESTORETIC 06/23.5) combination tablet Oral Daily polyethylene glycol 17 g Oral Daily pramipexole 0.25 mg Oral Nightly senna 1 tablet Oral Nightly Continuous Infusions: TRINO Venegas, VERENICEN, LD Cell Office * Ifeanyi Fernandez PTA - 02/16/2021 3:20 PM EDT Physical Therapy PHYSICAL THERAPY TREATMENT NOTE Skilled Therapy Needs After Discharge Anticipate Resolution of Current Assessment Limitations Including: Pain, Mechanical Barriers Are Skilled Therapy Services Needed After Discharge: No DME Recommendation: Wheeled Walker DME Rationale: Patient's condition prevents him/her from accomplishing ADL without recommended equipment, Patient's condition creates an increased risk of safety hazard without recommended equipment Rehab Potential: Good Outcomes Measures Prior Function - Basic Mobility Raw Score: 24 Points Prior Function - Basic Mobility % Impaired: 0% Activity Tolerance fair+ Therapy Precautions General Rehab Precautions: Fall risk (up with 1 assist and walker) Bed Mobility Pt was sitting up in chair upon arrival Transfers Pt was cga with all functional transfers with cues for hand placement Gait/Locomotion Pt amb with fww cga approx 120' x 2 attempts with 1 seated rest break. Pt presented with step through pattern with decreased heel strike and stride length josue. Exercise Pt performed standing josue LE heel raises, marching, hip abd, mini lunges and mini squats x20 each to improve strength and endurance.. verbal/tactile/visual cues provided to correct form and to avoid compensation Additional Treatment Details Home Living Obtained Home Living and PLOF info from: Patient, Patient s family member Lives With: Spouse Type of Home: House Home Layout: One level Steps to enter home: No Bathroom Shower/Tub: Walk-in shower, Tub/shower unit Bathroom Toilet: Standard Additional Objective Details - Home Living: Complete independence without AD at PLOF. Prior Level of Function Receives Help From: Family Level of [place] - Transfers/Ambulation/Mobility: Independent with functional transfers, Independent with household ambulation, Independent with community ambulation Level of [place] - ADLs: Independent Level of [place] - Homemaking: Independent Driving: Patient drives Vocational: Full-time employment For complete objective data, detailed plan of care and patient education refer to: PT Evaluation flowsheet, PT Evaluation and Treatment flowsheet, PT Treatment flowsheet, patient Plan of Care, Plan of Care progress note, and Patient Education. This note stands as the current Discharge Summary upon patient discharge from the hospital or completion of Physical Therapy Plan of Care. * Shayla Tierney, ORNAMENTAL METAL WORKER - 02/16/2021 2:42 PM EDT [facility] DAILY PROGRESS NOTE MECHANISM: Crush Injury DIAGNOSIS / REASON FOR CONSULT: Left wrist sprain Assessment & Plan Xray negative for acute injury. - Pain control, therapies. Elevated CK Assessment & Plan 2.2 to crush injury. Trending down. Creat stable. Closed fracture of transverse process of thoracic & lumbar vertebra (HCC) Assessment & Plan T12-L3 TP fxs - pain control. Therapies. Abrasions of multiple sites Assessment & Plan Local wound care Multiple fractures of ribs, bilateral, init for clos fx Assessment & Plan L ribs 3-7 & 11&12. R 4-8 rib fx. POD #4; see below. -CXR stable - no PTX. - CT to waterseal - output 40 (290) mL/24 hours. - regular diet. Pain controlled. Therapies. RESOLVED ISSUES: 1. Concussion - cleared by [facility]. INCENDENTIAL FINDINGS: 1. thyroid nodule - f/u as outpatient. 2. Renal and hepatic cyst - f/u as outpatient. SURGERIES/PROCEDURES: Date Operation/Procedure Provider Name 02/12/2021 Left video-assisted thoracoscopic with evacuation of hematoma. Open reduction-internal fixation left ribs [address] Hicks TODAY'S ASSESSMENT AND PLAN OF CARE: 1. As above. DISPOSITION - TBD. CHIEF COMPLAINT/ HPI / PFSHx / EVENTS OVER LAST 24HRS: No event overnight. Pt standing in bathroom at the sink. Pt states pain is well controlled but he is starting to have pain to his thoracic spine with some movements. Tolerating diet, denies constipation. Walking samson with assistance. REVIEW OF SYSTEMS: Other than the above items the remainder of the complete ROS is otherwise unchanged from admission. PHYSICAL EXAM: Temp: [97.9 F (36.6 C)-98.4 F (36.9 C)] 98.3 F (36.8 C) Heart Rate: [73-82] 76 Resp: [15-18] 16 BP: (147-173)/(90-109) 154/102 GENERAL: Appears age appropriate. No acute distress. NEUROLOGICAL: Alert and oriented X 3. Follows commands with extremities x4, equal strength. GCS = 15 EYES/EARS/NOSE/MOUTH/THROAT: Atraumatic. CARDIOVASCULAR: Regular rate and rhythm. No clicks, rubs, murmurs or gallops noted. No peripheral edema noted. 2+ pulses radial/DP/PT bilaterally. RESPIRATORY: Lungs, clear to auscultation bilaterally. No rhonchi, wheezes or crackles. Respiratoryeffort unlabored without use of accessory muscles. 2L nasal cannula. Left CT dressing CDI - + air leak with cough, serosanguinous drainage. Incisions well approximated with tomi, open to air, no noted drainage. ABDOMINAL: Rounded, soft, nontender, nondistended, normal bowel sounds. No guarding or peritoneal signs. + Flatus, + BM. GENITOURINARY: Voiding without difficulty. MUSCULOSKELETAL: No gross deformity - neurovascularly intact x 4. SKIN: Skin warm and dry. Minimal ecchymosis across chest wall, sternum and abdomen. Left wrist withmild ecchymosis. Intake/Output Summary (Last 24 hours) at 02/16/2021 1442 Last data filed at 02/16/2021 1300 Gross per 24 hour Intake 360 ml Output 815 ml Net -[address]: 40 mL/24 hours serosanguinous IMAGING: CXR reviewed. LABS Lab Results Component Value Date WBC 6.97 02/14/2021 HGB 12.3 (L) 02/14/2021 HCT 40.7 (L) 02/14/2021 MCV 92.1 02/14/2021 PLT 184 02/14/2021 RBC 4.42 (L) 02/14/2021 Lab Results Component Value Date GLUCOSE 90 02/14/2021 CALCIUM 7.6 (L) 02/13/2021 NA 141 02/14/2021 K 3.9 02/14/2021 CL 107 02/14/2021 BUN 16 02/14/2021 CREATININE 1.10 02/14/2021 Lab Results Component Value Date ALT 51 02/10/2021 AST 42 02/10/2021 ALKPHOS 86 02/10/2021 BILITOT 0.5 02/10/2021 DAILY CHECKLIST: *Need for Restraints: No *Need for Urinary Catheter: No *Need for Central Access Devices: No *Stress Ulcer Prophylaxis: Pepcid PRN per patient request. *VTE Prophylaxis (Body mass index is 31.54 kg/m ., Estimated Creatinine Clearance: 76.5 mL/min (by C-G formula based on SCr of 1.1 mg/dL).): Lovenox. *Code Status: Full. Associated attestation - Curt Drummond MD - 02/16/2021 4:35 PM EDT Please link this note as an addendum to the Trauma Nurse Practitioner note with the same day of service. The patient was seen and examined by me, the attending trauma surgeon, on multidisciplinary rounds on the date of service listed above. I have reviewed Trauma Nurse Practitioner note with the relevant labs, studies, and sap solution manager consultant notes. I have reviewed and agree with the documented history, exam, and plan of care, with the following comments, additions, and corrections: Interval Changes: no acute change, reports back pain Exam: Neuro: GCS15, no focal deficits Chest: Clear sounds bilaterally Abdomen: soft, NT Chest tube: tidal w/o air leak Cxr stable Assessment and Plan: Crush injuries detailed below Remove chest tube DVT Prophylaxis Therapies d/c planning Curt Drummond MD * Kena Rodriguez OTA - 02/16/2021 11:03 AM EDT Occupational Therapy OCCUPATIONAL THERAPY TREATMENT NOTE Skilled Therapy Needs After Discharge Anticipate Resolution of Current Assessment Limitations Including: Pain, Mechanical Barriers, Social Support Are Skilled Therapy Services Needed After Discharge: No DME Recommendation: Tub transfer bench DME Rationale: Patient's condition creates an increased risk of safety hazard without recommended equipment Rehab Potential: Excellent Outcomes Measures Prior Function Daily Activity Raw Score: 24 Prior Function Daily Activity % Impaired: 0% AM-PAC Daily Activity Raw Score: 18 AM-PAC Daily Activity % Impaired: 46.65% Therapy Precautions Orthotic Devices: No Weight Bearing Status: WFL General Rehab Precautions: Fall risk, Back Cognition Overall Cognitive Status: Within Functional Limits Arousal/Alertness: Appropriate responses to stimuli Orientation Level: Oriented X4 Executive functioning: WFL Safety Judgment: Good awareness of safety precautions Problem Solving: Able to problem solve independently Attention: Attends to distracted environment Hearing Status: WFL Social Interaction: Appropriate, Cooperative Comments: Followed all commands. Bed Mobility Supine to Sit: (seated in chair) Sit to Supine: (seated in chair ) Functional Transfers Sit to Stand: Stand by assist Bed to Chair Transfers: Stand by assist Toilet Transfers: Stand by assist Plasma Specialist: wheeled walker Skilled Intervention Provided: verbal cues, monitoring patient response with activity For: UE management, attention to task Resulting In: improved performance, improved safety Exercise Standing Exercises: While standing completed BUE AROM Exercises 1x10 in all planes to increase joint ROM and maximize muscle integrity for independence in ADLs and fxl mobility. Min cues for controlled movements when completing exercises. No LOB when completing all exercises in standing. Skilled intervention provided: verbal cues For: achieving full ROM as tolerated Resulting In: improved functional strength / ROM Balance Treatment Standing Balance - Static: Supervision Plasma Specialist - Standing Static: wheeled walker Standing Balance - Dynamic: Stand by assist Plasma Specialist - Standing Dynamic: wheeled walker Standing Balance Treatment: reaching within base of support, reaching outside base of support Skilled Intervention Provided: verbal cues For: UE management, UE positioning Resulting in: improved activity tolerance Additional Treatment Details Pt requesting to completed ambulation in hallway to simulate environmental mobility upon home going. Demonstrating good understanding of w/w safety throughout tx session. Stood ~14 minutes completingBUE AROM exercises to increase activity tolerance and strength. Home Living Obtained Home Living and PLOF info from: Patient, Patient s family member Lives With: Spouse Type of Home: House Home Layout: One level Steps to enter home: No Bathroom Shower/Tub: Walk-in shower, Tub/shower unit Bathroom Toilet: Standard Additional Objective Details - Home Living: Complete independence without AD at PLOF. Prior Level of Function Receives Help From: Family Level of [place] - Transfers/Ambulation/Mobility: Independent with functional transfers, Independent with household ambulation, Independent with community ambulation Level of [place] - ADLs: Independent Level of [place] - Homemaking: Independent Driving: Patient drives Vocational: Full-time employment For complete objective data, detailed plan of care and patient education refer to: OT Evaluation flowsheet, OT Evaluation and Treatment flowsheet, OT Treatment flowsheet, patient Plan of Care, Plan of Care progress note, and Patient Education. This note stands as the current Discharge Summary upon patient discharge from the hospital or completion of Occupational Therapy Plan of Care. * Kelsea Galvan, JONATHAN - 02/15/2021 9:36 AM EDT [facility] DAILY PROGRESS NOTE MECHANISM: Crush Injury DIAGNOSIS / REASON FOR CONSULT: Left wrist sprain Assessment & Plan Xray negative for acute injury. - Pain control, therapies. Elevated CK Assessment & Plan 2.2 to crush injury. Down-trending. Closed fracture of transverse process of thoracic & lumbar vertebra (HCC) Assessment & Plan T12-L3 TP fxs - pain control. Therapies. Abrasions of multiple sites Assessment & Plan Local wound care Multiple fractures of ribs, bilateral, init for clos fx Assessment & Plan L ribs 3-7 & 11&12. R 4-8 rib fx. POD #3; see below. CXR stable - no PTX. - CT to remain - output 290 mL/24 hours. - regular diet. Pain controlled. Therapies. RESOLVED ISSUES: 1. Concussion - cleared by [facility]. INCENDENTIAL FINDINGS: 1. thyroid nodule - f/u as outpatient. 2. Renal and hepatic cyst - f/u as outpatient. SURGERIES/PROCEDURES: Date Operation/Procedure Provider Name 02/12/2021 Left video-assisted thoracoscopic with evacuation of hematoma. Open reduction-internal fixation left ribs [address] Hicks TODAY'S ASSESSMENT AND PLAN OF CARE: 1. As above. DISPOSITION - TBD. CHIEF COMPLAINT/ HPI / PFSHx / EVENTS OVER LAST 24HRS: Sitting up in chair. Patient reports slight increase in pain to chest wall after having a coughing fit this morning but overall feeling good. REVIEW OF SYSTEMS: Other than the above items the remainder of the complete ROS is otherwise unchanged from admission. PHYSICAL EXAM: Temp: [97.6 F (36.4 C)-98.3 F (36.8 C)] 98.3 F (36.8 C) Heart Rate: [68-87] 68 Resp: [14-18] 18 BP: (144-157)/(85-95) 152/93 GENERAL: Appears age appropriate. No acute distress. NEUROLOGICAL: Alert and oriented X 3. Follows commands with extremities x4, equal strength. GCS = 15 EYES/EARS/NOSE/MOUTH/THROAT: Atraumatic. CARDIOVASCULAR: Regular rate and rhythm. No clicks, rubs, murmurs or gallops noted. No peripheral edema noted. Telemetry NSR. 2+ pulses radial/DP/PT bilaterally. RESPIRATORY: Lungs, clear to auscultation bilaterally. No rhonchi, wheezes or crackles. Respiratoryeffort unlabored without use of accessory muscles. On nasal cannula. Left CT dressing CDI - no airleak noted, serosanguinous drainage. Incisions well approximated with tomi. ABDOMINAL: Rounded, soft, nontender, nondistended, normal bowel sounds. No guarding or peritoneal signs. + Flatus, no BM. GENITOURINARY: Voiding without difficulty. MUSCULOSKELETAL: No gross deformity - neurovascularly intact x 4. SKIN: Skin warm and dry. Minimal ecchymosis across chest wall, sternum and abdomen. Left wrist withmild ecchymosis. Intake/Output Summary (Last 24 hours) at 02/15/2021 0981 Last data filed at 02/15/2021 0523 Gross per 24 hour Intake 75 ml Output 1140 ml Net -[address]: 290 mL/24 hours serosanguinous IMAGING: CXR reviewed. LABS Lab Results Component Value Date WBC 6.97 02/14/2021 HGB 12.3 (L) 02/14/2021 HCT 40.7 (L) 02/14/2021 MCV 92.1 02/14/2021 PLT 184 02/14/2021 RBC 4.42 (L) 02/14/2021 Lab Results Component Value Date GLUCOSE 90 02/14/2021 CALCIUM 7.6 (L) 02/13/2021 NA 141 02/14/2021 K 3.9 02/14/2021 CL 107 02/14/2021 BUN 16 02/14/2021 CREATININE 1.10 02/14/2021 Lab Results Component Value Date ALT 51 02/10/2021 AST 42 02/10/2021 ALKPHOS 86 02/10/2021 BILITOT 0.5 02/10/2021 DAILY CHECKLIST: *Need for Restraints: No *Need for Urinary Catheter: No *Need for Central Access Devices: No *Stress Ulcer Prophylaxis: Pepcid PRN per patient request. *VTE Prophylaxis (Body mass index is 31.89 kg/m ., Estimated Creatinine Clearance: 76.5 mL/min (by C-G formula based on SCr of 1.1 mg/dL).): Lovenox. *Code Status: Full. Associated attestation - Alvaro Salazar MD - 02/15/2021 11:04 AM EDT C my note * Alvaro Salazar MD - 02/15/2021 8:57 AM EDT PATIENT: Lynda Woodard : 1965 AGE: 55 y.o. SEX: male RACE: [1] PCP: Melva Martinez MD REFERRAL: No ref. 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 I personally examined the patient as below and I am responsible for the medical decision making. CC / SUBJECTIVE No new complaints. present. OBJECTIVE Vitals BP (!) 152/93 (BP Location: Right arm, Patient Position: Sitting) Pulse 68 Temp 98.3 F (36.8 C) (Oral) Resp 18 Ht 5' 10 Wt 100.8 kg (222 lb 3.6 oz) SpO2 93% BMI 31.89 kg/m Alert, NAD, cooperative Left chest tube - no air leak - around 300 ml / 24 hours Lungs: Coarse Abd: Soft, NT, ND LABS / PATH / RADIOLOGY Results from last 7 days Lab Units 02/14/21 0318 02/13/21 0537 02/11/21 0540 02/10/21 0715 WBC K/mcL 6.97 7.65 -- 7.41 HGB g/dL 12.3* 11.4* -- 15.1 HEMOGLOBIN BG g/dL -- -- -- 16.2 POC HEMOGLOBIN -- -- < > -- HEMATOCRIT, CALCULATED % -- -- -- 49.8 HCT % 40.7* 37.0* -- 48.1 HEMATOCRITPOC -- -- < > -- PLT K/mcL 184 150 -- 206 SODIUM mmol/L 141 141 < > 141 141 POTASSIUM mmol/L 3.9 4.2 < > 3.7 3.5 BUN mg/dL 16 17 < > 20 CREATININE mg/dL 1.10 1.11 < > 1.22 GLUCOSE mg/dL 90 97 < > 119* 105* AST U/L -- -- -- 42 ALTR U/L -- -- -- 51 ALK PHOS U/L -- -- -- 86 BILIRUBIN TOTAL mg/dL -- -- -- 0.5 CALCIUM mg/dL -- 7.6* < > 8.7 ALBUMIN g/dL -- -- -- 3.7 PROTIME seconds -- -- -- 12.4 INR -- -- -- 1.0 PTT seconds -- -- -- 25 < > = values in this interval not displayed. ASSESSMENT / PLAN PTD#5 Crush injury T12 to L3 transverse process fractures - clinically stable B rib fractures - POD#3 rib plating, chest tube - keep to water seal due to high output [employer] * Alvaro Salazar MD - 02/14/2021 11:04 AM EDT PATIENT: Lynda Woodard : 1965 AGE: 55 y.o. SEX: male RACE: [1] PCP: Melva Martinez MD REFERRAL: No ref. 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 I personally examined the patient as below and I am responsible for the medical decision making. CC / SUBJECTIVE No new complaints. Pain reasonable control. OBJECTIVE Vitals BP 137/82 (BP Location: Right arm, Patient Position: Sitting) Pulse 79 Temp 97.9 F (36.6C) (Oral) Resp (!) 20 Ht 5' 10 Wt 103.2 kg (227 lb 8.2 oz) SpO2 91% BMI 32.65 kg/m Alert, NAD, cooperative Left chest tube no leak Lungs coarse Abd soft, NT, ND GCS 15 LABS / PATH / RADIOLOGY Results from last 7 days Lab Units 02/14/21 0318 02/13/21 0537 02/11/21 0540 02/10/21 0715 WBC K/mcL 6.97 7.65 -- 7.41 HGB g/dL 12.3* 11.4* -- 15.1 HEMOGLOBIN BG g/dL -- -- -- 16.2 POC HEMOGLOBIN -- -- < > -- HEMATOCRIT, CALCULATED % -- -- -- 49.8 HCT % 40.7* 37.0* -- 48.1 HEMATOCRITPOC -- -- < > -- PLT K/mcL 184 150 -- 206 SODIUM mmol/L 141 141 < > 141 141 POTASSIUM mmol/L 3.9 4.2 < > 3.7 3.5 BUN mg/dL 16 17 < > 20 CREATININE mg/dL 1.10 1.11 < > 1.22 GLUCOSE mg/dL 90 97 < > 119* 105* AST U/L -- -- -- 42 ALTR U/L -- -- -- 51 ALK PHOS U/L -- -- -- 86 BILIRUBIN TOTAL mg/dL -- -- -- 0.5 CALCIUM mg/dL -- 7.6* < > 8.7 ALBUMIN g/dL -- -- -- 3.7 PROTIME seconds -- -- -- 12.4 INR -- -- -- 1.0 PTT seconds -- -- -- 25 < > = values in this interval not displayed. 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 - Pain control, therapies. Elevated CK Assessment & Plan 2.2 to crush injury. Down-trending. Closed fracture of transverse process of thoracic & lumbar vertebra (HCC) Assessment & Plan T12-L3 TP fxs - pain control. Therapies. Abrasions of multiple sites Assessment & Plan Local wound care Multiple fractures of ribs, bilateral, init for clos fx Assessment & Plan L ribs 3-7 & 11&12. R 4-8 rib fx. POD #2; see below. CXR stable - no PTX. - WS chest tube today. Wean Fio2 as tolerated. - regular diet. Pain controlled. Therapies. RESOLVED ISSUES: 1. Concussion - cleared by [facility]. INCENDENTIAL FINDINGS: 1. thyroid nodule - f/u as outpatient. 2. Renal and hepatic cyst - f/u as outpatient. SURGERIES/PROCEDURES: Date Operation/Procedure Provider Name 02/12/2021 Left video-assisted thoracoscopic with evacuation of hematoma. Open reduction-internal fixation left ribs [address] Hicks TODAY'S ASSESSMENT AND PLAN OF CARE: 1. As above. DISPOSITION - TBD. CHIEF COMPLAINT/ HPI / PFSHx / EVENTS OVER LAST 24HRS: REVIEW OF SYSTEMS: Other than the above items the remainder of the complete ROS is otherwise unchanged from admission. PHYSICAL EXAM: Temp: [97.5 F (36.4 C)-98.7 F (37.1 C)] 97.9 F (36.6 C) Heart Rate: [77-81] 79 Resp: [16-20] 20 BP: (111-148)/(64-93) 137/82 GENERAL: Appears age appropriate. No acute distress. NEUROLOGICAL: Alert and oriented X 3. Follows commands with extremities x4, equal strength. GCS = 15 EYES/EARS/NOSE/MOUTH/THROAT: Atraumatic. CARDIOVASCULAR: Regular rate and rhythm. No clicks, rubs, murmurs or gallops noted. No peripheral edema noted. Telemetry NSR. 2+ pulses radial/DP/PT bilaterally. RESPIRATORY: Lungs, clear to auscultation bilaterally. No rhonchi, wheezes or crackles. Respiratoryeffort unlabored without use of accessory muscles. On nasal cannula. Left CT dressing CDI - no airleak noted, serosanguinous drainage. Dressing CDI to incisions. ABDOMINAL: Rounded, soft, nontender, nondistended, normal bowel sounds. No guarding or peritoneal signs. + Flatus, no BM. GENITOURINARY: Voiding without difficulty. MUSCULOSKELETAL: No gross deformity - neurovascularly intact x 4. SKIN: Skin warm and dry. ecchymosis across chest wall, sternum and abdomen. Left wrist with mild ecchymosis. Intake/Output Summary (Last 24 hours) at 02/14/2021 1018 Last data filed at 02/14/2021 0520 Gross per 24 hour Intake Output 2020 ml Net -2020 ml IMAGING: CXR reviewed. LABS Lab Results Component Value Date WBC 6.97 02/14/2021 HGB 12.3 (L) 02/14/2021 HCT 40.7 (L) 02/14/2021 MCV 92.1 02/14/2021 PLT 184 02/14/2021 RBC 4.42 (L) 02/14/2021 Lab Results Component Value Date GLUCOSE 90 02/14/2021 CALCIUM 7.6 (L) 02/13/2021 NA 141 02/14/2021 K 3.9 02/14/2021 CL 107 02/14/2021 BUN 16 02/14/2021 CREATININE 1.10 02/14/2021 Lab Results Component Value Date ALT 51 02/10/2021 AST 42 02/10/2021 ALKPHOS 86 02/10/2021 BILITOT 0.5 02/10/2021 DAILY CHECKLIST: *Need for Restraints: No *Need for Urinary Catheter: No *Need for Central Access Devices: No *Stress Ulcer Prophylaxis: Pepcid PRN per patient request. *VTE Prophylaxis (Body mass index is 32.65 kg/m ., Estimated Creatinine Clearance: 76.5 mL/min (by C-G formula based on SCr of 1.1 mg/dL).): Lovenox. *Code Status: Full. Associated attestation - Alvaro Salazar MD - 02/14/2021 11:04 AM EDT C my note. * Radha Odell OTA - 02/13/2021 11:08 AM EDT Occupational Therapy OCCUPATIONAL THERAPY TREATMENT NOTE Skilled Therapy Needs After Discharge Anticipate Resolution of Current Assessment Limitations Including: Pain, Mechanical Barriers, Social Support Are Skilled Therapy Services Needed After Discharge: No DME Recommendation: Tub transfer bench DME Rationale: Patient's condition creates an increased risk of safety hazard without recommended equipment Rehab Potential: Excellent Outcomes Measures Prior Function Daily Activity Raw Score: 24 Prior Function Daily Activity % Impaired: 0% AM-PAC Daily Activity Raw Score: 18 AM-PAC Daily Activity % Impaired: 46.65% Activity Tolerance Activity Tolerance: Tolerates 20 - 30 min activity with multiple rests Therapy Precautions Orthotic Devices: No Weight Bearing Status: WFL General Rehab Precautions: Fall risk, Back Cognition Overall Cognitive Status: Within Functional Limits Arousal/Alertness: Appropriate responses to stimuli Orientation Level: Oriented X4 Executive functioning: WFL Safety Judgment: Good awareness of safety precautions Problem Solving: Able to problem solve independently Attention: Attends to distracted environment Hearing Status: WFL Social Interaction: WFL Comments: Followed all commands throughout session. ADL LE Dressing: Minimal assist (socks only) LE Dressing - Skilled Intervention Provided: demonstration LE Dressing - For: attention to task, fall prevention LE Dressing - Resulting In: improved activity tolerance, improved functional independence, improvedparticipation in ADL task, improved performance with ADLs Bed Mobility Supine to Sit: Moderate assist, Head of bed elevated Plasma Specialist: bedrails, patient slide sheet / friction-reducing device Skilled Intervention Provided: verbal cues, monitoring patient response with activity For: fall prevention, logroll technique, efficient movement Resulting In: improved activity tolerance, improved adherence to precautions, improved awareness, improved performance, increased participation in mobility task(s) Functional Transfers Sit to Stand: Contact guard assist Bed to Chair Transfers: Contact guard assist Plasma Specialist: wheeled walker Skilled Intervention Provided: verbal cues, monitoring patient response with activity For: UE positioning, attention to task, fall prevention, efficient movement, increased participation in mobility task Resulting In: improved activity tolerance, increased initiation/participation in mobility task(s), improved performance, improved safety, improved functional independence Exercise Seated Exercises: Participated in 5 B UE AROM exs. Pt was able to achieve fulll ROM in all planes. HEP was provided and pt demo understanding. Skilled intervention provided: demonstration, instruction on proper technique/alignment, monitoringpatient response with exercise, written instructions/handout provided and reviewed For: achieving full ROM as tolerated, breath control/breathing pattern with exercise, efficient movement, frequency of exercise(s), proper positioning of extremity, self-monitoring during activity, when to take rest breaks Resulting In: improved performance, improved functional strength / ROM, improved attention, improved activity tolerance, improved independence w/HEP Exs addressed to promote increased activity tolerance, improve respiratory status for improved mobility and completion of basic self care tasks. Additional Treatment Details Cues needed to recall to breathe during tasks. SpO2 remained in the 90's with 3L of oxygen in use. Home Living Obtained Home Living and PLOF info from: Patient, Patient s family member Lives With: Spouse Type of Home: House Home Layout: One level Steps to enter home: No Bathroom Shower/Tub: Walk-in shower, Tub/shower unit Bathroom Toilet: Standard Additional Objective Details - Home Living: Complete independence without AD at PLOF. Prior Level of Function Receives Help From: Family Level of [place] - Transfers/Ambulation/Mobility: Independent with functional transfers, Independent with household ambulation, Independent with community ambulation Level of [place] - ADLs: Independent Level of [place] - Homemaking: Independent Driving: Patient drives Vocational: Full-time employment For complete objective data, detailed plan of care and patient education refer to: OT Evaluation flowsheet, OT Evaluation and Treatment flowsheet, OT Treatment flowsheet, patient Plan of Care, Plan of Care progress note, and Patient Education. This note stands as the current Discharge Summary upon patient discharge from the hospital or completion of Occupational Therapy Plan of Care. * Ifeanyi Fernandez PTA - 02/13/2021 10:40 AM EDT Physical Therapy PHYSICAL THERAPY TREATMENT NOTE Skilled Therapy Needs After Discharge Anticipate Resolution of Current Assessment Limitations Including: Pain, Mechanical Barriers Are Skilled Therapy Services Needed After Discharge: No DME Recommendation: Wheeled Walker DME Rationale: Patient's condition prevents him/her from accomplishing ADL without recommended equipment, Patient's condition creates an increased risk of safety hazard without recommended equipment Rehab Potential: Good Outcomes Measures Prior Function - Basic Mobility Raw Score: 24 Points Prior Function - Basic Mobility % Impaired: 0% AM-PAC Basic Mobility Raw Score: 17 Points AM-PAC Basic Mobility % Impaired: 43.83% Activity Tolerance Activity Tolerance: Tolerates 20 - 30 min activity with multiple rests Therapy Precautions General Rehab Precautions: Fall risk (up with 1 assist and walker) Balance Standing Balance - Static: Contact guard assist Plasma Specialist - Standing Static: wheeled walker Standing Balance - Dynamic: Contact guard assist Plasma Specialist - Standing Dynamic: wheeled walker Standing Balance Treatment: marching in place, maintaining midline Skilled Intervention Provided: verbal cues, tactile cues For: prevention of neurologic fatigue, attention to task Resulting in: improved activity tolerance, improved functional independence, improved performance Bed Mobility Pt was sitting up in chair upon arrival Transfers Pt was educated on proper hand placement for functional transfer to improve eccentric control and safe transfer tech Gait/Locomotion Exercise Seated Exercises: Pt performed josue LE AP, LAQ, marching and hip abd/add x 20 each f Skilled Intervention Provided: verbal cues, tactile cues For: achieving full ROM as tolerated, hold duration, frequency of exercise(s) Resulting in: improved functional strength / ROM, improved performance Additional Treatment Details Home Living Obtained Home Living and PLOF info from: Patient, Patient s family member Lives With: Spouse Type of Home: House Home Layout: One level Steps to enter home: No Bathroom Shower/Tub: Walk-in shower, Tub/shower unit Bathroom Toilet: Standard Additional Objective Details - Home Living: Complete independence without AD at OF. Prior Level of Function Receives Help From: Family Level of [place] - Transfers/Ambulation/Mobility: Independent with functional transfers, Independent with household ambulation, Independent with community ambulation Level of [place] - ADLs: Independent Level of [place] - Homemaking: Independent Driving: Patient drives Vocational: Full-time employment For complete objective data, detailed plan of care and patient education refer to: PT Evaluation flowsheet, PT Evaluation and Treatment flowsheet, PT Treatment flowsheet, patient Plan of Care, Plan of Care progress note, and Patient Education. This note stands as the current Discharge Summary upon patient discharge from the hospital or completion of Physical Therapy Plan of Care. * Shayla Tierney, ORNAMENTAL METAL WORKER - 02/13/2021 9:34 AM EDT [facility] and [facility] DAILY PROGRESS NOTE MECHAN ISM: Crush Injury DIAGNOSIS / REASON FOR CONSULT: Left wrist pain Assessment & Plan Reports tightness. NV intact. XR negative. Soft tissue swelling +. - Pain control, therapies. Elevated CK Assessment & Plan [id number] (7) Cr stable 1.11 (1.31). -Tolerating diet, continue MIVF. -Repeat in am. Mass Assessment & Plan Renal/hepatic cyst/mass, thyroid nodule IF found on CT. Asymptomatic. - Update patient for OP f/u. Closed fracture of transverse process of thoracic vertebra (HCC) Assessment & Plan T12-L3 TP fxs NOM. No pain at this time. - Pain control. Continue therapy. 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 * Multiple fractures of ribs, bilateral, init for clos fx Assessment & Plan R lateral 4-8 rib fx, L midly displaced ant 3-7 & post 11-12. POD # 1 from below. - Improved pain. -3L NC- wean as able. Pulmonary hygiene with PEP and IS. -Therapies, OOB and to chair. -Xray chest with continued pneumo, CT with 206 ml/24 hours, continue to suction. -Bowel regimen. SURGERIES/PROCEDURES: Date Operation/Procedure Provider Name 02/12/2021 Left video-assisted thoracoscopic with evacuation of hematoma. Open reduction-internal fixation left ribs 4 through 6. Hicks TODAY' S ASSESSMENT AND PLAN OF CARE: 1. As above. DISPOSITION - TBD. CHIEF COMPLAINT/ HPI / PFSHx / EVENTS OVER LAST 24HRS: No acute events overnight. Pt states pain is well controlled with current regimen. Denies fever, chills, improved breath volume and improved pain with movement and pulmonary exercises. REVIEW OF SYSTEMS: Other than the above items the remainder of the complete ROS is otherwise unchanged from admission. PHYSICAL EXAM: Temp: [97.3 F (36.3 C)-98.1 F (36.7 C)] 97.6 F (36.4 C) Heart Rate: [62-84] 64 Resp: [12-18] 14 BP: (107-149)/(70-90) 107/70 Arterial Line BP: (123-154)/(70-76) 151/74 GENERAL: Appears age appropriate. No acute distress. NEUROLOGICAL: Alert and oriented X 3. Follows commands with extremities x4, equal strength. Pupils equal, round. No focal neurologic deficits noted. GCS = 15 EYES/EARS/NOSE/MOUTH/THROAT: Atraumatic. CARDIOVASCULAR: Regular rate and rhythm. No clicks, rubs, murmurs or gallops noted. No peripheral edema noted. Telemetry NSR. 2+ pulses radial/DP/PT bilaterally. RESPIRATORY: Lungs, clear to auscultation bilaterally. No rhonchi, wheezes or crackles. Respiratoryeffort unlabored without use of accessory muscles. 3L NC. CT to left pleural space, sanguinous drainage noted with + fluctuation, no air leak with cough, no crepitus to site. ABDOMINAL: Rounded, soft, nontender, nondistended, normal bowel sounds. No guarding or peritoneal signs. + Flatus, no BM. GENITOURINARY: Voiding without difficulty. MUSCULOSKELETAL: No gross deformity - neurovascularly intact x 4. L chest wall TTP. SKIN: Skin warm and dry. Normal turgor. No rashes or lesions. WOUNDS/INCISIONS: ecchymosis across chest wall, sternum and abdomen. Left wrist with mild ecchymosis. Intake/Output Summary (Last 24 hours) at 02/13/2021 0934 Last data filed at 02/13/2021 0542 Gross per 24 hour Intake 3248.21 ml Output 1806 ml Net 1442.21 ml IMAGING: Xray reviewed. LABS Lab Results Component Value Date WBC 7.65 02/13/2021 HGB 11.4 (L) 02/13/2021 HCT 37.0 (L) 02/13/2021 MCV 90.7 02/13/2021 PLT 150 02/13/2021 RBC 4.08 (L) 02/13/2021 Lab Results Component Value Date GLUCOSE 97 02/13/2021 CALCIUM 7.6 (L) 02/13/2021 NA 141 02/13/2021 K 4.2 02/13/2021 CL 108 02/13/2021 BUN 17 02/13/2021 CREATININE 1.11 02/13/2021 Lab Results Component Value Date ALT 51 02/10/2021 AST 42 02/10/2021 ALKPHOS 86 02/10/2021 BILITOT 0.5 02/10/2021 DAILY CHECKLIST: *Need for Restraints: No *Need for Urinary Catheter: No *Need for Central Access Devices: No *Stress Ulcer Prophylaxis: Pepcid PRN per patient request. *VTE Prophylaxis (Body mass index is 32.65 kg/m ., Estimated Creatinine Clearance: 75.8 mL/min (by C-G formula based on SCr of 1.11 mg/dL).): Lovenox. *Code Status: Full. Associated attestation - Curt Drummond MD - 02/13/2021 1:18 PM EDT Please link this note as an addendum to the Trauma Nurse Practitioner note with the same day of service. The patient was seen and examined by me, the attending trauma surgeon, on multidisciplinary rounds on the date of service listed above. I have reviewed Trauma Nurse Practitioner note with the relevant labs, studies, and sap solution manager consultant notes. I have reviewed and agree with the documented history, exam, and plan of care, with the following comments, additions, and corrections: Interval Changes: improved, reports better pain control Small ptx on CXR Exam: Neuro: GCS15, no focal deficits Chest: Clear sounds bilaterally Abdomen: soft, NT Assessment and Plan: Crush injury with blunt torso trauma as below Continue chest tube DVT Prophylaxis Therapies d/c planning Curt Drummond MD * Almaz Hernandez Eliana, [facility] - 02/12/2021 10:35 AM EDT [facility] and [facility] DAILY PROGRESS NOTE MECHAN ISM: Crush Injury DIAGNOSIS / REASON FOR CONSULT: Left wrist pain Assessment & Plan XR negative. Improving. - Pain control, therapies. Elevated CK Assessment & Plan 2116 (2457). Cr stable 1.3 (1.31). Received IV fluids overnight. Adequate urine output, - Continue MIV as he is also NPO for sx. - Will switch robaxin to flexeril for less nephrotoxicity. Mass Assessment & Plan Renal/hepatic cyst/mass, thyroid nodule IF found on CT. Asymptomatic. - OP f/u. Closed fracture of transverse process of thoracic vertebra (HCC) Assessment & Plan T12-L3 TP fxs NOM. Denies midline ttp at this time. - Pain control. No complications with therapies. - Lidocaine patch for paraspinal low back tenderness. 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 No needs at DC. * Multiple fractures of ribs,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 Home Living Obtained Home Living and PLOF info from: Patient, Patient s family member Lives With: Spouse Type of Home: House Home Layout: One level Steps to enter home: No Bathroom Shower/Tub: Walk-in shower Bathroom Toilet: Standard Prior Level of Function Level of [place] - Transfers/Ambulation/Mobility: Independent with functional transfers, Independent with household ambulation, Independent with community ambulation Level of [place] - ADLs: Independent Level of [place] - Homemaking: Independent Driving: Patient drives Vocational: Full-time employment PHYSICAL THERAPY TREATMENT NOTE Total Treatment Time (Total Session Time): 30 Minutes Timed Code Treatment Minutes: 10 Minutes Neuromuscular Reeducation Gait Training Therapeutic Activities Bed Mobility Skilled Intervention Provided: verbal cues, demonstration For: UE management, UE positioning, logroll technique Resulting in: improved performance Transfers Skilled Intervention Provided: verbal cues For: controlled descent, initiation of task Resulting in: improved safety Functional Transfers (Car and/or Toilet Transfers) Therapeutic Exercises Additional Treatment Details Pt. educated on precautions, discharge planning, and mobility through verbal instruction and demonstration. Pt demonstrated understanding of education and billed 1 unit therapeutic activity for education. History reviewed. No pertinent past medical history. History reviewed. No pertinent surgical history. For complete objective data, detailed plan of care and patient education refer to: PT Evaluation flowsheet, PT Evaluation and Treatment flowsheet, PT Treatment flowsheet, patient Plan of Care, Plan of Care progress note, and Patient Education. This note stands as the current Discharge Summary upon patient discharge from the hospital or completion of Physical Therapy Plan. * Tanya Cantu OT - 02/11/2021 1:42 PM EDT Occupational Therapy OCCUPATIONAL THERAPY EVALUATION AND TREATMENT NOTE Dx: Crush injury; multiple fractures of ribs and vertebra, T12-L3 TP fractures; concussion OCCUPATIONAL THERAPY EVALUATION Skilled Therapy Needs After Discharge Anticipate Resolution of Current Assessment Limitations Including: Pain, Mechanical Barriers, Social Support Are Skilled Therapy Services Needed After Discharge: No DME Recommendation: Tub transfer bench DME Rationale: Patient's condition creates an increased risk of safety hazard without recommended equipment Rehab Potential: Excellent Outcomes Measures Prior Function Daily Activity Raw Score: 24 Prior Function Daily Activity % Impaired: 0% AM-PAC Daily Activity Raw Score: 17 AM-PAC Daily Activity % Impaired: 50.11% Occupational Therapy Assessment The patient's current functional participation deficits are LE dressing, bathing, toileting, functional mobility, home management, job duties. This reduced independence will limit their life roles ofpremorbid level individual. The patient's co morbidities do not affect patient performance in the above activities and roles. The performance deficits are a result of musculoskeletal impairment(s) ingeneralized debility including pain, acitvity tolerance, , and pain intolerance. The patient's family / caregiver support is a arc trimmer for return to prior level of function. The patient's compliance is a arc trimmer, awareness of own capacity and performance is a arc trimmer to return to prior level of function. During the assessment, minimal to moderate modification of task was required and several treatment options were identified in the plan of care. This consultation required brief review of the medical and therapy history. Activity Tolerance Activity Tolerance: Tolerates 10 - 20 min activity with multiple rests Therapy Precautions Orthotic Devices: No Weight Bearing Status: WFL General Rehab Precautions: Fall risk, Back Cognition Overall Cognitive Status: Within Functional Limits Arousal/Alertness: Appropriate responses to stimuli Orientation Level: Oriented X4 Executive functioning: WFL Safety Judgment: Good awareness of safety precautions Problem Solving: Able to problem solve independently Attention: Attends to distracted environment Hearing Status: WFL Social Interaction: WFL ADL LE Dressing: Maximal assist (To don bilateral socks) Functional Mobility: Contact guard assist, Adaptive equipment, Additional time (To hallway and backusing FWW. ) Bed Mobility Rolling: Moderate assist Supine to Sit: Maximal assist Functional Transfers Sit to Stand: Contact guard assist Bed to Chair Transfers: Contact guard assist Plasma Specialist: wheeled walker Home Living Obtained Home Living and PLOF info from: Patient, Patient s family member Lives With: Spouse Type of Home: House Home Layout: One level Steps to enter home: No Bathroom Shower/Tub: Walk-in shower, Tub/shower unit Bathroom Toilet: Standard Additional Objective Details - Home Living: Complete independence without AD at PLOF. Prior Level of Function Receives Help From: Family Level of [place] - Transfers/Ambulation/Mobility: Independent with functional transfers, Independent with household ambulation, Independent with community ambulation Level of [place] - ADLs: Independent Level of [place] - Homemaking: Independent Driving: Patient drives Vocational: Full-time employment OCCUPATIONAL THERAPY TREATMENT NOTE Total Treatment Time (Total Session Time): 25 Minutes Timed Code Treatment Minutes: 10 Minutes Self-Care / ADL Functional Mobility - Pt required CGA and much increased time d/t significant pain with mobility. Ambulation to/from hallway, no LOB noted. Functional Mobility - Skilled Intervention Provided: verbal cues, environmental setup/modification,monitoring patient response with activity, monitoring patient response with positional changes Functional Mobility - For: efficient movement, fall prevention, increased participation in mobilitytask, safe use of AD and/or equipment, safety during functional task(s) Functional Mobility - Resulting In: improved performance, improved safety, decreased assistance required, decreasing fall risk Overall ADL Performance - Pt and family members instructed in BLT precautions for back protectionand recovery as well as compensatory ADL techniques/equipment to ease tasks and promote independence while maintaining precautions. Pt and family verbalize understanding, decline need for waiter/waitress informal or sock aid (report family will assist with LB dressing as pt recovers); would like tub transfer bench for increased safety with showering. Pt instructed in logroll technique for bed mobility to assist in maintaining back precautions. Verbalized understanding of all of the above. Overall ADL Performance - Skilled Intervention Provided: patient education Overall ADL Performance - For: necessary precautions, safe use of AD and/or equipment, safety during functional task(s), fall prevention, energy conservation, compensatory strategies Overall ADL Performance - Resulting In: improved adherence to precautions Functional Transfers Skilled Intervention Provided: verbal cues, monitoring patient response with activity, monitoring patient response with positional changes For: UE positioning, controlled descent, fall prevention Resulting In: increased initiation/participation in mobility task(s), improved safety, decreasing fall risk History reviewed. No pertinent past medical history. History reviewed. No pertinent surgical history. For complete objective data, detailed plan of care and patient education refer to: OT Evaluation flowsheet, OT Evaluation and Treatment flowsheet, OT Treatment flowsheet, patient Plan of Care, Plan of Care progress note, and Patient Education. This note stands as the current Discharge Summary upon patient discharge from the hospital or completion of Occupational Therapy Plan of Care. 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 Prior Speech Deficit: No known previous deficits Prior Language Deficit: No known previous deficits Prior Cognitive Deficit: No known previous deficits Baseline Assessment Subjective Impression: Alert, Cooperative, Pleasant Mood Respiratory Status: Room air Auditory Comprehension: Auditory Comp Impression-Severity Scale: WFL Reading Comprehension: Reading Comp Impression-Severity: WFL Expressive Language: Expressive Language Impression-Severity: WFL Cognitive-Communication: Speech Cognition Impression-Severity: WFL Attention: Within Functional Limits Memory: Within Funtional Limits (2/5; 3/5 w/ semantic cue) Verbal Problem Solving: Within Functional Limits Numeric Reasoning: Within Functional Limits Abstract Thinking: Within Functional Limits Organization: Within functional limits Speech Plan: Further acute Speech Therapy services indicated: No Role of ST Discussed: With patient Risk/Benefits of ST Discussed: With patient Patient Goal for Treatment: To go home Rehab Potential: (Evaluation only) History reviewed. No pertinent past medical history. History reviewed. No pertinent surgical history. For complete objective data, detailed plan of care, and education refer to: Speech Comm/Cog Eval flow sheet, as well as patient Plan of Care and Education documentation. This note stands as the current Discharge Summary upon patient discharge from the hospital or completion of Speech Pathology Plan of Care * Shawna Ge MSW LSW - 02/10/2021 12:47 PM EDT Associated Order(s): IP CONSULT TO CARE MANAGEMENT Received consult for SBIRT if needed. Audit-C score is 1 and alcohol was negative upon admission. SBIRT not appropriate. Patient was pinned between two pieces of machinery. May have discharge needs. Care Coordination will continue to follow. documented in this [id number] History of Present illness Narrative* Crush injury and Rib Fractures - from industrial accident. Hurts to cough with mild pain otherwise.That was in February. Xray in May showed some ribs still not healed. The ones with plates did heal. Workers comp. * Nodule on thyroid on CT scan. He is cold a lot since the injury. TSH in November was good. US of largecomplex nodule mostly solid. Bx showed atypia but molecular studies showed low risk. Will do followup US * Cysts on the kidney and liver. The liver has been noted in the past. The kidney was on the left with 10.3 cm cyst. Will do follow up US * Umbilical hernia and GERD - He has had for a long time. No pain. Constipation resolved since off ofoxycodone. And so bloating less. No Melena, dysphagia, or hematochezia. More HB with weight gain. So will go back on meds for now * HTN - Was on Lisinopril prior to the accident then off for awhile. After accident he was put on Lisinopril HCTZ and now with cough that is dry tickle. He only occasionally take ibuprofen. Dyspnea is better as is chest pain. No edema or numbness or weakness or loss of vision. BP is 112/80. At home 130. 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 No hearing aids yet. * RLS - meds work well without side effects * CTS on right not too bad lately. * Allergic Rhinitis - Worse with spring and fall. OTC Zyrtec. Fluticasone as well seasonally. PND * Obesity - up a bit with less activity but should correct * Cologuard - 06/03/21 -[facility] Work Phone: [phone] 747-938106-01-2021 History of Present illness Narrative* Crush injury and Rib Fractures - from industrial accident in February 2021. Hurts to cough with mild pain otherwise. Did need Plates. Workers comp. Can now lay on sides due to pain. Trauma is recommending referral to someone else. * Nodule on thyroid on CT scan. He is cold a lot since the injury. TSH in November was good. US of largecomplex nodule mostly solid. Bx showed atypia but molecular studies showed low risk. Follow up US in August 2021 was unchanged. * Cysts on the kidney and liver. The liver has been noted in the past. The kidney cyst was on the left at 10.8. Dr Mccallum saw him and says benign. No follow up unless a problem. [id number] * Umbilical hernia and GERD - He has had for a long time. No pain. Constipation resolved since off ofoxycodone. And so bloating less. No HB, Melena, dysphagia, or hematochezia. Omeprazole as needed and occasionally will add Pepcid. * HTN - Was on Lisinopril prior to the accident then off for awhile. After accident he was put on Lisinopril HCTZ and developed a cough. Change to losartan and less cough but still there. No Chest pain(other than above), Dyspnea, palpitations, numbness, weakness, edema, claudication, or double vision/ loss of vision. . * Hyperlipidemia - TC 205. TPX204. HDL 37. ASCVD risk 12.8% in January. Not really watching diet well. 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 No hearing aids yet. * RLS - meds work well without side effects. Occasional rough night so will try magnesium. * CTS on right not too bad lately. * Allergic Rhinitis - Worse with spring and fall. OTC Zyrtec. Fluticasone as well seasonally. PND andRN and sneezing. * Obesity -Up a couple this time. Getting more active. BMI 31 * Cologuard - 06/03/21 * PSA 01/15/22 -[facility] Work Phone: [phone] 245-828906-01-2021 Emergency department Note* Shantal Sky RN - 02/10/2021 7:[address] Rivera at bedside, updating family. Patient states pain is getting worse again. Dr. Rivera to order pain medication. * Shantal Sky RN - 02/10/2021 7:39 AM EDT One liter NS started per VO Jarrod [employer]CHO[employer] SPECIAL EDUCATION TEACHER * Shantal Sky RN - 02/10/2021 7:39 AM EDT Jarrod QUINTANA in room updating patient. * Shantal Sky RN - 02/10/2021 7:30 AM EDT Return from CT * Shantal Sky RN - 02/10/2021 7:[address] * Feliberto Rivera MD - 02/10/2021 7:10 AM EDT [facility] ED Attending Note: NAME: Lynda Woodard 55 y.o. CSN: [id number] PCP: Melva Martinez MD History: Chief Complaint: Chest Injury HPI: The history was obtained from the patient and EMS. Lynda is a 55 y.o. male who presents witha chief complaint of Chest Injury. The patient is a 55-year-old male who presents by squad from work after blunt chest trauma. A heavy piece of machinery fell onto his chest, with prolonged extrication. Required a dior to lift the machinery off his chest and it is estimated that he was pinned for approximately 5 minutes. After the missionary was moved from his chest he had a witnessed LOC. He had no seizure activity. He had no injury to his lower extremities head or neck. On arrival he is awake and alert with a Lewis of 15, but complaining of pain in his chest and feeling short of breath. PMHx: No past medical history on file. PMSx: No past surgical history on file. FAM. Hx: No family history on file. SOC. Hx: Social History Socioeconomic History Marital status: Spouse name: Not on file Number of children: Not on file Years of education: Not on file Highest education level: Not on file Occupational History Not on file Tobacco Use Smoking status: Not on file Substance and Sexual Activity Alcohol use: Not on file Drug use: Not on file Sexual activity: Not on file Other Topics Concern Not on file Social History Narrative Not on file Social Determinants of Health Financial Resource Strain: Difficulty of Paying Living Expenses: Food Insecurity: Worried About Running Out of Food in the Last Year: Ran Out of Food in the Last Year: Transportation Needs: Lack of Transportation (Medical): Lack of Transportation (Non-Medical): Physical Activity: Days of Exercise per Week: Minutes of Exercise per Session: Stress: Feeling of Stress : Social Connections: Frequency of Communication with Friends and Family: Frequency of Social Gatherings with Friends and Family: Attends [employer] Services: Active Member of Clubs or Organizations: Attends Club or Organization Meetings: Marital Status: MEDs: Previous Medications Medication Sig lisinopriL-hydrochlorothiazide (PRINZIDE,ZESTORETIC) 10-12.5 mg per tablet Take 1 tablet by mouth daily . pramipexole (MIRAPEX) 0.25 MG tablet Take 0.25 mg by mouth nightly . ALL: No Known Allergies ROS: Positives and pertinent negatives as per HPI. All other systems were reviewed and are negative. Physical Exam: Patient Vitals for the past 24 hrs: BP Temp Temp src Pulse Resp SpO2 Height Weight 02/10/21 0810 71 02/10/21 0805 73 02/10/21 0801 137/83 02/10/21 0800 70 02/10/21 0754 72 99 % 02/10/21 0751 137/85 02/10/21 0750 71 02/10/21 0741 (!) 144/86 68 16 02/10/21 0740 74 02/10/21 0740 (!) 137/91 74 (!) 20 99 % 02/10/21 0734 (!) 153/86 76 02/10/21 0721 (!) 144/91 69 100 % 02/10/21 0712 77 02/10/21 0711 (!) 157/96 02/10/21 0709 72 02/10/21 0709 (!) 150/105 71 (!) 20 02/10/21 0703 (!) 161/111 98.3 F (36.8 C) Oral 77 (!) 24 5' 10 95.3 kg (210 lb) 02/10/21 0703 77 (!) 24 Physical Exam Vitals and nursing note reviewed. HENT: Head: Normocephalic. Nose: Nose normal. Mouth/Throat: Mouth: Mucous membranes are moist. Eyes: Extraocular Movements: Extraocular movements intact. Pupils: Pupils are equal, round, and reactive to light. Neck: Comments: No cervical spine tenderness. Cardiovascular: Rate and Rhythm: Normal rate and regular rhythm. Pulmonary: Comments: Patient is tachypneic, with breath sounds equal bilaterally and abrasions over the chest wall with significant chest wall tenderness but no crepitus noted. Abdominal: General: Abdomen is flat. Comments: Soft with abrasions over the upper quadrants but no significant tenderness noted. Musculoskeletal: General: Normal range of motion. Cervical back: Normal range of motion. Skin: General: Skin is warm and dry. Comments: Abrasions over the chest wall and upper abdomen. Neurological: General: No focal deficit present. Mental Status: He is alert and oriented to person, place, and time. Psychiatric: Mood and Affect: Mood normal. Behavior: Behavior normal. Laboratory & Radiological Imaging (if done): Labs Reviewed CBC - Abnormal; Notable for the following components: Result Value MPV 13.0 (*) All other components within normal limits COMPREHENSIVE METABOLIC PANEL - Abnormal; Notable for the following components: Glucose 119 (*) All other components within normal limits Narrative: The eGFR should be used for monitoring renal function only and not for medication dosing. POC VENOUS BLOOD GAS PANEL-PULM - RALS - Abnormal; Notable for the following components: HCO3, Justen 28.6 (*) Lactic Acid 2.2 (*) Carboxyhemoglobin 1.8 (*) Glucose 105 (*) All other components within normal limits MAGNESIUM LEVEL - Normal PHOSPHORUS - Normal ALCOHOL, MEDICAL - Normal PT/INR - Normal Narrative: During the induction phase of oral anticoagulation, the INR may not reflect the anticoagulation status of the patient. Therapeutic ranges for INR's are: Most clinical situations: INR 2.0-3.0 Mechanical Prosthetic Valve: INR 2.5-3.5 Critical: INR >5.0 APTT - Normal Narrative: Therapeutic range for APTT's is 68 - 104 seconds COVID-19/INFLUENZA A,B MOLECULAR COVID-19/INFLUENZA A,B MOLECULAR PT/INR AND APTT Narrative: The following orders were created for panel order PT/INR and APTT. Procedure Abnormality Status --------- ------ PT/INR[[id number]] Normal Final result APTT[[id number]] Normal Final result Please view results for these tests on the individual orders. OBTAIN VENOUS BLOOD GASES AND PERFORM CPK TYPE AND SCREEN ABORH VERIFICATION CT Thoracic Spine Without Contrast Reconstructed Final Result 1. Mildly displaced left T12-L3 transverse process fractures. 2. Minimally displaced left 11th and 12th rib fractures. 3. No other evidence of acute displaced fracture or traumatic malalignment identified in the thoracolumbar spine. Degenerative changes without CT evidence of severe spinal canal stenosis Workstation ID: [id number] CT Lumbar Spine Without Contrast Reconstructed Final Result 1. Mildly displaced left T12-L3 transverse process fractures. 2. Minimally displaced left 11th and 12th rib fractures. 3. No other evidence of acute displaced fracture or traumatic malalignment identified in the thoracolumbar spine. Degenerative changes without CT evidence of severe spinal canal stenosis Workstation ID: [id number] CT Cervical Spine Without Contrast Final Result 1. No evidence of cervical spine fracture or traumatic malalignment. 2. 3.2 cm right thyroid nodule. Recommend nonemergent thyroid ultrasound for further characterization. Workstation ID: [id number] CT Head Or Brain Without Contrast Final Result No acute intracranial abnormality. Workstation ID: [id number] XR Chest 1 View Final Result There is an irregular area of lucency projecting over the left lower chest, possible fracture of the left 7th rib and subcutaneous emphysema along the lateral margin of the left lower chest. Other than the lucency at the left lung base, no pneumothorax is seen. A stat CT examination of the chest isrecommended. Workstation ID: [id number] ED Fast Scan (Results Pending) CT Angiogram Chest Abdomen Pelvis (Results Pending) Procedures: Procedures Critical Care Time on this patient was between 30-74 minutes due to concern for traumatic condition. This was exclusive of separately billable procedures. ED Course / Medical Decision Making: Work-up the patient shows chest trauma with a left basilar pneumothorax and bilateral rib fractures, as well as fractures of the transverse process of the T12 and L1-4 vertebrae. The patient felipa hemodynamically stable. He is admitted to the trauma service on stepdown. The patient has been informed that they may have pre-hypertension or hypertension based on a blood pressure reading in the Emergency Department. I recommend that the patient call the primary care provider listed on their discharge instructions or a physician of their choice as soon as possible to arrange follow-up in the next 4 weeks for further evaluation of possible pre-hypertension or hypertension. . Clinical Impression: 1. Pneumothorax on left 2. Closed fracture of multiple ribs of left side, initial encounter 3. Blunt chest trauma, initial encounter 4. Syncope, unspecified syncope type 5. Lumbar transverse process fracture, closed, initial encounter ([facility]) Disposition: Patient is being hospitalize to CVSD/ISD Feliberto Rivera MD [facility] Emergency Department (Please note that portions of this note have been completed with a voice recognition software. 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 Patient had positive LOC for few min, after alert and oriented. Complains of pain to chest, abrasions noted to chest and upper abd. documented in this [id number] History of Present illness Narrative* November 27, 2020 * Home BP has been creeping up * Had sinus pressure last week and took Sudafed and noted high at home * Has stopped Sudafed and now lower * Had been running up into 170s/100s. * This AM 150s/100 * No Chest pain, Dyspnea, palpitations, numbness, weakness, edema, claudication, or double vision/ loss of vision. * FMH of HTN, CAD (mother with stents), Father with valve issues but not repaired, * Was on BP meds a couple years ago and lost weight so off of medications * Now up some again and BP with that * Has had sinus headaches * Before Sudafed was running 150s/90s * He is up 8 pounds from a year ago and stable from May. * Plan: * You have Stage 1 hypertension now. I am going to treat that by having you lose weight. I also want to have you monitor your blood pressure every couple days. Bring in your machine and your numbers toyour next visit in 6 weeks. I will be checking labs to look at your kidney and your electrolytes aswell as her thyroid. Also will be getting an echocardiogram to look at your heart function, muscles, and valves. DASH Diet * January 09 2021 * Blood pressure since his last visit has been running higher 140-170/90-110. . When he went in to donate blood it was high and then settled down. No Chest pain, Dyspnea, palpitations, numbness, weakness, edema, claudication, or double vision/ loss of vision. Today 184/118 and his machine similar. * ECHO was good as was BMP and TSH * GERD has been flaring so taking Omeprazole. No Melena, dysphagia, or hematochezia. * Allergic rhinitis - acting up. Taking Tasha plain. * CTS - doing well lately * RLS doing well in Pramipexole * SNHL - in right more than left * Plan: * I will go ahead with medication. Monitor you blood pressure and bring those to next appointment. Check labs prior to OV * 02/06/21 * GERD - off omeprazole with some HB. No dysphagia * HTN - at home has 130s/80s. High in AM. No Chest pain, Dyspnea, palpitations, numbness, weakness, edema, claudication, or double vision/ loss of vision. -[facility] Work Phone: Evaluation note* Diagnosis Multiple fractures of ribs, bilateral, init for clos fx- Primary Pneumothorax on left Other spontaneous pneumothorax Closed fracture of multiple ribs of left side, initial encounter Blunt chest trauma, initial encounter Syncope, unspecified syncope type Lumbar transverse process fracture, closed, initial encounter (HCC) Concussion with loss of consciousness Abrasions of multiple sites Abrasion or friction burn of other, multiple, and unspecified sites, without mention of infection Renal mass Unspecified disorder of kidney and ureter Closed fracture of transverse process of thoracic vertebra (HCC) Mass Localized superficial swelling, mass, or lump Elevated CK Other nonspecific abnormal serum enzyme levels Left wrist pain Pain in joint, [facility] Multiple fractures of ribs, bilateral, init for clos fx- Primary [facility] Diagnosis Multiple fractures of ribs, bilateral, init for clos fx- Primary [facility] Diagnosis 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, subsequent encounter- Primary Multiple fractures of ribs, bilateral, init for clos fx [facility] Diagnosis Laceration of right forearm, initial encounter- Primary [facility] Diagnosis Visit for suture removal- Primary Elevated blood pressure reading Elevated blood pressure reading without diagnosis of hypertension [facility] Diagnosis Arthropathy- Primary Unspecified arthropathy, site unspecified Chronic allergic rhinitis Gastroesophageal reflux disease without esophagitis Esophageal reflux Abdominal bloating Flatulence, eructation, and gas pain Thyroid nodule Nontoxic uninodular goiter Renal cyst Unspecified congenital cystic kidney disease Liver cyst Other specified disorders of liver Fatty liver Other chronic nonalcoholic liver disease Hypertension, benign Essential hypertension, benign Umbilical hernia without obstruction and without gangrene Facet arthropathy, thoracic documented in this encounter [facility] Work Phone: Evaluation note* Diagnosis Thyroid nodule Nontoxic uninodular goiter documented in this encounter [facility] Work Phone: Evaluation note* Diagnosis Acute pain of left knee- Primary Acute pain of left knee documented in this encounter [facility] Work Phone: Evaluation note* Diagnosis Left lower quadrant pain- Primary Abdominal pain, left lower quadrant Gastroesophageal reflux disease without esophagitis Esophageal reflux Abdominal bloating Flatulence, eructation, and gas pain LLQ pain Abdominal pain, left lower quadrant Diarrhea, unspecified type documented in this encounter [facility] Work Phone: Evaluation note* Diagnosis Left lower quadrant pain Abdominal pain, left lower quadrant documented in this encounter [facility] Work Phone: Evaluation note* Diagnosis Onset Date Resolution Status Right thyroid nodule acute Right thyroid nodule acute GERD (gastroesophageal reflux disease) acute Inguinal hernia of left side without obstruction or gangrene acute Mesenteric mass acute Renal cyst, acquired, left a cute Right thyroid nodule acute Umbilical hernia without obstruction or gangrene acute [facility] Work Phone: Evaluation note* Diagnosis Onset Date Resolution Status Right thyroid nodule acute Right thyroid nodule acute GERD (gastroesophageal reflux disease) acute Inguinal hernia of left side without obstruction or gangrene acute Mesenteric mass acute Renal cyst, acquired, left a cute Right thyroid nodule acute Umbilical hernia without obstruction or gangrene acute Mesenteric mass acute Umbilical hernia without obstruction or gangrene acute [facility] Work Phone: Evaluation note* Diagnosis Other malignant neuroendocrine tumors [facility] 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 Hypertension, benign Essential hypertension, benign Gastroesophageal reflux disease, unspecified whether esophagitis present Healthcare maintenance Vitamin D deficiency S/P small bowel resection Other postprocedural status Thyroid nodule Nontoxic uninodular goiter Arthropathy Unspecified arthropathy, site unspecified Chronic allergic rhinitis Class 1 obesity due to excess calories without serious comorbidity with body mass index (BMI) of 31.0 to 31.9 in adult Restless leg syndrome Restless legs syndrome (RLS) Sensorineural hearing loss (SNHL) of both ears Umbilical hernia without obstruction and without gangrene Pure hypercholesterolemia documented in this encounter [facility] Work Phone: Evaluation note* Diagnosis Hypertension, benign- Primary Essential hypertension, benign Vitamin D deficiency Arthropathy Unspecified arthropathy, site unspecified Benign neuroendocrine tumor of duodenum (CMS-HCC) Chronic allergic rhinitis Class 1 obesity due to excess calories without serious comorbidity with body mass index (BMI) of 31.0 to 31.9 in adult Facet arthropathy, thoracic Gastroesophageal reflux disease without esophagitis Esophageal reflux Liver cyst Other specified disorders of liver Pure hypercholesterolemia Renal cyst Unspecified congenital cystic kidney disease Restless leg syndrome Restless legs syndrome (RLS) Sensorineural hearing loss (SNHL) of both ears Thyroid nodule Nontoxic uninodular goiter Umbilical hernia without obstruction and without gangrene IFG (impaired fasting glucose) documented in this encounter [facility] Work Phone: Evaluation note* Diagnosis Acute deep vein thrombosis (DVT) of proximal vein of right lower extremity- Primary Acute pain of right knee documented in this encounter [facility] Work Phone: Evaluation note* Diagnosis Acute pain of right knee documented in this encounter [facility] Work Phone: Evaluation note* Diagnosis Acute deep vein thrombosis (DVT) of proximal vein of right lower extremity Bilateral edema of lower extremity documented in this encounter [facility] Work Phone: Evaluation note* Diagnosis Synovial cyst of right popliteal space- Primary Hypertension, benign Essential hypertension, benign Restless leg syndrome Restless legs syndrome (RLS) Lipid screening Screening for lipoid disorders Prostate cancer screening Special screening for malignant neoplasm of prostate Vitamin D deficiency Routine general medical examination at a health care facility Thyroid nodule Nontoxic uninodular goiter documented in this encounter [facility] Work Phone: Evaluation note* Diagnosis Hypertension, benign- Primary Essential hypertension, benign Gastroesophageal reflux disease, unspecified whether esophagitis present documented in this encounter [facility] Work Phone: History of Present illness Narrative* Crush injury and Rib Fractures - from industrial accident. Hurts to cough with mild pain otherwise.That was in February. Xray in May showed some ribs still not healed. The ones with plates did heal. Workers comp. Cannot lay on sides due to pain. Has plates on ribs. Trauma is recommending referral to someone else. Muscle relaxers did help. Will try some B Complex * Nodule on thyroid on CT scan. He is cold a lot since the injury. TSH in November was good. US of largecomplex nodule mostly solid. Bx showed atypia but molecular studies showed low risk. Follow up US in August 2021 was unchanged. * Cysts on the kidney and liver. The liver has been noted in the past. The kidney cyst was on the left at 10.8. Dr Mccallum saw him and says benign. No follow up unless a problem * Umbilical hernia and GERD - He has had for a long time. No pain. Constipation resolved since off ofoxycodone. And so bloating less. No HB, Melena, dysphagia, or hematochezia. Omeprazole as needed * HTN - Was on Lisinopril prior to the accident then off for awhile. After accident he was put on Lisinopril HCTZ and now with cough that is dry tickle. He only occasionally take ibuprofen. Dyspnea is better as is chest pain. No edema or numbness or weakness or loss of vision. BP is 140/82 after change to Losartan. At home 140/90s. * Hyperlipidemia - TC 205. [id number]. HDL 37. ASCVD risk 12.8%. * SNHL in both ears. No hearing aids yet. * RLS - meds work well without side effects. Occasional rough night so will try magnesium. * CTS on right not too bad lately. * Allergic Rhinitis - Worse with spring and fall. OTC Zyrtec. Fluticasone as well seasonally. PND andRN and sneezing. * Obesity - Down a couple this time but still less activity. BMI 31 * Cologuard - 06/03/21 -[facility] Work Phone: History of Present illness Narrative* Has had GERD for a long time with flare ups on it. This time has been having symptoms for a week. Bloated a lot and cramping. Trying to eat better. Onions make it worse. Able to eat a hamburger. ThisAM, a little bit and then bowl of cereal and worse. No heartburn.. Vomiting x 1 with acidic fluid. No melena and hematochezia. On Omeprazole daily. All day long. No diarrhea or constipation. Still has gallbladder. No fever but did have chills one day. * Cologuard - 06/03/21 * PSA 01/15/22 [facility] Work Phone: Reason for referral (narrative)* Consultation (Routine) - Authorized Specialty Diagnoses / Procedures Referred By Contac t Referred To Contact Primary Care Procedures Follow Up In Primary Care - Established Melva Martinez MD [address] [facility], [place] [id number] Referral ID Status Reason Start Date Expiration Date V isits Requested Visits Authorized [id number] Authorized 08/26/2023 08/25/2024 1 1 * Imaging (Routine) - Authorized Specialty Diagnoses / Procedures Referred By Contac t Referred To Contact Radiology Diagnoses Thyroid nodule Procedures US thyroid Melva Martinez MD [address] [facility], [place] [address] Referral ID Status Reason Start Date Expiration Date Visits Requested Visits Authorized [id number] Authorized Perform Procedure 3 08/25/2024 1 1 * Consultation (Routine) - Authorized Specialty Diagnoses / Procedures Referred By Contac t Referred To Contact Gastroenterology Diagnoses Gastroesophageal reflux disease without esophagitis Abdominal bloating Melva Martinez MD [address] [facility], [place] [phone] Referral ID Status Reason Start Date Expiration Date Visits Requested Visits Authorized [id number] Authorized Specialty Services Required 3 08/25/2024 1 1 [facility] Work Phone: Reason for referral (narrative)* Consultation (Routine) - Authorized Specialty Diagnoses / Procedures Referred By Contac t Referred To Contact Primary Care Diagnoses Hypertension, benign Procedures Follow Up In Primary Care - Established Melva Martinez MD [address] [facility], [facility] [address] [place] [id number] Referral ID Status Reason Start Date Expiration Date V isits Requested Visits Authorized [id number] Authorized 02/27/2024 02/26/2025 1 1 [facility] Work Phone: Reason for referral (narrative)No reason for referral information [facility] Work Phone: Reason for visit Narrative* Imaging (Routine) - Authorized Specialty Diagnoses / Procedures Referred By Pricila t Referred To Contact Radiology Diagnoses Acute pain of right knee Procedures XR knee right 3 views Lakia Maldonado, VACUUM FURNACE OPERATOR-ORNAMENTAL METAL WORKER [address] [facility], [place] [phone] Phone: tel: fax: Referral ID Status Reason Start Date Expiration Date Visits Requested Visits Authorized [id number] Authorized Perform Procedure 01/11/2025 01/11/2026 1 1 [facility] Work Phone: Refjqw for visit Narrative* Imaging (Emergency) - Authorized Specialty Diagnoses / Procedures Referred By Contac t Referred To Contact Cardiology Diagnoses Acute deep vein thrombosis (DVT) of proximal vein of right lower extremity Procedures Vascular US Lower Extremity Venous Duplex Bilateral Vascular US Lower Extremity Venous Duplex Bilateral Lakia Maldonado, VACUUM FURNACE OPERATOR-ORNAMENTAL METAL WORKER [address] [facility], [facility] [address] [place] [address] Phone: tel: fax: [facility] [address] [place] [address] Phone: tel: fax: Referral ID Status Reason Start Date Expiration Date Visits Requested Visits Authorized [id number] Authorized Perform Procedure 01/11/2025 01/11/2026 1 1 [facility] Work Phone: Summary Purpose Family History No Family History Records Found uncle Name Dates Details Family history of liver canc er(V16.0, Z80.0) Status:Active Mother Name Dates Details Family history of cardiac di sorder(V17.49, Z82.49) Status:Active Father Name Dates Details Family history of Hodara's d isease(704.2, L67.0) Status:Active uncle Name Dates Details Family history of liver canc er(V16.0, Z80.0) Status:Active Mother Name Dates Details Family history of cardiac di sorder(V17.49, Z82.49) Status:Active Father Name Dates Details Family history of Hodara's d isease(704.2, L67.0) Status:Active Unknown Family Member Name Dates Details Family history of cardiac di sorder: Mother(V17.49, Z82.49) Status:Active Hodara's disease: Father Status:Active Family history of liver canc er: Uncle(V16.0, Z80.0) Status:Active Unknown Family Member Name Dates Details Family history of cardiac di sorder: Mother(V17.49, Z82.49) Status:Active Hodara's disease: Father Status:Active Family history of liver canc er: Uncle(V16.0, Z80.0) Status:Active Unknown Family Member Name Dates Details Family history of cardiac di sorder: Mother(V17.49, Z82.49) Status:Active Hodara's disease: Father Status:Active Family history of liver canc er: Uncle(V16.0, Z80.0) Status:Active Unknown Family Member Name Dates Details Family history of cardiac di sorder: Mother(V17.49, Z82.49) Status:Active Hodara's disease: Father Status:Active Family history of liver canc er: Uncle(V16.0, Z80.0) Status:Active Unknown Family Member Name Dates Details Family history of cardiac di sorder: Mother(V17.49, Z82.49) Status:Active Hodara's disease: Father Status:Active Family history of liver canc er: Uncle(V16.0, Z80.0) Status:Active Unknown Family Member Name Dates Details Family history of cardiac di sorder: Mother(V17.49, Z82.49) Status:Active Hodara's disease: Father Status:Active Family history of liver canc er: Uncle(V16.0, Z80.0) Status:Active Unknown Family Member Name Dates Details Family history of cardiac di sorder: Mother(V17.49, Z82.49) Status:Active Hodara's disease: Father Status:Active Family history of liver canc er: Uncle(V16.0, Z80.0) Status:Active Unknown Family Member Name Dates Details Family history of liver canc er: Uncle(V16.0, Z80.0) Status:Active Hodara's disease: Father Status:Active Family history of cardiac di sorder: Mother(V17.49, Z82.49) Status:Active Unknown Family Member Name Dates Details Family history of liver canc er: Uncle(V16.0, Z80.0) Status:Active Hodara's disease: Father Status:Active Family history of cardiac di sorder: Mother(V17.49, Z82.49) Status:Active Unknown Family Member Name Dates Details Family history of cardiac di sorder: Mother(V17.49, Z82.49) Status:Active Hodara's disease: Father Status:Active Family history of liver canc er: Uncle(V16.0, Z80.0) Status:Active Unknown Family Member Name Dates Details Family history of cardiac di sorder: Mother(V17.49, Z82.49) Status:Active Hodara's disease: Father Status:Active Family history of liver canc er: Uncle(V16.0, Z80.0) Status:Active Unknown Family Member Name Dates Details Family history of cardiac di sorder: Mother(V17.49, Z82.49) Status:Active Hodara's disease: Father Status:Active Family history of liver canc er: Uncle(V16.0, Z80.0) Status:Active Unknown Family Member Name Dates Details Family history of cardiac di sorder: Mother(V17.49, Z82.49) Status:Active Hodara's disease: Father Status:Active Family history of liver canc er: Uncle(V16.0, Z80.0) Status:Active Unknown Family Member Name Dates Details Family history of cardiac di sorder: Mother(V17.49, Z82.49) Status:Active Hodara's disease: Father Status:Active Family history of liver canc er: Uncle(V16.0, Z80.0) Status:Active Unknown Family Member Name Dates Details Family history of cardiac di sorder: Mother(V17.49, Z82.49) Status:Active Hodara's disease: Father Status:Active Family history of liver canc er: Uncle(V16.0, Z80.0) Status:Active Unknown Family Member Name Dates Details Family history of cardiac di sorder: Mother(V17.49, Z82.49) Status:Active Hodara's disease: Father Status:Active Family history of liver canc er: Uncle(V16.0, Z80.0) Status:Active Relationship Condition Age at Onset Recorded Date/T nehal sister Disorder of thyroid Unknown Relationship Condition Age at Onset Recorded Date/T nehal sister Disorder of thyroid Unknown Diabetes mellitus Unknown mother Atrial fibrillation Unknown Patent foramen ovale Unknown Status post aortic valve replacement Unkn own father Non-Hodgkin's lymphoma Unknown Advance Directives No Advanced Directives Records FoundDocuments on File Type Date Recorded Patient Research Software Engineer Expl anation Advance Directives and Livin g Will 02/10/2021 7:37 AM Latest Code Status on File Code Status Date Activated Date Inactivated Comments Full Code 02/10/2021 11:12 AM 02/18/2021 3:29 PM Documents on File Type Date Recorded Patient Research Software Engineer Expl anation Advance Directives and Livin g Will 05/19/2021 3:12 PM Latest Code Status on File Code Status Date Activated Date Inactivated Comments Full Code 02/10/2021 11:12 AM 02/18/2021 3:29 PM Advance Directive Response Recorded Date/ Time Living Will No December 09, 2023 2:03pm Power of Fuel Truck Driver No December 08 2:03pm Advance Directive Response Recorded Date/ Time Living Will No December 15, 2023 4:55am Power of Fuel Truck Driver No December 14 4:55am Advance Directive Response Recorded Date/ Time Living Will No February 29, 2024 8:25am Do you have a Healthcare Power of Fuel Truck Driver? No February 29, 2024 8:25am Living Will No December 15, 2023 4:55am Do you have a Healthcare Power of Fuel Truck Driver? No December 15, 2023 4:55am Chief [facility] Reason for Referral Specialty Diagnoses / Procedures Referred By Contac t Referred To Contact Radiology Diagnoses Thyroid nodule Procedures US thyroid Melva Martinez MD [address] [facility], [place] [address] [place] [phone] Referral ID Status Reason Start Date Expiration Date Visits Requested Visits Authorized [id number] Authorized Perform Procedure 08/25/2024 1 1 Specialty Diagnoses / Procedures Referred By Contac t Referred To Contact Radiology Diagnoses Acute pain of left knee Procedures XR knee left 1-2 views Tanner Wang MD MPH [address] [facility], [place] [phone] Referral ID Status Reason Start Date Expiration Date Visits Requested Visits Authorized [id number] Authorized Perform Procedure 09/26/2023 09/25/2024 1 1 Specialty Diagnoses / Procedures Referred By Contac t Referred To Contact Radiology Diagnoses Left lower quadrant pain Procedures CT abdomen pelvis w IV contrast Melva Martinez MD [address] [facility], [place] [phone] Referral ID Status Reason Start Date Expiration Date Visits Requested Visits Authorized [id number] Pending Review Perform Procedure 11/10/2023 11/09/2024 1 1 Referral ID Status Reason Start Date Expiration Date Visits Requested Visits Authorized [id number] Authorized Perform Procedure 11/10/2023 11/09/2024 1 1 Specialty Diagnoses / Procedures Referred By Contac t Referred To Contact Diagnoses Other malignant neuroendocrine tumors Procedures NUC PET NEUROENDOCRINE CHG NUC THERAPY HYPERTHYROID SUBSEQUENT Remy Ventura MD [address] [place] [address] Referral ID Status Reason Start Date Expiration Date Visits Re quested Visits Authorized [id number] Closed 01/18/2024 02/11/2025 1 1 Chief Complaint and Reason for Visit Chief Complaint THYROID NODULE PREOP UPDATE H & P MESENTERIC MASS SPECIFIED DISEASE OF INTESTINE Reason for Visit Right thyroid nodule Right thyroid nodule GERD (gastroesophageal reflux disease) Inguinal hernia of left side without obstruction or gangrene Mesenteric mass Renal cyst, acquired, left Right thyroid nodule Umbilical hernia without obstruction or gangrene Chief Complaint THYROID NODULE PREOP UPDATE H & P MESENTERIC MASS SPECIFIED DISEASE OF INTESTINE Exploratory laparoscopy poss conver Exploratory laparoscopy poss conver Reason for Visit Right thyroid nodule Right thyroid nodule GERD (gastroesophageal reflux disease) Inguinal hernia of left side without obstruction or gangrene Mesenteric mass Renal cyst, acquired, left Right thyroid nodule Umbilical hernia without obstruction or gangrene Chief Complaint THYROID NODULE PREOP UPDATE H & P MESENTERIC MASS SPECIFIED DISEASE OF INTESTINE Exploratory laparoscopy poss conver Exploratory laparoscopy poss conver Exploratory laparoscopy poss conver Exploratory laparoscopy poss conver Reason for Visit Right thyroid nodule Right thyroid nodule GERD (gastroesophageal reflux disease) Inguinal hernia of left side without obstruction or gangrene Mesenteric mass Renal cyst, acquired, left Right thyroid nodule Umbilical hernia without obstruction or gangrene Mesenteric mass Umbilical hernia without obstruction or gangrene Chief Complaint Admit Date MED ONC December 06, 2024 3:[address] DONE IN AugDecember 18, 2024 3:46pm 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 January 10, 2025 4:46pm Reason for Visit Admit Date 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, 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 Chief Complaint Admit Date MED ONC December 06, 2024 3:3 [address] DONE IN AugDecember 18, 2024 3:46pm 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 January 10, 2025 4:46pm 5WKS NO LABS REVIEW CT January 17, 2025 3:5 6pm BL KNEES March 22, 2025 10:1 2am RM 1 March 22, 2025 10:3 4am Reason for Visit Admit Date 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, 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:46pm Neuroendocrine carcinoma January 17, 2025 3 :56pm Additional Source Comments (unrecognized sect ion and content) No Status Records FoundNo Status Records FoundNo Status Records FoundNo Status Records FoundNo Status Records FoundNo Status Records FoundNo Status Records FoundNo Status Records FoundNo Status Records FoundNo Status Records FoundNo Status Records FoundNo Status Records FoundNo Status Records FoundNo Status Records Found INFORMATION SOURCE (unrecogn ized section and content) DATE CREATED AUTHOR 05/18/2019 [facility] DATE CREATED AUTHOR AUTHOR'S ORGANIZ ATION 02/18/2021 [facility] DATE CREATED AUTHOR AUTHOR[facility]IZ AT[facility] DATE CREATED AUTHOR AUTHOR'S ORGANIZ ATION 11/25/2021 [facility] DATE CREATED AUTHOR AUTHOR'S ORGANIZ ATION 08/14/2022 [employer] DATE CREATED AUTHOR AUTHOR'S ORGANIZ ATION 09/22/2022 [facility] DATE CREATED AUTHOR AUTHOR'S ORGANIZ ATION 10/12/2022 [facility] DATE CREATED AUTHOR AUTHOR'S ORGANIZ ATION 02/20/2023 [facility] DATE CREATED AUTHOR AUTHOR'S ORGANIZ ATION 02/16/2024 [facility] DATE CREATED AUTHOR AUTHOR'S ORGANIZ ATION 08/26/2024 [facility] DATE CREATED AUTHOR AUTHOR'S ORGANIZ ATION 01/17/2025 [facility] DATE CREATED AUTHOR AUTHOR'S ORGANIZ ATION 02/25/2025 [facility] DATE CREATED AUTHOR AUTHOR'S ORGANIZ ATION 03/17/2025 [facility] DATE CREATED AUTHOR AUTHOR'S ORGANIZ ATION 03/25/2025 [facility] Reason for Visit (unrecogniz ed section and content) Reason Comments Chest Injury Status Reason Specialty Diagnoses / Procedures Referre d By Contact Referred To Contact Diagnoses Pneumothorax on left Blunt chest trauma, initial encounter Lumbar transverse process fracture, closed, initial encounter ([facility]) Closed fracture of multiple ribs of left side, initial encounter Syncope, unspecified syncope type Multiple fractures of ribs, bilateral, init for clos fx Reason Comments Follow-up Reason Comments Follow-up pain on left side Reason Comments Follow-up continued rib pain Reason Comments Laceration Cut on right lower f orearm about 15 min ago. He cut it on a piece of steel. Last Tdap unknown. Reason Comments Suture / Staple Removal Pt presents for suture removal Reason Comments Med Management Back problems, stoma ch issues no better Specialty Diagnoses / Procedures Referred By Contac t Referred To Contact Primary Care Procedures Follow Up In Primary Care - Established Melva Martinez MD [address] [facility], [place] [address] [place] [phone] Referral ID Status Reason Start Date Expiration Date V isits Requested Visits Authorized [id number] Authorized 08/26/2023 08/25/2024 1 1 Specialty Diagnoses / Procedures Referred By Pricila t Referred To Contact Radiology Diagnoses Thyroid nodule Procedures US thyroid Melva Martinez MD [address] [facility], [place] [address] [place] [phone] Referral ID Status Reason Start Date Expiration Date Visits Requested Visits Authorized [id number] Authorized Perform Procedure 3 08/25/2024 1 1 Reason Comments Pain PT is here today for knee pain in his left. Reports he has had the knee pain since last Tuesday. Denies injury or fall and does not know what he did to it. Reports there is swelling and heat and ice seem to help. Reports OTC motrin does help. Started out gradual and kept getting worse and worse. Does not think it feels hot to the touch, reports is the side of the knee, if he twists it, reports it is sharp pain. Scale of 1 to 10 reports the pain is a 6 or 7, depending on how well the medicine is working. Reason Comments GERD Taking omeprazole 40 mg currently. Bloated Nausea Specialty Diagnoses / Procedures Referred By Pricila alvarado Referred To Contact Gastroenterology Diagnoses Gastroesophageal reflux disease without esophagitis Abdominal bloating Melva Martinez MD [address] [facility], [place] [address] [place], [place] [phone] Referral ID Status Reason Start Date Expiration Date Visits Requested Visits Authorized [id number] Authorized Specialty Services Required 08/25/2024 1 1 Specialty Diagnoses / Procedures Referred By Pricila t Referred To Contact Radiology Diagnoses Left lower quadrant pain Procedures CT abdomen pelvis w IV contrast Melva Martinez MD [address] [facility], [place] [address] [place] [phone] Referral ID Status Reason Start Date Expiration Date Visits Requested Visits Authorized [id number] Authorized Perform Procedure 11/10/2023 11/09/2024 1 1 Specialty Diagnoses / Procedures Referred By Contac t Referred To Contact Diagnoses Other malignant neuroendocrine tumors Procedures NUC PET NEUROENDOCRINE CHG NUC THERAPY HYPERTHYROID SUBSEQUENT Remy Ventura MD [address] [place] [address] Referral ID Status Reason Start Date Expiration Date Visits Re quested Visits Authorized [id number] Closed 01/18/2024 02/11/2025 1 1 Reason Comments Med Management Left knee pain Reason Comments Med Management Specialty Diagnoses / Procedures Referred By Contac t Referred To Contact Primary Care Diagnoses Hypertension, benign Procedures Follow Up In Primary Care - Established Melva Martinez MD [address] [facility] [place] [facility], [address] [address] Phone: tel: fax: Referral ID Status Reason Start Date Expiration Date V isits Requested Visits Authorized [id number] Authorized 02/27/2024 02/26/2025 1 1 Reason Comments Knee Pain right calf pain right Foot Pain right Leg Swelling right Referral ID Status Reason Start Date Expiration Date V isits Requested Visits Authorized [id number] Authorized 08/28/2024 08/28/2025 1 1 Reason Comments 2 week Pt is doing a 2 week virtual follow up visit. Scheduled Active and Recently Administ ered Medications (unrecognized section and content) Medication Order 02/16/2021 02/17/2021 02/18/2021 acetaminophen (TYLENOL) tablet 650 mg 650 mg, Oral, Every 6 hours, First dose on Tue02/11/21 at 0930 0240 (Given - Provider: Monica Massey RN)0932 (Given - Provider: Dolores Ruiz RN)1628 (Given - Provider: Dolores Ruiz, RN)2052 (Given - Provider: Monica Massey, GREGORIA) 0244 (Given - Provider: Monica Massey RN)0930 (Not Given - Provider: Dolores Ruiz RN - Reason: Other - Comment: Pt asked to wait until he eats lunch)1539 (Given - Provider: Dolores Ruiz RN)2247 (Given - Provider: Evelyn Rowe RN) 0256 (Given - Provider: Evelyn Rowe RN)0930 (Not Given - Provider: Leon Herrera RN - Reason: Other) amLODIPine (NORVASC) tablet 10 mg 10 mg, Oral, Daily, First dose (after last modification) on Tue02/18/21 at 0930 0955 (Given - Provider: Leon Herrera RN) amLODIPine (NORVASC) tablet 5 mg (CANCELED) 5 mg, Oral, Daily, First dose on Tue02/17/21 at 1315 1337 (Given - Provider: Dolores Ruiz RN) cyclobenzaprine (FLEXERIL) tablet 10 mg 10 mg, Oral, Every 8 hours scheduled, First dose on Tue02/12/21 at 1400 0524 (Given - Provider: Monica Massey RN)1344 (Given - Provider: Dolores Ruiz RN)2052 (Given - Provider: Monica Massey RN)2200 (Canceled Entry - Provider: Monica Massey RN) 0516 (Given - Provider: Monica Massey RN)1337 (Given - Provider: Dolores Ruiz RN)2247 (Given - Provider: Evelyn Rowe RN) 0643 (Given - Provider: Evelyn Rowe RN) docusate sodium (COLACE) capsule 100 mg 100 mg, Oral, Daily, First dose on Tue02/12/21 at 1630, Hold for loose stools DO NOT CRUSH OR CHEW. 0933 (Given - Provider: Dolores Ruiz RN) 0900 (Not Given - Provider: Dolores Ruiz RN - Reason: Patient/family refused) 0900 (Not Given - Provider: Leon Herrera RN - Reason: Patient/family refused) enoxaparin (LOVENOX) syringe 40 mg 40 mg, Subcutaneous, 2 times daily, First dose (after last modification) on Tue02/12/21 at 2100, Administer in abdomen unless otherwise directed by prescriber. Notify physician if patient refuses., Indication: VTE Prophylaxis 0933 (Given - Provider: Dolores Ruiz RN)2051 (Given - Provider: Monica Massey RN) 0906 (Given - Provider: Dolores Ruiz RN)2247 (Given - Provider: Evelyn Rowe RN) 0900 (Not Given - Provider: Leon Herrera RN - Reason: Patient/family refused) ibuprofen (ADVIL,MOTRIN) tablet 800 mg 800 mg, Oral, 3 times daily with meals, First dose on Tue02/11/21 at 1200, Give with Food Do Not Crush or Chew if administering orally due to bitter taste. May be crushed if given via tube. 0933 (Given - Provider: Dolores Ruiz RN)1344 (Given - Provider: Dolores Ruiz RN)1811 (Given - Provider: Dolores Ruiz RN) 0906 (Given - Provider: Dolores Ruiz RN)1333 (Given - Provider: Dolores Ruiz RN)1715 (Given - Provider: Dolores Ruiz RN) 0955 (Given - Provider: Leon Herrera, GREGORIA)1200 (Not Given - Provider: Leon Herrera RN - Reason: Patient/family refused) lidocaine (LIDODERM) 2 patch 2 patch, Transdermal, Administer over 12 Hours, Daily, First dose on Tue02/10/21 at 1530, Apply to left chest wall and right chest wall for 12 hours, then remove patch for 12 hours. 0900 (Not Given - Provider: Dolores Ruiz RN - Reason: Patient/family refused) 0900 (Not Given - Provider: Dolores Ruiz RN - Reason: Patient/family refused) 0900 (Not Given - Provider: Leon Herrera RN - Reason: Patient/family refused) lidocaine (LIDODERM) 2 patch 2 patch, Transdermal, Administer over 12 Hours, Daily, First dose on Tue02/11/21 at 1600, Apply to low back for 12 hours, then remove patch for 12 hours. 0933 (Patch Applied - Provider: Dolores Ruiz RN - Comment: back and side)2133 (Patch Removed - Provider: Monica Massey RN) 0900 (Not Given - Provider: Dolores Ruiz RN - Reason: Patient/family refused) 0900 (Patch Applied - Provider: Leon Herrera RN)1319 (Due: Patch Removed - Provider: Discharge Provider, Automatic - Comment: Time automatically adjusted from order being discontinued) lisinopriL (PRINIVIL,ZESTRIL) 10 mg, hydroCHLOROthiazide (HYDRODIURIL) 12.5 mg COMBO Oral, Daily, First dose on Tue02/12/21 at 2000 0933 (Given - Provider: Dolores Ruiz RN) 0903 (Given - Provider: Dolores Ruiz RN) 0955 (Given - Provider: Leon Herrera, GREGORIA) polyethylene glycol (MIRALAX) powder 17 g 17 g, Oral, Daily, First dose on Tue02/12/21 at 1630 0934 (Given - Provider: Dolores Ruiz RN) 0900 (Not Given - Provider: Dolores Ruiz RN - Reason: Patient/family refused) 0900 (Not Given - Provider: Leon Herrera RN - Reason: Other) pramipexole (MIRAPEX) tablet 0.25 mg 0.25 mg, Oral, Nightly, First dose on Tue02/10/21 at 2100 1811 (Given - Provider: Dolores Ruiz RN) 1715 (Given - Provider: Dolores Ruiz RN) senna (SENOKOT) tablet 8.6 mg 8.6 mg (1 tablet), Oral, Nightly, First dose on Tue02/12/21 at 2100 2100 (Not Given - Provider: Monica Massey RN - Reason: Patient/family refused) 2247 (Given - Provider: Evelyn Rowe RN) PRN Medication Order 02/16/2021 02/17/2021 02/18/2021 famotidine (PEPCID) tablet 20 mg 20 mg, Oral, 2 times daily PRN, other, stomach intolerance, Starting on Tue02/11/21 at 1145 HYDROmorphone (DILAUDID) injection 0.5 mg 0.5 mg, Intravenous, Every 3 hours PRN, moderate to severe pain, Starting on Tue02/10/21 at 1112 0922 (Given - Provider: Dolores Ruiz RN) labetaloL (NORMODYNE) injection 20 mg 20 mg, Intravenous, Every 4 hours PRN, SBP > 160 or DBP > 100, Starting on Tue02/17/21 at 1225 2301 (Given - Provider: Evelyn Rowe RN - Comment: BP 162/101) 0703 (Given - Provider: Evelyn Rowe RN - Comment: 163/103) naloxone (NARCAN) injection 0.1 mg(Linked Group 1) 0.1 mg, Intravenous, As needed, opioid reversal, For respiratory rate less than or equal to 8 per minute., Starting on Tue02/11/21 at 0921, Mix nalOXone (NARCAN) 0.4 mg (1ml) with 9 mL of Normal Saline to total 10 mL. Administer 0.1 mg (2.5ml) IV Push every 2 minutes until respiratory rate is 10 or greater. naloxone (NARCAN) injection 0.4 mg(Linked Group 1) 0.4 mg, Intravenous, As needed, opioid reversal, patient is pulseless, breathless, and unresponsive, Starting on Tue02/11/21 at 0921, Call a code first, then administer naloxone dose undiluted IV Push over 30 seconds. ondansetron (ZOFRAN) injection 4 mg(Linked Group 2) 4 mg, Intravenous, Every 6 hours PRN, nausea, vomiting, Starting on Tue02/10/21 at 1112, [] Oral or IV - use oral route if tolerated. ondansetron (ZOFRAN-ODT) disintegrating tablet 4 mg(Linked Group 2) 4 mg, Oral, Every 6 hours PRN, nausea, vomiting, Starting on Tue02/10/21 at 1112, [] Oral or IV - use oral route if tolerated. Formulation requires tablet remain in sealed package until immediately prior to dose being administered. oxyCODONE (ROXICODONE) immediate release tablet 10 mg 10 mg, Oral, Every 4 hours PRN, moderate to severe pain, Starting on Tue02/11/21 at 1203 0240 (Given - Provider: Monica Massey RN) 0244 (Given - Provider: Monica Massey RN)1522 (Not Given - Provider: Dolores Ruiz RN - Reason: Patient/family refused) polyvinyl alcohol (LIQUIFILM TEARS) 1.4 % ophthalmic solution 1 drop 1 drop, Both Eyes, As needed, dry eyes, Starting on Tue02/10/21 at 2137 Linked Groups Order Group 1: naloxone (NARCAN) injection 0.1 mgJump to med 0.1 mg, Intravenous, As needed, opioid reversal, For respiratory rate less than or equal to 8 per minute., Starting on Tue02/11/21 at 0921
Mix nalOXone (NARCAN) 0.4 mg (1ml) with 9 mL of Normal Saline to total 10 mL. Administer 0.1 mg (2.5ml) IV Push every 2 minutes until respiratory rate is 10 or greater.
And Notify physician (CANCELED) STAT, Until discontinued, Starting on Tue02/11/21 at 0922, Until Specified
Respiratory rate less than: 8
For respiratory rate less than or equal to 8, notify physician and/or appropriate staff for additional orders. And naloxone (NARCAN) injection 0.4 mgJump to med 0.4 mg, Intravenous, As needed, opioid reversal, patient is pulseless, breathless, and unresponsive, Starting on Tue02/11/21 at 0921
Call a code first, then administer naloxone dose undiluted IV Push over 30 seconds.
Group 2: ondansetron (ZOFRAN-ODT) disintegrating tablet 4 mgJump to med 4 mg, Oral, Every 6 hours PRN, nausea, vomiting, Starting on Tue02/10/21 at 1112
[] Oral or IV - use oral route if tolerated. Formulation requires tablet remain in sealed package until immediately prior to dose being administered.
Or ondansetron (ZOFRAN) injection 4 mgJump to med 4 mg, Intravenous, Every 6 hours PRN, nausea, vomiting, Starting on Tue02/10/21 at 1112
[] Oral or IV - use oral route if tolerated.
Care Teams (unrecognized sec tion and content) Team Status: Active Member Role Status Dates Dr. Melva Martinez MD Primary Care Provider Active Team Status: Active Member Role Status Dates Dr. Melva Martinez MD Primary Care Provider Active Start: December 06, 2024 Dr. Remy Ventura MD Attending Provider Active S tart: December 06, 2024 Dr. Remy Ventura MD Referring Provider Active S tart: December 06, 2024 Team Status: Inactive Member Role Status Dates Dr. Melva Martinez MD Primary Care Provider Active Start: December 18, 2024 End: December 18, 2024 Dr. Melva Martinez MD Referring Provider Active Start: December 18, 2024 End: December 18, 2024 Dr. Remy Ventura MD Attending Provider Active S tart: December 18, 2024 End: December 18, 2024 Team Status: Inactive Member Role Status Dates Dr. Melva Martinez MD Primary Care Provider Active Start: January 10, 2025 End: January 10, 2025 Dr. Remy Ventura MD Attending Provider Active S tart: January 10, 2025 End: January 10, 2025 Dr. Remy Ventura MD Referring Provider Active S tart: January 10, 2025 End: January 10, 2025 Nurse Private Duty Relationship Specialty Start Date End Date Melva Martinez MD [address] [place] [id number] PCP - General Family Medicine 02/10/21 Nurse Private Duty Relationship Specialty Start Date End Date Melva Martinez MD [address] [place] [id number] PCP - General Family Medicine 02/10/21 Nurse Private Duty Relationship Specialty Start Date End Date Melva Martinez MD [address] [place], [place] [id number] PCP - General Family Medicine 02/10/21 Nurse Private Duty Relationship Specialty Start Date End Date Melva Martinez MD [address] [facility], [facility] [address] [place] [address] PCP - General 05/25/19 Melva Martinez MD [address] [facility], [facility] [address] [place] [address] PCP - MMO ACO PCP 09/12/21 Nurse Private Duty Relationship Specialty Start Date End Date Melva Martinez MD [address] [facility], [facility] [address] [place] [address] PCP - General 05/25/19 Melva Martinez MD [address] [facility], [facility] [address] [place] [address] PCP - MMO ACO PCP 09/12/21 Nurse Private Duty Relationship Specialty Start Date End Date Melva Martinez MD [address] [facility], [address] [place] [address] PCP - General 05/25/19 Melva Martinez MD [address] [facility], [address] [place] [address] PCP - MMO ACO PCP 09/12/21 Nurse Private Duty Relationship Specialty Start Date End Date Melva Martinez MD [address] [facility], [address] [place] [id number] PCP - General 05/25/19 Melva Martinez MD [address] [facility], [address] [place] [address] PCP - MMO ACO PCP 09/12/21 Team Status: Inactive Member Role Status Dates Dr. Melva Martinez MD Primary Care Provider, Referri ng Provider Active Dr. Alexi Armendariz MD Attending Provider Active Team Status: Inactive Member Role Status Dates Dr. Melva Martinez MD Primary Care Provider, Referri ng Provider Active Negin JAIME PADigna Attending Provider Active Team Status: Active Member Role Status Dates Dr. Melva Martinez MD Primary Care Provider Active Dr. Abdias Crook MD Attending Provider Active Dr. Alexi Armendariz MD Referring Provider Active Team Status: Active Member Role Status Dates Dr. Melva Martinez MD Primary Care Provider, Referri ng Provider Active Dr. Alexi Armendariz MD Attending Provider, Other Prov ider Active Team Status: Active Member Role Status Dates Dr. Melva Martinez MD Primary Care Provider Active Dr. Alexi Armendariz MD Attending Provider, Referring Provider Active Team Status: Active Member Role Status Dates Dr. Melva Martinez MD Primary Care Provider Active Dr. Alexi Armendariz MD Attending Provider, Other Prov ider Active Melva [place] Referring Provider Active Team Status: Inactive Member Role Status Dates Dr. Melva Martinez MD Primary Care Provider Active Dr. Alexi Armendariz MD Attending Provider, Referring Provider Active Team Status: Active Member Role Status Dates Dr. Melva Martinez MD Primary Care Provider Active Dr. Alexi Armendariz MD Attending Provider Active Melva [place] Referring Provider Active Team Status: Active Member Role Status Dates Dr. Melva Martinez MD Primary Care Provider Active Dr. Alexi Armendariz MD Admit Provider, Attending Provider, Other Provider Active Melva [place] Referring Provider Active Team Status: Inactive Member Role Status Dates Dr. Melva Martinez MD Primary Care Provider Active Dr. Alexi Armendariz MD Admit Provider, Attending Prov ider Active Melva [place] Referring Provider Active Nurse Private Duty Relationship Specialty Start Date End Date Melva Martinez MD [address] [facility], [place] [address] PCP - General 05/25/19 Melva Martinez MD [address] [facility], [place] [address] PCP - MMO ACO PCP 09/12/21 Nurse Private Duty Relationship Specialty Start Date End Date Melva Martinez MD [address] [facility], [place] [address] PCP - General 05/25/19 Melva Martinez MD [address] [facility], [address] [address] PCP - MMO ACO PCP 03/12/24 Nurse Private Duty Relationship Specialty Start Date End Date Melva Martinez MD [address] [facility], [address] [address] [place] [address] PCP - General 05/25/19 Nurse Private Duty Relationship Specialty Start Date End Date Melva Martinez MD [address] [facility], [address] [address] [place] [address] PCP - General 05/25/19 Nurse Private Duty Relationship Specialty Start Date End Date Melva Martinez MD [address] [facility] [place] [address] [place], [id number] PCP - General 05/25/19 Nurse Private Duty Relationship Specialty Start Date End Date Inga Ruiz APRN-[employer]NAMENTAL METAL WORKER [address] [facility] [place] [facility], [address] [place] [address] PCP - General Family Medicine 02/26/25 Nurse Private Duty Relationship Specialty Start Date End Date Inga Ruiz APRN-[employer]NAMENTAL METAL WORKER [address] [facility] [place] [facility], [address] [place] [address] PCP - General Family Medicine 02/26/25 Team Status: Active Member Role/Relationship Status Dates Dr. Melva Martinez MD Primary Care Provider Active Team Status: Active Member Role/Relationship Status Dates Dr. Melva Martinez MD Primary Care Provider Active Start: December 06, 2024 Dr. Remy Ventura MD Attending Provider Active S tart: December 06, 2024 Dr. Remy Ventura MD Referring Provider Active S tart: December 06, 2024 Team Status: Inactive Member Role/Relationship Status Dates Dr. Melva Martinez MD Primary Care Provider Active Start: December 18, 2024 End: December 18, 2024 Dr. Melva Martinez MD Referring Provider Active Start: December 18, 2024 End: December 18, 2024 Dr. Remy Ventura MD Attending Provider Active S tart: December 18, 2024 End: December 18, 2024 Team Status: Inactive Member Role/Relationship Status Dates Dr. Melva Martinez MD Primary Care Provider Active Start: January 10, 2025 End: January 10, 2025 Dr. Remy Ventura MD Attending Provider Active S tart: January 10, 2025 End: January 10, 2025 Dr. Remy Ventura MD Referring Provider Active S tart: January 10, 2025 End: January 10, 2025 Team Status: Inactive Member Role/Relationship Status Dates Dr. Melva Martinez MD Primary Care Provider Active Start: January 17, 2025 End: January 17, 2025 Dr. Melva Martinez MD Referring Provider Active Start: January 17, 2025 End: January 17, 2025 Dr. Remy Ventura MD Attending Provider Active S tart: January 17, 2025 End: January 17, 2025 Team Status: Active Member Role/Relationship Status Dates Dr. Melva Martinez MD Primary Care Provider Active Start: March 22, 2025 Dr. Melva Martinez MD Referring Provider Active Start: March 22, 2025 Dr. Remy Lora DO Attending Provider Active Start: March 22, 2025 Team Status: Inactive Member Role/Relationship Status Dates Dr. Melva Martinez MD Primary Care Provider Active Start: March 22, 2025 End: March 22, 2025 Dr. Vicente Valle MD Attending Provider Active S tart: March 22, 2025 End: March 22, 2025 Team Status: Inactive Member Role/Relationship Status Dates Dr. Melva Martinez MD Primary Care Provider Active Start: March 22, 2025 End: March 22, 2025 Dr. Melva Martinez MD Referring Provider Active Start: March 22, 2025 End: March 22, 2025 Dr. Remy Lora DO Attending Provider Active Start: March 22, 2025 End: March 22, 2025 Goals (unrecognized section and content) Goals may be documented in a n alternate sectionGoals may be documented in an alternate sectionGoals may be documented in an alternate section FOR RECORDS PERTAINING TO PATIENTS WHO ARE OR HAVE BEEN ENROLLED IN A CHEMICAL DEPENDENCY/SUBSTANCEABUSE PROGRAM, SOME INFORMATION MAY BE OMITTED. This clinical summary was aggregated from multiple sources. Caution should be exercised in using it in the provision of clinical care. This summary normalizes information from multiple sources, and as a consequence, information in this document may materially change the coding, format and clinical context of patient data. In addition, data may be omitted in some cases. CLINICAL DECISIONS SHOULD BE BASED ON THE PRIMARY CLINICAL RECORDS. [employer] provides no warranty or guarantee of the accuracy or completeness of information in this document.
== END | disposition home or self-care (01) ==
LOC: CVS 13:53
PROVIDERS: PCP Family Medicine; Referring Provider Orthopaedic Surgery; Visit Provider Orthopaedic Surgery
DX: I82.409 Acute embolism and thrombosis of unspecified deep veins of unspecified lower extremity (principal); M79.89 Other specified soft tissue disorders
CPT/HCPCS: 93971

== ENCOUNTER → 2025-07-15 | Outpatient (CLI) | payer BC, SELFPAY ==
--- NOTE | 2025-07-15 12:11 | CT_ITS ---
PROCEDURE: CT/Abdomen/Pelvis W IV Cont ONLY
[2025-07-15 12:13] LABS: Hematocrit 43.5 % (40-54); Hemoglobin 14.4 g/dL (13.0-16.5); Immature Granulocytes Count 0.060 X10^3/uL (0.0-0.0); Mean Corp Hgb Conc 33.1 g/dL (32-36); Mean Corpuscular Volume 91.8 fL (80-94); Mean Platelet Vol. 11.9 fl (6.2-12.0); NRBC Flagged by Analyzer 0 % (0-5); Platelet Count 358 K/mm3 (150-450); RBC Distribution Width CV 12.8 % (11.6-14.6); RBC Distribution Width SD 43.9 fl (35.1-43.9); Red Blood Count 4.74 M/mm3 (4.6-6.2); White Blood Count 9.3 K/mm3 (4.4-11.0)
[2025-07-15 13:22] LABS: AST(SGOT) 23 U/L (<=37); Alanine Aminotransfer ALT/SGPT 25 U/L (<=46); Albumin, Serum 4.2 g/dL (3.4-4.8); Alkaline Phosphatase 81 U/L (40-129); Anion Gap 12 (5-15); BUN 17 mg/dL (4-19); BUN/Creat Ratio 15.0 RATIO (10-20); Calcium,Total 9.1 mg/dL (7.6-11.0); Carbon Dioxide 24.3 mmol/L (21.0-32.0); Chloride 101 mmol/L (98-108); Globulin 3.1 g/dL (2.2-4.2); Glucose 109 mg/dL (70-99); LDH 199 U/L (87-241); Potassium 3.7 mmol/L (3.3-5.1)
[2025-07-23 14:09] LABS: Serotonin, Serum 112 ng/mL (23-230)
== END | disposition home or self-care (01) ==
LOC: CT 12:01
PROVIDERS: PCP Family Medicine; Referring Provider Internal Medicine Medical Oncology; Visit Provider Internal Medicine Medical Oncology
DX: C7A.8 Other malignant neuroendocrine tumors (principal)
CPT/HCPCS: 36415; 74177; 80053; 83615; 84260; 85025; 86316; Q9967